=== PATIENT | female | born 2000 | race Caucasian/White ===

== ENCOUNTER 2022-07-30 11:50 | Inpatient (IN) | payer OTHER, SELFPAY ==
[2022-07-30] VITALS (13 sets, daily range): BP systolic 109–139; BP diastolic 55–93; PULSE 62–90; TEMP 36–36.3; O2SAT 94–98; BMI 37.7
--- NOTE | 2022-07-30 12:09 | PCM.HP.OB ---
HPI - General General Date of Admission: 07/30/22 HPI Narrative WILLIS DE LEON, is a 22 F who presents at 39w2d for induction of labor. Seen in office for visit and heart rate late deceleration on NST. complicated by GDMA1, maternal obesity. Maternal Data Information Final VAZQUEZ: 08/04/22 Final VAZQUEZ Source: LMP Gestational age: 39w2d [facility] Medical History (Updated 07/30/22 @ 17:18 by Sarina Garcia CNM) Gestational diabetes Home Medications PNV #[id number] 1 cap PO.IVFORM DAILY 07/30/22 [History Last Taken 07/30/22 07:00] aspirin 81 mg chewable tablet 1 tab PO DAILY prevent preclampsia 07/30/22 [History Last Taken 07/30/22 07:00] Allergy/AdvReac Type Severity Reaction Status Date / Time No Known Allergies Allergy Verified 07/30/22 12:37 Surgical History (Updated 07/30/22 @ 12:45 by Pilar Leon) History of surgery Social History Smoking Status: Former smoker History Elective abortions Hx Para 0 Spontaneous abortions Hx # Term Pregnancies Ectopic pregnancies Hx # Pregnancies Multiple births # of living children NST FHR Rate Baby A Baseline: 155 Variability:: Moderate Accelerations:: 15 x 15 Decelerations:: None NST Reactive:: Yes FHR Category:: Category I Uterine Activity:: None ROS Constitutional Constitutional: Reports systems reviewed and no addt'l complaints, except as documented; Denies headache(s) Eyes Eyes: Denies acute decrease in peripheral vision, blurry vision or change in vision ENT HEENT: Reports systems reviewed and no addt'l complaints, except as documented Cardiovascular Cardiovascular: Denies chest pain or dizziness Respiratory/Chest Respiratory/Chest: Denies cough, dyspnea, dyspnea on exertion, shortness of breath at rest or shortness of breath with exertion Gastrointestinal Gastrointestinal: Denies abdominal pain, diarrhea, nausea or vomiting Genitourinary Genitourinary: Denies abdominal discomfort Musculoskeletal Musculoskeletal: Denies limited range of motion Integumentary Integumentary: Reports systems reviewed and no addt'l complaints, except as documented Neurologic Neurologic: Reports systems reviewed and no addt'l complaints, except as documented Psychiatric Psychiatric: Reports systems reviewed and no addt'l complaints, except as documented Endocrine Endocrinology: Reports systems reviewed and no addt'l complaints, except as documented Hematologic/Lymphatic Hematologic/Lymphatic: Reports systems reviewed and no addt'l complaints, except as documented Allergic/Immunologic Allergic/Immunologic: Reports systems reviewed and no addt'l complaints, except as documented Physical Exam Const alert and oriented x3 General Appearance: cooperative Orientation / Consciousness: awake, oriented to person, oriented to place and oriented to time Exam Limitations: no limitations HEENT normocephalic Head and Scalp: normal to inspection, normocephalic and atraumatic Face and Sinus: normal facial exam Eyes General Eye: normal appearance of both eyes Neck full ROM Chest Chest: symmetrical chest wall rise Resp normal respiratory effort and normal air movement Auscultation: clear to auscultation bilaterally Cardio regular rate, regular rhythm, S1 normal heart sound, S2 normal heart sound, no murmurs, no rub, no gallops and no clicks GI normal to inspection, nondistended, normoactive bowel sounds and non-tender appearance of the vagina normal Narrative: Shepherd placed without difficulty into cervical os, patient tolerated well. Bladder / Kidney Exam: no CVA tenderness Manual OB Exam: estimated gestational size appropriate, presentation cephalic, dilated 1cm, effaced 60% and station -2 Back/Spine normal ROM Extremity normal to inspection and full ROM Skin no rashes or lesions noted Neuro oriented x3, CN's II-XII intact bilaterally and moves all extremities Sensorium / Orientation: awake, alert and oriented to person Motor Exam: clonus absent Deep Tendon Reflexes: Rt Patellar (L4): 2+ and Lt Patellar (L4): 2+ Labs Labs Labs: Blood Type B POSITIVE Antibody Screen NEGATIVE Hct 40.4 % (37-47) Hgb 13.0 g/dL (12.0-15.0) HIV negative HBsAG negative HepC negative B Positive RPR negative GBS negative Rubella Immune GC/CT negative Assessment & Plan (1) Obesity affecting : (2) GDM, class A1: (3) Encounter for induction of labor: PLAN: Plan 1) Admit to labor and delivery 2) Routine labs 3) Diabetic protocol 4) Epidural for pain management 5) Cytotec PO with shepherd for cervical ripening and then pitocin 6) collaborative physician and notified of patient status
[2022-07-30] MEDS: 0.9% Normal Saline Single 100 ML IV.SOLN. INTRA-UTER (12:20)
[2022-07-30] MEDS: Lactated Ringers 1,000 ML 50 ML IV (12:20)
[2022-07-30 12:31] LABS: Absolute Neutrophil Count 8.2 X10^3/uL (2.0-7.7); Basophil# 0.03 X10^3/uL; Basophil% 0.3 % (0-1); Eosinophil# 0.02 X10^3/uL; Eosinophils% 0.2 % (0-5); Hematocrit 40.4 % (37-47); Mean Corp Hgb Conc 32.2 g/dL (32-36); Mean Corpuscular Hgb 28.8 pg (27.0-32.0); Mean Corpuscular Volume 89.4 fL (81-99); Mean Platelet Vol. 11.4 fl (6.2-12.0); Monocyte# 0.94 X10^3/uL; Monocyte% 8.4 % (0-10); NRBC Flagged by Analyzer 0 % (0-5); Neutrophil # 8.21 X10^3/uL (2.7-7.7); Neutrophil % 73.4 % (47-70); Platelet Count 324 K/mm3 (150-450); RBC Distribution Width CV 14.7 % (11.6-14.6); RBC Distribution Width SD 48.1 fl (35.1-43.9); Red Blood Count 4.52 M/mm3 (4.2-5.4); White Blood Count 11.2 K/mm3 (4.4-11.0)
[2022-07-30] MEDS: miSOPROStol 25 MCG TABLET PO (12:47)
[2022-07-30 13:45] LABS: Bedside Glucose 112 mg/dL (74-106)
[2022-07-30 14:46] LABS: Bedside Glucose 94 mg/dL (74-106)
[2022-07-30 15:46] LABS: Bedside Glucose 81 mg/dL (74-106)
[2022-07-30] MEDS: Oxytocin 15 Units/NS 250ml 15 UNITS/250 ML IV.SOLN 2 UNITS IV (18:19)
[2022-07-30 20:16] LABS: Bedside Glucose 95 mg/dL (74-106)
[2022-07-30] MEDS: Mag Hydrox/Al Hydrox/Simeth 30 ML UDC PO (23:55)
[2022-07-31] VITALS (69 sets, daily range): BP systolic 87–138; BP diastolic 48–95; PULSE 62–114; RESP 15–20; TEMP 35.7–37.6; O2SAT 96–100
[2022-07-31] MEDS: LACTATED RINGERS 500 ML 999 ML IV ×3 (00:17→04:30)
[2022-07-31] MEDS: fentaNYL-bupivacaine (epidural) 100 ML BAG EPIDURAL ×3 (01:12→08:29)
[2022-07-31 01:21] LABS: Bedside Glucose 100 mg/dL (74-106)
[2022-07-31] MEDS: Lactated Ringers 1,000 ML 200 ML IV (03:40)
[2022-07-31 04:06] LABS: Bedside Glucose 98 mg/dL (74-106)
[2022-07-31 08:11] LABS: Bedside Glucose 92 mg/dL (74-106)
--- NOTE | 2022-07-31 08:51 | PCM.PN.BLA ---
Progress Note pt seen at bedside, Resting comfortably with Epidural in place. VE performed- Large forebag- AROM perform- large amt of clear fluid- 3-4/70/-3. IUPC and IFM placed. Continue pitocin at this time.
[2022-07-31 12:11] LABS: Bedside Glucose 72 mg/dL (74-106)
[2022-07-31] MEDS: Acetaminophen 500 MG Tablet PO (12:45)
[2022-07-31] MEDS: Sodium Citrate/Citric Acid 30 ML UDC PO (12:45)
--- NOTE | 2022-07-31 13:02 | PN_ITS ---
Progress Note Patient seen at bedside, resting comfortably with epidural in place. Pitocin was shut off hours ago due to persistent late decelerations and prolonged decelerations. Vaginal exam was performed again by myself patient is 4 cm/70%/- 3 unable to continue Pitocin. She has a category 2 tracing with Pitocin on decision at this time to proceed with a primary section. Patient was counseled on the risk benefits and alternatives. Patient would like to proceed at this time. OR staff was notified. Preoperative antibiotics 2 g of Ancef and 500 mg of azithromycin were ordered.
[2022-07-31] MEDS: Cefazolin 2 GM in 0.9% Normal Saline 100 ML IV (13:40)
--- NOTE | 2022-07-31 14:22 | OP.PCM_ITS ---
Details Operative Information Date of Procedure: 07/31/22 Pre-Operative Diagnosis: 39.3 weeks gestations, Category 2 FHR , GDMA1, Post-Operative Diagnosis: same, live female Indications Narrative: Patient was admitted to [facility] for late decelerations on nonstress test on 05/30/2023. She underwent induction of labor she had repetitive late decelerations with Pitocin. We had to turn the Pitocin on and off. On 07/31/2022 she was still 3 to 4 cm Pitocin had to be turned off due to prolonged decelerations as well as late decelerations. At this time decision was made to proceed with a primary section. Classification: SUHA Procedure Type: low transverse configuration consultant #1: Archana Donahue Type of Anesthesia: Epidural Antibiotic Given: Ancef 2 grams IV x1 and Zithromax 500 mg/5 mL X1 Drain: [place] to straight drain Estimated Blood Loss: 750 Fluids Replaced: 700 Procedure Start Time: 13:42 Procedure Stop Time: 14:18 Time of Delivery: 13:46 Findings Description of Procedure: After informed consent was obtained the patient was taken the operating room. She was then placed in the supine position. She was prepped and draped in the normal sterile fashion. Epidural Anesthesia was found to be adequate. At this time a Pfannenstiel skin incision was made with a knife was carried down to the underlying layer of the fascia. The fascial incision was then extended laterally using traction. attention was then turned to the superior aspect of the fascial edge was grasped with 2 straight Sarah clamps tented up and the rectus muscle dissected off sharply using curved Cardoza scissor. Rectus muscles were then in the midline bluntly and peritoneum was entered sharply. Gentle opposing traction was placed. At this time the vesicouterine peritoneum was identified. Scalpel was used to make a uterine incision in a low transverse fashion. The uterus was then entered bluntly gentle opposing traction was placed to extend this incision. 's head was brought to the uterine incision was delivered atraumatically. Cord was clamped and cut infant was handed to the waiting nursery team. The Placenta was removed from the uterus. The uterus was then removed from the abdominal cavity. The uterus was cleared of all clots and debris using a lap. At this time the uterine incision was reapproximated using #1 Vicryl in a running locked fashion. small extension to right side noted. hemostatic after sutured with 1-0 vicryl in running locked fashion. Hemostasis was appreciated. Posterior cul-de-sac was then cleared of all clots and debris. Uterus was placed back in the abdominal cavity. Gutters were cleared of all clots and debris. Uterine incision was reevaluated and noted to be of excellent hemostasis. Gonzalo placed over uterie incision. At this time the peritoneum was grasped with Kellys reapproximated using #2 Vicryl suture in a running fashion. Gonzalo placed over recuts muscle. Fascia was then reapproximated using #1 Vicryl in a running fashion. gonzalo placed in subq layer and bovie used to coagulate any small oozing. Subcu layer was reapproximated with #2 0 plain gut suture in an interrupted fashion. Subcu layer was closed using 4-0 Monocryl in subcu fashion. Dry sterile dressing was applied. Instrument lap needle count correct ?2. Anticipated normal postoperative course. Presentation: Positive for Vertex Amniotic Membrane Rupture Type: Spontaneous Amniotic Fluid Description: Clear Placental Delivery Description: Expressed Placenta Disposition: [facility] Cord Vessel Description: 3 Vessels Cord Entanglement: None A Gender: Female (1 minute): 8 (5 minute): 9 Delayed Cord Clamping: Yes Complications Risks of Surgery Discussed w/Patient: Bleeding, Anesthesia Risks, Infection and Injury to surrounding structure(s) including bowel and bladder Complications: none
[2022-07-31] MEDS: Oxytocin 15 Units/NS 250ml 15 UNITS/250 ML IV.SOLN 83 UNITS IV (14:45)
[2022-07-31] MEDS: Ketorolac 30 MG/ML Syringe IV ×2 (16:30→22:09)
[2022-07-31] MEDS: Lactated Ringers 1,000 ML 100 ML IV (16:33)
[2022-07-31] MEDS: Acetaminophen 500 MG Tablet 1000 MG PO (18:48)
[2022-07-31] MEDS: 0.9% Saline Lock 10 ML Syringe IV (22:09)
[2022-08-01] VITALS (8 sets, daily range): BP systolic 87–108; BP diastolic 40–69; PULSE 73–93; RESP 16–18; TEMP 36–36.3; O2SAT 96–98
[2022-08-01] MEDS: Acetaminophen 500 MG Tablet 1000 MG PO ×4 (00:51→19:50)
--- NOTE | 2022-08-01 01:00 | NURSING ---
Some duramorph checks were documented under vital signs.
[2022-08-01] MEDS: Enoxaparin 40 MG/0.4 ML Syringe SC (01:53)
[2022-08-01] MEDS: Ketorolac 30 MG/ML Syringe IV ×2 (04:38→10:14)
[2022-08-01] MEDS: 0.9% Saline Lock 10 ML Syringe IV ×2 (04:38→10:19)
[2022-08-01 04:58] LABS: Hematocrit 28.1 % (37-47); Hemoglobin 9.1 g/dL (12.0-15.0); Mean Corp Hgb Conc 32.4 g/dL (32-36); Mean Corpuscular Hgb 29.4 pg (27.0-32.0); Mean Corpuscular Volume 90.6 fL (81-99); Mean Platelet Vol. 11.2 fl (6.2-12.0); Platelet Count 230 K/mm3 (150-450); RBC Distribution Width CV 15.1 % (11.6-14.6); White Blood Count 17.9 K/mm3 (4.4-11.0)
[2022-08-01 06:26] LABS: Bedside Glucose 86 mg/dL (74-106)
--- NOTE | 2022-08-01 08:33 | PCM.PN.OB ---
Subjective Subjective Patient seen at bedside. with support. Pain controlled. Ambulating and voiding without difficulty. Denies headache, vision changes, dizziness, SOB or CP. Desires discharge home tomorrow. Objective Data Objective Data Vital Signs: Vital Signs Temp Pulse Resp BP Pulse Ox O2 Del Method 97.2 F L 77 16 100/55 L 98 Room Air 08/01/22 03:43 08/01/22 03:43 08/01/22 03:43 08/01/22 03:55 08/01/22 03:43 08/01/22 03:43 Oxygen Delivery Method Room Air Weight: 206 lb 5.643 oz Body Mass Index (BMI) 37.7 Intake & Output: Intake and Output for Last 24 Hours 07/30/22 07/31/22 08/01/22 23:59 23:59 23:59 Intake Total 17.64 / 17.64 5582.12 / 5582.12 Output Total 800 / 800 2150 / 2150 300 / 300 Balance -782.36 / -782.36 3432.12 / 3432.12 -300 / -300 Lab / Micro Data Result Diagrams: 08/01/22 04:45 Labs: Laboratory Results - last 24 hr 07/31/22 11:50: POC Glucose 72 L 08/01/22 04:45: WBC 17.9 H, RBC 3.10 L, Hgb 9.1 L, Hct 28.1 L, MCV 90.6, MCH 29.4, MCHC 32.4, RDW Std Deviation 50.0 H, RDW Coeff of Timo 15.1 H, Plt Count 230, MPV 11.2 08/01/22 06:07: POC Glucose 86 ROS Eyes Eyes: Denies blurry vision, change in vision or spots in vision ENT HEENT: Denies dizziness or headache(s) Cardiovascular Cardiovascular: Denies abdominal pain, chest pain or dyspnea Respiratory/Chest Respiratory/Chest: Denies cough, dyspnea, shortness of breath at rest or shortness of breath with exertion Gastrointestinal Gastrointestinal: Denies abdominal pain, diarrhea or vomiting Genitourinary Genitourinary: Denies change in urinary stream, difficulty urinating or dysuria Musculoskeletal Musculoskeletal: Reports none Integumentary Integumentary: Denies rash Neurologic Neurologic: Denies dizziness, headache(s), memory loss or weakness Assessment & Plan (1) GDM, class A1: (2) Obesity affecting : (3) Status post primary low transverse section: PLAN: Plan POD 1 Primary Section Pain control support Anticipate discharge home tomorrow
[2022-08-01] MEDS: Senna/Docusate Sodium 1 Tablet PO (10:17)
[2022-08-01] MEDS: Ibuprofen 600 MG Tablet PO ×2 (17:53→23:58)
[2022-08-02 01:30] VITALS: BP 96/68; PULSE 81; RESP 15; TEMP 36.7
[2022-08-02] MEDS: Acetaminophen 500 MG Tablet 1000 MG PO ×2 (01:35→07:52)
[2022-08-02] MEDS: Enoxaparin 40 MG/0.4 ML Syringe SC (02:41)
[2022-08-02] MEDS: Ibuprofen 600 MG Tablet PO (06:09)
[2022-08-02 07:54] VITALS: BP 109/70; PULSE 76; RESP 14; TEMP 36.2; O2SAT 96
--- NOTE | 2022-08-02 08:47 | PCM.PN.OB ---
Subjective Subjective The patient is doing well. She desires discharge today. Pain is well controlled. She is ambulating and voiding without difficulty. She is tolerating regular diet without nausea or vomiting. She denies lightheadedness, dizziness, chest pain, shortness of breath, leg pain. Lochia is normal. Objective Data Objective Data Vital Signs: Vital Signs Temp Pulse Resp BP Pulse Ox O2 Del Method 97.1 F L 76 14 109/70 96 Room Air 08/02/22 07:54 08/02/22 07:54 08/02/22 07:54 08/02/22 07:54 08/02/22 07:54 08/02/22 07:54 Oxygen Delivery Method Room Air Weight: 206 lb 5.643 oz Body Mass Index (BMI) 37.7 Intake & Output: Intake and Output for Last 24 Hours 07/31/22 08/01/22 08/02/22 23:59 23:59 23:59 Intake Total 5582.12 / 5582.12 Output Total 2150 / 2150 550 / 550 Balance 3432.12 / 3432.12 -550 / -550 Lab / Micro Data Result Diagrams: 08/01/22 04:45 Physical Exam Const alert and no apparent distress General Appearance: comfortable Resp normal respiratory effort GI soft to palpation GI Narrative: ATTP, dressing c/d/i Assessment & Plan (1) Status post primary low transverse section: PLAN: Patient is postoperative day 2 from a section. She desires discharge today. Meeting milestones to go home. Discharge instructions reviewed and to follow-up in the office next week.
--- NOTE | 2022-08-02 08:53 | DCINST_ITS ---
Discharge Instructions Diet Discharge Diet: No restrictions Activity Discharge Activity: May Drive (Once you are no longer taking pain medication, and you feel strong enough to slam on a brake or turn a steering wheel sharply) May resume sexual activity in: 6 weeks Ice area for (Minutes): 15 Weight Bearing Status: Weight bearing as tolerated Lifting Restrictions: nothing heavier than baby Dressing / Incision Call your doctor if your incision/area has: Continuous Slow Oozing, Sudden Increased Bleeding, Increased Pain/ Swelling, Increased Redness, Foul Smelling Discharge and Swelling at the incision site Call your doctor if you observe: Fever of 101 or Higher, Coldness, Increased Pain, Numbness or Tingling, Change in Color, Inability to urinate, Inability to have a bowel movement, Using more than 1 pad per hour, Shortness of breath, Dizziness, Fainting spells, Swelling in the ankles, Chest pain, Increased palpitations (irregular heartbeat), Calf discomfort and Uncontrolled pain Suture Line Care: Avoid Pulling/Pushing and Avoid Pinching/Bending Remove Dressing in: 4 days Cleanse incision/area with: Soap & Water Follow Up Care When: 1 week for incision check 6 weeks for exam Test Results: Test results from this visit will be discussed in further detail at your follow- up appointment, if applicable. Discharge Plan Admission Admit Date/Time: 07/30/22 11:50 Primary Reason for Your Visit: delivery Attending Provider: Sarina Garcia Primary Care Provider: Rafaela Koehler Primary Instructions Patient Instructions: After a , Section Dc Discharge Orders/Prescriptions Prescriptions: New ibuprofen 600 mg tablet 600 mg PO Q6H PRN (Reason: pain) Qty: 30 0RF oxycodone-acetaminophen [Percocet] 5-325 mg tablet 1 tab PO Q6H PRN (Reason: pain) 7 Days Qty: 15 0RF docusate sodium [Colace] 100 mg capsule 100 mg PO BID Qty: 30 0RF Continued PNV #[id number] 1 cap PO.IVFORM DAILY Discontinued aspirin [Baby Aspirin] 81 mg Tablet,Chewable 1 tab PO DAILY Referrals / Follow Up: Care Physician,No Primary [Primary Care Provider] - Disposition Disposition (needs filled in before D/C Order can be placed): Home, Self Care
[2022-08-02] MEDS: Senna/Docusate Sodium 1 Tablet PO (09:21)
[2022-08-02 11:05] VITALS: RESP 16
--- NOTE | 2022-08-09 08:26 | DS.PCM_ITS ---
Providers Date of Admission: 07/30/22 Date of Discharge: 08/02/22 Primary Care Physician: No Primary Care Phys Reason For Visit: PRIMARY C SECTION Diagnosis Discharge Diagnosis (1) Status post primary low transverse section: Status: Acute Code(s): Z98.891 - History of uterine scar from previous surgery Plan: Patient is postoperative day 2 from a section. She desires discharge today. Meeting milestones to go home. Discharge instructions reviewed and to follow-up in the office next week. Medications at Discharge Home Medications PNV #[id number] 1 cap PO.IVFORM DAILY 07/30/22 docusate sodium 100 mg capsule (Colace) 100 mg PO BID #30 caps 08/02/22 ibuprofen 600 mg tablet 600 mg PO Q6H PRN pain #30 tabs 08/02/22 oxycodone-acetaminophen 5 mg-325 mg tablet (Percocet) 1 tab PO Q6H PRN pain 7 days #15 tabs 08/02/22 Hospital Course Operations section Summary of Care Provided Hospital Course: Pt presented for 39 wk IOL. H/o obesity and A1GDM. Underwent section for category 2 tracing remote from delivery. See op report for details. Dis charged home in good condition. Weight / BMI Weight Weight: 206 lb 5.643 oz Body Mass Index (BMI) 37.7 ABG / Lab / Microbiology Data Result Diagrams: 08/01/22 04:45 D/C Instructions Discharge Diet: No restrictions May resume sexual activity in: 6 weeks Ice area for (Minutes): 15 Weight Bearing Status: Weight bearing as tolerated Call your doctor if your incision/area has: Continuous Slow Oozing, Sudden Increased Bleeding, Increased Pain/ Swelling, Increased Redness, Foul Smelling Discharge and Swelling at the incision site Call your doctor if you observe: Fever of 101 or Higher, Coldness, Increased Pain, Numbness or Tingling, Change in Color, Inability to urinate, Inability to have a bowel movement, Using more than 1 pad per hour, Shortness of breath, Dizziness, Fainting spells, Swelling in the ankles, Chest pain, Increased palpitations (irregular heartbeat), Calf discomfort and Uncontrolled pain Suture Line Care: Avoid Pulling/Pushing and Avoid Pinching/Bending Cleanse incision/area with: Soap & Water When: 1 week for incision check 6 weeks for exam Meaningful Use Info Meaningful Use Diagnoses (Choose all that apply): None applicable Discharge Plan Admission Admit Date/Time: 07/30/22 11:50 Primary Reason for Your Visit: delivery Attending Provider: Sarina Garcia Primary Care Provider: Care Physician,No Primary Instructions Patient Instructions: After a , Section Dc Discharge Orders/Prescriptions Prescriptions: New ibuprofen 600 mg tablet 600 mg PO Q6H PRN (Reason: pain) Qty: 30 0RF oxycodone-acetaminophen [Percocet] 5-325 mg tablet 1 tab PO Q6H PRN (Reason: pain) 7 Days Qty: 15 0RF docusate sodium [Colace] 100 mg capsule 100 mg PO BID Qty: 30 0RF Continued PNV #14-[id number] 1 cap PO.IVFORM DAILY Discontinued aspirin [Baby Aspirin] 81 mg Tablet,Chewable 1 tab PO DAILY Referrals / Follow Up: Care Physician,No Primary [Primary Care Provider] - Disposition Disposition (needs filled in before D/C Order can be placed): Home, Self Care
== END 2022-08-02 11:20 | disposition home or self-care (01) | DRG 788 ==
PROVIDERS: Obstetrics & Gynecology; Admitting Provider Advanced Practice Midwife; Referring Provider Advanced Practice Midwife; Visit Provider Advanced Practice Midwife
DX: O76 Abnormality in fetal heart rate and rhythm complicating labor and delivery (principal); E66.9 Obesity, unspecified; O24.429 Gestational diabetes mellitus in childbirth, unspecified control; O99.214 Obesity complicating childbirth; Z37.0 Single live birth; Z3A.39 39 weeks gestation of pregnancy
CPT/HCPCS: 59025; 59050; 82962; 85025; 85027; 86850; 86900; 86901; 99221; 99252; J7120; A4216; G0378; G0463; J2405

== ENCOUNTER 2025-02-06 11:01 | Emergency (ER) | payer OTHER, SELFPAY ==
[2025-02-06 11:02] VITALS: BP 126/107; PULSE 88; RESP 18; TEMP 36.7; O2SAT 100; BMI 28.3
--- NOTE | 2025-02-06 11:25 | CM.ED ---
Date of referral: 02/06/25 Reason for referral: No PCP (PCP) on file Referred by: Social Work Identification Patient provided consent to social work visit. Ship Erector inquired about a PCP at which point, patient stated she is established with Dr. Cristine Vera. Sociak Worker will alert registration so that patient's medical record can be updated. Paty Chapman, [employer]OR [employer], PHARMACY TECHNICIAN ASSISTANT
--- OUTSIDE RECORDS SUMMARY | 2025-02-06 12:24 | XMS RPT_ITS | CCD ---
Author Organization [facility] Care Team Providers Care Cardiology Fellow Name Role Phone Payton Nice MD Primary Care Provider RY CASTRO DO Attending Unavailable RY CASTRO DO Primary Care Unavailable RY CASTRO DO Admitting Unavailable Payton Nice MD Primary Care Provider Payton Nice MD Primary Care Provider Sarina Garcia Admitting Unavailable Sarina Garcia Attending Unavailable Sarina Garcia Referring Unavailable Care Physician, No Primary Primary Care Unava ilable Unavailable Primary Care Provider Unavailabl e Knoble MEASUREMENT AND SENSING TECHNICIAN.RECREATION ASSISTANT, Onesimo Primary Care Provider Mary MEASUREMENT AND SENSING TECHNICIAN.RECREATION ASSISTANT, Onesimo Primary Care Provider STAN TAYLOR Attending UnavailINDIGO Huston Referring Unavailable PROVIDER, UNKNOWN Primary Care Unavailable DHRUV BONILLA Referring Unavailabl e PROVIDER, UNKNOWN Primary Care Unavailable KNOBLE, ONESIMO Referring Unavailable KNOBLE, ONESIMO Primary Care Unavailable KNOBLEONESIMO Attending Unavailable KNOBLE, ONESIMO Primary Care Unavailable KNOBLE, ONESIMO Primary Care Unavailable STEPHANIE, CHANDNI Referring Unavailable STEPHANIE, CHANDNI Attending Unavailable KNOBLE, ONESIMO Primary Care Unavailable HUI SY Attending Unavailable KNOBLE, ONESIMO Primary Care Unavailable KNOBLE, ONESIMO Primary Care Unavailable KNOBLE, ONESIMO Primary Care Unavailable DHRUV BONILLA Attending Unavailabl e KNOBLE, ONESIMO Primary Care Unavailable KNOBLE, ONESIMO Referring Unavailable KNOBLE, ONESIMO Primary Care Unavailable KNOBLE, ONESIMO Attending Unavailable RADHA GONZALEZ Attending Unavailabl e KNOBLE, ONESIMO Primary Care Unavailable ANETTE CRONIN Referring Unavailable KNOBLE, ONESIMO Primary Care Unavailable Medications Current Medications Medication Drug Class(es) Dates Sig (Normalized) Sig (Original) acetaminophen 325 mg / oxyCODONE hydrochloride 5 mg oral tablet (1 source) Opioid Agonist Start: 08-02-2022 take 1 tablet by mouth every six hours Oxycodone-Acetami nophen (Percocet) 5-325 mg tablet Active 1 TABLET PO EVERY 6 HOURS 15 August 02, 2022 Start: 08-02-2022 take 1 tablet by jana th every six hours Oxycodone-Acetaminophen (Percocet) 5-325 mg tablet Active 1 TABLET PO EVERY 6 HOURS 15 August 02, 2022 amoxicillin 875 mg oral tablet (5 sources) Penicillin-class Antibacterial Start: 2022 End: 05-30-2022 take 1 tablet by mouth twice daily amoxicillin (AMOXIL) 875 mg tablet Indications: Acute sinusitis, recurrence not specified, unspecified location Take 1 tablet by mouth twice daily for 10 days. 20 tablet 0 2022 05/30/2022 Active Comment on above: Take 1 tablet by jana th twice daily for 10 days. Blood-Glucose Meter (2 sources) Start: 2022 End: 05-21-2022 Blood-Glucose Meter Indications: Abnormal maternal glucose tolerance, antepartum 1 Each as directed for 1 day. 1 Each 0 2022 05/21/2022 Active Comment on above: 1 Each as directed f or 1 day. clotrimazole 10 mg/ml topical cream (3 sources) Azole Antifungal Start: 08-29-2022 End: 09-12-2022 clotrimazole (LOTRIMIN, CLOTRIM) 1 % cream Indications: Yeast infection of nipple, Apply to affected area twice daily for 14 days. 28 g 0 08/29/2022 09/12/2022 Active Comment on above: Apply to affected ar ea twice daily for 14 days. dicloxacillin 500 mg oral capsule (3 sources) Penicillin-class Antibacterial Start: 11-01-2022 End: 11-11-2022 take 1 capsule by mouth four times daily dicloxacillin (DYNAPEN) 500 mg capsule Take 1 capsule by mouth four times daily for 10 days. 40 capsule 0 11/01/2022 11/11/2022 Active Start: 08-29-2022 End: 09-08-2022 take 1 capsule by mouth four times daily dicloxacillin (DYNAPEN) 500 mg capsule Indications: Mastitis, left, acute Take 1 capsule by mouth four times daily for 10 days. 40 capsule 0 08/29/2022 09/08/2022 Active Comment on above: Take 1 capsule by [facility] four times daily for 10 days. docusate sodium 100 mg oral capsule (1 source) Start: 08-02-19 take 1 capsule by mouth twice daily Docusate Sodium (Colace) 100 mg capsule Active 100 MG PO TWICE A DAY August 02, 2022 12:00am doxycycline hyclate 100 mg oral tablet (1 source) Tetracycline-class Drug Start: 11-19-19 End: 11-26-19 24 take 1 tablet by mouth twice daily doxycycline (VIBRA-TABS) 100 mg tablet Take 1 tablet by mouth two times a day for 7 days. 14 tablet 0 11/19/2023 11/26/2023 Active Ethinyl Estradiol / Ferrous fumarate / Norethindrone (10 sources) Estrogen Start: 01-20-20 End: 12-22-19 take 1 tablet by mouth once daily Norethin Anibal-Eth Estrad-FE (JUNEL FE 1.5, 28,) 1.5 mg-30 mcg (21)/75 mg (7) tablet Take 1 tablet by mouth once daily. 84 tablet 3 01/20/2024 12/21/2024 Active fluconazole 150 mg oral tablet (1 source) Azole Antifungal Start: 12-05-19 End: 12-06-19 take 1 tablet by mouth once daily fluconazole (DIFLUCAN) 150 mg tablet Take 1 tablet by mouth once daily for 1 day. 1 tablet 0 12/05/2023 12/06/2023 Active iv contrast (will be provided with radiology test) (2 sources) Start: 02-19-20 End: 02-20-20 iv contrast (will be provided with radiology test) Indications: Other specified disorders of kidney and ureter MRI Kidney Inject, intravenously, once for 1 dose. No IV access, insert saline lock prior to the beginning of sedation, infusion, injection of imaging exam. Discontinue saline lock post exam. If Pt. has a central line or IVAD, may access for administration according to line specific nursing protocol. Once exam is complete flush line and de-access according to line specific nursing protocol in the MR contrast administration guidelines link. 1 Each 0 02/18/2023 02/19/2023 Active Start: 02-18-2023 End: 02-18-2023 iv contrast (will be provide d with radiology test) Indications: Other specified disorders of kidney and ureter MRI Kidney Inject, intravenously, once for 1 dose. No IV access, insert saline lock prior to the beginning of sedation, infusion, injection of imaging exam. Discontinue saline lock post exam. If Pt. has a central line or IVAD, may access for administration according to line specific nursing protocol. Once exam is complete flush line and de-access according to line specific nursing protocol in the MR contrast administration guidelines link. 1 Each 0 02/18/2023 02/18/2023 Discontinued Comment on above: MRI Kidney Inject, i ntravenously, once for 1 dose. No IV access, insert saline lock prior to the beginning of sedation, infusion, injection of imaging exam. Discontinue saline lock post exam. If Pt. has a central line or IVAD, may access for administration according to line specific nursing protocol. Once exam is complete flush line and de-access according to line specific nursing protocol in the MR contrast administration guidelines link. linaclotide 0.145 mg oral capsule (16 sources) Guanylate Cyclase-C Agonist Start: 01-29-20 End: 02-28-20 24 take 1 capsule by mouth once daily in the morning linaclotide (LINZESS) 145 mcg capsule Indications: Irritable bowel syndrome, unspecified type Take 1 capsule by mouth daily at 6 am. 30 capsule 01/29/2024 Active Start: 10-08-2023 End: 01-20-2024 take 1 capsule by mouth once daily in the morning linaclotide (LINZESS) 145 mcg capsule Indications: Irritable bowel syndrome, unspecified type Take 1 capsule by mouth daily at 6 am. 30 capsule 0 10/08/2023 01/20/2024 Discontinued Comment on above: Take 1 capsule by mo uth daily at 6 am. nitrofurantoin, macrocrystals 25 mg / nitrofurantoin, monohydrate 75 mg oral capsule (2 sources) Nitrofuran Antibacterial Start: 05-25-20 End: 05-30-20 take 1 capsule by mouth twice daily nitrofurantoin monohydrate and macrocrystal (MACROBID) 100 mg capsule Indications: Acute UTI Take 1 capsule by mouth two times a day for 5 days. 10 capsule 05/25/2024 05/30/2024 Active Start: 10-20-2023 End: 10-25-2023 take 1 capsule by mouth twice daily nitrofurantoin monohydrate and macrocrystal (MACROBID) 100 mg capsule Indications: Acute cystitis with hematuria Take 1 capsule by mouth two times a day for 5 days. 10 capsule 0 10/20/2023 10/25/2023 Active Comment on above: Take 1 capsule by [facility] two times a day for 5 days. omeprazole 20 mg delayed release oral capsule (17 sources) Proton Pump Inhibitor Start: 01-29-2024 End: 02-28-2024 take 1 capsule by mouth once daily omeprazole (PRILOSEC) 20 mg capsule Indications: Irritable bowel syndrome, unspecified type Take 1 capsule by mouth once daily. 30 capsule 01/29/2024 Active Start: 10-08-2023 End: 01-20-2024 take 1 capsule by mouth once daily omeprazole (PRILOSEC) 20 mg capsule Indications: Irritable bowel syndrome, unspecified type Take 1 capsule by mouth once daily. 30 capsule 0 10/08/2023 01/20/2024 Discontinued Comment on above: Take 1 capsule by [facility] once daily. PNV #14-iron-FA#1-dha-d ocusate (1 source) Start: 07-30-2022 take 1 capsule by mouth once daily PNV #14-iron-FA#1-dha- docusate Active 1 CAP PO.IVFORM DAILY July 30, 2022 12:00am Completed/Discontinued Medications Medication Drug Class(es) Dates Sig (Normalized) Sig (Original) acetaminophen 325 mg oral tablet (5 sources) End: 12-19-2021 take 2 tablets by mouth every six hours as needed acetaminophen (TYLENOL) 325 mg tablet Take 650 mg by mouth every 6 hours as needed. 0 12/19/2021 Discontinued Comment on above: Take 650 mg by mouth every 6 hours as needed. aspirin 81 mg chewable tablet (20 sources) Platelet Aggregation Inhibitor, Nonsteroidal Anti-inflammatory Drug Start: 07-30-2022 End: 08-02-2022 take 1 tablet by mouth once daily Aspirin (Baby Aspirin) 81 mg Tablet,Chewable Discontinued 1 TABLET PO DAILY July 30, 2022 12:00am August 02, 2022 8:49am Start: 01-17-2022 End: 08-06-2022 take 1 capsule by mouth once daily aspirin 81 mg cap Take 1 capsule by mouth once daily. 30 capsule 5 01/17/2022 08/06/2022 Discontinued (Other) Comment on above: Take 1 capsule by [facility] once daily. diphenhydrAMINE (8 sources) Histamine-1 Receptor Antagonist End: 08-06-2022 diphenhydramine HCl (UNISOM, DIPHENHYDRAMINE, ORAL) Take by mouth. 0 08/06/2022 Discontinued (Other) diphenhydramine HCl (UNISOM, DIPHENHYDRAMINE, ORAL) Take by mouth. 0 Active Comment on above: Take by mouth. Ethinyl Estradiol / Norethindrone (20 sources) Estrogen Start: 01-13-2023 End: 01-20-2024 take 1 tablet by mouth once daily Norethindrone Acet-Ethinyl Est 1-20 mg-mcg per tablet Take 1 tablet by mouth once daily. 84 tablet 3 01/13/2023 01/20/2024 Discontinued Start: 01-13-2023 End: 03-22-2024 take 1 tablet by mouth once daily Norethindrone Acet-Ethinyl Est 1-20 mg-mcg per tablet Take 1 tablet by mouth once daily. 84 tablet 3 01/13/2023 03/22/2024 Active Start: 01-13-2023 End: 01-13-2024 take 1 tablet by mouth once daily Norethindrone Acet-Ethinyl Est 1-20 mg-mcg per tablet Take 1 tablet by mouth once daily. 84 tablet 3 01/13/2023 01/13/2024 Active Start: 08-15-2020 End: 12-19-2021 take 1 tablet by mouth once daily Norethindrone Acet-Ethinyl Est 1-20 mg-mcg per tablet Take 1 tablet by mouth once daily. 63 tablet 5 08/15/2020 12/19/2021 Discontinued Start: 08-15-2020 take 1 tablet by jana once daily Norethindrone Acet-Ethinyl Est 1-20 mg-mcg per tablet Take 1 tablet by mouth once daily. 63 tablet 5 08/15/2020 Active Comment on above: Take 1 tablet by jana once daily. ibuprofen 800 mg oral tablet (7 sources) Nonsteroidal Anti-inflammatory Drug Start: 11-01-2022 End: 11-01-2022 ibuprofen 800 mg tab(s) (MOTRIN) Start: 08-02-2022 take 600 mg by mouth every six hours Ibuprofen Active 600 MG PO EVERY 6 HOURS August 02, 2022 12:00am End: 12-19-2021 take 1 tablet by mouth every six hours as needed ibuprofen (ADVIL) 200 mg tablet Take 200 mg by mouth every 6 hours as needed. 0 12/19/2021 Discontinued Comment on above: Take 200 mg by mouth every 6 hours as needed. meloxicam 7.5 mg oral tablet (5 sources) Nonsteroidal Anti-inflammatory Drug Start: 10-28-19 End: 12-20-19 22 take 1 tablet by mouth once daily meloxicam (MOBIC) 7.5 mg tablet Take 1 tablet by mouth once daily. 30 tablet 2 10/27/2020 12/19/2021 Discontinued Comment on above: Take 1 tablet by jana once daily. norethindrone 0.35 mg oral tablet (6 sources) Start: 09-10-19 23 End: 01-14-20 23 take 1 tablet by mouth once daily Norethindrone, Contraceptive, (ORTHO MICRONOR) 0.35 mg tablet Take 1 tablet by mouth once daily. 28 tablet 1 11/19/2022 01/13/2023 Discontinued Comment on above: Take 1 tablet by jana once daily. nystatin 100 unt/mg / triamcinolone acetonide 0.001 mg/mg topical ointment (4 sources) Polyene Antifungal, Corticosteroid Start: 12-04-19 24 End: 01-20-20 24 nystatin-triamcinolo ne (MYCOLOG) ointment Indications: Vaginal discomfort Apply sparingly to perineum twice daily for irritation/infection . 30 g 0 12/04/2023 01/20/2024 Discontinued multivitamin (CLASSIC ) 28 mg iron- 800 mcg tab(s) (20 sources) Start: 05-22-20 take 1 tablet by mouth once daily multivitamin (CLASSIC ) 28 mg iron- 800 mcg tab(s) Take 1 tablet by mouth once daily. 30 tablet 5 05/22/2022 Active End: 05-22-2022 take 1 tablet by mouth once daily multivitamin (CLASSIC ) 28 mg iron- 800 mcg tab(s) Take 1 tablet by mouth once daily. 0 05/22/2022 Discontinued take 1 tablet by jana th once daily multivitamin (CLASSIC ) 28 mg iron- 800 mcg tab(s) Take 1 tablet by mouth once daily. 0 Active Comment on above: Take 1 tablet by jana th once daily. tropicamide 10 mg/ml ophthalmic solution (2 sources) Anticholinergic Start: 06-30-2023 End: 06-30-2023 tropicamide 1 % 1 Drop (MYDRIACYL) Start: 10-25-2021 End: 10-25-2021 tropicamide 0.5 % 1 Drop (MY DRIACYL) Problems Active Problems Problem Classification Problem Date Documented Da te Episodic/Chronic Contraceptive and procreative management (1 source) Oral contraception; Translations: [Encounter for surveillance of contraceptive pills] 01-20-2024 Episodic Diseases of white blood cells (2 sources) Leukocytosis; Translations: [Elevated white blood cell count, unspecified] Onset: 02-12-2024 02-12-2024 Chronic Genitourinary symptoms and ill-defined conditions (2 sources) Increased frequency of urination; Translations: [Frequency of micturition] 10-20-2023 Episodic Headache; including migraine (1 source) Migraine with aura; Translations: [Migraine with aura, not intractable, without status migrainosus] Chronic Immunizations and screening for infectious disease (2 sources) Needs influenza immunization; Translations: [Encounter for immunization] Episodic Menstrual disorders (3 sources) Mid-cycle bleeding; Translations: [Ovulation bleeding] Onset: 01-23-2024 01-20-2024 Chronic Miscellaneous mental health disorders (2 sources) Sleep walking disorder; 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]] Onset: 02-12-2024 02-12-2024 Chronic Nonmalignant breast conditions (2 sources) Acute mastitis; Translations: [Mastitis without abscess] Episodic Other aftercare (1 source) Surgical follow-up; Translations: [Encounter for follow-up examination after completed treatment for conditions other than malignant neoplasm] Episodic Other complications of ; puerperium affecting management of mother (1 source) Obstetric nipple infection with complication; Translations: [Infection of nipple associated with the puerperium] Episodic Other complications of (2 sources) Maternal obesity complicating , childbirth and the puerperium, antepartum; Translations: [Obesity complicating , second trimester] Chronic Other complications of (1 source) Obesity complicating , unspecified trimester; Translations: [Obesity complicating , childbirth, or the puerperium, unspecified as to episode of care or not applicable] Chronic Other complications of (2 sources) Urinary tract infection in ; Translations: [Unspecified infection of urinary tract in , second trimester] Episodic Other complications of (1 source) High risk ; Translations: [Supervision of high risk , unspecified, third trimester] Episodic Other diseases of kidney and ureters (1 source) Disorder of kidney and/or ureter; Translations: [Other specified disorders of kidney and ureter] 02-18-2023 Chronic Other diseases of kidney and ureters (2 sources) Complex renal cyst; Translations: [Cyst of kidney, acquired] 03-21-2023 Episodic Other eye disorders (1 source) Bilateral vitreous floaters; Translations: [Other vitreous opacities, bilateral] 06-30-2023 Chronic Other female genital disorders (1 source) Vaginal discomfort; Translations: [Unspecified condition associated with female genital organs and menstrual cycle] 12-04-2023 Episodic Other gastrointestinal disorders (3 sources) Irritable bowel syndrome; Translations: [Irritable bowel syndrome without diarrhea] 10-08-2023 Chronic Other gastrointestinal disorders (2 sources) Irritable bowel syndrome without diarrhea; Translations: [Irritable bowel syndrome, unspecified type] Onset: 10-08-2023 Chronic Other nervous system disorders (1 source) Postoperative pain ; Translations: [Other acute postprocedural pain] Episodic Other upper respiratory infections (2 sources) Acute sinusitis; Translations: [Acute sinusitis, unspecified] Episodic Residual codes; unclassified (2 sources) Gestation period, 11 weeks; Translations: [11 weeks gestation of ] Episodic Residual codes; unclassified (1 source) Gestation period, 12 weeks; Translations: [12 weeks gestation of ] Episodic Residual codes; unclassified (1 source) Gestation period, 16 weeks; Translations: [16 weeks gestation of ] Episodic Residual codes; unclassified (2 sources) Gestation period, 20 weeks; Translations: [20 weeks gestation of ] Episodic Residual codes; unclassified (1 source) Gestation period, 24 weeks; Translations: [24 weeks gestation of ] Episodic Residual codes; unclassified (1 source) Gestation period, 28 weeks; Translations: [28 weeks gestation of ] Episodic Residual codes; unclassified (1 source) Gestation period, 32 weeks; Translations: [32 weeks gestation of ] Episodic Residual codes; unclassified (1 source) Gestation period, 33 weeks; Translations: [33 weeks gestation of ] Episodic Residual codes; unclassified (2 sources) Gestation period, 35 weeks; Translations: [35 weeks gestation of ] Episodic Residual codes; unclassified (1 source) Gestation period, 36 weeks; Translations: [36 weeks gestation of ] Episodic Residual codes; unclassified (2 sources) Gestation period, 37 weeks; Translations: [37 weeks gestation of ] Episodic Residual codes; unclassified (1 source) Gestation period, 39 weeks; Translations: [39 weeks gestation of ] Episodic Residual codes; unclassified (1 source) History of uterine scar from previous surgery; Translations: [Other postprocedural status] Episodic Skin and subcutaneous tissue infections (1 source) Abscess; Translations: [Cutaneous abscess, unspecified] 11-19-2023 Episodic Urinary tract infections (2 sources) Acute cystitis; Translations: [Acute cystitis with hematuria] 10-20-2023 Episodic Past or Other Problems Problem Classification Problem Date Documented Da te Episodic/Chronic Abdominal pain (20 sources) Right lower quadrant pain; Translations: [Right lower quadrant pain] Onset: 05-23-2023 02-09-2023 Episodic Blindness and vision defects (19 sources) Bilateral hyperopia of eyes; Translations: [Hypermetropia, bilateral] Onset: 05-30-2020 Resolved: 10-25-2021 Episodic Diabetes or abnormal glucose tolerance complicating ; childbirth; or the puerperium (20 sources) Abnormal glucose level; Translations: [Abnormal glucose complicating ] Onset: 05-17-2022 Resolved: 08-06-2022 05-17-2022 Episodic Other aftercare (1 source) Other nursing home (current) drug therapy; Translations: [Medication management] Onset: 02-12-2024 Episodic Other complications of (20 sources) Obesity; Translations: [Obesity complicating , unspecified trimester] Onset: 12-06-2021 Resolved: 08-06-2022 Chronic Other injuries and conditions due to external causes (20 sources) Bone injury; Translations: [Other injury of unspecified body region, initial encounter] Onset: 11-27-2020 Resolved: 03-15-2022 11-27-2020 Episodic Other non-traumatic joint disorders (20 sources) Pain in left knee; Translations: [Pain in joint, lower leg] Onset: 09-15-2020 Resolved: 03-15-2022 09-15-2020 Episodic Other and delivery including normal (20 sources) Normal ; Translations: [Encounter for supervision of normal first , unspecified trimester] Onset: 03-15-2022 Resolved: 08-06-2022 Episodic Other screening for suspected conditions (not mental disorders or infectious disease) (13 sources) Patient encounter status; Translations: [Encounter for screening for malignant neoplasm of cervix] Onset: 02-12-2024 Episodic Screening and history of mental health and substance abuse codes (2 sources) Encounter for screening for depression; Translations: [Encounter for screening examination for other mental health and behavioral disorders] Onset: 02-12-2024 Episodic Results Test Name Value Interpretation Reference Range Facil ity Bacteria Ur Culton Bacteria identified Cx Nom (U) ORGANISM ID: 1 >=100,000 CFU/ml Escherichia coli ORGANISM ID: 1 (ESCHERICHIA COLI) ANTIBIOTIC INTERPRETATION PIOTR STATUS REFERENCE RANGE Ampicillin S 8 F Susceptible <=8 , Intermediate >8 , Resistant >16 Cefazolin S <=4 F Susceptible 0-16 , Intermediate <0 or >16 , Resistant >16 For uncomplicated urinary tract infections, cefazolin results can be used to predict susceptibility or resistance to cephalexin. Ceftriaxone S <=1 F Susceptible <=1 , Intermediate >1 , Resistant >=4 Cefepime S <=1 F Susceptible <=2 , Susceptible-Dose Dependent >2 , Resistant >=16 Ertapenem S <=0.5 F Susceptible <=0.5 , Intermediate >.5 , Resistant >1 Meropenem S <=0.25 F Susceptible <=1 , Intermediate >1 , Resistant >2 Ampicillin/Sulbact S <=2 F Susceptible <=8 , Intermediate >8 , Resistant >16 Piperacillin/Tazobac S <=4 F Susceptible <16 , Susceptible-Dose Dependent >=16 , Resistant >=32 Gentamicin S <=1 F Susceptible <=2 , Intermediate >2 , Resistant >=8 Tobramycin S <=1 F Susceptible <4 , Intermediate >=4 , Resistant >=8 Trimeth sulfameth S <=20 F Susceptible <=40 , Resistant >40 Ciprofloxacin S <=0.25 F Susceptible <0.5 , Intermediate >=.5 , Resistant >=1 Nitrofurantoin S <=16 F Susceptible <=32 , Intermediate >32 , Resistant >64 Abnormal [facility] Comment on above: Performed By: #### 6 30-4 ####[facility] [id number] [address] [place] CNOVon 05-25-2024 CNOV Office Visit ([facility]) WILLAM DE LEON ([id number]) 2000 F Date Time Provider Department 05/25/24 8:00 AM HEBERT WATTS During your visit today, we recorded the following information about you: Temperature Pulse Respiration Blood pressure 97.8 degrees 118/minute 18/minute 120/72 Weight 81.2 kg Hebert Watts APRN.CNP 05/25/2024 8:19 AM Signed This note was created using Hotreaderriter. Subjective Willam De Leon is a 24 year old female. HPI Pt complains of three days of UTI type symptoms including lower back pain urinary burning and frequency. She does note that she occasionally gets urinary tract infections but not very frequently. Review of Systems Constitutional: Positive for fever. Gastrointestinal: Negative for nausea and vomiting. Genitourinary: Positive for dysuria and frequency. Objective BP 120/72 Pulse 118 Temp 36.6 ?C (97.8 ?F) Resp 18 Wt 81.2 kg (179 lb 0.2 oz) LMP 01/05/2024 (Approximate) SpO2 98% BMI 33.82 kg/m? Physical Exam Vitals and nursing note reviewed. Constitutional: General: She is not in acute distress. Appearance: Normal appearance. She is not ill-appearing. HENT: Head: Normocephalic. Pulmonary: Effort: Pulmonary effort is normal. Musculoskeletal: General: Normal range of motion. Cervical back: Normal range of motion. Skin: General: Skin is warm and dry. Neurological: General: No focal deficit present. Mental Status: She is alert. Psychiatric: Mood and Affect: Mood normal. Behavior: Behavior normal. Assessment and Plan ASSESSMENT/PLAN: 1. Urinary frequency - ICD9: 788.41, ICD10: R35.0 (primary diagnosis) As below - UA DIP, URINE (POC) - URINE CULTURE 2. Acute UTI - ICD9: 599.0, ICD10: N39.0 acute - UA positive for sridhar esterase and nitrates - Send urine for culture - Begin treatment with Macrobid 100 mg BID for 5 days - Patient education for prevention given - NITROFURANTOIN MONOHYDRATE AND MACROCRYSTAL 100 MG ORAL CAP Hebert Watts APRN.CNP Referring Provider: SELF [200] Allergies As of Date: 05/25/2024 (No Known Allergies) Date Reviewed: 05/25/2024 Reviewed by: Hebert Watts APRN.RECREATION ASSISTANT - Fully Assessed Reason for Visit: Urinary Frequency [1086] Cmt: low back pain x 3 days Primary Visit Diagnosis:Urinary frequency [R35.0] Other Visit Diagnosis:Acute UTI [N39.0] Order(s):UA DIP, URINE (POC) [1204953] Order #: [id number] #:[id number] URINE CULTURE [SQURCUL] Order #: [id number]. #:[id number] nitrofurantoin monohydrate and macrocrystal (MACROBID) 100 mg capsuleTake 1 capsule by mouth two times a day for 5 days.Disp: 10 capsuleRfl: 0 Prescriptions as of 05/25/2024 - nitrofurantoin monohydrate and macrocrystal (MACROBID) 100 mg capsule Take 1 capsule by mouth two times a day for 5 days. - linaclotide (LINZESS) 145 mcg capsule Take 1 capsule by mouth daily at 6 am. - omeprazole (PRILOSEC) 20 mg capsule Take 1 capsule by mouth once daily. - Norethin Anibal-Eth Estrad-FE (,) 1.5 mg-30 mcg (21)/75 mg (7) tablet Take 1 tablet by mouth once daily. Problem List As Of Date 05/25/2024 Noted Resolved Myopia, bilateral [H52.13] 05/30/2020 10/25/2021 Acute pain of left knee [M25.562] 09/15/2020 03/15/2022 Bone bruise [T14.8XXA] 11/27/2020 03/15/2022 Obesity during [O99.210] 12/06/2021 08/06/2022 Encounter for supervision of normal first pregn*03/15/2022 08/06/2022 Abnormal glucose complicating [O99.81*05/17/2022 2022 Gestational diabetes mellitus, class A1 [O24.41*2022 08/06/2022 Lower abdominal pain [R10.30] 05/23/2023 Prescriptions ordered this encounter Disp Refills Start End NITROFURANTOIN MONOHYDRATE AND MACROCR* 10 c* 0 05/25/2024 05/30/2024 Route: ORAL Sig: Take 1 capsule by mouth two times a day for 5 days. Encounter Status:Closed by HEBERT WATTS on 05/25/24 Normal [facility] UA DIP, URINE (POC)on 2023 BILIRUBIN UA (POCT) Small Abnormal Negative [facility] CLARITY UA (POCT) Clear [facility] COLOR UA (POCT) [place] [facility] GLUCOSE UA (POCT) 100 mg/dL Abnormal Negative [facility] Hemoglobin Ql (U) Moderate Abnormal Negative [facility] Interpretation and review of laboratory results Abnormal [facility] KETONE UA (POCT) Trace Negative mg/dL [facility] LEUKOC[facility] (POCT) Large Abnormal Negative [facility] NITRITE UA (POCT) Positive Abnormal Negative [facility] PH UA (POCT) 7.0 4.5 - 8.0 [facility] Protein Ql (U) >=300 Abnormal Negative mg/dL [facility] SPECIFIC GRAVITY UA (POCT) 1.020 1.005 - 1.030 [facility] UROBILINOGEN UA (POCT) 2.0 Abnormal Normal E.U./dL [facility] Location:[address], [place], [place], [id number] [place] [address] POINT OF CARE [facility] CNCOon 02-13-2024 CNCO Letter Text Normal [facility] CNPNon 02-13-2024 ALINEN Telephone (ARNAV) WILLAM DE LEON ([id number]) 2000 F Date Time Provider Department 02/13/24 ONESIMO LINN During your visit today, we recorded the following information about you: Onesimo Linn APRN.RECREATION ASSISTANT 02/13/2024 8:41 AM Signed Please let patient know her cholesterol is elevated. I recommend a low fat low cholesterol diet. Her labs are otherwise normal. King Sy MA 02/13/2024 8:58 AM Signed Patient notified and voiced understanding. Mailed cholesterol letter to patient. King Sy MA Allergies As of Date: 02/13/2024 (No Known Allergies) Date Reviewed: 02/12/2024 Reviewed by: Susan Carrillo MA - Fully Assessed Reason for Visit: Results [95] Prescriptions as of 02/13/2024 - linaclotide (LINZESS) 145 mcg capsule Take 1 capsule by mouth daily at 6 am. - omeprazole (PRILOSEC) 20 mg capsule Take 1 capsule by mouth once daily. - Norethin Anibal-Eth Estrad-FE (,) 1.5 mg-30 mcg (21)/75 mg (7) tablet Take 1 tablet by mouth once daily. Problem List As Of Date 02/13/2024 Noted Resolved Myopia, bilateral [H52.13] 05/30/2020 10/25/2021 Acute pain of left knee [M25.562] 09/15/2020 03/15/2022 Bone bruise [T14.8XXA] 11/27/2020 03/15/2022 Obesity during [O99.210] 12/06/2021 08/06/2022 Encounter for supervision of normal first pregn*03/15/2022 08/06/2022 Abnormal glucose complicating [O99.81*05/17/2022 2022 Gestational diabetes mellitus, class A1 [O24.41*2022 08/06/2022 Lower abdominal pain [R10.30] 05/23/2023 Encounter Status:Closed by KING SY on 02/13/24 Normal [facility] CBC W Auto Differential pane l (Bld)on 02-12-2024 Basophils (Bld) [#/Vol] 0.04 10*3/uL [facility] Basophils/100 WBC (Bld) 0.4 % [facility] Differential cell count method Nom (Bld) Auto [facility] Eosinophils (Bld) [#/Vol] 0.10 10*3/uL [facility] Eosinophils/100 WBC (Bld) 1.0 % [facility] Erythrocyte distribution width (RBC) [Ratio] 13.0 % 11.5 - 15.0 % [facility] Hematocrit (Bld) [Volume fraction] 42.8 % 36.0 - 46.0 % [facility] Hemoglobin (Bld) [Mass/Vol] 13.9 g/dL 11.5 - 15.5 g/dL [facility] Immature granulocytes (Bld) [#/Vol] 0.03 10*3/uL [facility] Immature granulocytes/100 WBC (Bld) 0.3 % [facility] Lymphocytes (Bld) [#/Vol] 2.72 10*3/uL [facility] Lymphocytes/100 WBC (Bld) 27.2 % [facility] MCH (RBC) [Entitic mass] 30.2 pg 26.0 - 34.0 pg [facility] MCHC (RBC) [Mass/Vol] 32.5 g/dL 30.5 - 36.0 g/dL [facility] MCV (RBC) [Entitic vol] 92.8 fL 80.0 - 100.0 fL [facility] Monocytes (Bld) [#/Vol] 0.70 10*3/uL [facility] Monocytes/100 WBC (Bld) 7.0 % [facility] Neutrophils (Bld) [#/Vol] 6.41 10*3/uL [facility] Neutrophils/100 WBC (Bld) 64.1 % [facility] Nucleated RBC (Bld) [#/Vol] [facility] Nucleated RBC/100 WBC (Bld) [Ratio] 0.0 % /100 WBC [facility] Platelet mean volume (Bld) [Entitic vol] 11.4 fL 9.0 - 12.7 fL [facility] Platelets (Bld) [#/Vol] 323 10*3/uL [facility] RBC (Bld) [#/Vol] 4.61 10*6/uL 3.90 - 5.20 m/uL [facility] WBC (Bld) [#/Vol] 10.00 10*3/uL [facility] Basophils (Bld) [#/Vol] 0.04 10*3/uL Normal <0.11 [facility] Comment on above: Order Comment: Speci men Type: BLOOD SPECIMENOrdering Facility: [facility] Address: [address] [place] [address] Performed By: #### 5 7021-8 ####[facility]CL[facility] [id number] [place] [address] [place] Basophils/100 WBC (Bld) 0.4 % Normal [facility] Comment on above: Order Comment: Speci men Type: BLOOD SPECIMENOrdering Facility: [facility] Address: [address] [place] [address] Performed By: #### 5 7021-8 ####[facility] [id number] [place] [address] [place] Differential cell count method Nom (Bld) Auto Normal [facility] Comment on above: Order Comment: Speci men Type: BLOOD SPECIMENOrdering Facility: [facility] Address: [address] [place] [address] Performed By: #### 5 7021-8 ####[facility] [id number] [place] [address] [place] Eosinophils (Bld) [#/Vol] 0.10 10*3/uL Normal <0.46 [facility] Comment on above: Order Comment: Speci men Type: BLOOD SPECIMENOrdering Facility: [facility] Address: [address] [place] [address] Performed By: #### 5 7021-8 ####[facility] [id number] [place] [address] [place] Eosinophils/100 WBC (Bld) 1.0 % Normal [facility] Comment on above: Order Comment: Speci men Type: BLOOD SPECIMENOrdering Facility: [facility] Address: [address] [place] [address] Performed By: #### 5 7021-8 ####[facility] [id number] [place] [address] [place] Erythrocyte distribution width (RBC) [Ratio] 13.0 % Normal 11.5-15.0 [facility] Comment on above: Order Comment: Speci men Type: BLOOD SPECIMENOrdering Facility: [facility] Address: [address] [place] [address] Performed By: #### 5 7021-8 ####[facility] [id number] [place] [address] [place] Hematocrit (Bld) [Volume fraction] 42.8 % Normal 36.0-46.0 [facility] Comment on above: Order Comment: Speci men Type: BLOOD SPECIMENOrdering Facility: [facility] Address: [address] [place] [address] Performed By: #### 5 7021-8 ####[facility]IA [id number] [place] [address] [place] Hemoglobin (Bld) [Mass/Vol] 13.9 g/dL Normal 11.5-15.5 [facility] Comment on above: Order Comment: Speci men Type: BLOOD SPECIMENOrdering Facility: [facility] Address: [address] [place] [address] Performed By: #### 5 7021-8 ####[facility]IA [id number] [place] [address] [place] Immature granulocytes (Bld) [#/Vol] 0.03 10*3/uL Normal <0.10 [facility] Comment on above: Order Comment: Speci men Type: BLOOD SPECIMENOrdering Facility: [facility] Address: [address] [place] [address] Performed By: #### 5 7021-8 ####[facility] [id number] [place] [address] [place] Immature granulocytes/100 WBC (Bld) 0.3 % Normal [facility] Comment on above: Order Comment: Speci men Type: BLOOD SPECIMENOrdering Facility: [facility] Address: [address] [place] [address] Performed By: #### 5 7021-8 ####[facility] [id number] [place] [address] [place] Lymphocytes (Bld) [#/Vol] 2.72 10*3/uL Normal 1.00-4.00 [facility] Comment on above: Order Comment: Speci men Type: BLOOD SPECIMENOrdering Facility: [facility] Address: [address] [place] [address] Performed By: #### 5 7021-8 ####[facility] [id number] [place] [address] [place] Lymphocytes/100 WBC (Bld) 27.2 % Normal [facility] Comment on above: Order Comment: Speci men Type: BLOOD SPECIMENOrdering Facility: [facility] Address: [address] [place] [address] Performed By: #### 5 7021-8 ####[facility] [id number] [place] [address] [place] MCH (RBC) [Entitic mass] 30.2 pg Normal 26.0-34.0 [facility] Comment on above: Order Comment: Speci men Type: BLOOD SPECIMENOrdering Facility: [facility] Address: [address] [place] [address] Performed By: #### 5 7021-8 ####[facility] [id number] [place] [address] [place] MCHC (RBC) [Mass/Vol] 32.5 g/dL Normal 30.5-36.0 [facility] Comment on above: Order Comment: Speci men Type: BLOOD SPECIMENOrdering Facility: [facility] Address: [address] [place] [address] Performed By: #### 5 7021-8 ####[facility] [id number] [place] [address] [place] MCV (RBC) [Entitic vol] 92.8 fL Normal 80.0-100.0 [facility] Comment on above: Order Comment: Speci men Type: BLOOD SPECIMENOrdering Facility: [facility] Address: [address] [place] [address] Performed By: #### 5 7021-8 ####[facility] [id number] [place] [address] [place] Monocytes (Bld) [#/Vol] 0.70 10*3/uL Normal <0.87 [facility] Comment on above: Order Comment: Speci men Type: BLOOD SPECIMENOrdering Facility: [facility] Address: [address] [place] [address] Performed By: #### 5 7021-8 ####[facility] [id number] [place] [address] [place] Monocytes/100 WBC (Bld) 7.0 % Normal [facility] Comment on above: Order Comment: Speci men Type: BLOOD SPECIMENOrdering Facility: [facility] Address: [address] [place] [address] Performed By: #### 5 7021-8 ####[facility] [id number] [place] [address] [place] Neutrophils (Bld) [#/Vol] 6.41 10*3/uL Normal 1.45-7.50 [facility] Comment on above: Order Comment: Speci men Type: BLOOD SPECIMENOrdering Facility: [facility] Address: [address] [place] [address] Performed By: #### 5 7021-8 ####[facility] [id number] [place] [address] [place] Neutrophils/100 WBC (Bld) 64.1 % Normal [facility] Comment on above: Order Comment: Speci men Type: BLOOD SPECIMENOrdering Facility: [facility] Address: [address] [place] [address] Performed By: #### 5 7021-8 ####[facility]IA [id number] [place] [address] [place] Nucleated RBC (Bld) [#/Vol] 10*3/uL Normal <0.01 [facility] Comment on above: Order Comment: Speci men Type: BLOOD SPECIMENOrdering Facility: [facility] Address: [address] [place] [address] Performed By: #### 5 7021-8 ####[facility]IA [id number] [place] [address] [place] Nucleated RBC/100 WBC (Bld) [Ratio] 0.0 /100 WBC Normal [facility] Comment on above: Order Comment: Speci men Type: BLOOD SPECIMENOrdering Facility: [facility] Address: [address] [place] [address] Performed By: #### 5 7021-8 ####[facility] [id number] [place] [address] [place] Platelet mean volume (Bld) [Entitic vol] 11.4 fL Normal 9.0-12.7 [facility] Comment on above: Order Comment: Speci men Type: BLOOD SPECIMENOrdering Facility: [facility] Address: [address] [place] [address] Performed By: #### 5 7021-8 ####[facility] [id number] [place] [address] [place] Platelets (Bld) [#/Vol] 323 10*3/uL Normal 150-400 [facility] Comment on above: Order Comment: Speci men Type: BLOOD SPECIMENOrdering Facility: [facility] Address: [address] [place] [address] Performed By: #### 5 7021-8 ####[facility]CL[facility] [id number] [place] [address] [place] RBC (Bld) [#/Vol] 4.61 10*6/uL Normal 3.90-5.20 [facility] Comment on above: Order Comment: Speci men Type: BLOOD SPECIMENOrdering Facility: [facility] Address: [address] [place] [address] Performed By: #### 5 7021-8 ####[facility] [id number] [place] [address] [place] WBC (Bld) [#/Vol] 10.00 10*3/uL Normal 3.70-11.00 [facility] Comment on above: Order Comment: Speci men Type: BLOOD SPECIMENOrdering Facility: [facility] Address: [address] [place] [address] Performed By: #### 5 7021-8 ####[facility]IA [id number] [place] [address] [place] CNOVon 02-12-2024 CNOV Office Visit (JEREMIASWS) TIFFANIEWILLAM FRYE ([id number]) 2000 F Date Time Provider Department 02/12/24 11:00 AM ONESIMO LINN During your visit today, we recorded the following information about you: Pulse Respiration Blood pressure Weight 71/minute 14/minute 114/74 83 kg Onesimo Linn, JUAN JOSÉ.RECREATION ASSISTANT 02/12/2024 11:02 AM Signed Chief Complaint Patient presents with: 6 Month Exam HPI Willam De Leon is a 23 year old female who presents here today for Above Complaints.. Patient presents for routine follow up. Patient reports new onset sleep walking only during her period. Patient reports this has happened the past 2-3 months and she has woke up either with no tampon in when she went to bed or 2 in. Also finding pillow in her bathroom but no memory of putting it there. Past medical history, appointments, medications, allergies reviewed. Previous Medical History PAST MEDICAL HISTORY Diagnosis Date ADHD (attention deficit hyperactivity disorder) Benign paroxysmal positional vertigo 2020 Gestational diabetes mellitus, class A1 2022 Left knee pain Previous Surgical History PAST SURGICAL HISTORY Procedure Laterality Date DELIVERY ONLY 07/31/2022 LTCS COLONOSCOPY 05/23/2023 will need repeated with MAC PAST SURGICAL HISTORY OF wisdom teeth Family History FAMILY HISTORY Problem Relation Age of Onset No Known Problems Mother Diabetes Father Heart Father No Known Problems Sister No Known Problems Sister No Known Problems Sister No Known Problems Brother No Known Problems Maternal Grandmother No Known Problems Maternal Grandfather Cataract Paternal Grandmother Diabetes Paternal Grandmother Dementia Paternal Grandmother No Known Problems Paternal Grandfather Patient Allergies ALLERGIES No Known Allergies Current Medications Current Outpatient Medications on File Prior to Visit Medication Sig linaclotide (LINZESS) 145 mcg capsule Take 1 capsule by mouth daily at 6 am. omeprazole (PRILOSEC) 20 mg capsule Take 1 capsule by mouth once daily. Norethin Anibal-Eth Estrad-FE (,) 1.5 mg-30 mcg (21)/75 mg (7) tablet Take 1 tablet by mouth once daily. No current facility-administere d medications on file prior to visit. Social History Social History Tobacco Use Smoking status: Never Smokeless tobacco: Never Vaping Use Vaping Use: Never used Substance Use Topics Alcohol use: No Drug use: No Review of Symptoms REVIEW OF SYSTEMS SEE HPI EXAM: BP 114/74 Pulse 71 Resp 14 Wt 83 kg (183 lb) LMP 01/05/2024 (Approximate) BMI 34.58 kg/m? PHYSICAL EXAMINATION: General appearance: Well appearing, alert, in no acute distress, well-hydrated, well nourished. Lungs: Lungs clear to auscultation. No wheezing, rhonchi, rales. Heart: RRR without murmur, gallop, or rubs. No ectopy Neuro: Gait normal. Reflexes normal and symmetric. Sensation grossly intact. Health Maintenance List Depression Screening Never done Anxiety Screening Never done Covid-19 Vaccine(1 - 24 season) due on 05/09/2024 Influenza Vaccine(1) due on 03/21/2024 Cervical Cancer Screening due on 12/19/2024 DTaP,Tdap,Td Vaccine(10 - Td or Tdap) due on 06/03/2032 Hepatitis B Vaccine Completed HPV Vaccine Completed Hepatitis C Screening Discontinued HIV Screening Discontinued ASSESSMENT/PLAN: 1. Leukocytosis, unspecified type - ICD9: 288.60, ICD10: D72.829 (primary diagnosis) - COMPLETE BLOOD COUNT AND DIFFERENTIAL 2. Medication management - ICD9: V58.69, ICD10: Z79.899 - COMPREHENSIVE METABOLIC PANEL 3. Screening for diabetes mellitus - ICD9: V77.1, ICD10: Z13.1 - HEMOGLOBIN A1C 4. Encounter for lipid screening for cardiovascular disease - ICD9: V77.91, V81.2, ICD10: Z13.220, Z13.6 - LIPID PANEL, NONFASTING 5. Sleep walking - ICD9: 307.46, ICD10: F51.3 - CONSULT TO SLEEP MEDICINE - ADULT 6. Screening for depression - ICD9: V79.0, ICD10: Z13.31 - DEPRESSION SCREENING 7. Encounter for screening examination for other mental health and behavioral disorders - ICD9: V79.8, ICD10: Z13.39 - ANXIETY SCREENING Onesimo Linn APRN.RECREATION ASSISTANT Allergies As of Date: 02/12/2024 (No Known Allergies) Date Reviewed: 02/12/2024 Reviewed by: Susan Carrillo MA - Fully Assessed Reason for Visit: 6 Month Exam [189] Primary Visit Diagnosis:Leukocytos is, unspecified type [D72.829] Other Visit Diagnoses:Medication management [Z79.899] Screening for diabetes mellitus [Z13.1] Encounter for lipid screening for cardiovascular disease [Z13.220, Z13.6] Sleep walking [F51.3] Screening for depression [Z13.31] Encounter for screening examination for other mental health and behavioral disorders [Z13.39] Order(s):COMPLETE BLOOD COUNT AND DIFFERENTIAL [SQCBCDIF] Order #: [id number] FUTURE COMPREHENSIVE METABOLIC PANEL [SQCMP] Order #: [id number] (more content not included)... Normal [facility] metabolic 2000 panelon 02-12-2024 Albumin [Mass/Vol] 4.8 g/dL Normal 3.9-4.9 [facility] Comment on above: Order Comment: Speci men Type: BLOOD SPECIMENOrdering Facility: [facility] Address: [address] [place] [address] Performed By: #### 2 4323-8, LIPNF ####[facility]CL[facility] [id number] [place] [address] [place] ALP [Catalytic activity/Vol] 77 U/L Normal 34-123 [facility] Comment on above: Order Comment: Speci men Type: BLOOD SPECIMENOrdering Facility: [facility] Address: [address] [place] [address] Performed By: #### 2 4323-8, LIPNF ####[facility]CL[facility] [id number] [place] [address] [place] ALT [Catalytic activity/Vol] 16 U/L Normal 7-38 [facility] Comment on above: Order Comment: Speci men Type: BLOOD SPECIMENOrdering Facility: [facility] Address: [address] [place] [address] Performed By: #### 2 4323-8, LIPNF ####[facility] [id number] [place] [address] [place] Anion gap [Moles/Vol] 9 mmol/L Normal 8-15 [facility] Comment on above: Order Comment: Speci men Type: BLOOD SPECIMENOrdering Facility: [facility] Address: [address] [place] [address] Performed By: #### 2 4323-8, LIPNF ####[facility]CL[facility] [id number] [place] [address] [place] AST [Catalytic activity/Vol] 15 U/L Normal 13-35 [facility] Comment on above: Order Comment: Speci men Type: BLOOD SPECIMENOrdering Facility: [facility] Address: [address] [place] [address] Performed By: #### 2 4323-8, LIPNF ####[facility] [id number] [place] [address] [place] Bilirubin [Mass/Vol] 0.3 mg/dL Normal 0.2-1.3 [facility] Comment on above: Order Comment: Speci men Type: BLOOD SPECIMENOrdering Facility: [facility] Address: [address] [place] [address] Performed By: #### 2 4323-8, LIPNF ####[facility]CL[facility] [id number] [place] [address] [place] Calcium [Mass/Vol] 9.6 mg/dL Normal 8.5-10.2 [facility] Comment on above: Order Comment: Speci men Type: BLOOD SPECIMENOrdering Facility: [facility] Address: [address] [place] [address] Performed By: #### 2 4323-8, LIPNF ####[facility]CL[facility] [id number] [place] [address] [place] Chloride [Moles/Vol] 106 mmol/L Normal 98-107 [facility] Comment on above: Order Comment: Speci men Type: BLOOD SPECIMENOrdering Facility: [facility] Address: [address] [place] [address] Performed By: #### 2 4323-8, LIPNF ####[facility]CL[facility] [id number] [place] [address] [place] CO2 [Moles/Vol] 25 mmol/L Normal 22-30 [facility] Comment on above: Order Comment: Speci men Type: BLOOD SPECIMENOrdering Facility: [facility] Address: [address] [place] [address] Performed By: #### 2 4323-8, LIPNF ####[facility] [id number] [place] [address] [place] Creatinine [Mass/Vol] 0.80 mg/dL Normal 0.58-0.96 [facility] Comment on above: Order Comment: Omayra mendez Type: BLOOD SPECIMENOrdering Facility: [facility] Address: [address] [place] [address] Performed By: #### 2 4323-8, LIPNF ####[facility] LABIA [id number] [address] Creatinine and Glomerular filtration rate.predicted panel (S/P/Bld) 105 mL/min/1.73m??? Normal >=60 [facility] Comment on above: Order Comment: Omayra mendez Type: BLOOD SPECIMENOrdering Facility: [facility] Address: [address] [place] [address] Result Comment: Jaqui mated Glomerular Filtration Rate (eGFR) is calculated using the 2020 CKD-EPI creatinine equation. This equation utilizes serum creatinine, sex, and age as parameters. The creatinine assay has traceable calibration to isotope dilution-mass spectrometry. Refer to KDIGO guidelines for clinical interpretation. In patients with unstable renal function, e.g. those with acute kidney injury, the eGFR may not accurately reflect actual GFR. Performed By: #### 2 4323-8, LIPBARBARA ####[facility] [id number] [place] [address] [place] Glucose [Mass/Vol] 108 mg/dL High 74-99 [facility] Comment on above: Order Comment: Omayra mendez Type: BLOOD SPECIMENOrdering Facility: [facility] Address: [address] [place] [address] Result Comment: The [place] Diabetes Association (ADA) provides guidance for cutoff values for fasting glucose and random glucose. The ADA defines fasting as no caloric intake for at least 8 hours. Fasting plasma glucose results between 100 to 125 mg/dL indicate increased risk for diabetes (prediabetes). Fasting plasma glucose results greater than or equal to 126 mg/dL meet the criteria for diagnosis of diabetes. In the absence of unequivocal hyperglycemia, results should be confirmed by repeat testing. In a patient with classic symptoms of hyperglycemia or hyperglycemic crisis, random plasma glucose results greater than or equal to 200 mg/dL meet the criteria for diagnosis of diabetes. Reference: Standards of Medical Care in Diabetes 2016, [place] Diabetes Association. Diabetes Care. 2016.39(Suppl 1). Performed By: #### 2 4323-8, LIPNF ####[facility] LABCLIA [id number] [place] [address] [place] Potassium [Moles/Vol] 4.4 mmol/L Normal 3.7-5.1 [facility] Comment on above: Order Comment: Speci men Type: BLOOD SPECIMENOrdering Facility: [facility] Address: [address] [place] [address] Performed By: #### 2 4323-8, LIPNF ####[facility] LABCLIA [id number] [place] [address] [place] Protein [Mass/Vol] 7.5 g/dL Normal 6.3-8.0 [facility] Comment on above: Order Comment: Speci men Type: BLOOD SPECIMENOrdering Facility: [facility] Address: [address] [place] [address] Performed By: #### 2 4323-8, LIPNF ####[facility]CLIA [id number] [place] [address] [place] Sodium [Moles/Vol] 140 mmol/L Normal 136-144 [facility] Comment on above: Order Comment: Speci men Type: BLOOD SPECIMENOrdering Facility: [facility] Address: [address] [place] [address] Performed By: #### 2 4323-8, LIPNF ####[facility] LABCLIA [id number] [place] [id number] [place] Urea nitrogen [Mass/Vol] 8 mg/dL Normal 7-21 [facility] Comment on above: Order Comment: Speci men Type: BLOOD SPECIMENOrdering Facility: [facility] Address: [address] [place] [address] Performed By: #### 2 4323-8, LIPNF ####[facility]CLIA [id number] [place] [address] [place] HbA1c (Bld)on 02-12-2024 Average glucose Estimated from glycated hemoglobin (Bld) [Mass/Vol] 105 mg/dL Normal [facility] Comment on above: Order Comment: Omayra mendez Type: BLOOD SPECIMENOrdering Facility: [facility] Address: [address] [place] [address] Result Comment: eAG: (Estimated average glucose) is a calculated value from HgbA1c and is wholesale representative of the average blood glucose level in the last 2-3 month period. Performed By: #### 5 5454-3 ####[facility] [id number] [address] OF [facility] HbA1c (Bld) [Mass fraction] 5.3 % Normal 4.3-5.6 [facility] Comment on above: Order Comment: Omayra mendez Type: BLOOD SPECIMENOrdering Facility: [facility] Address: [address] [place] [address] Result Comment: [place] Diabetes Association guidelines indicate that patients with HgbA1c in the range 5.7-6.4% are at increased risk for development of diabetes, and intervention by lifestyle modification may be beneficial. HgbA1c greater or equal to 6.5% is considered diagnostic of diabetes. Performed By: #### 5 5454-3 ####[facility] LABCLIA [id number] [place] [address] [place] LIPID PANEL, NONFASTINGon Cholesterol [Mass/Vol] 205 mg/dL High <200 [facility] Comment on above: Order Comment: Omayra mendez Type: BLOOD SPECIMENOrdering Facility: [facility] Address: [address] [place] [address] Result Comment: <200 mg/dL, Desirable 200-239 mg/dL, Borderline high >239 mg/dL, High Performed By: #### 2 4323-8, LIPNF ####[facility]CL[facility] [id number] [address] [place] HDL CHOLESTEROL, NF 36 mg/dL Low >39 [facility] Comment on above: Order Comment: Omayra andrea Type: BLOOD SPECIMENOrdering Facility: [facility] Address: [address] [place] [address] Result Comment: 40-5 9 mg/dL, Acceptable >59 mg/dL, High: Negative risk factor for coronary heart disease <40 mg/dL, Low: Positive risk factor for coronary heart disease Performed By: #### 2 4323-8, LIPNF ####[facility]CLIA [id number] [address] OF [facility] LDL CHOLESTEROL, NF 132 mg/dL High <100 [facility] Comment on above: Order Comment: Omayra [facility] Type: BLOOD SPECIMENOrdering Facility: [facility] Address: [address] [place] [address] Result Comment: <100 mg/dL, Optimal 100-129 mg/dL, Near optimal/above optimal 130-159 mg/dL, Borderline high 160-189 mg/dL, High >189 mg/dL, Very high Secondary prevention optimal LDL Cholesterol levels are recommended to be < 70 mg/dL Performed By: #### 2 4323-8, LIPNF ####[facility]CL[facility] [id number] [place] [address] [place] LDL/HDL RATIO, NF 3.67 mg/dL High <2.54 [facility] Comment on above: Order Comment: Karylars [facility] Type: BLOOD SPECIMENOrdering Facility: [facility] Address: [address] [place] [address] Result Comment: Catherine olivera: 1. National Cholesterol Education Program ATP III Guideline At-A-Glance Quick Desk Reference: National Heart, Lung, and Blood [place]. National Institutes of Health. 2001: NIH Publication No. 01-3305. 2. An International Atherosclerosis Society position paper: global recommendations for the management of dyslipidemia: executive summary, Atherosclerosis. 2014: 232(2):410-413. Performed By: #### 2 4323-8, LIPNF ####[facility]CLIA [id number] [place] [address] [place] NON HDL CHOL, NF 169 mg/dL High <130 [facility] Comment on above: Order Comment: Speci men Type: BLOOD SPECIMENOrdering Facility: [facility] Address: [address] [place] [address] Result Comment: <130 mg/dL, Optimal 130-159 mg/dL, Near optimal/above optimal 160-189 mg/dL, Borderline high 190-219 mg/dL, High >219 mg/dL, Very high Secondary prevention optimal non HDL Cholesterol levels are recommended to be <100 mg/dL Performed By: #### 2 4323-8, LIPNF ####[facility]CLIA [id number] [address] STATES OF [facility] T CHOL/HDL RATIO NF 5.69 mg/dL High <5.10 [facility] Comment on above: Order Comment: Karyi andrea Type: BLOOD SPECIMENOrdering Facility: [facility] Address: [address] [place] [address] Performed By: #### 2 4323-8, LIPNF ####[facility] LABCLIA [id number] [place] [address] [place] TRIGLYCERIDES, NF 187 mg/dL High <150 [facility] Comment on above: Order Comment: Speci men Type: BLOOD SPECIMENOrdering Facility: [facility] Address: [address] [place] [address] Result Comment: <150 mg/dL, Normal 150-199 mg/dL, Borderline high 200-499 mg/dL, High >499 mg/dL, Very high Performed By: #### 2 4323-8, LIPNF ####[facility]CL[facility] [id number] [place] [address] [place] VLDL CHOLESTEROL, NF 37 mg/dL High <30 [facility] Comment on above: Order Comment: Speci men Type: BLOOD SPECIMENOrdering Facility: [facility] Address: [address] [place] [address] Performed By: #### 2 4323-8, LIPNF ####[facility] LABCLIA [id number] [place] [id number] [place] CNPNon 01-29-2024 CNPN Telephone (MEOPRX) WILLAM DE LEON ([id number]) 2000 F Date Time Provider Department 01/29/24 JAQUI BAUGH MEOPRX During your visit today, we recorded the following information about you: Jaqui Baugh [facility] 01/29/2024 2:24 PM Signed Ambulatory Pharmacy Prior Authorization Note Provider Intervention Required?: Yes- [facility] requires prior authorization to be submitted by the provider. EHP Form (Prescription Drug Formulary) Drug: Linzess 145 mcg Formulary Alternatives: N/A Additional Information: As of 01/29/24, [facility] has not received any paperwork for the prior authorization. Please fax completed paperwork to [phone] or email to [email or web address]. [facility] cannot process prior authorizations sent via CoverMyMeds. For questions relating to this submission, please contact [facility] at [phone] Xin Chauhan LPN 01/29/2024 4:35 PM Signed Faxed Linzess Prior Authorization to [facility]. Eyal Beckett, [facility] 02/26/2024 3:35 PM Signed Nic, Pharmacy sent this request on 01/29/24 but [facility] employee health plan states they never received the paperwork. Could you please send paperwork over to [facility] once more. Thank you! Allergies As of Date: 01/29/2024 (No Known Allergies) Date Reviewed: 01/20/2024 Reviewed by: Xin Padilla LPN - Fully Assessed Reason for Visit: Insurance Authorization [[id number]] Cmt: Linzess 145 mcg Prescriptions as of 02/26/2024 - linaclotide (LINZESS) 145 mcg capsule Take 1 capsule by mouth daily at 6 am. - omeprazole (PRILOSEC) 20 mg capsule Take 1 capsule by mouth once daily. - Norethin Anibal-Eth Estrad-FE (,) 1.5 mg-30 mcg (21)/75 mg (7) tablet Take 1 tablet by mouth once daily. Problem List As Of Date 01/29/2024 Noted Resolved Myopia, bilateral [H52.13] 05/30/2020 10/25/2021 Acute pain of left knee [M25.562] 09/15/2020 03/15/2022 Bone bruise [T14.8XXA] 11/27/2020 03/15/2022 Obesity during [O99.210] 12/06/2021 08/06/2022 Encounter for supervision of normal first pregn*03/15/2022 08/06/2022 Abnormal glucose complicating [O99.81*05/17/2022 2022 Gestational diabetes mellitus, class A1 [O24.41*2022 08/06/2022 Lower abdominal pain [R10.30] 05/23/2023 Encounter Status:Closed by XIN CHAUHAN on 01/29/24 [facility] ALINE Telephone (GASTA5) WILLAM DE LEON ([id number]) 2000 F Date Time Provider Department 01/27/24 CARLINEDHRUV HASSAN GASTA5 During your visit today, we recorded the following information about you: Ishan Staples 01/27/2024 9:42 AM Signed Patient called looking for an update on her Linzess. She has been waiting since September Please review and advise. Ishan Gomez [employer] Cornelia Hammonds 01/29/2024 1:42 PM Signed Patient called again today and after doing some investigating the patient told us that [facility] never received the Linzess script and [facility] did not receive the PA for this medication before her Floorhand discontinued the existing script. Called Atiya Chauhan and she placed a new script today and asked me to tell the patient to call back once it gets declined from [facility] notifying her it needs a PA so we can process this SUHA. Xin Chauhan LPN 01/29/2024 4:31 PM Addendum Sent Linzess and omeprazole prescriptions to [facility]. Also, sent Linzess Prior Authorization to [facility]. Allergies As of Date: 01/27/2024 (No Known Allergies) Date Reviewed: 01/20/2024 Reviewed by: Xin Padilla LPN - Fully Assessed Reason for Visit: Medication Problem [65] Cmt: Linzess Insurance Authorization [[id number]] Prescriptions as of 01/29/2024 - linaclotide (LINZESS) 145 mcg capsule Take 1 capsule by mouth daily at 6 am. - omeprazole (PRILOSEC) 20 mg capsule Take 1 capsule by mouth once daily. - Norethin Anibal-Eth Estrad-FE (,) 1.5 mg-30 mcg (21)/75 mg (7) tablet Take 1 tablet by mouth once daily. Problem List As Of Date 01/27/2024 Noted Resolved Myopia, bilateral [H52.13] 05/30/2020 10/25/2021 Acute pain of left knee [M25.562] 09/15/2020 03/15/2022 Bone bruise [T14.8XXA] 11/27/2020 03/15/2022 Obesity during [O99.210] 12/06/2021 08/06/2022 Encounter for supervision of normal first pregn*03/15/2022 08/06/2022 Abnormal glucose complicating [O99.81*05/17/2022 2022 Gestational diabetes mellitus, class A1 [O24.41*2022 08/06/2022 Lower abdominal pain [R10.30] 05/23/2023 Encounter Status:Closed by CORNELIA GUERRA on 01/29/24 Normal [facility] Pelvison 01-26-2024 Indication intermenstrual bleeding. Pelvic pain Impression 1. Normal appearing anteverted uterus that measures 74 mm x 39 mm x 50 mm. 2. Both ovaries are visualized and appear normal. 3. No adnexal masses were observed. 4. There is free fluid visualized in the peritoneal cavity. Recommendations Follow up as clinically indicated. History Medical History Surgery: section x 1 Menstrual History LMP on 01/05/2024. Cycle: irregular cycle Method Transabdominal, transvaginal, 3D ultrasound examination, Color Doppler examination. View: Adequate visualization Uterus Uterus: Visualized Uterus position: anteverted Description of uterine malformations: none Myometrium: heterogeneous Endometrium: normal Cervix details: normal Uterus length 74 mm Uterus width 50 mm Uterus height 39 mm Uterus Vol 76.4 cm Endometrial thickness, total 4.0 mm Fibroids: No fibroids identified Polyps: No polyps identified Right Ovary Rt ovary: Normal Rt ovary morphology: premenopausal normal follicular Rt ovary D1 31 mm Rt ovary D2 24 mm Rt ovary D3 16 mm Rt ovary Vol 6.2 cm Left Ovary Lt ovary: Normal Lt ovary morphology: premenopausal normal follicular Lt ovary D1 27 mm Lt ovary D2 21 mm Lt ovary D3 16 mm Lt ovary Vol 4.6 cm Cul de Sac Visualized. free fluid visualized Largest pool 10.3 mm x 15.0 mm x 18.8 mm. Vol 1.521 ml Performed By: Mikayla Kohli RDMS Read By: Cruzito Kern M.D. MATERNAL MEDICINE [facility] US Pelvison 01-23-2024 Radiology Study observation (narrative) [facility] CNOVon 01-20-2024 CNOV Office Visit (OBGYWM) WILLAM DE LEON ([id number]) 2000 F Date Time Provider Department 01/20/24 2:30 PM CHANDNI BROWN OBGYWM During your visit today, we recorded the following information about you: Blood pressure Weight Last Period 124/70 83 kg 01/05/24 Chandni Brown APRN.RECREATION ASSISTANT 01/20/2024 3:07 PM Signed Credit [employer] Teller offered: Patient declines. Willam De Leon is a 23 year old female who presents for problem visit irregular bleeding . HPI: spotting in the middle of the OCP pack, spotting started on the 18- and still bleeding now. The flow has become heavier and is passing nickel size clots with cramping. 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 History Comments: Sexual Activity: Not Asked; No partner data on record; not asked Contraception: Pill PAST MEDICAL HISTORY Diagnosis Date ADHD (attention deficit hyperactivity disorder) Benign paroxysmal positional vertigo 2019 Gestational diabetes mellitus, class A1 2022 Left knee pain PAST SURGICAL HISTORY Procedure Laterality Date DELIVERY ONLY 07/31/2022 LTCS COLONOSCOPY 05/23/2023 will need repeated with MAC PAST SURGICAL HISTORY OF wisdom teeth FAMILY HISTORY Problem Relation Age of Onset No Known Problems Mother Diabetes Father Heart Father No Known Problems Sister No Known Problems Sister No Known Problems Sister No Known Problems Brother No Known Problems Maternal Grandmother No Known Problems Maternal Grandfather Cataract Paternal Grandmother Diabetes Paternal Grandmother Dementia Paternal Grandmother No Known Problems Paternal Grandfather Social History Tobacco Use Smoking status: Never Smokeless tobacco: Never Vaping Use Vaping Use: Never used Substance Use Topics Alcohol use: No Drug use: No Current Outpatient Medications Medication Sig Norethindrone Acet-Ethinyl Est 1-20 mg-mcg per tablet Take 1 tablet by mouth once daily. nystatin-triamcinolo ne (MYCOLOG) ointment Apply sparingly to perineum twice daily for irritation/infection . (Patient not taking: Reported on 01/20/2024) linaclotide (LINZESS) 145 mcg capsule Take 1 capsule by mouth daily at 6 am. omeprazole (PRILOSEC) 20 mg capsule Take 1 capsule by mouth once daily. No current facility-administere d medications for this visit. Allergies As of Date: 01/20/2024 (No Known Allergies) Fully Assessed 01/20/2024 REVIEW OF SYSTEMS Expanded ROS: N/A Allergies and current medication updated:Yes EXAM: Wt 183 lb (83.0kg) LMP 01/05/2024 GENERAL: pleasant, female in no apparent distress HEENT: Normocephalic, atraumatic, mucus membranes moist, and no lesions CHEST: Normal inspiratory effort NEURO: alert and oriented x3,exam grossly non-focal EXTREMITIES: normal ASSESSMENT/PLAN: 1. Intermenstrual bleeding - ICD9: 626.6, ICD10: N92.3 (primary diagnosis) - PELVIC US WHI 2. Pelvic pain in female - ICD9: 625.9, ICD10: R10.2 - PELVIC US WHI 3. Encounter for surveillance of contraceptive pills - ICD9: V25.41, ICD10: Z30.41 - discussed with patient on how to take OCP's. - counseled on benefits, risks and possible severe side effects of OCP's. - discussed need to use Condoms to help to prevent STD's including HIV etc. DC 08/09 and ordered Will notify patient of test results. Chandni Brown APRN.ALINE Medical Decision Making: Problems: Moderate: New problem with uncertain prognosis Data: Unique test(s) ordered: 1 Risk: Moderate: Drug management Medical Decision Making Level: 4 - Moderate Referring Provider: SELF [200] Allergies As of Date: 01/20/2024 (No Known Allergies) Date Reviewed: 01/20/2024 Reviewed by: Xin Padilla LPN - Fully Assessed Reason for Visit: abnormal bleeding [Other] Primary Visit Diagnosis:Intermenst rual bleeding [N92.3] Other Visit Diagnoses:Pelvic pain in female [R10.2] Encounter for surveillance of contraceptive pills [Z30.41] Order(s):Norethin Anibal-Eth Estrad-FE (,) 1.5 mg-30 mcg (21)/75 mg (7) tabletTake 1 tablet by mouth once daily.Disp: 84 tabletRfl: 3 PELVIC US I [[id number]] Order #: [id number]: 1 FUTURE Prescriptions as of 01/20/2024 - Norethin Anibal-Eth Estrad-FE (,) 1.5 mg-30 mcg (21)/75 mg (7) tablet Take 1 tablet by mouth once daily. Problem List As Of Date 01/20/2024 Noted Resolved Myopia, bilateral [H52.13] 05/30/2020 10/25/2021 Acute pain of left knee [M25.562] 09/15/2020 03/15/2022 Bone bruise [T14.8XXA] 11/27/2020 03/15/2022 Obesity during [O99.210] 12/06/2021 08/06/2022 Encounter for supervision of normal first pregn*03/15/2022 08/06/2022 Abnormal glucose complicating [O99.81*05/17/2022 2022 (more content not included)... Normal [facility] BACTERIAL VAGINOSIS NAATon 0 12-04-2023 Interpretation and review of laboratory results Normal [facility] Lactobacillus crispatus+gasseri+je nsenii + Gardnerella vaginalis + Atopobium vaginae rRNA HECTOR+probe Ql (Vag fld) Negative Negative for bacterial vaginosis [facility] Lactobacillus crispatus+gasseri+je nsenii + Gardnerella vaginalis + Atopobium vaginae rRNA HECTOR+probe Ql (Vag fld) Negative Normal Negative for bacterial vaginosis [facility] Comment on above: Order Comment: Speci men Type: SWABOrdering Facility: [facility] Address: [address] [place] [address] Performed By: #### C VTV, BVAMP ####[facility] LABCLIA [id number] [facility] [id number] [place] [address] [place] Bacteria Ur Culton 4 Bacteria identified Cx Nom (U) CULTURE, URINE: No growth (<1,000 CFU/ml) Normal [facility] Comment on above: Performed By: #### 6 30-4 ####[facility] LABCLIA [id number] [place] [address] [place] HERVE/TRICHOMONAS NAATon 0 12-04-2023 C. glabrata RNA HECTOR+probe Ql (Vag fld) Negative Negative for Herve glabrata [facility] Herve sp DNA HECTOR+probe Ql (Vag fld) Positive Abnormal Negative for Herve species [facility] Interpretation and review of laboratory results Abnormal [facility] T. vaginalis DNA HECTOR+probe Ql (Unsp spec) Negative Negative for Trichomonas vaginalis by amplification [facility] C. glabrata RNA HECTOR+probe Ql (Vag fld) Negative Normal Negative for Herve glabrata [facility] Comment on above: Order Comment: Speci men Type: SWABOrdering Facility: [facility] Address: [address] [place] [address] Performed By: #### C VTV, BVAMP ####[facility] LABCLIA [id number] [place] [address] [place] Herve sp DNA HECTOR+probe Ql (Vag fld) Positive Abnormal Negative for Herve species [facility] Comment on above: Order Comment: Speci men Type: SWABOrdering Facility: [facility] Address: [address] [place] [address] Performed By: #### C VTV, BVAMP ####[facility]CLIA [id number] [place] [address] [place] T. vaginalis DNA HECTOR+probe Ql (Unsp spec) Negative Normal Negative for Trichomonas vaginalis by amplification [facility] Comment on above: Order Comment: Speci men Type: SWABOrdering Facility: [facility] Address: [address] [place] [address] Performed By: #### C VTV, BVAMP ####[facility] LABCLIA [id number] [address] [address] [place] [facility] CNOVon 12-04-2023 CNOV Office Visit (UCWSTR) WILLAM DE LEON ([id number]) 2000 F Date Time Provider Department 12/04/23 10:00 AM HUI SY [facility] During your visit today, we recorded the following information about you: Temperature Pulse Respiration Blood pressure 97.6 degrees 70/minute 18/minute 119/82 Weight Last Period 87 kg 11/24/23 Hui Sy APRN.RECREATION ASSISTANT 12/04/2023 10:30 AM Signed CC: Patient presents with: Vaginal Problem: Discharge, sore in vaginal x 4 days HPI Willam De Leon is a 23 year old female who presents with complaint of possible UTI. These symptoms have been present for 4 days. Associated symptoms: abnormal vaginal discharge and vaginal discomfort Denies: fever, chills, sweats, abdominal pain, and flank pain Treatments: nothing The ROS was otherwise negative. PMH, Medications, labs, allergies, and recent past visits with PCP were reviewed and updated as able. PHYSICAL EXAM: BP 119/82 Pulse 70 Temp 36.4 ?C (97.6 ?F) Resp 18 Wt 87 kg (191 lb 12.8 oz) LMP 11/24/2023 (Approximate) SpO2 98% No BMI 36.24 kg/m? General: Well appearing and alert CV: Regular rate and rhythm without obvious murmur Lungs: clear to auscultation bilaterally Back: straight and symmetric Abdomen: soft, nontender, nondistended Does not want to have an exam does not see any open sores herself. PAST MEDICAL HISTORY Diagnosis Date ADHD (attention deficit hyperactivity disorder) Benign paroxysmal positional vertigo 2019 Gestational diabetes mellitus, class A1 2022 Left knee pain PAST SURGICAL HISTORY Procedure Laterality Date DELIVERY ONLY 07/31/2022 LTCS COLONOSCOPY 05/23/2023 will need repeated with MAC PAST SURGICAL HISTORY OF wisdom teeth ALLERGIES Patient has no known allergies. MEDICATIONS omeprazole (PRILOSEC) 20 mg capsule Take 1 capsule by mouth once daily. Norethindrone Acet-Ethinyl Est 1-20 mg-mcg per tablet Take 1 tablet by mouth once daily. linaclotide (LINZESS) 145 mcg capsule Take 1 capsule by mouth daily at 6 am. FAMILY HISTORY Problem Relation Age of Onset No Known Problems Mother Diabetes Father Heart Father No Known Problems Sister No Known Problems Sister No Known Problems Sister No Known Problems Brother No Known Problems Maternal Grandmother No Known Problems Maternal Grandfather Cataract Paternal Grandmother Diabetes Paternal Grandmother Dementia Paternal Grandmother No Known Problems Paternal Grandfather Social History Tobacco Use Smoking status: Never Smokeless tobacco: Never Vaping Use Vaping Use: Never used Substance Use Topics Alcohol use: No Drug use: No ASSESSMENT/PLAN: 1. Vaginal discomfort - ICD9: 625.9, ICD10: N94.9 - BACTERIAL VAGINOSIS NAAT - HERVE/TRICHOMONAS NAAT Self swab Urine culture sent Myclog cream for vaginal discomfort . Potential red flag symptoms discussed with the patient. Reviewed appropriate action plan to take if red flag symptoms occur. Patient agreeable to treatment plan. Hui Sy APRN.RECREATION ASSISTANT Allergies As of Date: 12/04/2023 (No Known Allergies) Date Reviewed: 12/04/2023 Reviewed by: Marly Graves LPN - Fully Assessed Reason for Visit: Vaginal Problem [117] Cmt: Discharge, sore in vaginal x 4 days Primary Visit Diagnosis:Vaginal discomfort [N94.9] Order(s):BACTERIAL VAGINOSIS NAAT [SQBVAMP] Order #: [id number]. #:[id number] HERVE/TRICHOMONAS NAAT [SQCVTV] Order #: [id number]. #:[id number] UA DIP, URINE (POC) [[id number]] Order #: [id number]. #:[id number] URINE CULTURE [SQURCUL] Order #: [id number]. #:[id number] nystatin-triamcinolo ne (MYCOLOG) ointmentApply sparingly to perineum twice daily for irritation/infection .Disp: 30 gRfl: 0 Prescriptions as of 12/04/2023 - nystatin-triamcinolo ne (MYCOLOG) ointment Apply sparingly to perineum twice daily for irritation/infection . - linaclotide (LINZESS) 145 mcg capsule Take 1 capsule by mouth daily at 6 am. - omeprazole (PRILOSEC) 20 mg capsule Take 1 capsule by mouth once daily. - Norethindrone Acet-Ethinyl Est 1-20 mg-mcg per tablet Take 1 tablet by mouth once daily. Problem List As Of Date 12/04/2023 Noted Resolved Myopia, bilateral [H52.13] 05/30/2020 10/25/2021 Acute pain of left knee [M25.562] 09/15/2020 03/15/2022 Bone bruise [T14.8XXA] 11/27/2020 03/15/2022 Obesity during [O99.210] 12/06/2021 08/06/2022 Encounter for supervision of normal first pregn*03/15/2022 08/06/2022 Abnormal glucose complicating [O99.81*05/17/2022 2022 Gestational diabetes mellitus, class A1 [O24.41*2022 08/06/2022 Lower abdominal pain [R10.30] 05/23/2023 Prescriptions ordered this encounter Disp Refills Start End NYSTATIN-TRIAMCINOLO NE 100,000 UNIT/* 30 g 0 12/04/2023 Sig: Apply sparingly to perineum twice daily (more content not included)... Normal [facility] UA DIP, URINE (POC)on 2023 BILIRUBIN UA (POCT) Negative Negative [facility] CLARITY UA (POCT) Cloudy [facility] COLOR UA (POCT) Yellow [facility] GLUCOSE UA (POCT) Negative Negative mg/dL [facility] Hemoglobin Ql (U) Negative Negative [facility] Interpretation and review of laboratory results Abnormal [facility] KETONE UA (POCT) Negative Negative mg/dL [facility] LEUKOCYTES UA (POCT) Trace Abnormal Negative [facility] NITRITE UA (POCT) Negative Negative [facility] PH UA (POCT) 7.0 4.5 - 8.0 [facility] Protein Ql (U) Negative Negative mg/dL [facility] SPECIFIC GRAVITY UA (POCT) 1.015 1.005 - 1.030 [facility] UROBILINOGEN UA (POCT) 0.2 Normal E.U./dL [facility] Location:[facility], [address] [place] [address], [place], [address] [facility] POINT OF CARE [facility] CNOVon 11-19-2023 CNOV Office Visit (UCWSTR) WILLAM DE LEON ([id number]) 2000 F Date Time Provider Department 11/19/23 3:00 PM REGAN RUIZ [facility] During your visit today, we recorded the following information about you: Temperature Pulse Respiration Blood pressure 97.2 degrees 60/minute 16/minute 146/72 Weight 87.5 kg Regan Ruiz, JUAN JOSÉ.RECREATION ASSISTANT 11/19/2023 3:28 PM Signed Subjective HPI Nontoxic-appearing female nontoxic-appearing female presents urgent care chiefly possible abscess. Duration of symptoms 3 days. Associated symptoms painful lump on her stomach. Patient states lump is growing in size and becoming more tender to touch. Has not use any OTC medications. Denies any history of MRSA or abscesses. Denies chance of . Is not breast-feeding. Denies any fever body aches chills productive cough chest pain shortness of breath pleuritic pain hemoptysis nausea vomiting abdominal pain change in bowel or bladder habits. Past medical history prescription medication use and allergies reviewed. .Patient presents with: Derm Problem: On stomach 3 days PAST MEDICAL HISTORY Diagnosis Date ADHD (attention deficit hyperactivity disorder) Benign paroxysmal positional vertigo 2019 Gestational diabetes mellitus, class A1 2022 Left knee pain PAST SURGICAL HISTORY Procedure Laterality Date DELIVERY ONLY 07/31/2022 LTCS COLONOSCOPY 05/23/2023 will need repeated with MAC PAST SURGICAL HISTORY OF wisdom teeth ALLERGIES Patient has no known allergies. MEDICATIONS doxycycline (VIBRA-TABS) 100 mg tablet Take 1 tablet by mouth two times a day for 7 days. linaclotide (LINZESS) 145 mcg capsule Take 1 capsule by mouth daily at 6 am. omeprazole (PRILOSEC) 20 mg capsule Take 1 capsule by mouth once daily. Norethindrone Acet-Ethinyl Est 1-20 mg-mcg per tablet Take 1 tablet by mouth once daily. FAMILY HISTORY Problem Relation Age of Onset No Known Problems Mother Diabetes Father Heart Father No Known Problems Sister No Known Problems Sister No Known Problems Sister No Known Problems Brother No Known Problems Maternal Grandmother No Known Problems Maternal Grandfather Cataract Paternal Grandmother Diabetes Paternal Grandmother Dementia Paternal Grandmother No Known Problems Paternal Grandfather Social History Tobacco Use Smoking status: Never Smokeless tobacco: Never Vaping Use Vaping Use: Never used Substance Use Topics Alcohol use: No Drug use: No BP 146/72 Pulse 60 Temp 36.2 ?C (97.2 ?F) Resp 16 Wt 87.5 kg (192 lb 14.4 oz) LMP 05/14/2023 (Approximate) SpO2 98% BMI 36.45 kg/m? Review of Systems Constitutional: Negative for chills, fever and malaise/fatigue. HENT: Negative for congestion, ear discharge, ear pain, sinus pain and sore throat. Eyes: Negative for blurred vision, pain, discharge and redness. Respiratory: Negative for cough, hemoptysis, sputum production, shortness of breath, wheezing and stridor. Cardiovascular: Negative for chest pain. Gastrointestinal: Negative for abdominal pain, diarrhea, nausea and vomiting. Musculoskeletal: Negative for myalgias. Skin: Negative for itching and rash. Neurological: Negative for dizziness and headaches. Objective Physical Exam Constitutional: General: She is not in acute distress. Appearance: She is not toxic-appearing. HENT: Head: Normocephalic. Nose: Nose normal. Eyes: Pupils: Pupils are equal, round, and reactive to light. Cardiovascular: Rate and Rhythm: Normal rate. Pulmonary: Effort: Pulmonary effort is normal. No respiratory distress. Abdominal: Comments: Approximately 1/2 cm by half centimeter area of fluctuance noted. Surrounding induration noted. No remote redness. Musculoskeletal: Cervical back: Normal range of motion. Skin: General: Skin is warm and dry. Neurological: General: No focal deficit present. Mental Status: She is alert. Verbal consent obtained. Area was cleansed with alcohol prep and iodine. Approximately 1.5 cc of lidocaine used to anesthetize wound. 11 blade scalpel used to cut center of fluctuance. Spontaneous drainage of fluid noted. Dressing applied. Tolerated well. ASSESSMENT/PLAN: 1. Abscess - ICD9: 682.9, ICD10: L02.91 Diagnosed with abscess. Placed on doxycycline. Red flags for prompt reevaluation discussed. Patient was educated on supportive therapies. Patient will follow up with primary care provider as needed. Patient was instructed to immediately proceed to emergency room for any new, worsening, or symptoms lasting longer than anticipated. The patient's clinical presentation is otherwise unremarkable at this time. Based on exam and clinical finding, the patient is stable for discharge. Plan of care was discussed with patient. Patient verbalizes understanding and agrees to plan of care. This note was generated (more content not included)... Normal [facility] Bacteria Ur Culton 4 Bacteria identified Cx Nom (U) ORGANISM ID: 1 >=100,000 CFU/ml Escherichia coli ORGANISM ID: 1 (ESCHERICHIA COLI) ANTIBIOTIC INTERPRETATION PIOTR STATUS REFERENCE RANGE Ampicillin S 8 F Susceptible <=8 , Intermediate >8 , Resistant >16 Cefazolin S <=4 F Susceptible 0-16 , Intermediate <0 or >16 , Resistant >16 For uncomplicated urinary tract infections, cefazolin results can be used to predict susceptibility or resistance to cephalexin. Ceftriaxone S <=1 F Susceptible <=1 , Intermediate >1 , Resistant >=4 Cefepime S <=1 F Susceptible <=2 , Susceptible-Dose Dependent >2 , Resistant >=16 Ertapenem S <=0.5 F Susceptible <=0.5 , Intermediate >.5 , Resistant >1 Meropenem S <=0.25 F Susceptible <=1 , Intermediate >1 , Resistant >2 Ampicillin/Sulbact S 4 F Susceptible <=8 , Intermediate >8 , Resistant >16 Piperacillin/Tazobac S <=4 F Susceptible <16 , Susceptible-Dose Dependent >=16 , Resistant >=32 Gentamicin S <=1 F Susceptible <=2 , Intermediate >2 , Resistant >=8 Tobramycin S <=1 F Susceptible <4 , Intermediate >=4 , Resistant >=8 Trimeth sulfameth S <=20 F Susceptible <=40 , Resistant >40 Ciprofloxacin S <=0.25 F Susceptible <0.5 , Intermediate >=.5 , Resistant >=1 Nitrofurantoin S <=16 F Susceptible <=32 , Intermediate >32 , Resistant >64 Abnormal [facility] Comment on above: Performed By: #### 6 30-4 ####[facility] [id number] [address] OF [facility] CNOVon 10-20-2023 CNOV Office Visit (UCWSTR) WILLAM DE LEON ([id number]) 2000 F Date Time Provider Department 10/20/23 9:15 AM HEBERT WATTS [facility] During your visit today, we recorded the following information about you: Temperature Pulse Respiration Blood pressure 97.1 degrees 95/minute 20/minute 104/82 Weight 88.7 kg Hebert Watts APRN.RECREATION ASSISTANT 10/20/2023 9:54 AM Signed This note was created using NoteWriter. Subjective Willam De Leon is a 23 year old female. HPI Pt developed burning and urinary frequency that started this morning. She denies any chance of she states her symptoms feel consistent with her previous urinary tract infections. Review of Systems Constitutional: Negative. Gastrointestinal: Negative. Genitourinary: Positive for dysuria and frequency. Objective BP 104/82 Pulse 95 Temp 36.2 ?C (97.1 ?F) Resp (!) 2 Wt 88.7 kg (195 lb 8.8 oz) LMP 05/14/2023 (Approximate) SpO2 99% BMI 36.95 kg/m? Physical Exam Vitals and nursing note reviewed. Constitutional: General: She is not in acute distress. Appearance: Normal appearance. She is not ill-appearing. HENT: Head: Normocephalic. Mouth/Throat: Mouth: Mucous membranes are moist. Eyes: Conjunctiva/sclera: Conjunctivae normal. Cardiovascular: Rate and Rhythm: Normal rate and regular rhythm. Pulmonary: Effort: Pulmonary effort is normal. Breath sounds: Normal breath sounds. Musculoskeletal: General: Normal range of motion. Cervical back: Normal range of motion. Skin: General: Skin is warm and dry. Neurological: General: No focal deficit present. Mental Status: She is alert. Psychiatric: Mood and Affect: Mood normal. Behavior: Behavior normal. Assessment and Plan ASSESSMENT/PLAN: 1. Urinary frequency - ICD9: 788.41, ICD10: R35.0 (primary diagnosis) acute - UA positive for sridhar esterase and nitrates - Begin treatment with Macrobid 100 mg BID for 5 days - Patient education for prevention given - UA DIP, URINE (POC) - URINE CULTURE 2. Acute cystitis with hematuria - ICD9: 595.0, ICD10: N30.01 As above - NITROFURANTOIN MONOHYDRATE AND MACROCRYSTAL 100 MG ORAL CAP Hebert Watts, JUAN JOSÉ.RECREATION ASSISTANT Allergies As of Date: 10/20/2023 (No Known Allergies) Date Reviewed: 10/20/2023 Reviewed by: Flakita López MA - Fully Assessed Reason for Visit: Urinary Problem [252] Cmt: Possible uti, burning and frequency started this morning Primary Visit Diagnosis:Urinary frequency [R35.0] Other Visit Diagnosis:Acute cystitis with hematuria [N30.01] Order(s):UA DIP, URINE (POC) [[id number]] Order #: [id number]. #:[id number] URINE CULTURE [SQURCUL] Order #: [id number]. #:[id number] nitrofurantoin monohydrate and macrocrystal (MACROBID) 100 mg capsuleTake 1 capsule by mouth two times a day for 5 days.Disp: 10 capsuleRfl: 0 Prescriptions as of 10/20/2023 - nitrofurantoin monohydrate and macrocrystal (MACROBID) 100 mg capsule Take 1 capsule by mouth two times a day for 5 days. - linaclotide (LINZESS) 145 mcg capsule Take 1 capsule by mouth daily at 6 am. - omeprazole (PRILOSEC) 20 mg capsule Take 1 capsule by mouth once daily. - Norethindrone Acet-Ethinyl Est 1-20 mg-mcg per tablet Take 1 tablet by mouth once daily. Problem List As Of Date 10/20/2023 Noted Resolved Myopia, bilateral [H52.13] 05/30/2020 10/25/2021 Acute pain of left knee [M25.562] 09/15/2020 03/15/2022 Bone bruise [T14.8XXA] 11/27/2020 03/15/2022 Obesity during [O99.210] 12/06/2021 08/06/2022 Encounter for supervision of normal first pregn*03/15/2022 08/06/2022 Abnormal glucose complicating [O99.81*05/17/2022 2022 Gestational diabetes mellitus, class A1 [O24.41*2022 08/06/2022 Lower abdominal pain [R10.30] 05/23/2023 Prescriptions ordered this encounter Disp Refills Start End NITROFURANTOIN MONOHYDRATE AND MACROCR* 10 c* 0 10/20/2023 10/25/2023 Route: ORAL Sig: Take 1 capsule by mouth two times a day for 5 days. Encounter Status:Closed by HEBERT WATTS on 10/20/23 Normal [facility] UA DIP, URINE (POC)on 2023 BILIRUBIN UA (POCT) Negative Negative [facility] CLARITY UA (POCT) Cloudy [facility] COLOR UA (POCT) Yellow [facility] GLUCOSE UA (POCT) Negative Negative mg/dL [facility] Hemoglobin Ql (U) Large Abnormal Negative [facility] KETONE UA (POCT) Negative Negative mg/dL [facility] LEUKOCYTES UA (POCT) Small Abnormal Negative [facility] NITRITE UA (POCT) Positive Abnormal Negative [facility] PH UA (POCT) 6.0 4.5 - 8.0 [facility] Protein Ql (U) 100 mg/dL Abnormal Negative mg/dL [facility] SPECIFIC GRAVITY UA (POCT) 1.025 1.005 - 1.030 [facility] UROBILINOGEN UA (POCT) 0.2 E.U./dL Normal E.U./dL [facility] CELIAC ASSOC HLA-DQ GENOTYPE on 10-08-2023 CELIAC CATEGORY Category 0 Normal [facility] Comment on above: Order Comment: Speci men Type: BLOOD SPECIMEN Ordering Facility: [facility] Address: [address] [place] [address] Result Comment: CATEGORY DQ HAPLOTYPE RELATIVE RISK Category 7 DQ2.2 AND DQ2.5 Extremely High Category 7 DQ2.5 AND DQ2.5 Extremely High Category 6 DQ2.2 AND DQA1*05, DQB1*03:01 Very High Category 5 DQ2.2 AND DQ8 Very High Category 5 DQ2.5 AND DQ8 Very High Category 4 DQ8 AND DQ8 High Category 3 DQ2.5 AND DQA1*05, DQB1*03:01 High Category 3 DQ2.5 AND DQA1*02:01, DQB1*03:03 High Category 3 DQ2.5 AND DQA1*03, DQB1*02 High Category 3 DQ2.5 AND OTHER LOW RISK ALLELE High Category 3 DQ2.2 AND DQA1*05, DQB1*03:03 High Category 2 DQ8 AND OTHER LOW RISK ALLELE Moderate Category 1 DQ2.2 AND OTHER LOW RISK ALLELE Low Category 0 NEGATIVE FOR DQ2.2 Negative Category 0 NEGATIVE FOR DQ2.5 Negative Category 0 NEGATIVE FOR DQ8 Negative DQ2.2 = DQA1*02:01, DQB1*02:02 DQ2.5 = DQA1*05, DQB1*02:01 DQ8 = DQA1*03, DQB1*03:02 The identification of one of these HLA-DQ genotypes is not, by itself, sufficient for the diagnosis of celiac disease, since both DQ2 and DQ8 are relatively common in the general population. The strongest reported HLA associations with celiac disease include DQ2 (DQ2.5 or DQA1*05-DQB1*02:01 & DQA2.2 or DQA1*02:01-DQB1*02:02) and DQ8 (DQA1*03:01/DQB1*03:02). This test is useful for family members of celiac patients and patients with negative serology results. This testing can rule out celiac disease with high negative predictive value (NPV) of 95-100% depending on the ethnic background. In cases of an ambiguous HLA allele assignment where multiple rare alleles cannot be excluded, the most common HLA allele is reported. References: 1. Deysi Barber, Wiley J, Steven Thomas, et al. Cost-effective HLA typing with tagging SNPs predicts celiac disease risk haplotypes in the Hungarian, [place]ese and Romansh populations. Immunogenetics. 2009 Oct;61(4):247-56. 2. Caren MARES. Celiac disease: dissecting a complex inflammatory disorder. Cindy Rev Immunol. 2002 Mar;2(9):647-55. 3. Davis E, Gene HS, Silvia CA, et al. Risk of pediatric celiac disease according to HLA haplotype and country. N Engl J Med. 2014 ;371(1):42-9. HLA typing performed by PCR-RSSOP and/or NGS. This test was developed and its performance characteristics determined by [employer]. The test has not been cleared or approved by the [place] FDA. However, FDA approval was not necessary since this lab is certified under CLIA for high complexity testing. Test performed by: [facility], [facility] [facility] [place] [address]. CLIA [id number]. Performed By: #### Wendy PARRA #### [facility] [employer] CLIA [id number] [place] CELIAC RISK HAPLOTYPE Negative Normal [facility] Comment on above: Order Comment: Speci men Type: BLOOD SPECIMEN Ordering Facility: [facility] Address: [address] [place] [address] Performed By: #### C FIDEL #### [employer] [id number] [address] [place] [address] [place] HLA-DQA1 GENOTYPE HLA-DQA1*: 01, 01 Normal [facility] Comment on above: Order Comment: Speci men Type: BLOOD SPECIMEN Ordering Facility: [facility] Address: [address] [place] [address] Performed By: #### C FIDEL #### [employer] [facility] [id number] [address] [place] [address] [place] HLA-DQB1 GENOTYPE HLA-DQB1*: 05, 05 [facility] Comment on above: Order Comment: [facility] Type: BLOOD SPECIMEN Ordering Facility: [facility] Address: [address] [place] [address] Performed By: #### C FIDEL #### [employer] [facility] [id number] [address] [place] [address] [place] CELIAC SCREENon 10-08-2023 GLIAD DEAMIDATED IGA QUAL Negative Normal Negative, Test not Indicated [facility] Comment on above: [facility] Ordering Facility: [facility] Address: [address] [place] [address] Result Comment: This is used as an aid in diagnosis of celiac disease. Clinical correlation is required. The following results were obtained with an [employer]ite Gliadin IgA MAKI Gliadin. Gliadin IgA values obtained with different manufacturers' assay methods may not be used interchangeably. The magnitude of the reported IgA levels cannot be correlated to an endpoint titer. Performed By: #### L [id number] #### [facility] CLIA [id number] [address] [place] [address] [place] Gliadin peptide IgA Qn (S) 3 Units Normal <20 [facility] Comment on above: Order Comment: [facility]i [facility] Type: BLOOD SPECIMEN Ordering Facility: [facility] Address: [address] [place] [address] Performed By: #### L [id number] #### [facility] CLIA [id number] [address] [place] [address] [place] INTERPRETATION No serological evidence of celiac disease, however, if celiac disease is clinically suspected and patient is not on gluten-free diet, histological diagnosis may be considered. HLA testing may help with risk assessment. Normal [facility] Comment on above: Order Comment: Omayra mendez Type: BLOOD SPECIMEN Ordering Facility: [facility] Address: [address] [place] [address] Performed By: #### L [id number] #### [facility] CLIA [id number] [address] [place] [address] [place] TRANSGLUTAMINASE IGA ABS INTERPRETATION Negative Normal Negative [facility] Comment on above: Order Comment: Omayra mendez Type: BLOOD SPECIMEN Ordering Facility: [facility] Address: [address] [place] [address] Result Comment: The following results were obtained with [employer] R h-tTG IgA MAKI.???R h-tTG IgA values obtained with different manufacturers' assay methods may not be used interchangeably. The magnitude of the reported IgA levels cannot be corelated to an endpoint???concentration. This is used as an aid in diagnosis of celiac disease. Clinical correlation is required. Performed By: #### L [id number] #### [facility] CLIA [id number] [address] [place] [address] [place] tTG IgA Qn (S) <2 Normal <4 [facility] Comment on above: Order Comment: Omayra mendez Type: BLOOD SPECIMEN Ordering Facility: [facility] Address: [address] [place] [address] Performed By: #### L [id number] #### [facility] CLIA [id number] [address] [place] [address] [place] IgA SerPl-mCncon 10-08-2023 IgA [Mass/Vol] 68 mg/dL Low 70-400 [facility] Comment on above: Order Comment: Omayra mendez Type: BLOOD SPECIMEN Ordering Facility: [facility] Address: [address] [place] [address] Performed By: #### 2 458-8 #### [facility] CLIA [id number] [address] [place] [address] [place] ANES POSTPROC EVALon 024 ANES POSTPROC EVAL HNO ID: [id number] Author: STAN TAYLOR MD Service: Anesthesiology Author Type: Anesthesiologist Type: Anesthesia Postprocedure Evaluation Filed: 09/05/2023 11:43 Note Text: POST ANESTHESIA EVALUATION NOTE : 2000 Procedure Summary Date: 09/05/23 Room / Location: [facility] Endoscopy Anesthesia Start: 1115 Anesthesia Stop: 1141 Procedure: COLONOSCOPY DIAGNOSTIC Diagnosis: Lower abdominal pain (Lower abdominal pain) Scheduled Providers: Indigo Hermosillo MD; Paty Nicolas APRN.LIBRARY CATALOGING TECHNICIAN; Stan Taylor MD Responsible Provider: Stan Taylor MD Anesthesia Type: MAC ASA Status: 2 Anesthesia Type: MAC Last Vitals Vitals Value Taken Time BP 128/77 09/05/23 1142 Temp 36.7 09/05/23 1142 Pulse 94 09/05/23 1140 Resp 20 09/05/23 1140 SpO2 96 % 09/05/23 1140 Vitals shown include unfiled device data. Post Anesthesia Patient Status Patient Evaluation: bedside. Anticipated Disposition: phase 2 then home. Neurological Status: aware and responsive. Pulmonary Status: breathing comfortably on room air Airway Control: returned to baseline unsupported. Cardiovascular Status: stable. Pain Management: clinically adequate Postoperative Hydration: acceptable. Intraoperative Events: no significant anesthesia events Post Operative Nausea/Vomiting Status: no significant post operative nausea or vomiting Recommendation: continue current plan of care. Anesthesia Observations No Documentation SIGNATURE: Stan Taylor MD PATIENT NAME: Willam De Leon DATE: September 05, 2023 TIME: 11:42 AM CSN: [id number] Normal [facility] ANES PRE-OPon 09-05-2023 ANES PRE-OP HNO ID: [id number] Author: STAN TAYLOR MD Service: Anesthesiology Author Type: Anesthesiologist Type: Anesthesia Preprocedure Evaluation Filed: 09/05/2023 10:35 Note Text: ANESTHESIOLOGY DAY OF SURGERY NOTE : 2000 Procedure Information Date/Time: 09/05/23 1330 Scheduled providers: Indigo Hermosillo MD; Paty Nicolas APRN.LIBRARY CATALOGING TECHNICIAN; Stan Taylor MD Procedure: COLONOSCOPY DIAGNOSTIC Location: [facility] Estimated body mass index is 37.18 kg/m? as calculated from the following: Height as of this encounter: 156.2 cm (5' 1.5). Weight as of this encounter: 90.7 kg (200 lb). Most recent hematocrit and potassium results: Hematocrit 41.9 02/11/2023 Potassium 3.7 02/09/2023 Relevant Problems No relevant active problems I - PHYSICAL EVALUATION AIRWAY Patient intubated: No. Tracheostomy tube not present Mallampati: II. TM distance: >3 FB. Neck ROM: full ROM without neurological symptoms. Mouth opening: adequate. Short neck: no. Thick neck: no DENTAL Normal dental observations. Dental findings: teeth intact. II - ANESTHESIA PLAN ASA Score: 2 Anesthetic Plan: MAC The patient is not a current smoker. NPO Status: adequate Beta Sander Monitoring Plan Monitoring plan: standard ASA. Post Procedure Analgesic Plan Postoperative analgesic plan: parenteral or oral opioids and multimodal analgesia. Informed Consent Anesthetic risks, benefits, alternatives, personnel and consent discussed: yes. Patient / Responsible Democrat agrees to proceed: yes Patient / Surrogate agrees to blood products: blood products not planned DNR status not reviewed with patient and/or family prior to surgery. Significant changes in the patient condition since the History and Physical, not otherwise documented in primary service progress note: no. Potential Anesthesia issues that may suggest increased risk of complications or contraindication to planned procedure: none. Discussed the possibility of lip / dental damage: yes Vitals Value Taken Time BP 120/86 09/05/23 1030 Pulse 82 09/05/23 1030 Resp Temp 36.3 ?C (97.4 ?F) 09/05/23 1030 SpO2 97 % 09/05/23 1030 Outpatient Medications as of 09/05/2023 Medication Sig - Norethindrone Acet-Ethinyl Est 1-20 mg-mcg per tablet Take 1 tablet by mouth once daily. No current facility-administere d medications on file as of 09/05/2023. I have interviewed and examined the patient. I have reviewed the medical record and/or the pre-anesthesia evaluation, pertinent labs, and test results. This contains updated information obtained within 48 hours of Surgery/Procedure. SIGNATURE: Stan Taylor MD PATIENT NAME: Willam De Leon DATE: September 05, 2023 TIME: 10:34 AM CSN: [id number] [facility] Colonoscopyon 09-05-2023 Colonoscopy [facility] Patient Name: Willam De Leon Procedure Date: 09/05/2023 11:07 AM Date of : 2000 Admit Type: Outpatient Age: 23 Room: [facility] A Gender: Female Note Status: Finalized Attending MD: Indigo Hermosillo MD, [id number] Procedure: Colonoscopy Indications: Lower abdominal pain Providers: Indigo Hermosillo MD Patient Profile: Refer to note in patient chart for documentation of history and physical. Last Colonoscopy: 2022. Referring Physician: Indigo Hermosillo MD (Referring MD) Medicines: See the Anesthesia note for documentation of the administered medications Complications: No immediate complications. Requesting Provider: Procedure: Pre-Anesthesia Assessment: - Monitored anesthesia care under the supervision of a LIBRARY CATALOGING TECHNICIAN was determined to be medically necessary for this procedure based on review of the patient's medical history, medications, and prior anesthesia history. After I obtained informed consent, the scope was passed under direct vision. Throughout the procedure, the patient's blood pressure, pulse, and oxygen saturations were monitored continuously. The Colonoscope was introduced through the anus and advanced to the cecum, identified by the appendiceal orifice, ileocecal valve and palpation. The appendiceal orifice and the rectum were photographed. The colonoscopy was performed with ease. The patient tolerated the procedure well. The quality of the bowel preparation was adequate. Scope Withdrawal Time: 0 hours 7 minutes 2 seconds Moderate Sedation: MAC anesthesia was administered by the anesthesia team. Total Procedure Duration: 0 hours 11 minutes 56 seconds Findings: The perianal and digital rectal examinations were normal. Non-bleeding internal hemorrhoids were found. Biopsies for histology were taken with a cold forceps from the entire colon and terminal ileum for evaluation of microscopic colitis. Estimated blood loss was minimal. Impression: - Non-bleeding internal hemorrhoids. Recommendation: - Discharge patient to home (ambulatory). - Resume previous diet. - Await pathology results. - My office will telephone with pathology results in 1-2 weeks. - Patient has a contact number available for emergencies. The signs and symptoms of potential delayed complications were discussed with the patient. Return to normal activities tomorrow. Written discharge instructions were provided to the patient. - Continue present medications. - Repeat colonoscopy is recommended. The colonoscopy date will be determined after pathology results from today's exam become available for review. Procedure Code(s): --- Professional --- 28784, Colonoscopy, flexible; with biopsy, single or multiple Diagnosis Code(s): --- Professional --- R10.30, Lower abdominal pain, unspecified K64.8, Other hemorrhoids CPT copyright 2020 [employer]. All rights reserved. The codes documented in this report are preliminary and upon calcine furnace tender review may be revised to meet current compliance requirements. Attending Participation: I personally performed the entire procedure. Scope In: 11:23:30 AM Scope Out: 11:35:26 AM MD Indigo Lang MD 09/05/2023 11:39:27 AM This report has been signed electronically by Indigo Hermosillo MD Number of Addenda: 0 Note Initiated On: 09/05/2023 11:07 AM Estimated Blood Loss: Estimated blood loss was minimal. Normal [facility] Flexible sigmoidoscopy study on 09-05-2023 [facility] HISTORY PHYSICALon HISTORY PHYSICAL HNO ID: [id number] Author: INDIGO HERMOSILLO MD Service: General Surgery Author Type: Physician Type: H&P Filed: 09/05/2023 10:38 Note Text: HISTORY AND PHYSICAL Willam De Leon 2000 REFERRING PHYSICIAN: Onesimo Linn APRN.* CHIEF COMPLAINT: Consult (Abdominal pain.) HPI: The patient is a 22 year old female referred for endoscopy. Willam notes lower abdominal cramping pain. She describes this as cramping abdominal pain and points to the lower abdomen and the sides. She has noted this for the past few months. She notes that onset of pain about 45 minutes after eating and then for about 1-2 hours after. She also notes fecal urgency, sometimes with no BMs She notes soft formed stools, denies constipation or diarrhea. She normally has bowel movements about three times a day. She denies blood in stools. She denies weight loss; she denies fevers. She notes no colon cancer in the family. She denies TOB, ETOH, or illegal drug use. Her BMI is 38 She was seen in ED on January 2023, CT scan revealed kidney lesion, had presented with RLQ abdominal pain, otherwise no etiology for above described pain. PAST MEDICAL HISTORY PAST MEDICAL HISTORY Diagnosis Date ADHD (attention deficit hyperactivity disorder) Benign paroxysmal positional vertigo 2020 Gestational diabetes mellitus, class A1 2022 Left knee pain PAST SURGICAL HISTORY PAST SURGICAL HISTORY Procedure Laterality Date DELIVERY ONLY 07/31/2022 [facility] PAST SURGICAL HISTORY OF wisdom teeth CURRENT MEDICATIONS Current Outpatient Medications Medication Sig Norethindrone Acet-Ethinyl Est 1-20 mg-mcg per tablet Take 1 tablet by mouth once daily. peg 3350-Electrolytes (GOLYTELY) 236-22.74-6.74 -5.86 gram suspension Take 4,000 mL by mouth one time only for 1 dose. No current facility-administere d medications for this visit. ALLERGIES: Patient has no known allergies. PERSONAL HISTORY: SOCIAL HISTORY Social History Tobacco Use Smoking status: Never Smokeless tobacco: Never Vaping Use Vaping Use: Never used Substance Use Topics Alcohol use: No Drug use: No FAMILY HISTORY FAMILY HISTORY Problem Relation Age of Onset No Known Problems Mother Diabetes Father Heart Father No Known Problems Sister No Known Problems Sister No Known Problems Sister No Known Problems Brother No Known Problems Maternal Grandmother No Known Problems Maternal Grandfather Cataract Paternal Grandmother Diabetes Paternal Grandmother Dementia Paternal Grandmother No Known Problems Paternal Grandfather REVIEW OF SYSTEMS: General: The patient denies fatigue, denies weight loss, denies weight gain, denies feeling hot, and denies feelings of cold. Eyes: The patient denies glaucoma, denies eye injury/surgery, does not wear glasses or contacts. Ear/Nose/Throat: The patient denies allergies, denies hayfever, denies ear infections, and denies bloody noses. Cardiovascular: The patient denies chest pain, denies heart disease, denies high blood pressure,denies cardiac stent, denies prior heart attack, denies irregular heart beat, denies high cholesterol, denies poor circulation, denies heart failure, other cardiac issues, denies claudication, denies cold feet, denies peripheral arterial stent. Respiratory: The patient denies tuberculosis, denies pneumonia, denies frequent cough, denies pulmonary embolism, denies shortness of breath, and denies coughing up blood. Gastrointestinal: The patient denies difficulty swallowing, NOTES acid reflux, denies ulcers, denies vomiting, denies jaundice/hepatitis, denies gallbladder problems, denies black or tarry stools, denies hemorrhoids, denies bleeding from rectum, denies diverticulitis, denies constipation, denies diarrhea, denies loss of stool control, and denies hernias. Kidney/Bladder: The patient denies kidney stones, denies urine infections, and denies bloody urine. Skin: The patient denies a history of skin cancer, denies bleeding/changing moles, and denies a history of skin rash. Neurologic: The patient denies a history of epilepsy/convulsions , denies headaches, denies head/spinal injuries, and denies stroke/TIA. Psychiatric: The patient denies psychiatric medications, denies depression, and denies voices, denies substance abuse. Endocrine: The patient denies thyroid disorders, denies diabetes, and denies hormonal problems. Hematologic: The patient denies a history of bruising, denies bleeding, and denies anemia, denies blood clots. Infections: The patient denies a history of measles and mumps, denies rheumatic fever, and denies sexually transmitted diseases. Musculoskeletal: The patient denies back pain/injury, denies back problems, denies sciatica, denies knee/foot trouble, denies arthritis, or denies gout. When was patient's last Mammogram screening? N/A Last Colonoscopy: None Anupama Posey RN PHYSICAL EXAMINATION: G (more content not included)... Normal [facility] SURGICAL PATHOLOGYon 024 CASE REPORT [facility] Comment on above: Order Comment: Speci men Type: TISSUE SPECIMEN Ordering Facility: [facility] Address: [address] [place] [address] Result Comment: Surg [facility] Pathology Report Case: [id number] Authorizing Provider: Indigo Hermosillo MD Collected: 09/05/2023 11:29 AM Ordering Location: [facility] Received: 09/05/2023 01:01 PM Pathologist: Joao Cerda MD Specimens: A) - TERMINAL ILEUM BIOPSY B) - COLON BIOPSY, r/o micro colitis Performed By: #### S #### [facility] CLIA [id number] [address] [place] [address] FINAL DIAGNOSIS [facility] Comment on above: Order Comment: Speci men Type: TISSUE SPECIMEN Ordering Facility: [facility] Address: [address] [place] [address] Result Comment: A. T erminal ileum, biopsy: -Small intestinal mucosa with no diagnostic abnormality. B. Colon, biopsy: -Colonic mucosa with no diagnostic abnormality. Performed By: #### S #### [facility] CLIA [id number] [address] [place] [address] OF [facility] FINAL PERFORMING LAB [facility] Comment on above: Order Comment: Speci men Type: TISSUE SPECIMEN Ordering Facility: [facility] Address: [address] [place] [address] Result Comment: Diag nostic interpretation performed at [facility], [address] [place] [address] CLIA# [id number] Chronometer Repairer: Anthony Jorge M.D. Performed By: #### S #### [facility] CLIA [id number] [address] [place] [address] OF KRISTA GROSS DESCRIPTION Normal [facility] Comment on above: Order Comment: Speci men Type: TISSUE SPECIMEN Ordering Facility: [facility] Address: [address] [place] [address] Result Comment: A. T ERMINAL ILEUM BIOPSY Received in formalin is one piece of rowe, soft tissue measuring 0.2 x 0.1 x 0.1 cm. Totally submitted in one cassette. B. COLON BIOPSY Received in formalin are multiple pieces of rowe, soft tissue aggregating to 0.6 x 0.4 x 0.2 cm. Totally submitted in one cassette. JTS September 05, 2023 5:18 PM Gross examination performed at [facility], [address] [place] [address] Performed By: #### S #### [facility] CLIA [id number] [address] [place] [address] DESK [id number] VILLE [id number] [facility] Wilber 09-01-2023 KRYSTEN Telephone (GENSWS) WILLAM DE LEON ([id number]) 2000 F Date Time Provider Department 09/01/23 ASHLEY PEPPER During your visit today, we recorded the following information about you: Ashley Pepper 09/01/2023 1:48 PM Signed Contacted patient for pre-op GI phone call via either phone and or Misohonit. Patient understands prep instructions, sent either Incuvohart and/or Mail. Understands where to report on the day of procedure. All questions answered and or sent to providers office for clarification. Patient understands [employer] arrival time could change and wait for their arrival time call from the facility the day before procedure.Patient understands must have a regional owner operator truck driver and or responsible libertarian present. Patient was given direct phone number to call ( [phone]) if patient has any further questions or given the option to respond to [employer] message If one was sent (please see below for [employer] message). Please see the prep instructions below. The first set of instructions are over the counter medications that you may garbage pick up worker at any pharmacy. The second set of instructions is by prescription only and will need to be picked up at your pharmacy you provided to your health care team. If you have any questions please contact the neurosurgical nurse practitioner at [phone] or respond to this [employer] message. . Thank you, Ashley Miralax/Dulcolax Bowel Prep For this bowel preparation you will need to garbage pick up worker the following medications at any pharmacy. Four (4) Dulcolax tablets (generic name Bisacodyl) 238 Gram (or 8.3 oz.) Bottle of Miralax (Generic name Polyethylene Glycol) A responsible family member or friend MUST be available to drive you home after your procedure. You are NOT ALLOWED to drive, take a taxi, or leave the Endoscopy Center ALONE. If you do NOT have a responsible regional owner operator truck driver (family member or friend) to take you home, your exam cannot be done with sedation and WILL BE cancelled. Please remove all jewelry if possible. The [facility] or [facility] (depending on where your procedure is scheduled) will call you THE DAY BEFORE YOUR PROCEDURE with your arrival time. The time in ?My Chart? is just an estimate. Please arrive at the time you are told the day before. Medication BLOOD THINNERS - Blood thinner medication may need to be stopped or adjusted before your colonoscopy, such as Coumadin, Plavix, Paradaxa and Eliquis. - Contact prescribing physician regarding holding any blood thinner medication. If you were seen in the general surgery office, please follow their instructions as to if and when to hold any blood thinners. If you are having this procedure done by the request of any other providers and were NOT seen in our office, please contact your physician's office to see if you need to hold any medication prior to your procedure. Insulin or diabetes pills -Please call the doctor that monitors your glucose levels. Your insulin dosage needs to be adjusted due to the diet restrictions required with this bowl preparation (please bring your diabetic medication with you on the day of your procedure). If you take aspirin, take it and ALL other medication prescribed by your doctor unless told otherwise by either the physician's office or Pre-Admission testing if having procedure done in a hospital setting (PACC) with a small sip of water only. You may take over the counter medications if you have a headache. TAKE ALL BLOOD PRESSURE MEDICATION THE MORNING OF THE PROCEDURE. Failure to take usual morning blood pressure meds may result in cancellation of the procedure if hypertensive. Hold erectile dysfunction medications for 48 hrs. prior to the procedure. Five (5) days before your colonoscopy Do not take medications that stop Diarrhea - Imodium, Kaopectate, or Pepto Bismol Do NOT take fiber supplements - Metamucil, Citrucel, FiberCon Do NOT take products that contain iron (check vitamin label) Two (2) to three (3) days before your colonoscopy DO NOT EAT HIGH FIBER FOODS No beans, seeds (flax, sunflower, quinoa), nuts, popcorn, multigrain bread salad/vegetables, or fresh and dried fruit. Do not eat red meat 3 days before your procedure. YOU MAY EAT Lean Chicken breast, fish, eggs, and soup YOU MUST BE ON CLEAR LIQUIDS FOR 2 FULL DAYS PRIOR TO PROCEDURE Two (2) Days before your colonoscopy ONLY DRINK CLEAR LIQUIDS for 2 DAYs BEFORE YOUR COLONOSCOPY. DO NOT EAT ANY SOLID FOODS. Drink at least eight (8) ounces of clear liquids every hour after waking up. Clear fluids include: Water, apple juice, white grape juice, broth (beef, chicken or vegetable), coffee and/or tea (NO DAIRY, MILK OR CREAMER) clear carbonated beverages (sprite, 7-up, rhonda-julita), Gatorade, or other sport drinks, Edu-Aid, Jell-O, Gummy Bears and popsicles. NOTHING RED IN COLOR. DO NOT DRINK ALCOHOL the day before or the (more content not included)... Normal [facility] CNOVon 08-14-2023 [facility] TIFFANIEWILLAM FRYE ([id number]) 2000 F Date Time Provider Department 08/14/23 1:20 PM ONESIMO LINN During your visit today, we recorded the following information about you: Pulse Respiration Blood pressure Weight 84/minute 16/minute 110/70 90.7 kg Onesimo Linn, JUAN JOSÉ.RECREATION ASSISTANT 08/14/2023 1:28 PM Signed Chief Complaint Patient presents with: [facility] HPI Willam De Leon is a 23 year old female who presents here today for Above Complaints.. Patient presents to establish [facility]. Patient had colonoscopy but woke up and was not able to complete evaluation so she has to repeat colonoscopy 09/05. Patient reports she has used marijuana gummies with some improvement of symptoms. Patient uses them sparingly and responsibly. Past medical history, appointments, medications, allergies reviewed. Previous Medical History PAST MEDICAL HISTORY Diagnosis Date ADHD (attention deficit hyperactivity disorder) Benign paroxysmal positional vertigo 2019 Gestational diabetes mellitus, class A1 2022 Left knee pain Previous Surgical History PAST SURGICAL HISTORY Procedure Laterality Date DELIVERY ONLY 07/31/2022 [facility] COLONOSCOPY 05/23/2023 will need repeated with MAC PAST SURGICAL HISTORY OF wisdom teeth Family History FAMILY HISTORY Problem Relation Age of Onset No Known Problems Mother Diabetes Father Heart Father No Known Problems Sister No Known Problems Sister No Known Problems Sister No Known Problems Brother No Known Problems Maternal Grandmother No Known Problems Maternal Grandfather Cataract Paternal Grandmother Diabetes Paternal Grandmother Dementia Paternal Grandmother No Known Problems Paternal Grandfather Patient Allergies ALLERGIES No Known Allergies Current Medications Current Outpatient Medications on File Prior to Visit Medication Sig Norethindrone Acet-Ethinyl Est 1-20 mg-mcg per tablet Take 1 tablet by mouth once daily. No current facility-administere d medications on file prior to visit. Social History Social History Tobacco Use Smoking status: Never Smokeless tobacco: Never Vaping Use Vaping Use: Never used Substance Use Topics Alcohol use: No Drug use: No Review of Symptoms REVIEW OF SYSTEMS SEE HPI EXAM: BP 110/70 Pulse 84 Resp 16 Wt 90.7 kg (200 lb) LMP 05/14/2023 (Approximate) BMI 37.18 kg/m? General Appearance: Well appearing, alert, in no acute distress, well-hydrated, well nourished.. Skin: Skin color, texture, turgor normal, no suspicious rashes or lesions. Lungs: Lungs clear to auscultation. No wheezing, rhonchi, rales.. Heart: RRR without murmur, gallop, or rubs. No ectopy. Abdomen: Normal abdominal exam, Abdomen soft, non-tender. Bowel sounds normal. No masses, organomegaly Health Maintenance List Depression Assessment Never done Covid-19 Vaccine(1) due on 05/09/2024 Pap Testing due on 12/19/2024 DTaP,Tdap,Td Vaccine(10 - Td or Tdap) due on 06/03/2032 Hepatitis B Vaccine Completed HPV Vaccine Completed Influenza Vaccine Completed Hepatitis C Screening Discontinued HIV Screening Discontinued ASSESSMENT/PLAN: 1. Generalized abdominal pain - ICD9: 789.07, ICD10: R10.84 (primary diagnosis) -await colonoscopy results for further plan of care. 2. Abdominal pain, RUQ (right upper quadrant) - ICD9: 789.01, ICD10: R10.11 Onesimo Linn, MEASUREMENT AND SENSING TECHNICIAN.RECREATION ASSISTANT Allergies As of Date: 08/14/2023 (No Known Allergies) Date Reviewed: 08/14/2023 Reviewed by: Susan Carrillo Cma - Fully Assessed Reason for Visit: Establish Care [42] Primary Visit Diagnosis:Generalize d abdominal pain [R10.84] Other Visit Diagnosis:Abdominal pain, RUQ (right upper quadrant) [R10.11] Order(s):DEPRESSION SCREENING/ASSESSMENT [[id number]] Order #: [id number]: 1 Prescriptions as of 08/14/2023 - Norethindrone Acet-Ethinyl Est 1-20 mg-mcg per tablet Take 1 tablet by mouth once daily. Problem List As Of Date 08/14/2023 Noted Resolved Myopia, bilateral [H52.13] 05/30/2020 10/25/2021 Acute pain of left knee [M25.562] 09/15/2020 03/15/2022 Bone bruise [T14.8XXA] 11/27/2020 03/15/2022 Obesity during [O99.210] 12/06/2021 08/06/2022 Encounter for supervision of normal first pregn*03/15/2022 08/06/2022 Abnormal glucose complicating [O99.81*05/17/2022 2022 Gestational diabetes mellitus, class A1 [O24.41*2022 08/06/2022 Lower abdominal pain [R10.30] 05/23/2023 Follow-up and Disposition History for Encounter Date Provider Department Center 08/14/2023 [id number]-FOOLNPONESIMO LINNWS [facility] Encounter Status:Closed by ONESIMO LINN on 08/14/23 Normal [facility] UA DIP, URINE (POC)on 2022 BILIRUBIN UA (POCT) Negative Negative [facility] UA (POCT) [facility] COLOR UA (POCT) Yellow [facility] GLUCOSE UA (POCT) Negative Negative mg/dL [facility] Hemoglobin Ql (U) Trace-intact Abnormal Negative [facility] KETONE UA (POCT) Negative Negative mg/dL [facility] LEUKOCYTES UA (POCT) Negative Negative [facility] NITRITE UA (POCT) Negative Negative [facility] PH UA (POCT) 5.5 4.5 - 8.0 [facility] Protein Ql (U) Negative Negative mg/dL [facility] SPECIFIC GRAVITY UA (POCT) 1.025 1.005 - 1.030 [facility] UROBILINOGEN UA (POCT) 0.2 E.U./dL Normal E.U./dL [facility] Influenza virus A and B RNA and SARS-CoV-2 (COVID-19) N gene panel HECTOR+probe (Resp)on 11-02-2022 FLUAV RNA HECTOR+probe Ql (Unsp spec) Not detected Not Detected [facility] FLUBV RNA HECTOR+probe Ql (Unsp spec) Not detected Not Detected [facility] SARS-CoV-2 (COVID-19) RNA HECTOR+probe Ql (Resp) Detected Abnormal See comment [facility] STREP A MOLECULAR (POC)on Procedural Control Valid [facility] Strep A (POCT) Negative Negative [facility] Discharge Instructionon 07-21 Discharge Instruction [facility] Medical Records Department [address] [place] [address] Instructions for Home/Discharge Instructions 08/02/22 0853 MR#: [id number] Acct: [id number] Name: WILLAM DE LEON Rep #: [id number] : 2000 22 From: Makeda Hawkins DO PCP: Care Physician,No Primary Status:ADM IN Discharge Instructions Diet Discharge Diet: No restrictions Activity Discharge Activity: May Drive (Once you are no longer taking pain medication, and you feel strong enough to slam on a brake or turn a steering wheel sharply) May resume sexual activity in: 6 weeks Ice area for (Minutes): 15 Weight Bearing Status: Weight bearing as tolerated Lifting Restrictions: nothing heavier than baby Dressing / Incision Call your doctor if your incision/area has: Continuous Slow Oozing, Sudden Increased Bleeding, Increased Pain/ Swelling, Increased Redness, Foul Smelling Discharge and Swelling at the incision site Call your doctor if you observe: Fever of 101 or Higher, Coldness, Increased Pain, Numbness or Tingling, Change in Color, Inability to urinate, Inability to have a bowel movement, Using more than 1 pad per hour, Shortness of breath, Dizziness, Fainting spells, Swelling in the ankles, Chest pain, Increased palpitations (irregular heartbeat), Calf discomfort and Uncontrolled pain Suture Line Care: Avoid Pulling/Pushing and Avoid Pinching/Bending Remove Dressing in: 4 days Cleanse incision/area with: Soap Water Follow Up Care When: 1 week for incision check 6 weeks for exam Test Results: Test results from this visit will be discussed in further detail at your follow-up appointment, if applicable. Discharge Plan Admission Admit Date/Time: 07/30/22 11:50 Primary Reason for Your Visit: delivery Attending Provider: Sarina Garcia Primary Care Provider: Care Physician,No Primary Instructions Patient Instructions: After a , Section Dc Discharge Orders/Prescriptions Prescriptions: New ibuprofen 600 mg tablet 600 mg PO Q6H PRN (Reason: pain) Qty: 30 0RF oxycodone-acetaminop hen [Percocet] 5-325 mg tablet 1 tab PO Q6H PRN (Reason: pain) 7 Days Qty: 15 0RF docusate sodium [Colace] 100 mg capsule 100 mg PO BID Qty: 30 0RF Continued PNV #14-iron-FA#1-dha-do cusate 1 cap PO.IVFORM DAILY Discontinued aspirin [Baby Aspirin] 81 mg Tablet,Chewable 1 tab PO DAILY Referrals / Follow Up: Care Physician,No Primary [Primary Care Provider] - Disposition Disposition (needs filled in before D/C Order can be placed): Home, Self Care 08/02/22 0854 Makeda Hawkins DO CC: No Primary Care Physician Signed Normal [facility] Basophil percentageon 2022 WBC (Bld) [#/Vol] 17.9 10*3/uL 4.4-11.0 [facility] Work Phone: Bedside Glucoseon 08-01-2022 FINGERSTICK GLU 86 mg/dL Normal 74-106 [facility] Comment on above: Result Comment: VILMA MARX OF PATIENT CARE PER NURSING PROTOCOL Performed By: #### L 501.080 #### [facility] [address] [place], [address] Blood erythrocytes count (nu mber/volume)on 08-01-2022 RBC (Bld) [#/Vol] 3.10 10*6/uL 4.2-5.4 [facility] Work Phone: Blood hemoglobin measurement (mass/volume)on 08-01-2022 Hemoglobin (Bld) [Mass/Vol] 9.1 g/dL 12.0-15.0 [facility] Work Phone: Blood platelet mean volumeon 08-01-2022 Platelet mean volume (Bld) [Entitic vol] 11.2 fL 6.2-12.0 [facility] Work Phone: CBC-Complete Blood Cnt No Di ffon 08-01-2022 Erythrocyte distribution width (RBC) [Ratio] 15.1 % High 11.6-14.6 [facility] Comment on above: Order Comment: Comme nts: Day #1Reason for Laboratory Test Performed By: #### L 501.080 #### [facility] [address] [place], [address] Hematocrit (Bld) [Volume fraction] 28.1 % Low 37-47 [facility] Comment on above: Order Comment: Comme nts: Day #1Reason for Laboratory Test Performed By: #### L 501.080 #### [facility] [address] [place], [address] Hemoglobin (Bld) [Mass/Vol] 9.1 g/dL Low 12.0-15.0 [facility] Comment on above: Order Comment: Comme nts: Day #1Reason for Laboratory Test Performed By: #### L 501.080 #### [facility] [address] [place], [address] MCH (RBC) [Entitic mass] 29.4 pg Normal 27.0-32.0 [facility] Comment on above: Order Comment: Comme nts: Day #1Reason for Laboratory Test Performed By: #### L 501.080 #### [facility] [address] [place], [address] MCHC (RBC) [Mass/Vol] 32.4 g/dL Normal 32-36 [facility] Comment on above: Order Comment: Comme nts: Day #1Reason for Laboratory Test Performed By: #### L 501.080 #### [facility] [address] [place], [address] MCV (RBC) [Entitic vol] 90.6 fL Normal 81-99 [facility] Comment on above: Order Comment: Comme nts: Day #1Reason for Laboratory Test Performed By: #### L 501.080 #### [facility] [address] [place], [address] Platelet mean volume (Bld) [Entitic vol] 11.2 fL Normal 6.2-12.0 [facility] Comment on above: Order Comment: Comme nts: Day #1Reason for Laboratory Test Performed By: #### L 501.080 #### [facility] [address] [place], [address] Platelets (Bld) [#/Vol] 230 10*3/uL Normal 150-450 [facility] Comment on above: Order Comment: Comme nts: Day #1Reason for Laboratory Test Performed By: #### L 501.080 #### [facility] [address] [place], [address] RBC (Bld) [#/Vol] 3.10 10*6/uL Low 4.2-5.4 [facility] Comment on above: Order Comment: Comme nts: Day #1Reason for Laboratory Test Performed By: #### L 501.080 #### [facility] [address] [place], [address] RDW SD 50.0 fl High 35.1-43.9 [facility] Comment on above: Order Comment: Comme nts: Day #1Reason for Laboratory Test Performed By: #### L 501.080 #### [facility] [address] [place], [address] WBC (Bld) [#/Vol] 17.9 10*3/uL High 4.4-11.0 [facility] Comment on above: Order Comment: Comme nts: Day #1Reason for Laboratory Test Performed By: #### L 501.080 #### [facility] [address] [place], [place], [address] Determination of erythrocyte mean corpuscular volume (MCV)on 08-01-2022 MCV (RBC) [Entitic vol] 90.6 fL 81-99 [facility] Work Phone: Glucose Glucometer (BldC) [M ass/Vol]on 08-01-2022 Glucose [Mass/Vol] 86 mg/dL 74-106 [facility] Work Phone: Comment on above: MANAGEMENT OF PATIEN T CARE PER NURSING PROTOCOL Hematocrit Auto (Bld) [Volum e fraction]on 08-01-2022 Hematocrit (Bld) [Volume fraction] 28.1 % 37-47 [facility] Work Phone: Laboratory - Hematology and Cell countson 08-01-2022 Erythrocyte distribution width (RBC) [Entitic vol] 50.0 fL 35.1-43.9 [facility] Work Phone: Erythrocyte distribution width (RBC) [Ratio] 15.1 % 11.6-14.6 [facility] Work Phone: MCH (RBC) [Entitic mass] 29.4 pg 27.0-32.0 [facility] Work Phone: MCHC Auto (RBC) [Mass/Vol]on 08-01-2022 MCHC (RBC) [Mass/Vol] 32.4 g/dL 32-36 [facility] Work Phone: Platelets bldon 08-01-2022 Platelets (Bld) [#/Vol] 230 10*3/uL 150-450 [facility] Work Phone: Bedside Glucoseon 07-31-2022 FINGERSTICK GLU 72 mg/dL Low 74-106 [facility] Comment on above: Result Comment: VILMA GEMENT OF PATIENT CARE PER NURSING PROTOCOL Performed By: #### L 501.080 #### [facility] [address] [place], [address] FINGERSTICK GLU 92 mg/dL Normal 74-106 [facility] Comment on above: Result Comment: VILMA GEMENT OF PATIENT CARE PER NURSING PROTOCOL Performed By: #### L 501.080 #### [facility] [address] [place], [address] FINGERSTICK GLU 98 mg/dL Normal 74-106 [facility] Comment on above: Result Comment: VILMA GEMENT OF PATIENT CARE PER NURSING PROTOCOL Performed By: #### L 501.080 #### [facility] [address] [place], [address] FINGERSTICK GLU 100 mg/dL Normal 74-106 [facility] Comment on above: Result Comment: VILMA GEMENT OF PATIENT CARE PER NURSING PROTOCOL Performed By: #### L 501.080 #### [facility] [address] [place], [address] Operative Reporton 3 Operative Report [facility] Medical Records Department [address] [place] [address] Operative Report 07/31/22 1422 MR#: [id number] Acct: [id number] Name: WILLAM DE LEON Rep #: [id number] : 2000 22 From: Yara Hardy MD PCP: Care Physician,No Primary Status:ADM IN Location: [place] [address] Details Operative Information Date of Procedure: 07/31/22 Pre-Operative Diagnosis: 39.3 weeks gestations, Category 2 FHR , GDMA1, Post-Operative Diagnosis: same, live female Indications Narrative: Patient was admitted to [facility] for late decelerations on nonstress test on 05/30/2023. She underwent induction of labor she had repetitive late decelerations with Pitocin. We had to turn the Pitocin on and off. On 07/31/2022 she was still 3 to 4 cm Pitocin had to be turned off due to prolonged decelerations as well as late decelerations. At this time decision was made to proceed with a primary section. 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 She was then placed in the supine position. She was prepped and draped in the normal sterile fashion. Epidural Anesthesia was found to be adequate. At this time a Pfannenstiel skin incision was made with a knife was carried down to the underlying layer of the fascia. The fascial incision was then extended laterally using traction. attention was then turned to the superior aspect of the fascial edge was grasped with 2 straight Glendo clamps tented up and the rectus muscle dissected off sharply using curved Cardoza scissor. Rectus muscles were then in the midline bluntly and peritoneum was entered sharply. Gentle opposing traction was placed. At this time the vesicouterine peritoneum was identified. Scalpel was used to make a uterine incision in a low transverse fashion. The uterus was then entered bluntly gentle opposing traction was placed to extend this incision. Infant's head was brought to the uterine incision was delivered atraumatically. Cord was clamped and cut infant was handed to the waiting nursery team. The Placenta was removed from the uterus. The uterus was then removed from the abdominal cavity. The uterus was cleared of all clots and debris using a lap. At this time the uterine incision was reapproximated using #1 Vicryl in a running locked fashion. small extension to right side noted. hemostatic after sutured with 1-0 vicryl in running locked fashion. Hemostasis was appreciated. Posterior cul-de-sac was then cleared of all clots and debris. Uterus was placed back in the abdominal cavity. Gutters were cleared of all clots and debris. Uterine incision was reevaluated and noted to be of excellent hemostasis. Gonzalo placed over uterie incision. At this time the peritoneum was grasped with Kellys reapproximated using #2 Vicryl suture in a running fashion. Gonzalo placed over recuts muscle. Fascia was then reapproximated using #1 Vicryl in a running fashion. gonzalo placed in subq layer and bovie used to coagulate any small oozing. Subcu layer was reapproximated with #2 0 plain gut suture in an interrupted fashion. Subcu layer was closed using 4-0 Monocryl in subcu fashion. Dry sterile dressing was applied. Instrument lap needle count correct ???2. Anticipated normal postoperative course. Presentation: Positive for Vertex Amniotic Membrane Rupture Type: Spontaneous Amniotic Fluid Description: Clear Placental Delivery Description: Expressed Placenta Disposition: [facility] Cord Vessel Description: 3 Vessels Cord Entanglement: None Infant A Gender: Female (1 minute): 8 (5 minute): 9 Delayed Cord Clamping: Yes Complications Risks of Surgery Discussed w/Patient: Bleeding, Anesthesia Risks, Infection and Injury to surrounding structure(s) including bowel and bladder Complications: none 07/31/22 1430 Cosigner Signature (if applicable): CC: JONA Garcia; Alexey Hardy; No Primary Care Physician Signed Normal [facility] Absolute lymphocyte counton 07-30-2022 Lymphocytes Auto (Unsp spec) [#/Vol] 1.90 10*3/uL 0.83-4.51 [facility] Work Phone: Basophil percentageon 2022 Basophils/100 WBC (Bld) 0.3 % 0-1 [facility] Work Phone: [phone] Eosinophils/100 WBC (Bld) 0.2 % 0-5 [facility] Work Phone: Neutrophils (Bld) [#/Vol] 8.2 10*3/uL 2.0-7.7 [facility] Work Phone: Neutrophils/100 WBC (Bld) 73.4 % 47-70 [facility] Work Phone: Bedside Glucoseon 07-30-2022 FINGERSTICK GLU 95 mg/dL Normal 74-106 [facility] Comment on above: Result Comment: VILMA GEMENT OF PATIENT CARE PER NURSING PROTOCOL Performed By: #### L 501.080 #### [facility] [address] [place], [address] FINGERSTICK GLU 81 mg/dL Normal 74-106 [facility] Comment on above: Result Comment: VILMA GEMENT OF PATIENT CARE PER NURSING PROTOCOL Performed By: #### L 501.080 #### [facility] [address] [place], [address] FINGERSTICK GLU 94 mg/dL Normal 74-106 [facility] Comment on above: Result Comment: VILMA GEMENT OF PATIENT CARE PER NURSING PROTOCOL Performed By: #### L 501.080 #### [facility] [address] [place], [address] FINGERSTICK GLU 112 mg/dL High 74-106 [facility] Comment on above: Result Comment: VILMA GEMENT OF PATIENT CARE PER NURSING PROTOCOL Performed By: #### L 501.080 #### [facility] [address] [place], [address] Blood lymphocytes/100 leukoc yteson 07-30-2022 Lymphocytes/100 WBC (Bld) 17.0 % 19-41 [facility] Work Phone: Blood monocytes/100 leukocyt eson 07-30-2022 Monocytes/100 WBC (Bld) 8.4 % 0-10 [facility] Work Phone: CBC W/Diff, Automatedon 07-21 Absolute Lymph 1.90 X10 3/uL Normal 0.83-4.51 [facility] Comment on above: Performed By: #### B TS, L100.0100 #### [facility] [address] [place], [address] Absolute Neut 8.2 X10 3/uL High 2.0-7.7 [facility] Comment on above: Performed By: #### Rodríguez SHAH, L100.0100 #### [facility] [address] [place], [address] Basophils/100 WBC (Bld) 0.3 % Normal 0-1 [facility] Comment on above: Performed By: #### Rodríguez SHAH, L100.0100 #### [facility] [address] [place], [address] Eosinophils/100 WBC (Bld) 0.2 % Normal 0-5 [facility] Comment on above: Performed By: #### Rodríguez SHAH, L100.0100 #### [facility] [address] [place], [address] Erythrocyte distribution width (RBC) [Ratio] 14.7 % High 11.6-14.6 [facility] Comment on above: Performed By: #### Rodríguez SHAH, L100.0100 #### [facility] [address] [place], [address] Hematocrit (Bld) [Volume fraction] 40.4 % Normal 37-47 [facility] Comment on above: Performed By: #### Rodríguez SHAH, L100.0100 #### [facility] [address] [place], [address] Hemoglobin (Bld) [Mass/Vol] 13.0 g/dL Normal 12.0-15.0 [facility] Comment on above: Performed By: #### Rodríguez SHAH, L100.0100 #### [facility] [address] [place], [address] IG% 0.700 Normal 0.0-0.9 [facility] Comment on above: Result Comment: IG% - Immature Granulocytes (promyelocytes, myelocytes and metamyelocytes) > 1% indicates that a LEFT SHIFT is Present. Performed By: #### B ALYSSA, L100.0100 #### [facility] [address] [place], [address] Lymphocytes/100 WBC (Bld) 17.0 % Low 19-41 [facility] Comment on above: Performed By: #### Rodríguez SHAH, L100.0100 #### [facility] [address] [place], [address] MCH (RBC) [Entitic mass] 28.8 pg Normal 27.0-32.0 [facility] Comment on above: Performed By: #### Rodríguez SHAH, L100.0100 #### [facility] [address] [place], [address] MCHC (RBC) [Mass/Vol] 32.2 g/dL Normal 32-36 [facility] Comment on above: Performed By: #### Rodríguez SHAH, L100.0100 #### [facility] [address] [place], [address] MCV (RBC) [Entitic vol] 89.4 fL Normal 81-99 [facility] Comment on above: Performed By: #### Rodríguez SHAH, L100.0100 #### [facility] [address] [place], [address] Monocytes/100 WBC (Bld) 8.4 % Normal 0-10 [facility] Comment on above: Performed By: #### Rodríguez SHAH, L100.0100 #### [facility] [address] [place], [address] Neutrophils/100 WBC (Bld) 73.4 % High 47-70 [facility] Comment on above: Performed By: #### Rodríguez SHAH, L100.0100 #### [facility] [address] [place], [address] Nucleated RBC (Bld) [#/Vol] 0 10*3/uL Normal 0-5 [facility] Comment on above: Performed By: #### Rodríguez SHAH, L100.0100 #### [facility] [address] [place], [address] Platelet mean volume (Bld) [Entitic vol] 11.4 fL Normal 6.2-12.0 [facility] Comment on above: Performed By: #### Rodríguez SHAH, L100.0100 #### [facility] [address] [place], [address] Platelets (Bld) [#/Vol] 324 10*3/uL Normal 150-450 [facility] Comment on above: Performed By: #### Rodríguez SHAH, L100.0100 #### [facility] [address] [place], [address] RBC (Bld) [#/Vol] 4.52 10*6/uL Normal 4.2-5.4 [facility] Comment on above: Performed By: #### Rodríguez SHAH, L100.0100 #### [facility] [address] [place], [address] RDW SD 48.1 fl High 35.1-43.9 [facility] Comment on above: Performed By: #### Rodríguez SHAH, L100.0100 #### [facility] [address] [place], [address] WBC (Bld) [#/Vol] 11.2 10*3/uL High 4.4-11.0 [facility] Comment on above: Performed By: #### Rodríguez SHAH, L100.0100 #### [facility] [address] [place], [address] H AND P Exam - OB/GYNon - 0 H&P Exam - NEONATAL NURSE [facility] Medical Records Department [address] [place] [address] H P Exam - NEONATAL NURSE 07/30/22 1209 MR#: [id number] Acct: [id number] Name: WILLAM DE LEON Rep #: [id number] : 2000 22 From: Sarina Garcia CNM PCP: Care Physician,No Primary Status:ADM IN [facility] HPI - General General Date of Admission: 07/30/22 HPI Narrative WILLAM DE LEON, is a 22 F who presents at 39w2d for induction of labor. Seen in office for visit and heart rate late deceleration on NST. complicated by GDMA1, maternal obesity. Maternal Data Information Final VAZQUEZ: 08/04/22 Final VAZQUEZ Source: LMP Gestational age: 39w2d PFSH PFS Medical History (Updated 07/30/22 @ 17:18 by Sarina Garcia CNM) Gestational diabetes Home Medications PNV #14-iron-FA#1-dha-do cusate 1 cap PO.IVFORM DAILY 07/30/22 [History Last Taken 07/30/22 07:00] aspirin 81 mg chewable tablet 1 tab PO DAILY prevent preclampsia 07/30/22 [History Last Taken 07/30/22 07:00] Allergy/AdvReac Type Severity Reaction Status Date / Time No Known Allergies Allergy Verified 07/30/22 12:37 Surgical History (Updated 07/30/22 @ 12:45 by Pilar Leon) History of surgery Social History Smoking Status: Former smoker History Elective abortions Hx Para 0 Spontaneous abortions Hx # Term Pregnancies Ectopic pregnancies Hx # Pregnancies Multiple births # of living children NST FHR Rate Baby A Baseline: 155 Variability:: Moderate Accelerations:: 15 x 15 Decelerations:: None NST Reactive:: Yes FHR Category:: Category I Uterine Activity:: None ROS Constitutional Constitutional: Reports systems reviewed and no addt'l complaints, except as documented; Denies headache(s) Eyes Eyes: Denies acute decrease in peripheral vision, blurry vision or change in vision ENT HEENT: Reports systems reviewed and no addt'l complaints, except as documented Cardiovascular Cardiovascular: Denies chest pain or dizziness Respiratory/Chest Respiratory/Chest: Denies cough, dyspnea, dyspnea on exertion, shortness of breath at rest or shortness of breath with exertion Gastrointestinal Gastrointestinal: Denies abdominal pain, diarrhea, nausea or vomiting Genitourinary Genitourinary: Denies abdominal discomfort Musculoskeletal Musculoskeletal: Denies limited range of motion Integumentary Integumentary: Reports systems reviewed and no addt'l complaints, except as documented Neurologic Neurologic: Reports systems reviewed and no addt'l complaints, except as documented Psychiatric Psychiatric: Reports systems reviewed and no addt'l complaints, except as documented Endocrine Endocrinology: Reports systems reviewed and no addt'l complaints, except as documented Hematologic/Lymphati c Hematologic/Lymphati c: Reports systems reviewed and no addt'l complaints, except as documented Allergic/Immunologic Allergic/Immunologic : Reports systems reviewed and no addt'l complaints, except as documented Physical Exam Const alert and oriented x3 General Appearance: cooperative Orientation / Consciousness: awake, oriented to person, oriented to place and oriented to time Exam Limitations: no limitations HEENT normocephalic Head and Scalp: normal to inspection, normocephalic and atraumatic Face and Sinus: normal facial exam Eyes General Eye: normal appearance of both eyes Neck full ROM Chest Chest: symmetrical chest wall rise Resp normal respiratory effort and normal air movement Auscultation: clear to auscultation bilaterally Cardio regular rate, regular rhythm, S1 normal heart sound, S2 normal heart sound, no murmurs, no rub, no gallops and no clicks GI normal to inspection, nondistended, normoactive bowel sounds and non-tender appearance of the vagina normal Narrative: [place] placed without difficulty into cervical os, patient tolerated well. Bladder / Kidney Exam: no CVA tenderness Manual OB Exam: estimated gestational size appropriate, presentation cephalic, dilated 1cm, effaced 60% and station -2 Back/Spine normal ROM Extremity normal to inspection and full ROM Skin no rashes or lesions noted Neuro oriented x3, CN's II-XII intact bilaterally and moves all extremities Sensorium / Orientation: awake, alert and oriented to person Motor Exam: clonus absent Deep Tendon Reflexes: Rt Patellar (L4): 2+ and Lt Patellar (L4): 2+ Labs Labs Labs: Blood Type B POSITIVE Antibody Screen NEGATIVE Hct 40.4 % (37-47) Hgb 13.0 g/dL (12.0-15.0) HIV negative HBsAG negative HepC negative B Positive RPR negative GBS negative Rubella Immune GC/CT negative Assessment Plan (1) Obesity affecting : (2) GDM, class A1: (3) Encounter f (more content not included)... Normal [facility] - Hematology and Cell countson 07-30-2022 Immature granulocytes/100 WBC (Bld) 0.700 % 0.0-0.9 [facility] Work Phone: Comment on above: IG% - Immature Granu locytes (promyelocytes, myelocytes and metamyelocytes) > 1% indicates that a LEFT SHIFT is Present. Nucleated RBC/100 WBC (Bld) [Ratio] 0 % 0-5 [facility] Work Phone: Type AND Screenon 07-30-2022 Ab SCREEN GEL Negative Normal [facility] Comment on above: Order Comment: Labor Performed By: #### Rodríguez TS, L100.0100 #### [facility] [address] [place], [place], [id number] ABO and Rh group Nom (Bld) Blood group B Rh(D) positive Normal [facility] Comment on above: Order Comment: Labor Performed By: #### Rodríguez TS, L100.0100 #### [facility] [address] [place], [place], [address] URINE OB DIP B/Oon 3 Glucose Ql (U) Negative Neg mg/dL [facility] Protein.monoclonal (U) [Mass/Vol] Negative Neg mg/dL [facility] URINE OB DIP B/Oon 2 Glucose Ql (U) Negative Neg mg/dL [facility] Protein.monoclonal (U) [Mass/Vol] Negative Neg mg/dL [facility] URINE OB DIP B/Oon 2 Glucose Ql (U) Negative Neg mg/dL [facility] Protein.monoclonal (U) [Mass/Vol] trace Neg mg/dL [facility] OBSTETRIC ULTRASOUND WHIon 1 09-10-2021 [facility] URINE OB DIP B/Oon 2 Glucose Ql (U) Negative Neg mg/dL [facility] Protein.monoclonal (U) [Mass/Vol] Negative Neg mg/dL [facility] UA DIP, URINE (POC)on 2021 BILIRUBIN UA (POCT) Negative Negative [facility] CLARITY UA (POCT) Clear [facility] COLOR UA (POCT) Yellow [facility] GLUCOSE UA (POCT) Negative Negative mg/dL [facility] HEMOGLOBIN/BLOOD UA (POCT) Negative Negative [facility] KETONE UA (POCT) Trace Negative mg/dL [facility] LEUKOCYTES UA (POCT) Moderate Abnormal Negative [facility] NITRITE UA (POCT) Negative Negative [facility] PH UA (POCT) 6.0 4.5 - 8.0 [facility] Protein Ql (U) Negative Negative mg/dL [facility] SPECIFIC GRAVITY UA (POCT) 1.010 1.005 - 1.030 [facility] UROBILINOGEN UA (POCT) 0.2 E.U./dL Normal E.U./dL [facility] URINE OB DIP B/Oon 2 Glucose Ql (U) Negative Neg mg/dL [facility] Protein.monoclonal (U) [Mass/Vol] Negative Neg mg/dL [facility] URINE OB DIP B/Oon 2 Glucose Ql (U) Negative Neg mg/dL [facility] Protein.monoclonal (U) [Mass/Vol] Negative Neg mg/dL [facility] OBSTETRIC ULTRASOUND WHIon 1 08-12-2021 [facility] URINE OB DIP B/Oon 2 Glucose Ql (U) Negative Neg mg/dL [facility] Protein.monoclonal (U) [Mass/Vol] Negative Neg mg/dL [facility] URINE OB DIP B/Oon 2 Glucose Ql (U) Negative Neg mg/dL [facility] Protein.monoclonal (U) [Mass/Vol] Negative Neg mg/dL [facility] EMERGENCY REPORTon 2 EMERGENCY REPORT [facility] EMERGENCY ROOM REPORT NAME ACCOUNT SEX AGE ADMIT DISCHARGE PT MED. RECORD# NUMBER DATE DATE TYPE MOISES [id number] F 21 03/14/22 03/14/22 3 WILLAM [id number] ROOM: ER DATE OF : 2000 DICTATING PHYSICIAN: Ry Castro CHIEF COMPLAINT: Exposure to chemical at work. HISTORY OF PRESENT ILLNESS: This 21-year-old female, 19 weeks , presents after being exposed to something at her place of employment. 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 She went to investigate, and states that there was a bad smell in the room, it smelled like chemicals. Reportedly also there was some sludge on the desk that had been cleaned by someone else, and per EMS the area tested positive for methamphetamine. The patient did not touch anything in the room except a receipt that had belonged to the occupant. She did inhale some of the fumes in the room. She admits to feeling lightheaded and anxious. She is also very concerned about her given her exposure. She notes that she had mild upper abdominal pain at some point after this exposure, not crampy in nature, just more of a slow lingering constant discomfort, mild in nature. She denies any abdominal pain currently. She denies any vaginal discharge or bleeding. She has no other acute complaints. PAST MEDICAL HISTORY: She is . PAST SURGICAL HISTORY: None. SOCIAL HISTORY: She denies cigarettes, alcohol, or recreational drug use. REVIEW OF SYSTEMS: Review of systems is negative for weakness and fatigue. Negative for chest pain or palpitations. Negative for shortness of breath or wheezing. Positive for the abdominal pain as described. Negative for nausea or vomiting. Negative for vaginal bleeding or discharge. Positive for a headache. Negative for numbness or tingling. Positive for anxiety. All other systems reviewed and negative. PHYSICAL EXAMINATION: VITAL SIGNS: Reveals a temperature of 97.2, pulse 97, respirations 18, blood pressure 141/82, and pulse oximetry 98% on room air. GENERAL APPEARANCE: The patient is awake and alert, and tearful and anxious, but oriented and otherwise nontoxic. SKIN: Warm and dry and non-diaphoretic; although, cheeks are flushed. HEENT: Head is normocephalic and atraumatic. Pupils are equal, round, and reactive to light. Conjunctivae are clear. Extraocular muscles are intact. Oral: Mucous membranes are moist. Uvula is midline. Pharynx is clear. NECK: Neck is supple and nontender. HEART: Regular without murmurs, rubs, or gallops. LUNGS: Clear to Page 1 of 2 [facility] Emergency Room Report CZARNY, WILLAM : 2000 auscultation bilaterally. ABDOMEN: Soft and nondistended, gravid to palpation. There is no appreciable tenseness or tightness on abdominal exam. She has no abdominal tenderness, but she points to her epigastrium as being the place where she was feeling some discomfort earlier. She has no CVA tenderness. NEUROLOGIC: Cranial nerves II-XII are intact. There are no appreciable peripheral, motor, or sensory deficits. DIAGNOSTIC DATA: Laboratory workup reveals a white count of 13.0, otherwise unremarkable. CMP shows a glucose of 138, AST 12, otherwise normal. UA demonstrates 100 leukocytes, 6 to 10 white blood cells, 0 to 5 reds, many epithelials, and 3+ bacteria. Drug screen is negative. EMERGENCY DEPARTMENT COURSE AND TREATMENT: We did have OB personnel come down to do heart tones. The patient's heart tones were strong. heart tone is 160 to 165. DIAGNOSES: 1. Drug exposure. 2. Asymptomatic bacteremia. 3. . PLAN/DISPOSITION: At the time of disposition, the patient is now feeling much better. Her cheeks are no longer flushed. Vitals are stable. She has no abdominal pain, and has not had any for quite sometime. No cramping. No other new symptoms. Given her exposure presumably to methamphetamine via inhaled route, we did watch her for a period of time here and she was improving clinically. We ultimately discharged her home to followup with her NEONATAL NURSE, drink plenty of fluids, get plenty of rest, and return to the ED if symptoms get worse or anything changes. Otherwise, she is stable at the time of disposition and discharge. I did also put her on p.o. Keflex for her bacteremia. Dictated By: Ry Castro DO 03/14/22 21:02 JOB #: [id number] Transcribed By: am 03/15/22 07:06 Electronically signed by: Dr. Ry Castro DO 03/24/22 11:40 Page 2 of 2 [facility] Emergency Room Report Normal [facility] OBSTETRIC ULTRASOUND WHIon 0 03-20-2022 [facility] URINE OB DIP B/Oon Glucose Ql (U) Negative Neg mg/dL [facility] Protein.monoclonal (U) [Mass/Vol] Negative Neg mg/dL [facility] CBC + DIFFon 03-14-2022 Baso # 0.00 x10EE3/UL Normal 0.00 - 0.10 [facility] Comment on above: Performed By: #### 2 26952 #### [facility],[address] [place] [address] 20082 Basophils/100 WBC (Bld) 0.2 % Normal 0.0 - 2.0 [facility] Comment on above: Performed By: #### 2 40928 #### [facility],[address] [place] [address] 77267 CBC + DIFF Normal [facility] Comment on above: Result Comment: CBC- COMPLETE BLOOD COUNT Performed By: #### 2 63474 #### [facility],[address] [place] [address] 45423 EO # 0.10 x10EE3/UL Normal 0.00 - 0.50 [facility] Comment on above: Performed By: #### 2 15065 #### [facility],[address] [place] [address] 66460 Eosinophils/100 WBC (Bld) 0.5 % Normal 0.0 - 7.0 [facility] Comment on above: Performed By: #### 2 11081 #### [facility],[address] [place] [address] 38037 Erythrocyte distribution width (RBC) [Ratio] 13.3 % Normal 12.0 - 15.6 [facility] Comment on above: Performed By: #### 2 64854 #### [facility],[address] [place] [address] 51688 Hematocrit (Bld) [Volume fraction] 36.6 % Normal 34.0 - 46.0 [facility] Comment on above: Performed By: #### 2 74484 #### [facility],[address] [place] [address] 54957 Hemoglobin (Bld) [Mass/Vol] 12.3 g/dL Normal 12.0 - 16.0 [facility] Comment on above: Performed By: #### 2 94520 #### [facility],[address] [place] [address] 01141 Lymph # 2.00 x10EE3/UL Normal 0.80 - 2.80 [facility] Comment on above: Performed By: #### 2 34540 #### [facility],[address] [place], [place] [address] Lymphocytes/100 WBC (Bld) 15.7 % Low 20.0 - 45.0 [facility] Comment on above: Performed By: #### 2 91888 #### [facility],[address] [place] [address] 23789 MANUAL DIFF N/A Normal [facility] Comment on above: Performed By: #### 2 78953 #### [facility],[address] [place] [address] MCH (RBC) [Entitic mass] 31 pg Normal 27 - 33 [facility] Comment on above: Performed By: #### 2 15757 #### [facility],[address] [place] [address] 93410 MCHC 34 X10 3 Normal 32 - 36 [facility] Comment on above: Performed By: #### 2 54694 #### [facility],[address] [place] [address] 03659 MCV (RBC) [Entitic vol] 91 fL Normal 80 - 99 [facility] Comment on above: Performed By: #### 2 62991 #### [facility],[address] [place] [address] 83704 [place] # 0.90 x10EE3/UL Normal 0.20 - 1.00 [facility] Comment on above: Performed By: #### 2 77368 #### [facility],[address] [place] [address] 45546 MONOS % 6.8 % Normal 0.0 - 10.0 [facility] Comment on above: Performed By: #### 2 85543 #### [facility],[address] [place] [address] 80916 Morphology Marvin (Bld) [Interp] N/A Normal [facility] Comment on above: Result Comment: {CD] Performed By: #### 2 34532 #### [facility],[address] [place] [address] 41095 Neut # 10.00 x10EE3/UL High 1.50 - 7.10 [facility] Comment on above: Performed By: #### 2 43630 #### [facility],[address] [place] [address] 79287 Neutrophils/100 WBC (Bld) 76.8 % High 46.0 - 76.0 [facility] Comment on above: Performed By: #### 2 66412 #### [facility],[address] [place] [address] 60905 PLATELET 330 x10EE3/UL Normal 150 - 450 [facility] Comment on above: Performed By: #### 2 27998 #### [facility],[address] [place] [address] 65593 Platelet mean volume (Bld) [Entitic vol] 8.9 fL Normal 6.6 - 10.5 [facility] Comment on above: Result Comment: AUTO MATED DIFFERENTIAL Performed By: #### 2 68965 #### [facility],[address] [place] [address] 70733 RBC 4.02 x 10EE6/UL Low 4.10 - 5.30 [facility] Comment on above: Performed By: #### 2 46608 #### [facility],[address] [place] [address] 65572 WBC 13.0 x 10EE3/UL High 4.5 - 10.8 [facility] Comment on above: Performed By: #### 2 43443 #### [facility],[address] [place] [address] 37237 CMP with eGFRon 03-14-2022 AGE 21 years Normal [facility] Comment on above: Performed By: #### 2 14575 #### [facility],[address] [place] [address] 97833 Albumin [Mass/Vol] 3.4 g/dL Normal 3.4 - 5.0 [facility] Comment on above: Performed By: #### 2 86058 #### [facility],[address] [place], [place] [address] Albumin/Globulin [Mass ratio] 0.8 {ratio} Low 0.9 - 1.6 [facility] Comment on above: Performed By: #### 2 24862 #### [facility],[address] [place] [address] 07895 ALK PHOS 83 U/L Normal 46 - 116 [facility] Comment on above: Performed By: #### 2 45629 #### [facility],[address] [place] [address] 81960 ALT [Catalytic activity/Vol] 19 U/L Normal 14 - 59 [facility] Comment on above: Performed By: #### 2 04564 #### [facility],[address] [place] [address] 68880 Anion gap [Moles/Vol] 12 mmol/L Normal 10 - 20 [facility] Comment on above: Performed By: #### 2 89590 #### [facility],[address] [place] [address] 67198 AST [Catalytic activity/Vol] 12 U/L Low 13 - 39 [facility] Comment on above: Performed By: #### 2 82725 #### [facility],[address] [place] [address] 19168 B/C RATIO 10 ratio Normal 0 - 30 [facility] Comment on above: Performed By: #### 2 73701 #### [facility],[address] [place] [address] 42358 Bilirubin [Mass/Vol] 0.3 mg/dL Normal 0.2 - 1.0 [facility] Comment on above: Performed By: #### 2 62341 #### [facility],[address] [place] [address] Calcium [Mass/Vol] 9.1 mg/dL Normal 8.5 - 10.1 [facility] Comment on above: Performed By: #### 2 42521 #### [facility],[address] [place] [address] Chloride [Moles/Vol] 103 mmol/L Normal 98 - 107 [facility] Comment on above: Performed By: #### 2 76002 #### [facility],[address] [place] [address] CMP with eGFR Normal [facility] Comment on above: Result Comment: COMP REHENSIVE METABOLIC PANEL Performed By: #### 2 53440 #### [facility],[address] [place] [address] CO2 [Moles/Vol] 27.3 mmol/L Normal 21.0 - 32.0 [facility] Comment on above: Performed By: #### 2 34913 #### [facility],[address] [place], [place] [address] Creatinine [Mass/Vol] 0.72 mg/dL Normal 0.55 - 1.02 [facility] Comment on above: Performed By: #### 2 57037 #### [facility],[address] [place], [place] [address] GFR/1.73 sq M.predicted among non-blacks MDRD (S/P/Bld) [Vol rate/Area] mL/min/{1.73_m2} Normal 60 - 999 [facility] Comment on above: Performed By: #### 2 00992 #### [facility],[address] [place] [address] Result Comment: ACCO RDING TO THE NATIONAL KIDNEY DISEASE EDUCATION PROGRAM(NKDE), A NORMAL eGFR IS A VALUE GREATER THAN OR EQUAL TO 60 ML/MIN/1.73 SQ METERS. CHRONIC KIDNEY DISEASE: <60mL/MIN/1.73 SQ METERS KIDNEY FAILURE: <15mL/MIN/1.73 SQ METERS THIS TEST SHOULD ONLY BE USED FOR PATIENTS 18 YEARS OF AGE AND OLDER. Globulin (S) [Mass/Vol] 4.2 g/dL High 1.5 - 3.8 [facility] Comment on above: Performed By: #### 2 48071 #### [facility],[address] [place] [address] 58867 Glucose [Mass/Vol] 138 mg/dL High 74 - 106 [facility] Comment on above: Performed By: #### 2 61926 #### [facility],[address] [place] [address] 60559 Potassium [Moles/Vol] 3.6 mmol/L Normal 3.5 - 5.1 [facility] Comment on above: Performed By: #### 2 19071 #### [facility],[address] [place] [address] 22992 Protein [Mass/Vol] 7.6 g/dL Normal 6.4 - 8.2 [facility] Comment on above: Performed By: #### 2 98213 #### [facility],[address] [place] [address] 63206 Sodium [Moles/Vol] 139 mmol/L Normal 136 - 145 [facility] Comment on above: Performed By: #### 2 34851 #### [facility],[address] [place] [address] 06329 Urea nitrogen [Mass/Vol] 7 mg/dL Normal 7 - 18 [facility] Comment on above: Performed By: #### 2 30006 #### [facility],[address] [place] [address] 10539 DRUG SCREEN URINE MEDICon AMPHETAMINES Negative Normal [facility] Comment on above: Performed By: #### 2 24652 #### [facility],[address] [place] [address] 64512 B-DIAZEPINES Negative Normal [facility] Comment on above: Performed By: #### 2 89666 #### [facility],[address] [place] [address] 05494 BARBITURATES Negative Normal [facility] Comment on above: Performed By: #### 2 76778 #### [facility],[address] [place] [address] 03821 COCAINE Negative Normal [facility] Comment on above: Performed By: #### 2 30436 #### [facility],[address] [place] [address] DRUG SCREEN URINE MEDIC Normal [facility] Comment on above: Result Comment: DRUG SCREEN - URINE Performed By: #### 2 71170 #### [facility],[address] [place], [place] [address] METHADONE Negative Normal [facility] Comment on above: Performed By: #### 2 27190 #### [facility],[address] [place] [address] 53639 OPIATES Negative [facility] Comment on above: Performed By: #### 2 79246 #### [facility],[address] [place] [address] 34185 PCP Negative [facility] Comment on above: Performed By: #### 2 22816 #### [facility],[address] [place] [address] 03197 THC Negative [facility] Comment on above: Result Comment: DEVANTE ENTS RECEIVING PROTON PUMP INHIBITORS MAY DEMONSTRATE FALSE POSITIVE THC/CANNABINOID RESULTS. AN ALTERNATIVE CONFIRMATORY METHOD SHOULD BE CONSIDERED TO VERIFY POSITIVE RESULTS. Performed By: #### 2 93434 #### [facility],[address] [place] [address] 96657 URINALYSIS WITH MICROSCOPYon 03-14-2022 Amorphous NONE Normal [facility] Comment on above: Performed By: #### 2 89951 #### [facility],[address] [place] [address] 06982 Bacteria 3+ Normal [facility] Comment on above: Performed By: #### 2 73545 #### [facility],[address] [place] [address] 20778 Bilirubin Ql (U) Negative Normal NORMAL: NEGATIVE [facility] Comment on above: Performed By: #### 2 76624 #### [facility],[address] [place] [address] 68156 Casts NONE Normal [facility] Comment on above: Performed By: #### 2 87184 #### [facility],[address] [place], [place] [address] Clarity (U) very cloudy Normal NORMAL: CLEAR [facility] Comment on above: Performed By: #### 2 71122 #### [facility],[address] [place] [address] 67682 Color (U) p.yel Normal NORMAL: YELLOW [facility] Comment on above: Performed By: #### 2 84257 #### [facility],[address] [place] [address] 49612 Crystals LM Nom (Urine sed) NONE Normal [facility] Comment on above: Performed By: #### 2 42943 #### [facility],[address] [place] [address] 78136 Epi Cells MANY Normal [facility] Comment on above: Performed By: #### 2 41988 #### [facility],[address] [place] [address] 84943 Glucose Ql (U) NORM Normal NORMAL: NORMAL [facility] Comment on above: Performed By: #### 2 12664 #### [facility],[address] [place] [address] 11303 Hemoglobin Ql (U) 10 Abnormal NORMAL: NEGATIVE [facility] Comment on above: Performed By: #### 2 57101 #### [facility],[address] [place] [address] Ketone Negative Normal NORMAL: NEGATIVE [facility] Comment on above: Performed By: #### 2 57087 #### [facility],[address] [place] [address] Leukocytes 100 Abnormal NORMAL: NEGATIVE [facility] Comment on above: Result Comment: URIN E MICROSCOPIC Performed By: #### 2 89980 #### [facility],[address] [place] [address] Mucous 1+ Normal [facility] Comment on above: Performed By: #### 2 00487 #### [facility],[address] [place] [address] Nitrite Ql (U) Negative Normal NORMAL: NEGATIVE [facility] Comment on above: Performed By: #### 2 71836 #### [facility],[address] [place] [address] pH (U) 7 [pH] Normal NORMAL: 5.0-8.0 [facility] Comment on above: Performed By: #### 2 64055 #### [facility],[address] [place] [address] Protein Ql (U) Negative Normal NORMAL: NEGATIVE [facility] Comment on above: Performed By: #### 2 39519 #### [facility],[address] [place] [address] Rbc 0-5 Normal 0-3 / hpf [facility] Comment on above: Performed By: #### 2 84807 #### [facility],[address] [place] [address] Sp [place] 1.010 Normal NORMAL: 1.010-1.030 [facility] Comment on above: Performed By: #### 2 37051 #### [facility],[address] [place] [address] Specimen Type UNSPECIFIED Normal [facility] Comment on above: Performed By: #### 2 72676 #### [facility],[address] [place] [address] URINALYSIS WITH MICROSCOPY Normal [facility] Comment on above: Result Comment: URIN ALYSIS Performed By: #### 2 44708 #### [facility],[address] [place], [place] [address] Urobilinog NORM Normal NORMAL: NORMAL [facility] Comment on above: Performed By: #### 2 49885 #### [facility],[address] [place] [address] Wbc 6-10 Normal 0-5 / hpf [facility] Comment on above: Performed By: #### 2 14381 #### [facility],[address] [place], [place] [address] Yeast NONE Normal [facility] Comment on above: Performed By: #### 2 98116 #### [facility],[address] [place], [place] [address] URINE OB DIP B/Oon 2 Glucose Ql (U) Negative Neg mg/dL [facility] Protein.monoclonal (U) [Mass/Vol] Negative Neg mg/dL [facility] URINE OB DIP B/Oon 2 Glucose Ql (U) Negative Neg mg/dL [facility] Protein.monoclonal (U) [Mass/Vol] 30 mg/dL Neg mg/dL [facility] NUCHAL TRANSLUCENCY WHIon [facility] URINE OB DIP B/Oon 2 Glucose Ql (U) Negative Neg mg/dL [facility] Protein.monoclonal (U) [Mass/Vol] Negative Neg mg/dL [facility] Vital Signs Date Time Vital Sign Value Performing Clinician Facility 05-25-2024 08:08-0500 Body mass index (BMI) [Ratio] 33.82 kg/m2 Hebert Watts APRN.CNP Work Phone: [facility] 05-25-2024 08:08-0500 Body temperature 97.81 [degF] Hebert Moomaw MEASUREMENT AND SENSING TECHNICIAN.RECREATION ASSISTANT Work Phone: [facility] 05-25-2024 08:08-0500 Body weight 81.2 kg Hebert Moomaw MEASUREMENT AND SENSING TECHNICIAN.RECREATION ASSISTANT Work Phone: [facility] 05-25-2024 08:08-0500 Diastolic blood pressure 72 mm[Hg] Hebert Moomaw MEASUREMENT AND SENSING TECHNICIAN.RECREATION ASSISTANT Work Phone: [facility] 05-25-2024 08:08-0500 Heart rate 118 /min Hebert Moomaw MEASUREMENT AND SENSING TECHNICIAN.RECREATION ASSISTANT Work Phone: [facility] 05-25-2024 08:08-0500 Respiratory rate 18 /min Hebert Moomaw MEASUREMENT AND SENSING TECHNICIAN.RECREATION ASSISTANT Work Phone: [facility] 05-25-2024 08:08-0500 SaO2% (BldA) [Mass fraction] 98 % Hebert Moomaw MEASUREMENT AND SENSING TECHNICIAN.RECREATION ASSISTANT Work Phone: [facility] 05-25-2024 08:08-0500 Systolic blood pressure 120 mm[Hg] Hebert Moomaw MEASUREMENT AND SENSING TECHNICIAN.RECREATION ASSISTANT Work Phone: [facility] 02-12-2024 10:42-0400 Body mass index (BMI) [Ratio] 34.58 kg/m2 Onesimo Linn MEASUREMENT AND SENSING TECHNICIAN.RECREATION ASSISTANT Work Phone: [facility] 02-12-2024 10:42-0400 Body weight 83.01 kg Onesimo Linn MEASUREMENT AND SENSING TECHNICIAN.RECREATION ASSISTANT Work Phone: [facility] 02-12-2024 10:42-0400 Diastolic blood pressure 74 mm[Hg] Onesimo Linn MEASUREMENT AND SENSING TECHNICIAN.RECREATION ASSISTANT Work Phone: [facility] 02-12-2024 10:42-0400 Heart rate 71 /min Onesimo Linn MEASUREMENT AND SENSING TECHNICIAN.RECREATION ASSISTANT Work Phone: [facility] 02-12-2024 10:42-0400 Respiratory rate 14 /min Onesimo Linn MEASUREMENT AND SENSING TECHNICIAN.RECREATION ASSISTANT Work Phone: [facility] 02-12-2024 10:42-0400 Systolic blood pressure 114 mm[Hg] Onesimo Linn MEASUREMENT AND SENSING TECHNICIAN.RECREATION ASSISTANT Work Phone: [facility] 01-20-2024 14:36-0400 Body mass index (BMI) [Ratio] 34.58 kg/m2 Chandni [facility] Joseph MEASUREMENT AND SENSING TECHNICIAN.RECREATION ASSISTANT Work Phone: [facility] 01-20-2024 14:36-0400 Body weight 83.01 kg Chandni [facility] Joseph MEASUREMENT AND SENSING TECHNICIAN.RECREATION ASSISTANT Work Phone: [facility] 01-20-2024 14:36-0400 Diastolic blood pressure 70 mm[Hg] Chandni Stephanie MEASUREMENT AND SENSING TECHNICIAN.RECREATION ASSISTANT Work Phone: [facility] 01-20-2024 14:36-0400 Systolic blood pressure 124 mm[Hg] Chandni [facility] Joseph MEASUREMENT AND SENSING TECHNICIAN.RECREATION ASSISTANT Work Phone: [facility] 12-04-2023 10:02-0400 Body mass index (BMI) [Ratio] 36.24 kg/m2 Hui Sy APRN.RECREATION ASSISTANT Work Phone: [facility] 12-04-2023 10:02-0400 Body temperature 97.59 [degF] Hui Sy APRN.RECREATION ASSISTANT Work Phone: [facility] 12-04-2023 10:02-0400 Body weight 87 kg Hui Sy APRN.RECREATION ASSISTANT Work Phone: [facility] 12-04-2023 10:02-0400 Diastolic blood pressure 82 mm[Hg] Hui Sy APRN.RECREATION ASSISTANT Work Phone: [facility] 12-04-2023 10:02-0400 Heart rate 70 /min Hui Sy APRN.RECREATION ASSISTANT Work Phone: [facility] 12-04-2023 10:02-0400 Respiratory rate 18 /min Hui Sy APRN.RECREATION ASSISTANT Work Phone: [facility] 12-04-2023 10:02-0400 SaO2% (BldA) [Mass fraction] 98 % Hui Sy APRN.RECREATION ASSISTANT Work Phone: [facility] 12-04-2023 10:02-0400 Systolic blood pressure 119 mm[Hg] Hui Sy MEASUREMENT AND SENSING TECHNICIAN.RECREATION ASSISTANT Work Phone: [facility] 11-19-2023 14:57-0400 Body mass index (BMI) [Ratio] 36.45 kg/m2 Regan Ruiz MEASUREMENT AND SENSING TECHNICIAN.RECREATION ASSISTANT Work Phone: [facility] 11-19-2023 14:57-0400 Body temperature 97.2 [degF] Regan Ruiz MEASUREMENT AND SENSING TECHNICIAN.RECREATION ASSISTANT Work Phone: [facility] 11-19-2023 14:57-0400 Body weight 87.5 kg Regan Ruiz MEASUREMENT AND SENSING TECHNICIAN.RECREATION ASSISTANT Work Phone: [facility] 11-19-2023 14:57-0400 Diastolic blood pressure 72 mm[Hg] Regan Ruiz MEASUREMENT AND SENSING TECHNICIAN.RECREATION ASSISTANT Work Phone: [facility] 11-19-2023 14:57-0400 Heart rate 60 /min Regan Ruiz MEASUREMENT AND SENSING TECHNICIAN.RECREATION ASSISTANT Work Phone: [facility] 11-19-2023 14:57-0400 Respiratory rate 16 /min Regan Ruiz MEASUREMENT AND SENSING TECHNICIAN.RECREATION ASSISTANT Work Phone: [facility] 11-19-2023 14:57-0400 SaO2% (BldA) [Mass fraction] 98 % Regan Ruiz MEASUREMENT AND SENSING TECHNICIAN.RECREATION ASSISTANT Work Phone: [facility] 11-19-2023 14:57-0400 Systolic blood pressure 146 mm[Hg] Regan Ruiz MEASUREMENT AND SENSING TECHNICIAN.RECREATION ASSISTANT Work Phone: [facility] 10-20-2023 09:26-0400 Body temperature 97.11 [degF] Hebert Moomaelma MEASUREMENT AND SENSING TECHNICIAN.RECREATION ASSISTANT Work Phone: [facility] 10-20-2023 09:26-0400 Body weight 88.7 kg Hebert Moomaelma MEASUREMENT AND SENSING TECHNICIAN.RECREATION ASSISTANT Work Phone: [facility] 10-20-2023 09:26-0400 Diastolic blood pressure 82 mm[Hg] Hebert Moomaw MEASUREMENT AND SENSING TECHNICIAN.RECREATION ASSISTANT Work Phone: [facility] 10-20-2023 09:26-0400 Heart rate 95 /min Hebert Moomaw MEASUREMENT AND SENSING TECHNICIAN.RECREATION ASSISTANT Work Phone: [facility] 10-20-2023 09:26-0400 Respiratory rate 20 /min Hebert Moomaw MEASUREMENT AND SENSING TECHNICIAN.RECREATION ASSISTANT Work Phone: [facility] 10-20-2023 09:26-0400 SaO2% (BldA) [Mass fraction] 99 % Hebert Moomaw MEASUREMENT AND SENSING TECHNICIAN.RECREATION ASSISTANT Work Phone: [facility] 10-20-2023 09:26-0400 Systolic blood pressure 104 mm[Hg] Hebert Moomaw MEASUREMENT AND SENSING TECHNICIAN.RECREATION ASSISTANT Work Phone: [facility] 10-08-2023 09:31-0400 Body height 154.9 cm Dhruv Bonilla MD Work Phone: [facility] 10-08-2023 09:31-0400 Body temperature 97.2 [degF] Dhruv Bonilla MD Work Phone: [facility] 10-08-2023 09:31-0400 Body weight 88.81 kg Dhruv Bonilla MD Work Phone: [facility] 10-08-2023 09:31-0400 Diastolic blood pressure 79 mm[Hg] Dhruv Bonilla MD Work Phone: [facility] 10-08-2023 09:31-0400 Heart rate 88 /min Dhruv Bonilla MD Work Phone: [facility] 10-08-2023 09:31-0400 SaO2% (BldA) [Mass fraction] 89 % Dhruv Bonilla MD Work Phone: [facility] 10-08-2023 09:31-0400 Systolic blood pressure 131 mm[Hg] Dhruv Bonilla MD Work Phone: [facility] 09-05-2023 12:00-0500 Body temperature 96.8 [degF] Indigo Hermosillo MD Work Phone: [facility] 09-05-2023 12:00-0500 Diastolic blood pressure 55 mm[Hg] Indigo Hermosillo MD Work Phone: [facility] 09-05-2023 12:00-0500 Heart rate 64 /min Indigo Hermosillo MD Work Phone: [facility] 09-05-2023 12:00-0500 Respiratory rate 21 /min Indigo Hermosillo MD Work Phone: [facility] 09-05-2023 12:00-0500 SaO2% (BldA) [Mass fraction] 98 % Indigo Hermosillo MD Work Phone: [facility] 09-05-2023 12:00-0500 Systolic blood pressure 107 mm[Hg] Indigo Hermosillo MD Work Phone: [facility] 09-05-2023 10:30-0500 Body height 156.2 cm Indigo Hermosillo MD Work Phone: [facility] 09-05-2023 10:30-0500 Body weight 90.72 kg Indigo Hermosillo MD Work Phone: [facility] 05-12-2023 08:13-0400 Body height 156.2 cm Indigo Hermosillo MD Work Phone: [facility] 05-12-2023 08:13-0400 Body temperature 97.5 [degF] Indigo Hermosillo MD Work Phone: [facility] 05-12-2023 08:13-0400 Body weight 93.35 kg Indigo Hermosillo MD Work Phone: [facility] 05-12-2023 08:13-0400 Diastolic blood pressure 62 mm[Hg] Indigo Hermosillo MD Work Phone: [facility] 05-12-2023 08:13-0400 Heart rate 84 /min Indigo Hermosillo MD Work Phone: [facility] 05-12-2023 08:13-0400 SaO2% (BldA) [Mass fraction] 97 % Indigo Hermosillo MD Work Phone: [facility] 05-12-2023 08:13-0400 Systolic blood pressure 118 mm[Hg] Indigo Hermosillo MD Work Phone: [facility] 05-08-2023 08:190400 Body height 157.5 cm Chaz Aguillon MD Work Phone: [facility] 05-08-2023 08:19-0400 Body weight 92.53 kg Chaz Aguillon MD Work Phone: [facility] 02-09-2023 14:56-0400 Body temperature 97.2 [degF] Regan Pendlebury MEASUREMENT AND SENSING TECHNICIAN.RECREATION ASSISTANT Work Phone: [facility] 02-09-2023 14:56-0400 Body weight 90.72 kg Regan Pendlesylvia MEASUREMENT AND SENSING TECHNICIAN.RECREATION ASSISTANT Work Phone: [facility] 02-09-2023 14:56-0400 Diastolic blood pressure 68 mm[Hg] Regan Pendlebury MEASUREMENT AND SENSING TECHNICIAN.RECREATION ASSISTANT Work Phone: [facility] 02-09-2023 14:56-0400 Heart rate 95 /min Regan Pendlebury MEASUREMENT AND SENSING TECHNICIAN.RECREATION ASSISTANT Work Phone: [facility] 02-09-2023 14:56-0400 Respiratory rate 16 /min Regan Pendlebury MEASUREMENT AND SENSING TECHNICIAN.RECREATION ASSISTANT Work Phone: [facility] 02-09-2023 14:56-0400 SaO2% (BldA) [Mass fraction] 97 % Regan Pendlebury MEASUREMENT AND SENSING TECHNICIAN.RECREATION ASSISTANT Work Phone: [facility] 02-09-2023 14:56-0400 Systolic blood pressure 124 mm[Hg] Regan Pendlebury MEASUREMENT AND SENSING TECHNICIAN.RECREATION ASSISTANT Work Phone: [facility] 11-01-2022 12:49-0400 Body temperature 102.99 [degF] Divina Gandara PA-C Work Phone: [facility] 11-01-2022 12:49-0400 Body weight 84.19 kg Divina DE-Wendy Work Phone: [facility] 11-01-2022 12:49-0400 Diastolic blood pressure 76 mm[Hg] Divina Athy PA-C Work Phone: [facility] 11-01-2022 12:49-0400 Heart rate 138 /min Divina Athy PA-C Work Phone: [facility] 11-01-2022 12:49-0400 Respiratory rate 20 /min Divina Athy PA-C Work Phone: [facility] 11-01-2022 12:49-0400 SaO2% (BldA) [Mass fraction] 98 % Divina Athy PA-C Work Phone: [facility] 11-01-2022 12:49-0400 Systolic blood pressure 106 mm[Hg] Divina Athy PA-C Work Phone: [facility] 09-10-2022 09:47-0500 Body height 154.9 cm Adriana Voss MD Work Phone: [facility] 09-10-2022 09:47-0500 Body weight 86.18 kg Adriana Voss MD Work Phone: [facility] 09-10-2022 09:47-0500 Diastolic blood pressure 72 mm[Hg] Adriana Voss MD Work Phone: [facility] 09-10-2022 09:47-0500 Systolic blood pressure 112 mm[Hg] Adriana Voss MD Work Phone: [facility] 08-29-2022 10:03-0500 Body temperature 97.81 [degF] Roxanne Praisler-Wood MEASUREMENT AND SENSING TECHNICIAN.RECREATION ASSISTANT Work Phone: [facility] 08-29-2022 10:03-0500 Body weight 85.28 kg Roxanne Praisler-Wood MEASUREMENT AND SENSING TECHNICIAN.RECREATION ASSISTANT Work Phone: [facility] 08-29-2022 10:03-0500 Diastolic blood pressure 80 mm[Hg] Roxanne Praisler-Wood MEASUREMENT AND SENSING TECHNICIAN.RECREATION ASSISTANT Work Phone: [facility] 08-29-2022 10:03-0500 Heart rate 75 /min Roxanne Praisler-Wood MEASUREMENT AND SENSING TECHNICIAN.RECREATION ASSISTANT Work Phone: [facility] 08-29-2022 10:03-0500 Respiratory rate 22 /min Roxanne Mark MEASUREMENT AND SENSING TECHNICIAN.RECREATION ASSISTANT Work Phone: [facility] 08-29-2022 10:03-0500 SaO2% (BldA) [Mass fraction] 97 % Roxanneras Rosales-Rogers MEASUREMENT AND SENSING TECHNICIAN.RECREATION ASSISTANT Work Phone: [facility] 08-29-2022 10:03-0500 Systolic blood pressure 124 mm[Hg] Roxanneras Rosales-Rogers MEASUREMENT AND SENSING TECHNICIAN.RECREATION ASSISTANT Work Phone: [facility] 08-06-2022 10:29-0500 Body weight 87.09 kg Adriana Voss MD Work Phone: [facility] 08-06-2022 10:29-0500 Diastolic blood pressure 78 mm[Hg] Adriana Voss MD Work Phone: [facility] 08-06-2022 10:29-0500 Systolic blood pressure 108 mm[Hg] Adriana Voss MD Work Phone: [facility] 08-02-2022 11:05-0500 Respiratory rate 16 /min [facility] Work Phone: 08-02-2022 07:54-0500 Body temperature 97.1 [degF] [facility] Work Phone: 08-02-2022 07:54-0500 Diastolic blood pressure 70 mm[Hg] [facility] Work Phone: 08-02-2022 07:54-0500 Heart rate 76 /min [facility] Work Phone: 08-02-2022 07:54-0500 SaO2% (BldA) [Mass fraction] 96 % [facility] Work Phone: 08-02-2022 07:54-0500 Systolic blood pressure 109 mm[Hg] [facility] Work Phone: 07-30-2022 12:29-0500 Body height 157.48 cm [facility] Work Phone: 07-30-2022 12:29-0500 Body mass index (BMI) [Ratio] 37.7 kg/m2 [facility] Work Phone: 07-30-2022 12:29-0500 Body weight 93.6 kg [facility] Work Phone: 07-30-2022 09:54-0500 Body weight 93.44 kg Adriana Voss MD Work Phone: [facility] 07-30-2022 09:54-0500 Diastolic blood pressure 80 mm[Hg] Adriana Voss MD Work Phone: [facility] 07-30-2022 09:54-0500 Systolic blood pressure 124 mm[Hg] Adriana Voss MD Work Phone: [facility] 07-19-2022 13:55-0500 Body weight 92.26 kg Adriana Voss MD Work Phone: [facility] 07-19-2022 13:55-0500 Diastolic blood pressure 77 mm[Hg] Adriana Voss MD Work Phone: [facility] 07-19-2022 13:55-0500 Systolic blood pressure 112 mm[Hg] Adriana Voss MD Work Phone: [facility] 07-16-2022 13:27-0500 Body weight 91.63 kg Adriana Voss MD Work Phone: [facility] 07-16-2022 13:27-0500 Diastolic blood pressure 78 mm[Hg] Adriana Voss MD Work Phone: [facility] 07-16-2022 13:27-0500 Systolic blood pressure 114 mm[Hg] Adriana Voss MD Work Phone: [facility] 07-10-2022 09:49-0500 Body weight 92.08 kg Adriana Voss MD Work Phone: [facility] 07-10-2022 09:49-0500 Diastolic blood pressure 70 mm[Hg] Adriana Voss MD Work Phone: [facility] 07-10-2022 09:49-0500 Systolic blood pressure 110 mm[Hg] Adriana Voss MD Work Phone: [facility] 07-04-2022 14:30-0500 Body weight 92.08 kg Yoselyn Sy MD Work Phone: [facility] 07-04-2022 14:30-0500 Diastolic blood pressure 72 mm[Hg] Yoselyn Sy MD Work Phone: [facility] 07-04-2022 14:30-0500 Systolic blood pressure 102 mm[Hg] Yoselyn Sy MD Work Phone: [facility] 07-02-2022 09:48-0500 Body weight 92.08 kg Yara Bentley MD Work Phone: [facility] 07-02-2022 09:48-0500 Diastolic blood pressure 70 mm[Hg] Yara Bentley MD Work Phone: [facility] 07-02-2022 09:48-0500 Systolic blood pressure 112 mm[Hg] Yara Bentley MD Work Phone: [facility] 06-24-2022 07:59-0500 Body height 154.[address] [facility] 06-24-2022 07:59-0500 Body weight 92.[address] [facility] 06-18-2022 08:49-0500 Body weight 92.99 kg Yara Bentley MD Work Phone: [facility] 06-18-2022 08:49-0500 Diastolic blood pressure 72 mm[Hg] Yara Bentley MD Work Phone: [facility] 06-18-2022 08:49-0500 Systolic blood pressure 112 mm[Hg] Yara Bentley MD Work Phone: [facility] 06-12-2022 09:19-0500 Body height 154.9 cm Isela Gomez MD Work Phone: [facility] 06-12-2022 09:19-0500 Body weight 93.44 kg Isela Gomez MD Work Phone: [facility] 06-12-2022 09:19-0500 Diastolic blood pressure 74 mm[Hg] Isela Gomez MD Work Phone: [facility] 06-12-2022 09:19-0500 Systolic blood pressure 116 mm[Hg] Isela Gomez MD Work Phone: [facility] 2022 12:00-0400 Body temperature 98.4 [degF] Roxanne Praisler-Wood MEASUREMENT AND SENSING TECHNICIAN.RECREATION ASSISTANT Work Phone: [facility] 2022 12:00-0400 Body weight 91.17 kg Roxanne Praisler-Wood MEASUREMENT AND SENSING TECHNICIAN.RECREATION ASSISTANT Work Phone: [facility] 2022 12:00-0400 Diastolic blood pressure 72 mm[Hg] Roxanne Praisler-Wood MEASUREMENT AND SENSING TECHNICIAN.RECREATION ASSISTANT Work Phone: [facility] 2022 12:00-0400 Heart rate 108 /min Roxanne Praisler-Wood MEASUREMENT AND SENSING TECHNICIAN.RECREATION ASSISTANT Work Phone: [facility] 2022 12:00-0400 Respiratory rate 16 /min Roxanne Praisler-Wood MEASUREMENT AND SENSING TECHNICIAN.RECREATION ASSISTANT Work Phone: [facility] 2022 12:00-0400 SaO2% (BldA) [Mass fraction] 99 % Roxanne Praisler-Wood MEASUREMENT AND SENSING TECHNICIAN.RECREATION ASSISTANT Work Phone: [facility] 2022 12:00-0400 Systolic blood pressure 126 mm[Hg] Roxanne Praisler-Wood MEASUREMENT AND SENSING TECHNICIAN.RECREATION ASSISTANT Work Phone: [facility] 05-17-2022 10:07-0400 Body weight 92.08 kg Yara Bentley MD Work Phone: [facility] 05-17-2022 10:07-0400 Diastolic blood pressure 78 mm[Hg] Yara Bentley MD Work Phone: [facility] 05-17-2022 10:07-0400 Systolic blood pressure 116 mm[Hg] Yara Bentley MD Work Phone: [facility] 04-17-2022 14:32-0400 Body weight 90.27 kg Yara Bentley MD Work Phone: [facility] 04-17-2022 14:32-0400 Diastolic blood pressure 70 mm[Hg] Yara Bentley MD Work Phone: [facility] 04-17-2022 14:32-0400 Systolic blood pressure 110 mm[Hg] Yara Bentley MD Work Phone: [facility] 03-20-2022 09:35-0400 Body weight 88.91 kg Yara Bentley MD Work Phone: [facility] 03-20-2022 09:35-0400 Diastolic blood pressure 62 mm[Hg] Yara Bentley MD Work Phone: [facility] 03-20-2022 09:35-0400 Systolic blood pressure 104 mm[Hg] Yara Bentley MD Work Phone: [facility] 02-18-2022 09:51-0400 Body weight 88.18 kg Yara Bentley MD Work Phone: [facility] 02-18-2022 09:51-0400 Diastolic blood pressure 62 mm[Hg] Yara Bentley MD Work Phone: [facility] 02-18-2022 09:51-0400 Systolic blood pressure 104 mm[Hg] Yara Bentley MD Work Phone: [facility] 01-24-2022 10:57-0400 Body weight 89.27 kg Karmon Martin MD Work Phone: [facility] 01-24-2022 10:57-0400 Diastolic blood pressure 64 mm[Hg] Yoselyn Sy MD Work Phone: [facility] 01-24-2022 10:57-0400 Systolic blood pressure 102 mm[Hg] Yoselyn Sy MD Work Phone: [facility] 01-17-2022 09:24-0400 Body weight 89.36 kg Yara Bentley MD Work Phone: [facility] 01-17-2022 09:24-0400 Diastolic blood pressure 78 mm[Hg] Yara Bentley MD Work Phone: [facility] 01-17-2022 09:24-0400 Systolic blood pressure 108 mm[Hg] Yara Bentley MD Work Phone: [facility] 12-19-2021 10:27-0400 Body height 154.9 cm Yara Bentley MD Work Phone: [facility] 12-19-2021 10:27-0400 Body weight 91.63 kg Yara Bentley MD Work Phone: [facility] 12-19-2021 10:27-0400 Diastolic blood pressure 72 mm[Hg] Yara Bentley MD Work Phone: [facility] 12-19-2021 10:27-0400 Systolic blood pressure 116 mm[Hg] Yara Bentley MD Work Phone: [facility] Encounters Encounter Date Encounter Type Care Provider Facility Start: 05-25-2024 End: 05-25-2024 ambulatory ONESIMO LINN Facility:[facility] Start: 05-25-2024 End: 05-25-2024 Patient encounter procedure Hebert Watts MEASUREMENT AND SENSING TECHNICIAN.RECREATION ASSISTANT Work Phone: [facility] Comment on above: Urinary frequency (P rimary Dx); Acute UTI Start: 03-09-2024 End: 03-09-2024 Telephone encounter Dhruv Bonilla MD Work Phone: Gastroenterology Start: 03-02-2024 Telephone encounter Dhruv Bonilla MD Work Phone: Gastroenterology Start: 02-13-2024 ambulatory Chandni Brown MEASUREMENT AND SENSING TECHNICIAN.RECREATION ASSISTANT Work Phone: OB/Gynecology Comment on above: New control Start: 02-12-2024 End: 02-12-2024 Patient encounter procedure Onesimo Linn MEASUREMENT AND SENSING TECHNICIAN.RECREATION ASSISTANT Work Phone: [facility] Comment on above: Leukocytosis, unspec ified type (Primary Dx); Medication management; Screening for diabetes mellitus; Encounter for lipid screening for cardiovascular disease; Sleep walking; Screening for depression; Encounter for screening examination for other mental health and behavioral disorders Start: 02-12-2024 End: 02-12-2024 ambulatory ONESIMO LINN Facility:[facility] Start: 01-29-2024 Orders Only Dhruv dunbar MD Work Phone: Gastroenterology Comment on above: Irritable bowel synd lety, unspecified type (Primary Dx) Insurance Authorizat ion (Linzess 145 mcg) Start: 01-27-2024 Telephone encounter Dhruv Bonilla MD Work Phone: Gastroenterology Comment on above: Medication Problem ( Linzess); Insurance Authorization Start: 01-23-2024 End: 01-23-2024 ambulatory ONESIMO LINN OB/Gynecology Start: 01-23-2024 End: 01-23-2024 Patient encounter procedure [employer] OB/Gynecology Start: 01-20-2024 End: 01-20-2024 ambulatory Angela Knutson RN NURSE WOOD PATTERNMAKER APPRENTICE Start: 01-20-2024 End: 01-20-2024 Patient encounter procedure Angela Knutson RN NURSE WOOD PATTERNMAKER APPRENTICE Comment on above: Clinical Update Intermenstrual bleed ing (Primary Dx); Pelvic pain in female; Encounter for surveillance of contraceptive pills Start: 12-04-2023 End: 12-04-2023 ambulatory Sarina Choudhary MEASUREMENT AND SENSING TECHNICIAN.RECREATION ASSISTANT Work Phone: [facility] Comment on above: Results Start: 12-04-2023 E-mail encounter fro m caregiver Sarina Choudhary MEASUREMENT AND SENSING TECHNICIAN.RECREATION ASSISTANT Work Phone: [facility] Start: 12-04-2023 End: 12-04-2023 Patient encounter procedure Hui Sy MEASUREMENT AND SENSING TECHNICIAN.RECREATION ASSISTANT Work Phone: [facility] Comment on above: Vaginal discomfort ( Primary Dx) Start: 11-19-2023 End: 11-19-2023 Office outpatient visit 25 minutes Regan Sara MEASUREMENT AND SENSING TECHNICIAN.RECREATION ASSISTANT Work Phone: [facility] Comment on above: Abscess (Primary Dx) Start: 11-19-2023 End: 11-19-2023 ambulatory Onesimo Linn MEASUREMENT AND SENSING TECHNICIAN.RECREATION ASSISTANT Work Phone: [facility] Comment on above: Mass Start: 10-28-2023 ambulatory Dhruv dunbar MD Work Phone: Gastroenterology Comment on above: Blood test Start: 10-20-2023 End: 10-20-2023 ambulatory ONESMIO LINN Facility:[facility] Start: 10-20-2023 End: 10-20-2023 Patient encounter procedure Hebert Watts MEASUREMENT AND SENSING TECHNICIAN.RECREATION ASSISTANT Work Phone: [facility] Comment on above: Urinary frequency (P rimary Dx); Acute cystitis with hematuria Start: 10-08-2023 End: 10-08-2023 ambulatory DHRUV BONILLA Facility:[facility] Start: 10-08-2023 End: 10-08-2023 Patient encounter procedure Dhruv Bonilla MD Work Phone: Gastroenterology Comment on above: Irritable bowel synd lety, unspecified type (Primary Dx); Abdominal pain, unspecified abdominal location Start: 10-08-2023 End: 10-08-2023 ambulatory DHRUV BONILLA Facility:[facility] Start: 09-19-2023 ambulatory Onesimo alejandro MEASUREMENT AND SENSING TECHNICIAN.RECREATION ASSISTANT Work Phone: [facility] Comment on above: Colonoscopy results Start: 09-09-2023 ambulatory Indigo bhandari MD Work Phone: General Surgery Comment on above: Endoscopy results Start: 09-09-2023 E-mail encounter fro m caregiver Indigo Hermosillo MD Work Phone: [facility] Start: 09-05-2023 ambulatory STAN HUTCHINSONJUSTYNA Facility:[facility] Start: 09-05-2023 End: 09-05-2023 Subsequent hospital visit by physician Indigo Hermosillo MD Work Phone: [facility] Comment on above: Lower abdominal pain [R10.30] Start: 09-01-2023 Telephone encounter [facility] Start: 08-14-2023 End: 08-14-2023 ambulatory ONESIMO LINN Facility:[facility] Start: 06-30-2023 End: 06-30-2023 ambulatory RADHA GONZALEZ Facility:[facility] Start: 06-30-2023 End: 06-30-2023 Patient encounter procedure Radha Gonzalez OD Work Phone: Optometry Comment on above: Floaters, bilateral (Primary Dx); Hyperopia, bilateral; Regular astigmatism of left eye Start: 05-26-2023 Orders Only Indigo bhandari MD Work Phone: Ambulatory Surgery Comment on above: Lower abdominal pain (Primary Dx) Start: 05-12-2023 End: 05-12-2023 Patient encounter procedure Indigo Hermosillo MD Work Phone: General Surgery Comment on above: Lower abdominal pain Start: 05-08-2023 End: 05-08-2023 Patient encounter procedure Chaz Aguillon MD Work Phone: Urology Comment on above: Complex renal cyst Start: 03-21-2023 Telephone encounter Onesimo scott APRN.RECREATION ASSISTANT Work Phone: [facility] [place] Comment on above: Results Start: 02-18-2023 Telephone encounter Onesimo scott APRN.RECREATION ASSISTANT Work Phone: [facility] [place] Comment on above: Results Start: 02-13-2023 Telephone encounter Onesimo eppsble MEASUREMENT AND SENSING TECHNICIAN.RECREATION ASSISTANT Work Phone: [facility] [place] Comment on above: Results Start: 02-09-2023 End: 02-09-2023 Patient encounter procedure Regan Franklinsylvia MEASUREMENT AND SENSING TECHNICIAN.RECREATION ASSISTANT Work Phone: [facility] Comment on above: Right lower quadrant abdominal pain (Primary Dx) Start: 01-12-2023 Refill Adriana martinez MD Work Phone: OB/Gynecology Comment on above: Refill Request Start: 11-18-2022 Refill Adriana martinez MD Work Phone: OB/Gynecology Comment on above: Refill Request Start: 11-01-2022 End: 11-01-2022 Patient encounter procedure Divina Gandara PA-C Work Phone: [facility] Comment on above: Viral URI (Primary D x); Breast pain Start: 10-29-2022 Refill Adriana martinez MD Work Phone: OB/Gynecology Comment on above: Refill Request Start: 09-10-2022 End: 09-10-2022 Patient encounter procedure Adriana Voss MD Work Phone: OB/Gynecology Comment on above: care and examination (Primary Dx) Start: 08-29-2022 End: 08-29-2022 Patient encounter procedure Roxanne Flores MEASUREMENT AND SENSING TECHNICIAN.RECREATION ASSISTANT Work Phone: [facility] Comment on above: Mastitis, left, acut e (Primary Dx); Yeast infection of nipple, Start: 08-06-2022 End: 08-06-2022 Patient encounter procedure Adriana Voss MD Work Phone: OB/Gynecology Comment on above: Status post section routine follow-up (Primary Dx); Postop check Start: 08-01-2022 ambulatory Yara Bentley MD Work Phone: OB/Gynecology Comment on above: Ob Delivery Note Start: 07-30-2022 End: 08-02-2022 Evaluation and management of inpatient Sarina Gracia Facility:[facility] Start: 07-30-2022 End: 08-02-2022 Evaluation and management of inpatient [facility] Start: 07-30-2022 End: 07-30-2022 Patient encounter procedure Adriana Voss MD Work Phone: OB/Gynecology Comment on above: Gestational diabetes mellitus, class A1 (Primary Dx); High-risk in third trimester; 39 weeks gestation of ; Obesity in Start: 07-19-2022 End: 07-19-2022 Patient encounter procedure Adriana Voss MD Work Phone: OB/Gynecology Comment on above: Gestational diabetes mellitus, class A1 (Primary Dx); 37 weeks gestation of Start: 07-16-2022 End: 07-16-2022 Patient encounter procedure Adriana Voss MD Work Phone: OB/Gynecology Comment on above: 37 weeks gestation o f (Primary Dx); Encounter for supervision of normal first in third trimester Start: 07-10-2022 End: 07-10-2022 Patient encounter procedure Adriana Voss MD Work Phone: OB/Gynecology Comment on above: Gestational diabetes mellitus, class A1 (Primary Dx); Obesity during ; Encounter for supervision of normal first in third trimester Gestational diabetes mellitus (GDM) requiring insulin (Primary Dx); Obesity in ; 36 weeks gestation of Start: 07-04-2022 End: 07-04-2022 Patient encounter procedure Yoselyn Sy MD Work Phone: OB/Gynecology Comment on above: Gestational diabetes mellitus, class A1 (Primary Dx); 35 weeks gestation of ; Obesity during Start: 07-04-2022 ambulatory Yara Bentley MD Work Phone: OB/Gynecology Comment on above: Questions Start: 07-02-2022 End: 07-02-2022 Patient encounter procedure Yara Bentley MD Work Phone: OB/Gynecology Comment on above: Gestational diabetes mellitus, class A1 (Primary Dx); Obesity during ; 35 weeks gestation of Start: 06-24-2022 End: 06-24-[address] Nutrition Therapy Comment on above: Abnormal maternal gl ucose tolerance, antepartum (Primary Dx); Dietary counseling Start: 06-24-2022 End: 06-24-2022 Telemedicine consultation with patient Marianna Cheng RD [facility] Start: 06-18-2022 End: 06-18-2022 Patient encounter procedure Yara Bentley MD Work Phone: OB/Gynecology Comment on above: Obesity in (Primary Dx); Gestational diabetes mellitus, class A1; 33 weeks gestation of Start: 06-12-2022 End: 06-12-2022 Patient encounter procedure Isela Gomez MD Work Phone: Maternal Medicine Comment on above: Obesity in (Primary Dx); Gestational diabetes mellitus, class A1; 32 weeks gestation of Start: 05-22-2022 End: 05-22-2022 Nursing evaluation of patient and report García Gimenez RN Work Phone: Endocrinology Comment on above: Abnormal maternal gl ucose tolerance, antepartum Refill Request Start: 05-21-2022 Telephone encounter Yara Bentley MD Work Phone: OB/Gynecology Comment on above: Patient Question Start: 2022 End: 2022 Patient encounter procedure Roxanne Flores APRN.CNP Work Phone: [facility] Comment on above: Acute sinusitis, rec urrence not specified, unspecified location (Primary Dx) Results Start: 05-17-2022 End: 05-17-2022 Patient encounter procedure Yara Bentley MD Work Phone: OB/Gynecology Comment on above: Obesity in (Primary Dx); 28 weeks gestation of ; Need for vaccination; UTI in , antepartum Start: 04-17-2022 End: 04-17-2022 Patient encounter procedure Yara Bentley MD Work Phone: OB/Gynecology Comment on above: Obesity during pregn annika (Primary Dx); Urinary tract infection in mother during second trimester of ; Need for influenza vaccination; 24 weeks gestation of Start: 03-20-2022 Telephone encounter Yara Bentley MD Work Phone: OB/Gynecology Comment on above: Breast Pump Start: 03-20-2022 End: 03-20-2022 Patient encounter procedure Yara Bentley MD Work Phone: OB/Gynecology Comment on above: Obesity during pregn annika (Primary Dx); 20 weeks gestation of Encounter for anatomic survey (Primary Dx); Obesity complicating , second trimester; 20 weeks gestation of Start: 03-15-2022 Telephone encounter Adriana Voss MD Work Phone: OB/Gynecology Comment on above: Question (OB Questio n) Start: 03-14-2022 End: 03-14-2022 Emergency department patient visit RY DO [facility] Start: 02-18-2022 End: 02-18-2022 Patient encounter procedure Yara Bentley MD Work Phone: OB/Gynecology Comment on above: Obesity in (Primary Dx); Encounter for supervision of normal first in second trimester; 16 weeks gestation of Start: 01-24-2022 End: 01-24-2022 Patient encounter procedure Yoselyn Sy MD Work Phone: OB/Gynecology Comment on above: Encounter for superv ision of normal first in first trimester (Primary Dx); 12 weeks gestation of Start: 01-23-2022 Telephone encounter Adriana Voss MD Work Phone: OB/Gynecology Comment on above: Question (OB Questio n) Start: 01-22-2022 Telephone encounter Key De La Rosa MD Work Phone: Maternal Medicine Comment on above: First Seq Results Start: 01-17-2022 End: 01-17-2022 Patient encounter procedure Yara Bentley MD Work Phone: OB/Gynecology Comment on above: Encounter for superv ision of normal first in first trimester (Primary Dx); Obesity in ; Encounter for screening of mother; 11 weeks gestation of Encounter for (NT) n uchal translucency scan (Primary Dx); 11 weeks gestation of Start: 12-27-2021 ambulatory [facility] Provider OB/Gynecol [place] Comment on above: Test Results Start: 12-27-2021 E-mail encounter chuck riley caregiver [facility] Provider [facility] Start: 12-19-2021 End: 12-19-2021 Patient encounter procedure Yara Bentley MD Work Phone: OB/Gynecology Comment on above: Encounter for superv ision of normal first in first trimester (Primary Dx); Obesity in ; Encounter for screening for malignant neoplasm of cervix Start: 12-06-2021 End: 12-06-2021 Nursing evaluation of patient and report Nurse [facility] Work Phone: OB/Gynecology Comment on above: Supervision of [employer] first , antepartum (Primary Dx); Obesity during Start: 10-31-2021 Telephone encounter Valentino machado OD Work Phone: Optometry Comment on above: Appointment Start: 10-30-2021 End: 10-30-2021 Patient encounter procedure Valentino Gonzalez OD Work Phone: Optometry Comment on above: Photophobia of both eyes (Primary Dx) Start: 10-25-2021 End: 10-25-2021 Patient encounter procedure Valentino Gonzalez OD Work Phone: Optometry Comment on above: Migraine with aura a nd without status migrainosus, not intractable (Primary Dx); Hyperopia, bilateral Procedures Date Procedure Procedure Detail Performing Clinician Start: 05-25-2024 Urnls dip stick/tablet rgnt auto w/o microscopy Regan Ruiz APRN.RECREATION ASSISTANT Work Phone: Start: 02-12-2024 Adult depression screening assessment Onesimo Linn APRN.RECREATION ASSISTANT Work Phone: Start: 01-23-2024 Us pelvic nonobstetric real-time image complete Chandni Brown APRN.RECREATION ASSISTANT Work Phone: Start: 12-04-2023 BACTERIAL VAGINOSIS NAAT Hui Sy MEASUREMENT AND SENSING TECHNICIAN.RECREATION ASSISTANT Work Phone: Start: 12-04-2023 Iadna trichomonas vaginalis amplified probe tech Hui Sy MEASUREMENT AND SENSING TECHNICIAN.RECREATION ASSISTANT Work Phone: Start: 12-04-2023 Urnls dip stick/tablet rgnt auto w/o microscopy Hui Sy MEASUREMENT AND SENSING TECHNICIAN.RECREATION ASSISTANT Work Phone: Start: 10-20-2023 Urnls dip stick/tablet rgnt auto w/o microscopy Roxanne Flores MEASUREMENT AND SENSING TECHNICIAN.[facility] Work Phone: Start: 09-05-2023 Colonoscopy flx dx w/collj spec when pfrmd Indigo Hermosillo MD Work Phone: Start: 05-08-2023 Urnls dip stick/tablet rgnt auto w/o microscopy Chaz Aguillon MD Work Phone: Start: 11-01-2022 COVID WITH FLUA+B, ROUTINE Divina Gandara PA-C Work Phone: Start: 11-01-2022 STREP A MOLECULAR (POC) Divina Gandara PA-C Work Phone: Start: 07-30-2022 URINE OB DIP B/O Adriana Voss MD Work Phone: Start: 07-19-2022 URINE OB DIP B/O Adriana Voss MD Work Phone: Start: 07-16-2022 URINE OB DIP B/O Adriana Voss MD Work Phone: Start: 07-10-2022 URINE OB DIP B/O Adriana Voss MD Work Phone: Start: 07-10-2022 Us preg uterus after 1st trimest 07/21 gestation Yara Bentley MD Work Phone: Start: 07-04-2022 Urnls dip stick/tablet rgnt auto w/o microscopy Yoselyn Sy MD Work Phone: Start: 07-02-2022 URINE OB DIP B/O Yarajeanne alcocer MD Work Phone: Start: 06-18-2022 URINE OB DIP B/O Yara alcocer MD Work Phone: Start: 06-12-2022 Us preg uterus after 1st trimest 1/1st gestation Yara Bentley MD Work Phone: Start: 05-17-2022 URINE OB DIP B/O Yara alcocer MD Work Phone: Start: 04-17-2022 INFLUENZA VACCINE QUADRIVALENT 6 MO - 64 YRS IM Yara Bentley MD Work Phone: Start: 04-17-2022 URINE OB DIP B/O Yaramilla alcocer MD Work Phone: Start: 03-20-2022 URINE OB DIP B/O Yara Alvarado alcocer MD Work Phone: Start: 03-20-2022 Us preg uterus after 1st trimest /1st gestation Yara Bentley MD Work Phone: Start: 02-18-2022 URINE OB DIP B/O Yaramilla alcocer MD Work Phone: Start: 01-24-2022 URINE OB DIP B/O Yoselyn Sy MD Work Phone: Start: 01-17-2022 URINE OB DIP B/O Yaramilla alcocer MD Work Phone: Start: 01-17-2022 Us nuchal translucency 1st gestation Yara Bentley MD Work Phone: Start: 11-16-2020 Adult depression screening assessment Valentino Gonzalez II, OD Work Phone: H/O: section Status pos t primary low transverse section Plan of Treatment Date Care Activity Detail Author Start: 06-03-2032 Urine microalbumin profile DTaP,Tdap,Td Vaccine (10 - Td or Tdap) [facility] Start: 05-17-2032 Urine microalbumin profile DTAP,TDAP,TD (9 - Td or Tdap) [facility] Start: 02-18-2027 Urine microalbumin profile DTAP,TDAP,TD (5 - Td or Tdap) [facility] Start: 02-11-2025 Anxiety Screening Anxiety Screening [facility] Start: 02-11-2025 Depression Screening Depression Scre ening [facility] Start: 12-19-2024 PAP TESTING PAP TESTING [facility] Start: 12-19-2024 Screening for malign ant neoplasm of cervix [facility] Start: 05-09-2024 Covid-19 Vaccine (#1) Covid-19 Vacci ne (#1) [facility] Comment on above: Postponed from 11/17 (Declined at this time) Start: 05-09-2024 Covid-19 Vaccine () Covid-19 Vaccine () [facility] Comment on above: Postponed from 03/21 (Declined at this time) Start: 05-08-2024 End: 06-06-2024 US KIDNEY/BLADDER US KIDNEY/BLADDER Radiology Routine Complex renal cyst Expected: 05/08/2024, Expires: 06/06/2024 [facility] Work Phone: Comment on above: Expected: 05/08/2024 , Expires: 06/06/2024 Start: 03-24-2024 End: 03-24-2024 Patient encounter procedure 03/24/2024 2:00 PM EDT Office Visit Neurology [address], [place] [id number] Ashleigh Jang APRN.RECREATION ASSISTANT [address] [place], [place] [id number] Sleep walking [F51.3] Neurology Comment on above: Sleep walking [F51.3 ] Start: 03-21-2024 Covid-19 Vaccine () Covid-19 Vaccine ( season) [facility] Start: 03-21-2024 Influenza vaccination Influenza Vacc ine (#1) [facility] Start: 02-12-2024 End: 05-13-2024 Comprehensive metabolic 2000 panel - Serum or Plasma [facility] Work Phone: Comment on above: Expected: 02/12/2024 , Expires: 05/13/2024 Start: 02-12-2024 End: 05-13-2024 Hemoglobin A1c in Blood [facility] Comment on above: Expected: 02/12/2024 , Expires: 05/13/2024 Start: 02-12-2024 End: 05-13-2024 LIPID PANEL, NONFASTING [facility] Comment on above: Expected: 02/12/2024 , Expires: 05/13/2024 Start: 02-12-2024 End: 02-12-2024 Patient encounter procedure 02/12/2024 11:00 AM EDT Office Visit [facility] [address] [place] [address] Onesimo Linn, MEASUREMENT AND SENSING TECHNICIAN.RECREATION ASSISTANT [address] [place] [address] 6 month follow up [facility] Comment on above: 6 month follow up Start: 01-23-2024 End: 01-23-2024 Manual pelvic examination 01/23/2024 1:30 PM EDT Procedure OB/Gynecology [address] [place] [address] Intermenstrual bleeding [N92.3]; Pelvic pain in female [R10.2] OB/Gynecology Comment on above: Intermenstrual bleed ing [N92.3]; Pelvic pain in female [R10.2] Start: 01-20-2024 End: 01-20-2024 Patient encounter procedure 01/20/2024 2:30 PM EDT Office Visit OB/Gynecology [address] [place] [address] Chandni Brown, MEASUREMENT AND SENSING TECHNICIAN.RECREATION ASSISTANT [address] [place] [address] cramping and passing small clots OB/Gynecology Comment on above: cramping and passing small clots Start: 01-20-2024 End: 01-19-2025 US Pelvis PELVIC US [facility] Anc Imaging Routine Intermenstrual bleeding Pelvic pain in female Expected: 01/20/2024, Expires: 01/19/2025 [facility] Work Phone: Comment on above: Expected: 01/20/2024 , Expires: 01/19/2025 Start: 10-08-2023 End: 01-07-2024 CELIAC COMPREHENSIVE PANEL [facility] Work Phone: Comment on above: Expected: 10/08/2023 , Expires: 01/07/2024 Start: 08-15-2023 PAP TESTING PAP TESTING [facility] Start: 07-21-2023 Behavioral Health Screening Behavioral Health Screening [facility] Start: 03-21-2023 Influenza vaccination [facility] Start: 12-19-2022 CHLAMYDIA SCREENING (18-24) CHLAMYDIA SCREENING (18-24) [facility] Start: 12-19-2022 GC (GONORRHEA) SCREE JACK (18-24) GC (GONORRHEA) SCREENING (18-24) [facility] Start: 08-02-2022 Patient discharge [facility] Work Phone: Start: 08-01-2022 Application of abdom inal corset [facility] Work Phone: Start: 07-31-2022 Application of abdom inal corset [facility] Work Phone: Start: 07-31-2022 End: 07-31-2022 Administration of medication [facility] Work Phone: Start: 07-31-2022 End: 07-31-2022 Ambulation therapy management [facility] Work Phone: Start: 07-31-2022 End: 07-31-2022 Application of device [facility] Work Phone: Start: 07-31-2022 End: 07-31-2022 Application of intermittent pneumatic compression device [facility] Work Phone: Start: 07-31-2022 Assessment of risk o f venous thromboembolism [facility] Work Phone: Start: 07-31-2022 End: 07-31-2022 Catheterization of vein [facility] Work Phone: Start: 07-31-2022 End: 07-31-2022 Deep breathing and coughing exercises [facility] Work Phone: Start: 07-31-2022 End: 07-31-2022 Exercises [facility] Work Phone: Start: 07-31-2022 End: 07-31-2022 Incentive spirometry [facility] Work Phone: Start: 07-31-2022 End: 07-31-2022 Measuring intake and output [facility] Work Phone: Start: 07-31-2022 End: 07-31-2022 Notification of physician [facility] Work Phone: Start: 07-31-2022 End: 07-31-2022 Procedure discontinued [facility] Work Phone: Start: 07-31-2022 End: 07-31-2022 Provision of activity privileges [facility] Work Phone: Start: 07-31-2022 Vital signs measurements [facility] Work Phone: Start: 07-31-2022 End: 07-31-2022 Wound care [facility] Work Phone: Start: 07-31-2022 End: 07-31-2022 [facility] Work Phone: Start: 07-31-2022 [facility] Start: 07-30-2022 Admission procedure [facility] Work Phone: Start: 07-21-2022 DEPRESSION ASSESSMENT DEPRESSION ASS ESSMENT [facility] Start: 06-18-2022 End: 06-18-2023 OBSTETRIC ULTRASOUND [facility] OBSTETRIC ULTRASOUND [facility] Anc Imaging Routine 33 weeks gestation of Obesity in Gestational diabetes mellitus, class A1 Expected: 06/18/2022, Expires: 06/18/2023 [facility] Work Phone: Comment on above: Expected: 06/18/2022 , Expires: 06/18/2023 Start: 04-17-2022 End: 06-17-2022 CBC panel - Blood by Automated count CBC Lab Routine 24 weeks gestation of Expected: 04/17/2022, Expires: 06/17/2022 [facility] Work Phone: Comment on above: Expected: 04/17/2022 , Expires: 06/17/2022 Start: 04-17-2022 End: 06-17-2022 GEST GLUC SCREEN, 1-HR, 50 GM, NON-FASTING GEST GLUC SCREEN, 1-HR, 50 GM, NON-FASTING Lab Routine 24 weeks gestation of Expected: 04/17/2022, Expires: 06/17/2022 [facility] Work Phone: Comment on above: Expected: 04/17/2022 , Expires: 06/17/2022 Start: 04-17-2022 End: 06-17-2022 SYPHILIS TOTAL W/REFLEX SYPHILIS TOTAL W/REFLEX Lab Routine 24 weeks gestation of Expected: 04/17/2022, Expires: 06/17/2022 [facility] Work Phone: Comment on above: Expected: 04/17/2022 , Expires: 06/17/2022 Start: 03-21-2022 Influenza vaccination C [facility] Start: 01-31-2022 End: 03-28-2022 SEQUENTIAL SCRN SCND TRIMESTER SEQUENTIAL SCRN SCND TRIMESTER Lab Routine Encounter for screening of mother Expected: 01/31/2022 (Approximate), Expires: 03/28/2022 [facility] Work Phone: Comment on above: Expected: 01/31/2022 (Approximate), Expires: 03/28/2022 Start: 01-17-2022 End: 03-19-2022 SEQUENTIAL SCRN FRST TRIMESTER [facility] Work Phone: Comment on above: Expected: 01/17/2022 , Expires: 03/19/2022 Start: 12-19-2021 End: 02-18-2022 CBC panel - Blood by Automated count CBC Lab Routine Encounter for supervision of normal first in first trimester Obesity in Expected: 12/19/2021, Expires: 02/18/2022 [facility] Work Phone: Comment on above: Expected: 12/19/2021 , Expires: 02/18/2022 Start: 12-19-2021 End: 02-18-2022 Hemoglobin A1c/Hemoglobin.total in Blood HGB A1C Lab Routine Encounter for supervision of normal first in first trimester Obesity in Expected: 12/19/2021, Expires: 02/18/2022 [facility] Work Phone: Comment on above: Expected: 12/19/2021 , Expires: 02/18/2022 Start: 12-19-2021 End: 02-18-2022 Hepatitis B virus surface Ab [Presence] in Serum by Immunoassay HEP B SURF AG SCRN Lab Routine Encounter for supervision of normal first in first trimester Obesity in Expected: 12/19/2021, Expires: 02/18/2022 [facility] Work Phone: Comment on above: Expected: 12/19/2021 , Expires: 02/18/2022 Start: 12-19-2021 End: 02-18-2022 Hepatitis C virus Ab [Presence] in Serum HEP C AB IA W/CONF SCRN Lab Routine Encounter for supervision of normal first in first trimester Obesity in Expected: 12/19/2021, Expires: 02/18/2022 [facility] Work Phone: Comment on above: Expected: 12/19/2021 , Expires: 02/18/2022 Start: 12-19-2021 End: 02-18-2022 HIV 1+2 Ab [Presence] in Serum or Plasma by Immunoassay HIV 1 2 COMBO(AG/AB),WITH REFLEX TO DIFFERENTIATION Lab Routine Encounter for supervision of normal first in first trimester Obesity in Expected: 12/19/2021, Expires: 02/18/2022 [facility] Work Phone: Comment on above: Expected: 12/19/2021 , Expires: 02/18/2022 Start: 12-19-2021 End: 02-18-2022 RUBELLA IGG AB RUBELLA IGG AB Lab Routine Encounter for supervision of normal first in first trimester Obesity in Expected: 12/19/2021, Expires: 02/18/2022 [facility] Work Phone: Comment on above: Expected: 12/19/2021 , Expires: 02/18/2022 Start: 12-19-2021 End: 02-18-2022 SYPHILIS TOTAL W/REFLEX SYPHILIS TOTAL W/REFLEX Lab Routine Encounter for supervision of normal first in first trimester Obesity in Expected: 12/19/2021, Expires: 02/18/2022 [facility] Work Phone: Comment on above: Expected: 12/19/2021 , Expires: 02/18/2022 Start: 12-19-2021 End: 02-18-2022 TYPE + SCREEN TYPE + SCREEN Blood Bank Routine Encounter for supervision of normal first in first trimester Obesity in Expected: 12/19/2021, Expires: 02/18/2022 [facility] Work Phone: Comment on above: Expected: 12/19/2021 , Expires: 02/18/2022 Start: 11-16-2021 Adult depression screening assessment DEPRESSION SCREENING [facility] Start: 08-16-2021 CHLAMYDIA SCREENING (18-24) CHLAMYDIA SCREENING (18-24) [facility] Start: 08-16-2021 GC (GONORRHEA) SCREE JACK (18-24) GC (GONORRHEA) SCREENING (18-24) [facility] Start: 07-21-2021 DEPRESSION ASSESSMENT DEPRESSION ASS ESSMENT [facility] Start: 2014 Meningococcal B Vacc ine: Consider Based On Risk (1 of 2 - Patient Seeks Protection) Meningococcal B Vaccine: Consider Based On Risk (1 of 2 - Patient Seeks Protection) [facility] Start: 2014 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 (1 of 2 - Patient Seeks Protection) MENINGOCOCCAL B: Consider based on risk (1 of 2 - Patient Seeks Protection) [facility] Start: 2012 PEDS TO ADULT TRANSI TION ANNUAL ASSESSMENT PEDS TO ADULT TRANSITION ANNUAL ASSESSMENT [facility] Start: 2010 PEDS TO ADULT TRANSI TION INITIAL DISCUSSION PEDS TO ADULT TRANSITION INITIAL DISCUSSION [facility] Start: 2008 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 (1 of 2 - Risk Bexsero 2-dose series) MENINGOCOCCAL B: Consider based on risk (1 of 2 - Risk Bexsero 2-dose series) [facility] Start: 2003 COVID-19 VACCINE (#1) COVID-19 VACCI NE (#1) [facility] Start: 2003 COVID-19 VACCINE (1) COVID-19 VACCIN E (1) [facility] Start: 1998 COVID-19 VACCINE (#1) COVID-19 VACCI NE (#1) [facility] Bacteria identified in Urine by Culture URINE CULTURE Microbiology Routine Encounter for supervision of normal first in first trimester Obesity in 12/19/2021 11:00 AM T [facility] Work Phone: Bacteria identified in Urine by Culture URINE CULTURE Microbiology Routine 24 weeks gestation of Urinary tract infection in mother during second trimester of Ordered: 04/17/2022 [facility] Work Phone: Comment on above: Ordered: 04/17/2022 Bacteria identified in Urine by Culture URINE CULTURE Microbiology Routine 28 weeks gestation of UTI in , antepartum 05/17/2022 10:49 AM [facility] Work Phone: Bacteria identified in Urine by Culture URINE CULTURE Microbiology Routine Urinary frequency 10/20/2023 9:57 AM [facility] Work Phone: Bacteria identified in Urine by Culture URINE CULTURE Microbiology Routine Vaginal discomfort 12/04/2023 10:25 AM [facility] Work Phone: Bacteria identified in Urine by Culture URINE CULTURE Microbiology Routine Urinary frequency Ordered: 05/25/2024 [facility] Work Phone: Comment on above: Ordered: 05/25/2024 Chlamydia trachomatis+Neisseria gonorrhoeae DNA [Presence] in Unspecified specimen by HECTOR with probe detection GC/CHLAMYDIA DNA DET Lab Routine Encounter for supervision of normal first in first trimester Obesity in 12/19/2021 11:00 AM EDT [facility] Work Phone: End: 05-12-2024 COLONOSCOPY DIAGNOSTIC COLONOSCOPY DIAGNOSTIC Endoscopy Routine Lower abdominal pain 1 Occurrences starting 05/12/2023 until 05/12/2024 [facility] Work Phone: Comment on above: 1 Occurrences starti ng 05/12/2023 until 05/12/2024 End: 05-26-2024 COLONOSCOPY DIAGNOSTIC COLONOSCOPY DIAGNOSTIC Endoscopy Routine Lower abdominal pain 1 Occurrences starting 05/26/2023 until 05/26/2024 [facility] Work Phone: Comment on above: 1 Occurrences starti ng 05/26/2023 until 05/26/2024 nonstress test NON-S TRESS TEST Procedures Routine 35 weeks gestation of Gestational diabetes mellitus, class A1 Obesity during Ordered: 07/02/2022 [facility] Work Phone: Comment on above: Ordered: 07/02/2022 End: 03-19-2024 Mri abdomen w/o & w/contrast material MRI KIDNEY WO/W IVCON Radiology STAT Other specified disorders of kidney and ureter 1 Occurrences starting 02/18/2023 until 03/19/2024 [facility] Work Phone: Comment on above: 1 Occurrences starti ng 02/18/2023 until 03/19/2024 NUCHAL TRANSLUCENCY WHI NUCHAL T RANSLUCENCY WHI Anc Imaging Routine Encounter for supervision of normal first in first trimester Obesity in Ordered: 12/19/2021 [facility] Work Phone: Comment on above: Ordered: 12/19/2021 OBSTETRIC ULTRASOUND WHI OBSTETR IC ULTRASOUND WHI Anc Imaging Routine Encounter for supervision of normal first in first trimester Obesity in Ordered: 12/19/2021 [facility] Work Phone: Comment on above: Ordered: 12/19/2021 OBSTETRIC ULTRASOUND WHI OBSTETR IC ULTRASOUND WHI Anc Imaging Routine Encounter for supervision of normal first in second trimester Ordered: 02/18/2022 [facility] Work Phone: Comment on above: Ordered: 02/18/2022 PAP FLUID CERVICAL SCREENING PAP FLUID CERVICAL SCREENING Lab Routine Encounter for screening for malignant neoplasm of cervix 12/19/2021 11:00 AM EDT [facility] Work Phone: Patient Education After a [place] an Section [facility] Work Phone: Patient referral [facility] Work Phone: ROUTINE, GR OUP B STREP PCR ROUTINE, GROUP B STREP PCR Microbiology Routine Gestational diabetes mellitus, class A1 Obesity during Encounter for supervision of normal first in third trimester 07/10/2022 10:17 AM EST [facility] Work Phone: SURGICAL PATHOLOGY [facility] Work Phone: Comment on above: Release Upon Orderin g for 1 Occurrences starting 09/05/2023, 1 completed [facility] Immunizations Immunization Date Immunization Notes Care Provider Brian etienne 05-09-2023 influenza, injectabl e, quadrivalent, contains preservative Indigo Hermosillo MD Work Phone: [facility] 05-09-2023 influenza virus vaccine, unspecified formulation Angela Knutson RN [facility] 07-01-2022 influenza, injectable,quadrivalent , preservative free, pediatric [facility] Work Phone: 07-01-2022 influenza virus vaccine, unspecified formulation Chaz Aguillon MD Work Phone: [facility] 06-03-2022 tetanus toxoid, redu kacie diphtheria toxoid, and acellular pertussis vaccine, adsorbed [facility] 05-17-2022 tetanus toxoid, redu kacie diphtheria toxoid, and acellular pertussis vaccine, adsorbed Yara Bentley MD Work Phone: [facility] 04-17-2022 influenza, injectabl e, quadrivalent, contains preservative Yara Bentley MD Work Phone: [facility] 06-21-2020 influenza, injectabl e, quadrivalent, contains preservative Valentino Andreser II, OD Work Phone: [facility] 05-14-2018 influenza, injectabl e, quadrivalent, preservative free Valentino Andreser II, OD Work Phone: [facility] 05-13-2017 influenza, injectabl e, quadrivalent, contains preservative Valentino Vasquezrider II, OD Work Phone: [facility] 02-18-2017 tetanus toxoid, redu kacie diphtheria toxoid, and acellular pertussis vaccine, adsorbed Valentino Andreser II, OD Work Phone: [facility] 01-13-2017 meningococcal polysaccharide (groups A, C, Y and W-135) diphtheria toxoid conjugate vaccine (MCV4P) Valentino Gonzalez II, OD Work Phone: [facility] Work Phone: 12-13-2015 meningococcal polysaccharide (groups A, C, Y and W-135) diphtheria toxoid conjugate vaccine (MCV4P) Valentino Gonzalez II, OD Work Phone: [facility] Work Phone: 05-05-2014 influenza, live, intranasal, quadrivalent Valentino Gonzalez II, OD Work Phone: [facility] 11-08-2013 human papilloma viru s vaccine, quadrivalent Valentino Andreser II, OD Work Phone: [facility] Work Phone: 07-06-2013 human papilloma viru s vaccine, quadrivalent Valentino Gonzalez II, OD Work Phone: [facility] Work Phone: 05-04-2013 human papilloma viru s vaccine, quadrivalent Valentino Vasqueznitoayaz DUDLEY, OD Work Phone: [facility] Work Phone: 05-04-2013 influenza, live, intranasal, quadrivalent Valentino Ebony OCTAVIA, OD Work Phone: [facility] 05-04-2013 poliovirus vaccine, inactivated Valentino Ebony OCTAVIA, OD Work Phone: [facility] Work Phone: 05-04-2013 varicella virus vaccine Valentino Ebony OCTAVIA, OD Work Phone: [facility] Work Phone: 04-23-2012 influenza virus vaccine, live, attenuated, for intranasal use Valentino Gonzalez OCTAVIA, OD Work Phone: [facility] 05-29-2010 human papilloma viru s vaccine, quadrivalent Valentino Vasquezshay OCTAVIA, OD Work Phone: [facility] Work Phone: 05-29-2010 meningococcal polysaccharide (groups A, C, Y and W-135) diphtheria toxoid conjugate vaccine (MCV4P) Valentino Ebony OCTAVIA, OD Work Phone: [facility] Work Phone: 05-29-2010 tetanus toxoid, redu kacie diphtheria toxoid, and acellular pertussis vaccine, adsorbed Valentino Gonzalez OCTAVIA, OD Work Phone: [facility] Work Phone: 04-25-2009 influenza, seasonal, injectable, preservative free Valentino Gonzalez OCTAVIA, OD Work Phone: [facility] 09-18-2007 tetanus and diphther ia toxoids, adsorbed, preservative free, for adult use (5 Lf of tetanus toxoid and 2 Lf of diphtheria toxoid) Valentino Gonzalez II, OD Work Phone: [facility] Work Phone: 04-02-2004 measles, mumps and rubella virus vaccine Valentino Ebony OCTAVIA, OD Work Phone: [facility] Work Phone: 11-07-1999 varicella virus vaccine Valentino Vasquezshay OCTAVIA, OD Work Phone: [facility] Work Phone: 08-01-1999 diphtheria, tetanus toxoids and acellular pertussis vaccine, unspecified formulation Valentino Gonzalez OCTAVIA, OD Work Phone: [facility] Work Phone: 08-01-1999 haemophilus influenz ae type b vaccine, conjugate unspecified formulation Valentino Gonzalez II, OD Work Phone: [facility] Work Phone: 08-01-1999 measles, mumps and rubella virus vaccine Valentino Gonzalez II, OD Work Phone: [facility] Work Phone: 08-01-1999 poliovirus vaccine, unspecified formulation Valentino Gonzalez OCTAVIA, OD Work Phone: [facility] Work Phone: 02-08-1999 diphtheria, tetanus toxoids and acellular pertussis vaccine, unspecified formulation Valentino Ebony OCTAVIA, OD Work Phone: [facility] Work Phone: 02-08-1999 haemophilus influenz ae type b vaccine, conjugate unspecified formulation Valentino Gonzalez II, OD Work Phone: [facility] Work Phone: 02-08-1999 hepatitis B vaccine, pediatric or pediatric/adolescent dosage Valentino Gonzalez II, OD Work Phone: [facility] Work Phone: 1998 diphtheria, tetanus toxoids and acellular pertussis vaccine, unspecified formulation Valentino Gonzalez OCTAVIA, OD Work Phone: [facility] Work Phone: 1998 haemophilus influenz ae type b vaccine, conjugate unspecified formulation Valentino Gonzalez II, OD Work Phone: [facility] Work Phone: 1998 poliovirus vaccine, unspecified formulation Valentino Gonzalez II, OD Work Phone: [facility] Work Phone: 1998 diphtheria, tetanus toxoids and acellular pertussis vaccine, unspecified formulation Valentino Gonzalez II, OD Work Phone: [facility] Work Phone: 1998 haemophilus influenz ae type b vaccine, conjugate unspecified formulation Valentino Gonzalez II, OD Work Phone: [facility] Work Phone: 1998 poliovirus vaccine, unspecified formulation Valentino Gonzalez II, OD Work Phone: [facility] Work Phone: 1998 hepatitis B vaccine, pediatric or pediatric/adolescent dosage Valentino Gonzalez II, OD Work Phone: [facility] Work Phone: 1998 hepatitis B vaccine, pediatric or pediatric/adolescent dosage Valentino Gonzalez II, OD Work Phone: [facility] Work Phone: Payers Date Payer Category Payer Private Health Insurance [id number] 2022 Self-pay 2021 Private Health Insurance EHP AET NA EHP PLUS STAFF/NON STAFF / EHP Plus [facility] [id number] 2021-2024 [address] [place] [id number] O [id number] 2021 Private Health Insurance [id number] 2021 Unknown [id number] 2017 Unknown EYE CARE PLAN OF [facility] [employer] [id number] 07/21/2017-Present [address] [place] [address] Indemnity [id number] 1998 Unknown [id number] Unknown [id number] Worker's Compensation [id number] Social History Date Type Detail Facility Start: 11-14-2015 End: 2022 Tobacco smoking status NHIS Never smoked tobacco [facility] Start: 11-14-2015 End: 2022 Tobacco use and exposure Smokeless tobacco non-user [facility] Start: 10-25-2021 End: 05-25-2024 Alcohol intake Current non-drinker of alcohol (finding) [facility] Start: 08-15-2020 History SDOH Social Connections Phone 5 [facility] Start: 08-15-2020 History SDOH Social Connections Get Together 4 [facility] Start: 08-15-2020 History SDOH Social Connections Buddhist 1 [facility] Start: 08-15-2020 History SDOH Social Connections Membership 2 [facility] Start: 08-15-2020 History SDOH Social Connections Living 7 [facility] Start: 08-15-2020 Education 21 [facility] Start: 1998 Sex Assigned At Not on file C [facility] Start: 10-15-2021 End: 2022 Exposure to SARS-CoV-2 (event) Not sure [facility] Start: 11-11-2021 [facility] Start: 07-30-2022 Tobacco smoking stat us NHIS Unknown if ever smoked [facility] Work Phone: Start: 1998 Sex Assigned At Female [facility] Work Phone: Start: 06-25-2020 End: 02-09-2023 [facility] Work [facility]: Start: 06-25-2020 End: 02-09-2023 Tobacco use panel [facility] Work Phone: Do you belong to any clubs or organizations such as buddhist groups, unions, fraternal or athletic groups, or school groups? No [facility] Work Phone: Are you now , , , , never or living with a partner? Never [facility] Work Phone: Adult Depression Scr eening Assessment 0 [facility] Do you feel stress - tense, restless, nervous, or anxious, or unable to sleep at night because your mind is troubled all the time - these days [OSQ] Only a little [facility] Work Phone: Medical Equipment Procedure Code Equipment Code Equipment Original Text Equipment Identifier Dates Start: 2022 End: 08-06-2022 Comment on above: 1 Strip four times d aily. Use as instructed 1 Each four times da hilton. Use as instructed Use 1 strip four hebert es daily. Use as instructed. Goals Date Patient Goal Desired Activity /State Mental Status Date Assessment Result Facility 07-31-2022 Cognitive function Level Of Cons ciousness Awake;Alert [facility] Work Phone: Clinical Notes 05-30-2020 to 05-25-2024 Hebert Watts APRN.CNP - 05/25/2024 8:16 AM ESTTelephone Encounter - Idalia Lentz - 03/09/2024 8:29 AM EDTTelephone Encounter - Idalia Lentz - 03/09/2024 8:29 AM EDTPatient Instructions Note Date & Type Note Facility 05-25-2024 Note HNO ID: [id number] Author: HEBERT WATTS APRN.ALINE Service: ? Author Type: Nurse Practitioner Type: Progress Notes Filed: 05/25/2024 08:19 Note Text: This note was created using NoteWriter. Subjective Willam De Leon is a 24 year old female. HPI Pt complains of three days of UTI type symptoms including lower back pain urinary burning and frequency. She does note that she occasionally gets urinary tract infections but not very frequently. Review of Systems Constitutional: Positive for fever. Gastrointestinal: Negative for nausea and vomiting. Genitourinary: Positive for dysuria and frequency. Objective BP 120/72 Pulse 118 Temp 36.6 ?C (97.8 ?F) Resp 18 Wt 81.2 kg (179 lb 0.2 oz) LMP 01/05/2024 (Approximate) SpO2 98% BMI 33.82 kg/m? Physical Exam Vitals and nursing note reviewed. Constitutional: General: She is not in acute distress. Appearance: Normal appearance. She is not ill-appearing. HENT: Head: Normocephalic. Pulmonary: Effort: Pulmonary effort is normal. Musculoskeletal: General: Normal range of motion. Cervical back: Normal range of motion. Skin: General: Skin is warm and dry. Neurological: General: No focal deficit present. Mental Status: She is alert. Psychiatric: Mood and Affect: Mood normal. Behavior: Behavior normal. Assessment and Plan ASSESSMENT/PLAN: 1. Urinary frequency - ICD9: 788.41, ICD10: R35.0 (primary diagnosis) As below - UA DIP, URINE (POC) - URINE CULTURE 2. Acute UTI - ICD9: 599.0, ICD10: N39.0 acute - UA positive for sridhar esterase and nitrates - Send urine for culture - Begin treatment with Macrobid 100 mg BID for 5 days - Patient education for prevention given - NITROFURANTOIN MONOHYDRATE AND MACROCRYSTAL 100 MG ORAL CAP Hebert Watts APRN.RECREATION ASSISTANT [facility] 05-25-2024 History of Presen t illness Narrative This note was created using Hotreaderriter. Subjective Willam De Leon is a 24 year old female. HPI Pt complains of three days of UTI type symptoms including lower back pain urinary burning and frequency. She does note that she occasionally gets urinary tract infections but not very frequently. Review of Systems Constitutional: Positive for fever. Gastrointestinal: Negative for nausea and vomiting. Genitourinary: Positive for dysuria and frequency. Objective BP 120/72 Pulse 118 Temp 36.6 C (97.8 F) Resp 18 Wt 81.2 kg (179 lb 0.2 oz) LMP 01/05/2024 (Approximate) SpO2 98% BMI 33.82 kg/m Physical Exam Vitals and nursing note reviewed. Constitutional: General: She is not in acute distress. Appearance: Normal appearance. She is not ill-appearing. HENT: Head: Normocephalic. Pulmonary: Effort: Pulmonary effort is normal. Musculoskeletal: General: Normal range of motion. Cervical back: Normal range of motion. Skin: General: Skin is warm and dry. Neurological: General: No focal deficit present. Mental Status: She is alert. Psychiatric: Mood and Affect: Mood normal. Behavior: Behavior normal. Assessment and Plan ASSESSMENT/PLAN: 1. Urinary frequency - ICD9: 788.41, ICD10: R35.0 (primary diagnosis) As below - UA DIP, URINE (POC) - URINE CULTURE 2. Acute UTI - ICD9: 599.0, ICD10: N39.0 acute - UA positive for sridhar esterase and nitrates - Send urine for culture - Begin treatment with Macrobid 100 mg BID for 5 days - Patient education for prevention given - NITROFURANTOIN MONOHYDRATE & MACROCRYSTAL 100 MG ORAL CAP Hebert Watts APRN.ALINE documented in this encounter [facility] 03-09-2024 Telephone encounter Note Patient called stating she seen Dr. Bonilla back in September and he prescribed medication. She stated she received a paper in the mail saying the Linzess was denied for coverage. She is asking what the next steps should be. Noe Friedman [facility] 03-09-2024 Miscellaneous Notes Patient called stating she seen Dr. Bonilla back in September and he prescribed medication. She stated she received a paper in the mail saying the Linzess was denied for coverage. She is asking what the next steps should be. Noe Friedman documented in this encounter [facility] 03-02-2024 Telephone encounter Note We received a denial letter stating the patient does not meet the requirements for Linzess 145 MCG. The communications have been uploaded. Noe Friedman [facility] 03-02-2024 Miscellaneous Notes We received a denial letter stating the patient does not meet the requirements for Linzess 145 MCG. The communications have been uploaded. Thanks Idalia documented in this encounter [facility] 02-12-2024 Note HNO ID: [id number] Author: ONESIMO LINN APRN.RECREATION ASSISTANT Service: ? Author Type: Nurse Practitioner Type: Progress Notes Filed: 02/12/2024 11:02 Note Text: Chief Complaint Patient presents with: 6 Month Exam HPI Willam De Leon is a 23 year old female who presents here today for Above Complaints.. Patient presents for routine follow up. Patient reports new onset sleep walking only during her period. Patient reports this has happened the past 2-3 months and she has woke up either with no tampon in when she went to bed or 2 in. Also finding pillow in her bathroom but no memory of putting it there. Past medical history, appointments, medications, allergies reviewed. Previous Medical History PAST MEDICAL HISTORY Diagnosis Date ADHD (attention deficit hyperactivity disorder) Benign paroxysmal positional vertigo 2020 Gestational diabetes mellitus, class A1 2022 Left knee pain Previous Surgical History PAST SURGICAL HISTORY Procedure Laterality Date DELIVERY ONLY 07/31/2022 LTCS COLONOSCOPY 05/23/2023 will need repeated with MAC PAST SURGICAL HISTORY OF wisdom teeth Family History FAMILY HISTORY Problem Relation Age of Onset No Known Problems Mother Diabetes Father Heart Father No Known Problems Sister No Known Problems Sister No Known Problems Sister No Known Problems Brother No Known Problems Maternal Grandmother No Known Problems Maternal Grandfather Cataract Paternal Grandmother Diabetes Paternal Grandmother Dementia Paternal Grandmother No Known Problems Paternal Grandfather Patient Allergies ALLERGIES No Known Allergies Current Medications Current Outpatient Medications on File Prior to Visit Medication Sig linaclotide (LINZESS) 145 mcg capsule Take 1 capsule by mouth daily at 6 am. omeprazole (PRILOSEC) 20 mg capsule Take 1 capsule by mouth once daily. Norethin Anibal-Eth Estrad-FE (,) 1.5 mg-30 mcg (21)/75 mg (7) tablet Take 1 tablet by mouth once daily. No current facility-administered medications on file prior to visit. Social History Social History Tobacco Use Smoking status: Never Smokeless tobacco: Never Vaping Use Vaping Use: Never used Substance Use Topics Alcohol use: No Drug use: No Review of Symptoms REVIEW OF SYSTEMS SEE HPI EXAM: BP 114/74 Pulse 71 Resp 14 Wt 83 kg (183 lb) LMP 01/05/2024 (Approximate) BMI 34.58 kg/m? PHYSICAL EXAMINATION: General appearance: Well appearing, alert, in no acute distress, well-hydrated, well nourished. Lungs: Lungs clear to auscultation. No wheezing, rhonchi, rales. Heart: RRR without murmur, gallop, or rubs. No ectopy Neuro: Gait normal. Reflexes normal and symmetric. Sensation grossly intact. Health Maintenance List Depression Screening Never done Anxiety Screening Never done Covid-19 Vaccine(1 - 2022- season) due on 05/09/2024 Influenza Vaccine(1) due on 03/21/2024 Cervical Cancer Screening due on 12/19/2024 DTaP,Tdap,Td Vaccine(10 - Td or Tdap) due on 06/03/2032 Hepatitis B Vaccine Completed HPV Vaccine Completed Hepatitis C Screening Discontinued HIV Screening Discontinued ASSESSMENT/PLAN: 1. Leukocytosis, unspecified type - ICD9: 288.60, ICD10: D72.829 (primary diagnosis) - COMPLETE BLOOD COUNT AND DIFFERENTIAL 2. Medication management - ICD9: V58.69, ICD10: Z79.899 - COMPREHENSIVE METABOLIC PANEL 3. Screening for diabetes mellitus - ICD9: V77.1, ICD10: Z13.1 - HEMOGLOBIN A1C 4. Encounter for lipid screening for cardiovascular disease - ICD9: V77.91, V81.2, ICD10: Z13.220, Z13.6 - LIPID PANEL, NONFASTING 5. Sleep walking - ICD9: 307.46, ICD10: F51.3 - CONSULT TO SLEEP MEDICINE - ADULT 6. Screening for depression - ICD9: V79.0, ICD10: Z13.31 - DEPRESSION SCREENING 7. Encounter for screening examination for other mental health and behavioral disorders - ICD9: V79.8, ICD10: Z13.39 - ANXIETY SCREENING Onesimo Linn APRN.[facility] 02-12-2024 History of Presen t illness Narrative Chief Complaint Patient presents with: 6 Month Exam HPI Willam De Leon is a 23 year old female who presents here today for Above Complaints.. Patient presents for routine follow up. Patient reports new onset sleep walking only during her period. Patient reports this has happened the past 2-3 months and she has woke up either with no tampon in when she went to bed or 2 in. Also finding pillow in her bathroom but no memory of putting it there. Past medical history, appointments, medications, allergies reviewed. Previous Medical History PAST MEDICAL HISTORY Diagnosis Date ADHD (attention deficit hyperactivity disorder) Benign paroxysmal positional vertigo 2019 Gestational diabetes mellitus, class A1 2022 Left knee pain Previous Surgical History PAST SURGICAL HISTORY Procedure Laterality Date DELIVERY ONLY 07/31/2022 LTCS COLONOSCOPY 05/23/2023 will need repeated with MAC PAST SURGICAL HISTORY OF wisdom teeth Family History FAMILY HISTORY Problem Relation Age of Onset No Known Problems Mother Diabetes Father Heart Father No Known Problems Sister No Known Problems Sister No Known Problems Sister No Known Problems Brother No Known Problems Maternal Grandmother No Known Problems Maternal Grandfather Cataract Paternal Grandmother Diabetes Paternal Grandmother Dementia Paternal Grandmother No Known Problems Paternal Grandfather Patient Allergies ALLERGIES No Known Allergies Current Medications Current Outpatient Medications on File Prior to Visit Medication Sig linaclotide (LINZESS) 145 mcg capsule Take 1 capsule by mouth daily at 6 am. omeprazole (PRILOSEC) 20 mg capsule Take 1 capsule by mouth once daily. Norethin Anibal-Eth Estrad-FE ( 1.12/17, ,) 1.5 mg-30 mcg (21)/75 mg (7) tablet Take 1 tablet by mouth once daily. No current facility-administered medications on file prior to visit. Social History Social History Tobacco Use Smoking status: Never Smokeless tobacco: Never Vaping Use Vaping Use: Never used Substance Use Topics Alcohol use: No Drug use: No Review of Symptoms REVIEW OF SYSTEMS SEE HPI EXAM: BP 114/74 Pulse 71 Resp 14 Wt 83 kg (183 lb) LMP 01/05/2024 (Approximate) BMI 34.58 kg/m PHYSICAL EXAMINATION: General appearance: Well appearing, alert, in no acute distress, well-hydrated, well nourished. Lungs: Lungs clear to auscultation. No wheezing, rhonchi, rales. Heart: RRR without murmur, gallop, or rubs. No ectopy Neuro: Gait normal. Reflexes normal and symmetric. Sensation grossly intact. Health Maintenance List Depression Screening Never done Anxiety Screening Never done Covid-19 Vaccine(2022- season) due on 05/09/2024 Influenza Vaccine(1) due on 03/21/2024 Cervical Cancer Screening due on 12/19/2024 DTaP,Tdap,Td Vaccine(10 - Td or Tdap) due on 06/03/2032 Hepatitis B Vaccine Completed HPV Vaccine Completed Hepatitis C Screening Discontinued HIV Screening Discontinued ASSESSMENT/PLAN: 1. Leukocytosis, unspecified type - ICD9: 288.60, ICD10: D72.829 (primary diagnosis) - COMPLETE BLOOD COUNT AND DIFFERENTIAL 2. Medication management - ICD9: V58.69, ICD10: Z79.899 - COMPREHENSIVE METABOLIC PANEL 3. Screening for diabetes mellitus - ICD9: V77.1, ICD10: Z13.1 - HEMOGLOBIN A1C 4. Encounter for lipid screening for cardiovascular disease - ICD9: V77.91, V81.2, ICD10: Z13.220, Z13.6 - LIPID PANEL, NONFASTING 5. Sleep walking - ICD9: 307.46, ICD10: F51.3 - CONSULT TO SLEEP MEDICINE - ADULT 6. Screening for depression - ICD9: V79.0, ICD10: Z13.31 - DEPRESSION SCREENING 7. Encounter for screening examination for other mental health and behavioral disorders - ICD9: V79.8, ICD10: Z13.39 - ANXIETY SCREENING Onesimo Linn APRN.RECREATION ASSISTANT documented in this encounter [facility] 01-29-2024 Telephone encounter Note Faxed Linzess Prior Authorization to [facility]. [facility] 01-29-2024 Miscellaneous Notes Faxed Linzess Prior Authorization to [facility]. Ambulatory Pharmacy Prior Authorization Note Provider Intervention Required?: Yes- [facility] requires prior authorization to be submitted by the provider. EHP Form (Prescription Drug Formulary) Drug: Linzess 145 mcg Formulary Alternatives: N/A Additional Information: As of 01/29/24, [facility] has not received any paperwork for the prior authorization. Please fax completed paperwork to [phone] or email to [email or web address]. [facility] cannot process prior authorizations sent via CoverMyMeds. For questions relating to this submission, please contact [facility] at [phone] documented in this encounter [facility] 01-29-2024 Telephone encounter Note Sent Linzess and omeprazole prescriptions to [facility]. Also, sent Linzess Prior Authorization to [facility]. [facility] 01-29-2024 Miscellaneous Notes Sent Linzess and omeprazole prescriptions to [facility]. Also, sent Linzess Prior Authorization to [facility]. Patient called again today and after doing some investigating the patient told us that [facility] never received the Linzess script and [facility] did not receive the PA for this medication before her Floorhand discontinued the existing script. Called Atiya Chauhan and she placed a new script today and asked me to tell the patient to call back once it gets declined from [facility] notifying her it needs a PA so we can process this SUHA. Patient called looking for an update on her Linzess. She has been waiting since September Please review and advise. Ishan Gomez [employer] documented in this encounter [facility] 01-29-2024 Telephone encounter Note Ambulatory Pharmacy Prior Authorization Note Provider Intervention Required?: Yes- [facility] requires prior authorization to be submitted by the provider. EHP Form (Prescription Drug Formulary) Drug: Linzess 145 mcg Formulary Alternatives: N/A Additional Information: As of 01/29/24, [facility] has not received any paperwork for the prior authorization. Please fax completed paperwork to [phone] or email to [email or web address]. [facility] cannot process prior authorizations sent via CoverMyMeds. For questions relating to this submission, please contact [facility] at [phone] [facility] 01-29-2024 Note HNO ID: [id number] Author: XIN CHAUHAN LPN Service: ? Author Type: LICENSED NURSE Type: Progress Notes Filed: 01/29/2024 13:54 Note Text: At patient's request: Re-ordered Linzess and omeprazole due to being cancelled. Sent to [facility]. [facility] 01-29-2024 History of Presen t illness Narrative At patient's request: Re-ordered Linzess and omeprazole due to being cancelled. Sent to [facility]. documented in this encounter [facility] 01-29-2024 Telephone encounter Note Patient called again today and after doing some investigating the patient told us that [facility] never received the Linzess script and [facility] did not receive the PA for this medication before her Floorhand discontinued the existing script. Called Atiya Chauhan and she placed a new script today and asked me to tell the patient to call back once it gets declined from [facility] notifying her it needs a PA so we can process this SUHA. [facility] 01-27-2024 Telephone encounter Note Patient called looking for an update on her Linzess. She has been waiting since September Please review and advise. Ishan Gomez [employer] [facility] 01-26-2024 Note HNO ID: [id number] Author: CRUZITO KERN MD Service: ? Author Type: Physician Type: Progress Notes Filed: 01/26/2024 11:46 Note Text: Willam De Leon presents for service engineer ultrasound. Please see report under the imaging tab. Cruzito Kern MD [facility] 01-26-2024 History of Presen t illness Narrative Willam De Leon presents for service engineer ultrasound. Please see report under the imaging tab. Cruzito Kern MD documented in this encounter [facility] 01-20-2024 Note HNO ID: [id number] Author: CHANDNI BROWN APRN.ALINE Service: ? Author Type: Nurse Practitioner Type: Progress Notes Filed: 01/20/2024 15:07 Note Text: Credit Union Teller offered: Patient declines. Willam De Leon is a 23 year old female who presents for problem visit irregular bleeding . HPI: spotting in the middle of the OCP pack, spotting started on the 18-19th and still bleeding now. The flow has become heavier and is passing nickel size clots with cramping. 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 History Comments: Sexual Activity: Not Asked; No partner data on record; not asked Contraception: Pill PAST MEDICAL HISTORY Diagnosis Date ADHD (attention deficit hyperactivity disorder) Benign paroxysmal positional vertigo 2019 Gestational diabetes mellitus, class A1 2022 Left knee pain PAST SURGICAL HISTORY Procedure Laterality Date DELIVERY ONLY 07/31/2022 LTCS COLONOSCOPY 05/23/2023 will need repeated with MAC PAST SURGICAL HISTORY OF wisdom teeth FAMILY HISTORY Problem Relation Age of Onset No Known Problems Mother Diabetes Father Heart Father No Known Problems Sister No Known Problems Sister No Known Problems Sister No Known Problems Brother No Known Problems Maternal Grandmother No Known Problems Maternal Grandfather Cataract Paternal Grandmother Diabetes Paternal Grandmother Dementia Paternal Grandmother No Known Problems Paternal Grandfather Social History Tobacco Use Smoking status: Never Smokeless tobacco: Never Vaping Use Vaping Use: Never used Substance Use Topics Alcohol use: No Drug use: No Current Outpatient Medications Medication Sig Norethindrone Acet-Ethinyl Est 1-20 mg-mcg per tablet Take 1 tablet by mouth once daily. nystatin-triamcinolone (MYCOLOG) ointment Apply sparingly to perineum twice daily for irritation/infection. (Patient not taking: Reported on 01/20/2024) linaclotide (LINZESS) 145 mcg capsule Take 1 capsule by mouth daily at 6 am. omeprazole (PRILOSEC) 20 mg capsule Take 1 capsule by mouth once daily. No current facility-administered medications for this visit. Allergies As of Date: 01/20/2024 (No Known Allergies) Fully Assessed 01/20/2024 REVIEW OF SYSTEMS Expanded ROS: N/A Allergies and current medication updated:Yes EXAM: Wt 183 lb (83.0kg) LMP 01/05/2024 GENERAL: pleasant, female in no apparent distress HEENT: Normocephalic, atraumatic, mucus membranes moist, and no lesions CHEST: Normal inspiratory effort NEURO: alert and oriented x3,exam grossly non-focal EXTREMITIES: normal ASSESSMENT/PLAN: 1. Intermenstrual bleeding - ICD9: 626.6, ICD10: N92.3 (primary diagnosis) - PELVIC US WHI 2. Pelvic pain in female - ICD9: 625.9, ICD10: R10.2 - PELVIC US WHI 3. Encounter for surveillance of contraceptive pills - ICD9: V25.41, ICD10: Z30.41 - discussed with patient on how to take OCP's. - counseled on benefits, risks and possible severe side effects of OCP's. - discussed need to use Condoms to help to prevent STD's including HIV etc. DC 08/09 and ordered Will notify patient of test results. Chandni Brown APRN.ALINE Medical Decision Making: Problems: Moderate: New problem with uncertain prognosis Data: Unique test(s) ordered: 1 Risk: Moderate: Drug management Medical Decision Making Level: 4 - Moderate [facility] 01-20-2024 History of Presen t illness Narrative Credit Union Teller offered: Patient declines. Willam De Leon is a 23 year old female who presents for problem visit irregular bleeding . HPI: spotting in the middle of the OCP pack, spotting started on the 18-19th and still bleeding now. The flow has become heavier and is passing nickel size clots with cramping. 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 History Comments: Sexual Activity: Not Asked; No partner data on record; not asked Contraception: Pill PAST MEDICAL HISTORY Diagnosis Date ADHD (attention deficit hyperactivity disorder) Benign paroxysmal positional vertigo 2019 Gestational diabetes mellitus, class A1 2022 Left knee pain PAST SURGICAL HISTORY Procedure Laterality Date DELIVERY ONLY 07/31/2022 LTCS COLONOSCOPY 05/23/2023 will need repeated with MAC PAST SURGICAL HISTORY OF wisdom teeth FAMILY HISTORY Problem Relation Age of Onset No Known Problems Mother Diabetes Father Heart Father No Known Problems Sister No Known Problems Sister No Known Problems Sister No Known Problems Brother No Known Problems Maternal Grandmother No Known Problems Maternal Grandfather Cataract Paternal Grandmother Diabetes Paternal Grandmother Dementia Paternal Grandmother No Known Problems Paternal Grandfather Social History Tobacco Use Smoking status: Never Smokeless tobacco: Never Vaping Use Vaping Use: Never used Substance Use Topics Alcohol use: No Drug use: No Current Outpatient Medications Medication Sig Norethindrone Acet-Ethinyl Est 1-20 mg-mcg per tablet Take 1 tablet by mouth once daily. nystatin-triamcinolone (MYCOLOG) ointment Apply sparingly to perineum twice daily for irritation/infection. (Patient not taking: Reported on 01/20/2024) linaclotide (LINZESS) 145 mcg capsule Take 1 capsule by mouth daily at 6 am. omeprazole (PRILOSEC) 20 mg capsule Take 1 capsule by mouth once daily. No current facility-administered medications for this visit. Allergies As of Date: 01/20/2024 (No Known Allergies) Fully Assessed 01/20/2024 REVIEW OF SYSTEMS Expanded ROS: N/A Allergies and current medication updated:Yes EXAM: Wt 183 lb (83.0kg) LMP 01/05/2024 GENERAL: pleasant, female in no apparent distress HEENT: Normocephalic, atraumatic, mucus membranes moist, and no lesions CHEST: Normal inspiratory effort NEURO: alert and oriented x3,exam grossly non-focal EXTREMITIES: normal ASSESSMENT/PLAN: 1. Intermenstrual bleeding - ICD9: 626.6, ICD10: N92.3 (primary diagnosis) - PELVIC US WHI 2. Pelvic pain in female - ICD9: 625.9, ICD10: R10.2 - PELVIC US WHI 3. Encounter for surveillance of contraceptive pills - ICD9: V25.41, ICD10: Z30.41 - discussed with patient on how to take OCP's. - counseled on benefits, risks and possible severe side effects of OCP's. - discussed need to use Condoms to help to prevent STD's including HIV etc. DC 08/09 and ordered Will notify patient of test results. Chandni Brown APRN.CNP Medical Decision Making: Problems: Moderate: New problem with uncertain prognosis Data: Unique test(s) ordered: 1 Risk: Moderate: Drug management Medical Decision Making Level: 4 - Moderate documented in this encounter [facility] 01-20-2024 Telephone encounter Note Patient calling regarding bleeding heavily after starting control. Conferenced to [employer] [ ] to speak with provider store person for Dr. Voss in [place]ONAT[place] NURSE. [facility] 01-20-2024 Miscellaneous Notes Patient calling regarding bleeding heavily after starting control. Conferenced to [employer] [ ] to speak with provider store person for Dr. Voss in [place]ONAT[place] NUR[place]. documented in this encounter [facility] 12-05-2023 Telephone encounter Note Reached out and spoke with patient. Will send RX to [facility]. [facility] 12-05-2023 Miscellaneous Notes Reached out and spoke with patient. Will send RX to [facility]. documented in this encounter [facility] 12-04-2023 Note HNO ID: [id number] Author: HUI SY APRN.ALINE Service: ? Author Type: Nurse Practitioner Type: Progress Notes Filed: 12/04/2023 10:30 Note Text: CC: Patient presents with: Vaginal Problem: Discharge, sore in vaginal x 4 days HPI Willam De Leon is a 23 year old female who presents with complaint of possible UTI. These symptoms have been present for 4 days. Associated symptoms: abnormal vaginal discharge and vaginal discomfort Denies: fever, chills, sweats, abdominal pain, and flank pain Treatments: nothing The ROS was otherwise negative. PMH, Medications, labs, allergies, and recent past visits with PCP were reviewed and updated as able. PHYSICAL EXAM: BP 119/82 Pulse 70 Temp 36.4 ?C (97.6 ?F) Resp 18 Wt 87 kg (191 lb 12.8 oz) LMP 11/24/2023 (Approximate) SpO2 98% No BMI 36.24 kg/m? General: Well appearing and alert CV: Regular rate and rhythm without obvious murmur Lungs: clear to auscultation bilaterally Back: straight and symmetric Abdomen: soft, nontender, nondistended Does not want to have an exam does not see any open sores herself. PAST MEDICAL HISTORY Diagnosis Date ADHD (attention deficit hyperactivity disorder) Benign paroxysmal positional vertigo 2019 Gestational diabetes mellitus, class A1 2022 Left knee pain PAST SURGICAL HISTORY Procedure Laterality Date DELIVERY ONLY 07/31/2022 LTCS COLONOSCOPY 05/23/2023 will need repeated with MAC PAST SURGICAL HISTORY OF wisdom teeth ALLERGIES Patient has no known allergies. MEDICATIONS omeprazole (PRILOSEC) 20 mg capsule Take 1 capsule by mouth once daily. Norethindrone Acet-Ethinyl Est 1-20 mg-mcg per tablet Take 1 tablet by mouth once daily. linaclotide (LINZESS) 145 mcg capsule Take 1 capsule by mouth daily at 6 am. FAMILY HISTORY Problem Relation Age of Onset No Known Problems Mother Diabetes Father Heart Father No Known Problems Sister No Known Problems Sister No Known Problems Sister No Known Problems Brother No Known Problems Maternal Grandmother No Known Problems Maternal Grandfather Cataract Paternal Grandmother Diabetes Paternal Grandmother Dementia Paternal Grandmother No Known Problems Paternal Grandfather Social History Tobacco Use Smoking status: Never Smokeless tobacco: Never Vaping Use Vaping Use: Never used Substance Use Topics Alcohol use: No Drug use: No ASSESSMENT/PLAN: 1. Vaginal discomfort - ICD9: 625.9, ICD10: N94.9 - BACTERIAL VAGINOSIS NAAT - HERVE/TRICHOMONAS NAAT Self swab Urine culture sent Myclog cream for vaginal discomfort . Potential red flag symptoms discussed with the patient. Reviewed appropriate action plan to take if red flag symptoms occur. Patient agreeable to treatment plan. Hui Sy APRN.[facility] 12-04-2023 History of Presen t illness Narrative CC: Patient presents with: Vaginal Problem: Discharge, sore in vaginal x 4 days HPI Willam De Leon is a 23 year old female who presents with complaint of possible UTI. These symptoms have been present for 4 days. Associated symptoms: abnormal vaginal discharge and vaginal discomfort Denies: fever, chills, sweats, abdominal pain, and flank pain Treatments: nothing The ROS was otherwise negative. PMH, Medications, labs, allergies, and recent past visits with PCP were reviewed and updated as able. PHYSICAL EXAM: BP 119/82 Pulse 70 Temp 36.4 C (97.6 F) Resp 18 Wt 87 kg (191 lb 12.8 oz) LMP 11/24/2023 (Approximate) SpO2 98% No BMI 36.24 kg/m General: Well appearing and alert CV: Regular rate and rhythm without obvious murmur Lungs: clear to auscultation bilaterally Back: straight and symmetric Abdomen: soft, nontender, nondistended Does not want to have an exam does not see any open sores herself. PAST MEDICAL HISTORY Diagnosis Date ADHD (attention deficit hyperactivity disorder) Benign paroxysmal positional vertigo 2019 Gestational diabetes mellitus, class A1 2022 Left knee pain PAST SURGICAL HISTORY Procedure Laterality Date DELIVERY ONLY 07/31/2022 LTCS COLONOSCOPY 05/23/2023 will need repeated with MAC PAST SURGICAL HISTORY OF wisdom teeth ALLERGIES Patient has no known allergies. MEDICATIONS omeprazole (PRILOSEC) 20 mg capsule Take 1 capsule by mouth once daily. Norethindrone Acet-Ethinyl Est 1-20 mg-mcg per tablet Take 1 tablet by mouth once daily. linaclotide (LINZESS) 145 mcg capsule Take 1 capsule by mouth daily at 6 am. FAMILY HISTORY Problem Relation Age of Onset No Known Problems Mother Diabetes Father Heart Father No Known Problems Sister No Known Problems Sister No Known Problems Sister No Known Problems Brother No Known Problems Maternal Grandmother No Known Problems Maternal Grandfather Cataract Paternal Grandmother Diabetes Paternal Grandmother Dementia Paternal Grandmother No Known Problems Paternal Grandfather Social History Tobacco Use Smoking status: Never Smokeless tobacco: Never Vaping Use Vaping Use: Never used Substance Use Topics Alcohol use: No Drug use: No ASSESSMENT/PLAN: 1. Vaginal discomfort - ICD9: 625.9, ICD10: N94.9 - BACTERIAL VAGINOSIS NAAT - HERVE/TRICHOMONAS NAAT Self swab Urine culture sent Myclog cream for vaginal discomfort . Potential red flag symptoms discussed with the patient. Reviewed appropriate action plan to take if red flag symptoms occur. Patient agreeable to treatment plan. Hui Sy APRN.RECREATION ASSISTANT documented in this encounter [facility] 11-19-2023 Note HNO ID: [id number] Author: REGAN RUIZ APRN.ALINE Service: ? Author Type: Nurse Practitioner Type: Progress Notes Filed: 11/19/2023 15:28 Note Text: Subjective HPI Nontoxic-appearing female nontoxic-appearing female presents urgent care chiefly possible abscess. Duration of symptoms 3 days. Associated symptoms painful lump on her stomach. Patient states lump is growing in size and becoming more tender to touch. Has not use any OTC medications. Denies any history of MRSA or abscesses. Denies chance of . Is not breast-feeding. Denies any fever body aches chills productive cough chest pain shortness of breath pleuritic pain hemoptysis nausea vomiting abdominal pain change in bowel or bladder habits. Past medical history prescription medication use and allergies reviewed. .Patient presents with: Derm Problem: On stomach 3 days PAST MEDICAL HISTORY Diagnosis Date ADHD (attention deficit hyperactivity disorder) Benign paroxysmal positional vertigo 2019 Gestational diabetes mellitus, class A1 2022 Left knee pain PAST SURGICAL HISTORY Procedure Laterality Date DELIVERY ONLY 07/31/2022 LTCS COLONOSCOPY 05/23/2023 will need repeated with MAC PAST SURGICAL HISTORY OF wisdom teeth ALLERGIES Patient has no known allergies. MEDICATIONS doxycycline (VIBRA-TABS) 100 mg tablet Take 1 tablet by mouth two times a day for 7 days. linaclotide (LINZESS) 145 mcg capsule Take 1 capsule by mouth daily at 6 am. omeprazole (PRILOSEC) 20 mg capsule Take 1 capsule by mouth once daily. Norethindrone Acet-Ethinyl Est 1-20 mg-mcg per tablet Take 1 tablet by mouth once daily. FAMILY HISTORY Problem Relation Age of Onset No Known Problems Mother Diabetes Father Heart Father No Known Problems Sister No Known Problems Sister No Known Problems Sister No Known Problems Brother No Known Problems Maternal Grandmother No Known Problems Maternal Grandfather Cataract Paternal Grandmother Diabetes Paternal Grandmother Dementia Paternal Grandmother No Known Problems Paternal Grandfather Social History Tobacco Use Smoking status: Never Smokeless tobacco: Never Vaping Use Vaping Use: Never used Substance Use Topics Alcohol use: No Drug use: No BP 146/72 Pulse 60 Temp 36.2 ?C (97.2 ?F) Resp 16 Wt 87.5 kg (192 lb 14.4 oz) LMP 05/14/2023 (Approximate) SpO2 98% BMI 36.45 kg/m? Review of Systems Constitutional: Negative for chills, fever and malaise/fatigue. HENT: Negative for congestion, ear discharge, ear pain, sinus pain and sore throat. Eyes: Negative for blurred vision, pain, discharge and redness. Respiratory: Negative for cough, hemoptysis, sputum production, shortness of breath, wheezing and stridor. Cardiovascular: Negative for chest pain. Gastrointestinal: Negative for abdominal pain, diarrhea, nausea and vomiting. Musculoskeletal: Negative for myalgias. Skin: Negative for itching and rash. Neurological: Negative for dizziness and headaches. Objective Physical Exam Constitutional: General: She is not in acute distress. Appearance: She is not toxic-appearing. HENT: Head: Normocephalic. Nose: Nose normal. Eyes: Pupils: Pupils are equal, round, and reactive to light. Cardiovascular: Rate and Rhythm: Normal rate. Pulmonary: Effort: Pulmonary effort is normal. No respiratory distress. Abdominal: Comments: Approximately 1/2 cm by half centimeter area of fluctuance noted. Surrounding induration noted. No remote redness. Musculoskeletal: Cervical back: Normal range of motion. Skin: General: Skin is warm and dry. Neurological: General: No focal deficit present. Mental Status: She is alert. Verbal consent obtained. Area was cleansed with alcohol prep and iodine. Approximately 1.5 cc of lidocaine used to anesthetize wound. 11 blade scalpel used to cut center of fluctuance. Spontaneous drainage of fluid noted. Dressing applied. Tolerated well. ASSESSMENT/PLAN: 1. Abscess - ICD9: 682.9, ICD10: L02.91 Diagnosed with abscess. Placed on doxycycline. Red flags for prompt reevaluation discussed. Patient was educated on supportive therapies. Patient will follow up with primary care provider as needed. Patient was instructed to immediately proceed to emergency room for any new, worsening, or symptoms lasting longer than anticipated. The patient's clinical presentation is otherwise unremarkable at this time. Based on exam and clinical finding, the patient is stable for discharge. Plan of care was discussed with patient. Patient verbalizes understanding and agrees to plan of care. This note was generated using [employer] software. It may contain errors in wording, punctuation, or spelling. Regan Ruiz APRN.[facility] 11-19-2023 History of Presen t illness Narrative Images from the original note were not included. Subjective HPI Nontoxic-appearing female nontoxic-appearing female presents urgent care chiefly possible abscess. Duration of symptoms 3 days. Associated symptoms painful lump on her stomach. Patient states lump is growing in size and becoming more tender to touch. Has not use any OTC medications. Denies any history of MRSA or abscesses. Denies chance of . Is not breast-feeding. Denies any fever body aches chills productive cough chest pain shortness of breath pleuritic pain hemoptysis nausea vomiting abdominal pain change in bowel or bladder habits. Past medical history prescription medication use and allergies reviewed. .Patient presents with: Derm Problem: On stomach 3 days PAST MEDICAL HISTORY Diagnosis Date ADHD (attention deficit hyperactivity disorder) Benign paroxysmal positional vertigo 2019 Gestational diabetes mellitus, class A1 2022 Left knee pain PAST SURGICAL HISTORY Procedure Laterality Date DELIVERY ONLY 07/31/2022 LTCS COLONOSCOPY 05/23/2023 will need repeated with MAC PAST SURGICAL HISTORY OF wisdom teeth ALLERGIES Patient has no known allergies. MEDICATIONS doxycycline (VIBRA-TABS) 100 mg tablet Take 1 tablet by mouth two times a day for 7 days. linaclotide (LINZESS) 145 mcg capsule Take 1 capsule by mouth daily at 6 am. omeprazole (PRILOSEC) 20 mg capsule Take 1 capsule by mouth once daily. Norethindrone Acet-Ethinyl Est 1-20 mg-mcg per tablet Take 1 tablet by mouth once daily. FAMILY HISTORY Problem Relation Age of Onset No Known Problems Mother Diabetes Father Heart Father No Known Problems Sister No Known Problems Sister No Known Problems Sister No Known Problems Brother No Known Problems Maternal Grandmother No Known Problems Maternal Grandfather Cataract Paternal Grandmother Diabetes Paternal Grandmother Dementia Paternal Grandmother No Known Problems Paternal Grandfather Social History Tobacco Use Smoking status: Never Smokeless tobacco: Never Vaping Use Vaping Use: Never used Substance Use Topics Alcohol use: No Drug use: No BP 146/72 Pulse 60 Temp 36.2 C (97.2 F) Resp 16 Wt 87.5 kg (192 lb 14.4 oz) LMP 05/14/2023 (Approximate) SpO2 98% BMI 36.45 kg/m Review of Systems Constitutional: Negative for chills, fever and malaise/fatigue. HENT: Negative for congestion, ear discharge, ear pain, sinus pain and sore throat. Eyes: Negative for blurred vision, pain, discharge and redness. Respiratory: Negative for cough, hemoptysis, sputum production, shortness of breath, wheezing and stridor. Cardiovascular: Negative for chest pain. Gastrointestinal: Negative for abdominal pain, diarrhea, nausea and vomiting. Musculoskeletal: Negative for myalgias. Skin: Negative for itching and rash. Neurological: Negative for dizziness and headaches. Objective Physical Exam Constitutional: General: She is not in acute distress. Appearance: She is not toxic-appearing. HENT: Head: Normocephalic. Nose: Nose normal. Eyes: Pupils: Pupils are equal, round, and reactive to light. Cardiovascular: Rate and Rhythm: Normal rate. Pulmonary: Effort: Pulmonary effort is normal. No respiratory distress. Abdominal: Comments: Approximately 1/2 cm by half centimeter area of fluctuance noted. Surrounding induration noted. No remote redness. Musculoskeletal: Cervical back: Normal range of motion. Skin: General: Skin is warm and dry. Neurological: General: No focal deficit present. Mental Status: She is alert. Verbal consent obtained. Area was cleansed with alcohol prep and iodine. Approximately 1.5 cc of lidocaine used to anesthetize wound. 11 blade scalpel used to cut center of fluctuance. Spontaneous drainage of fluid noted. Dressing applied. Tolerated well. ASSESSMENT/PLAN: 1. Abscess - ICD9: 682.9, ICD10: L02.91 Diagnosed with abscess. Placed on doxycycline. Red flags for prompt reevaluation discussed. Patient was educated on supportive therapies. Patient will follow up with primary care provider as needed. Patient was instructed to immediately proceed to emergency room for any new, worsening, or symptoms lasting longer than anticipated. The patient's clinical presentation is otherwise unremarkable at this time. Based on exam and clinical finding, the patient is stable for discharge. Plan of care was discussed with patient. Patient verbalizes understanding and agrees to plan of care. This note was generated using [employer] software. It may contain errors in wording, punctuation, or spelling. Regan Ruiz APRN.RECREATION ASSISTANT documented in this encounter [facility] 11-19-2023 Telephone encounter Note Triage Protocol Recommended: See provider within 4 hours today. Pt agreeable. Pt's PCP is OOO today. Due to patient's schedule, she prefers to come in to [facility] later today. Jes Callaway RN Reason for Disposition Red streak from area of infection Answer Assessment - Initial Assessment Questions Patient calling with concern for a cyst on her stomach Reports sushma sized, raised and red. Irregularly shaped, with a line or streak at area present. Noted it on Friday. Reports is was as large as a nickel but has gotten smaller. Appears there may be some fluid in center and perimeter is harder. 1. APPEARANCE of BOIL: red raised area 2. LOCATION: abdomen 3. NUMBER: one irregularly shaped area 4. SIZE: about the size of a sushma 5. ONSET: Friday 6. PAIN: tender 7. FEVER: denies 8. SOURCE: unsure 9. OTHER SYMPTOMS:No fever, shaking chills, weakness, rash elsewhere on body, no N/V/D or headache Protocols used: Boil (Skin Abscess)-ADULT-AH [facility] 11-19-2023 Miscellaneous Notes Triage Protocol Recommended: See provider within 4 hours today. Pt agreeable. Pt's PCP is OOO today. Due to patient's schedule, she prefers to come in to [facility] later today. Jes Callaway RN Reason for Disposition Red streak from area of infection Answer Assessment - Initial Assessment Questions Patient calling with concern for a cyst on her stomach Reports sushma sized, raised and red. Irregularly shaped, with a line or streak at area present. Noted it on Friday. Reports is was as large as a nickel but has gotten smaller. Appears there may be some fluid in center and perimeter is harder. 1. APPEARANCE of BOIL: red raised area 2. LOCATION: abdomen 3. NUMBER: one irregularly shaped area 4. SIZE: about the size of a sushma 5. ONSET: Friday 6. PAIN: tender 7. FEVER: denies 8. SOURCE: unsure 9. OTHER SYMPTOMS:No fever, shaking chills, weakness, rash elsewhere on body, no N/V/D or headache Protocols used: Boil (Skin Abscess)-ADULT- documented in this encounter [facility] 11-06-2023 Miscellaneous Notes After[employer] Software[employer] message sent Susan Nick LPN documented in this encounter [facility] 10-20-2023 Note HNO ID: [id number] Author: HEBERT WATTS APRN.RECREATION ASSISTANT Service: ? Author Type: Nurse Practitioner Type: Progress Notes Filed: 10/20/2023 09:54 Note Text: This note was created using [email or web address]. Subjective Willam De Leon is a 23 year old female. HPI Pt developed burning and urinary frequency that started this morning. She denies any chance of she states her symptoms feel consistent with her previous urinary tract infections. Review of Systems Constitutional: Negative. Gastrointestinal: Negative. Genitourinary: Positive for dysuria and frequency. Objective BP 104/82 Pulse 95 Temp 36.2 ?C (97.1 ?F) Resp (!) 2 Wt 88.7 kg (195 lb 8.8 oz) LMP 05/14/2023 (Approximate) SpO2 99% BMI 36.95 kg/m? Physical Exam Vitals and nursing note reviewed. Constitutional: General: She is not in acute distress. Appearance: Normal appearance. She is not ill-appearing. HENT: Head: Normocephalic. Mouth/Throat: Mouth: Mucous membranes are moist. Eyes: Conjunctiva/sclera: Conjunctivae normal. Cardiovascular: Rate and Rhythm: Normal rate and regular rhythm. Pulmonary: Effort: Pulmonary effort is normal. Breath sounds: Normal breath sounds. Musculoskeletal: General: Normal range of motion. Cervical back: Normal range of motion. Skin: General: Skin is warm and dry. Neurological: General: No focal deficit present. Mental Status: She is alert. Psychiatric: Mood and Affect: Mood normal. Behavior: Behavior normal. Assessment and Plan ASSESSMENT/PLAN: 1. Urinary frequency - ICD9: 788.41, ICD10: R35.0 (primary diagnosis) acute - UA positive for sridhar esterase and nitrates - Begin treatment with Macrobid 100 mg BID for 5 days - Patient education for prevention given - UA DIP, URINE (POC) - URINE CULTURE 2. Acute cystitis with hematuria - ICD9: 595.0, ICD10: N30.01 As above - NITROFURANTOIN MONOHYDRATE AND MACROCRYSTAL 100 MG ORAL CAP Hebert Watts APRN.RECREATION ASSISTANT [facility] 10-20-2023 History of Presen t illness Narrative This note was created using [email or web address]. Subjective Willam De Leon is a 23 year old female. HPI Pt developed burning and urinary frequency that started this morning. She denies any chance of she states her symptoms feel consistent with her previous urinary tract infections. Review of Systems Constitutional: Negative. Gastrointestinal: Negative. Genitourinary: Positive for dysuria and frequency. Objective BP 104/82 Pulse 95 Temp 36.2 C (97.1 F) Resp (!) 2 Wt 88.7 kg (195 lb 8.8 oz) LMP 05/14/2023 (Approximate) SpO2 99% BMI 36.95 kg/m Physical Exam Vitals and nursing note reviewed. Constitutional: General: She is not in acute distress. Appearance: Normal appearance. She is not ill-appearing. HENT: Head: Normocephalic. Mouth/Throat: Mouth: Mucous membranes are moist. Eyes: Conjunctiva/sclera: Conjunctivae normal. Cardiovascular: Rate and Rhythm: Normal rate and regular rhythm. Pulmonary: Effort: Pulmonary effort is normal. Breath sounds: Normal breath sounds. Musculoskeletal: General: Normal range of motion. Cervical back: Normal range of motion. Skin: General: Skin is warm and dry. Neurological: General: No focal deficit present. Mental Status: She is alert. Psychiatric: Mood and Affect: Mood normal. Behavior: Behavior normal. Assessment and Plan ASSESSMENT/PLAN: 1. Urinary frequency - ICD9: 788.41, ICD10: R35.0 (primary diagnosis) acute - UA positive for sridhar esterase and nitrates - Begin treatment with Macrobid 100 mg BID for 5 days - Patient education for prevention given - UA DIP, URINE (POC) - URINE CULTURE 2. Acute cystitis with hematuria - ICD9: 595.0, ICD10: N30.01 As above - NITROFURANTOIN MONOHYDRATE & MACROCRYSTAL 100 MG ORAL CAP Hebert Watts APRN.ALINE documented in this encounter [facility] 10-08-2023 Note HNO ID: [id number] Author: DHRUV BONILLA MD Service: ? Author Type: Physician Type: Progress Notes Filed: 10/08/2023 09:51 Note Text: DEPARTMENT OF GASTROENTEROLOGY - NEW PATIENT/CONSULT REASON FOR VISIT Willam De Leon is a 23 year old female who is scheduled at the request of Onesimo Linn for New Patient (Abdominal Pain). My final recommendations will be communicated back to the requesting physician by the way of the shared medical record, fax, or via US Mail HISTORY OF PRESENT ILLNESS Willam De Leon is a 23 year old female who presents today for an evaluation of generalized abdominal pain. Symptoms are consistent with IBS She has had a colonoscopy and biopsies, which have been normal and was asked to follow up with PCP PAST MEDICAL HISTORY Diagnosis Date ADHD (attention deficit hyperactivity disorder) Benign paroxysmal positional vertigo 2019 Gestational diabetes mellitus, class A1 2022 Left knee pain PAST SURGICAL HISTORY Procedure Laterality Date DELIVERY ONLY 07/31/2022 [facility] COLONOSCOPY 05/23/2023 will need repeated with MAC PAST SURGICAL HISTORY OF wisdom teeth Current Outpatient Medications Medication Sig Dispense Refill Norethindrone Acet-Ethinyl Est 1-20 mg-mcg per tablet Take 1 tablet by mouth once daily. 84 tablet 3 No current facility-administered medications for this visit. ALLERGIES No Known Allergies Social History Tobacco Use Smoking status: Never Smokeless tobacco: Never Vaping Use Vaping Use: Never used Substance Use Topics Alcohol use: No Drug use: No GI SPECIFIC REVIEW OF SYMPTOMS Difficulty swallowing / foods sticking in throat: no Heartburn: no Hoarseness: no Chronic cough: no Regurgitation: no Chest pain: no Filling up quickly at meals: yes Loss of appetite: no Nausea: no Vomiting: no Abdominal pain: yes Recent change in bowel movements: no Bloody or black, bowel movements: no Constipation: no Diarrhea: no Loss of control of bowel movements: no Night sweats: no Fever: no Chills: no Thought or memory problems: no Fluid in abdomen (ascites): no Prominent leg swelling: no Vomiting blood: no Recent change in weight: No All others negative PHYSICAL EXAMINATION [facility] 05/14/2023 General Appearance: Well appearing, alert, in no acute distress, well-hydrated, well nourished. Eyes: PERRLA, conjunctiva and sclera normal Oropharynx: Lips, tongue, and oral mucosa normal. There is no thrush or oral ulcers. Abdomen: not distended, normal bowel sounds, soft and depressible, no guarding or rebound, no palpable mass, no organomegaly Rectal exam: Deferred. Extremities: no cyanosis or edema Skin: no jaundice, no spider angiomas, no palmar erythema Neuro:alert, oriented x 3, pleasant and in no acute distress Assessment IMPRESSION Ms. De Leon is a 23 year old year old female who presents with IBS. PLAN Celiac serology Linzess for IBS PPI for 4 weeks Patient asked to reach out if symptoms worsen. Dhruv Bonilla MD October 08, 2023 9:02 AM [facility] 10-08-2023 History of Presen t illness Narrative DEPARTMENT OF GASTROENTEROLOGY - NEW PATIENT/CONSULT REASON FOR VISIT Willam De Leon is a 23 year old female who is scheduled at the request of Onesimo Linn for New Patient (Abdominal Pain). My final recommendations will be communicated back to the requesting physician by the way of the shared medical record, fax, or via US Mail HISTORY OF PRESENT ILLNESS Willam De Leon is a 23 year old female who presents today for an evaluation of generalized abdominal pain. Symptoms are consistent with IBS She has had a colonoscopy and biopsies, which have been normal and was asked to follow up with PCP PAST MEDICAL HISTORY Diagnosis Date ADHD (attention deficit hyperactivity disorder) Benign paroxysmal positional vertigo 2019 Gestational diabetes mellitus, class A1 2022 Left knee pain PAST SURGICAL HISTORY Procedure Laterality Date DELIVERY ONLY 07/31/2022 [facility] COLONOSCOPY 05/23/2023 will need repeated with MAC PAST SURGICAL HISTORY OF wisdom teeth Current Outpatient Medications Medication Sig Dispense Refill Norethindrone Acet-Ethinyl Est 1-20 mg-mcg per tablet Take 1 tablet by mouth once daily. 84 tablet 3 No current facility-administered medications for this visit. ALLERGIES No Known Allergies Social History Tobacco Use Smoking status: Never Smokeless tobacco: Never Vaping Use Vaping Use: Never used Substance Use Topics Alcohol use: No Drug use: No GI SPECIFIC REVIEW OF SYMPTOMS Difficulty swallowing / foods sticking in throat: no Heartburn: no Hoarseness: no Chronic cough: no Regurgitation: no Chest pain: no Filling up quickly at meals: yes Loss of appetite: no Nausea: no Vomiting: no Abdominal pain: yes Recent change in bowel movements: no Bloody or black, bowel movements: no Constipation: no Diarrhea: no Loss of control of bowel movements: no Night sweats: no Fever: no Chills: no Thought or memory problems: no Fluid in abdomen (ascites): no Prominent leg swelling: no Vomiting blood: no Recent change in weight: No All others negative PHYSICAL EXAMINATION LMP 05/14/2023 General Appearance: Well appearing, alert, in no acute distress, well-hydrated, well nourished. Eyes: PERRLA, conjunctiva and sclera normal Oropharynx: Lips, tongue, and oral mucosa normal. There is no thrush or oral ulcers. Abdomen: not distended, normal bowel sounds, soft and depressible, no guarding or rebound, no palpable mass, no organomegaly Rectal exam: Deferred. Extremities: no cyanosis or edema Skin: no jaundice, no spider angiomas, no palmar erythema Neuro:alert, oriented x 3, pleasant and in no acute distress Assessment IMPRESSION Ms. De Leon is a 23 year old year old female who presents with IBS. PLAN Celiac serology Linzess for IBS PPI for 4 weeks Patient asked to reach out if symptoms worsen. Dhruv Bonilla MD October 08, 2023 9:02 AM documented in this encounter [facility] 09-05-2023 History and physical note UPDATED HISTORY AND PHYSICAL EXAMINATION SERVICE DATE: 09/05/2023 SERVICE TIME: 11:11 PHYSICAL EXAM MUST BE COMPLETED ON ADMISSION The History and Physical (completed in the past 30 days) has been reviewed and the patient has been examined. The contents accurately reflect the patient's condition with the following additions or revisions since the H&P was completed. Examination indicates no changes. This H&P can be found in the Electronic Medical Record. SIGNATURE: Indigo Hermosillo MD PATIENT NAME: Willam De Leon DATE: September 05, 2023 TIME: 11:11 AM Source Note - Indigo Hermosillo MD - 09/05/2023 1:30 PM EST HISTORY AND PHYSICAL Willam De Leon 2000 REFERRING PHYSICIAN: Onesimo Linn APRN.* CHIEF COMPLAINT: Consult (Abdominal pain.) HPI: The patient is a 22 year old female referred for endoscopy. Willam notes lower abdominal cramping pain. She describes this as cramping abdominal pain and points to the lower abdomen and the sides. She has noted this for the past few months. She notes that onset of pain about 45 minutes after eating and then for about 1-2 hours after. She also notes fecal urgency, sometimes with no BMs She notes soft formed stools, denies constipation or diarrhea. She normally has bowel movements about three times a day. She denies blood in stools. She denies weight loss; she denies fevers. She notes no colon cancer in the family. She denies TOB, ETOH, or illegal drug use. Her BMI is 38 She was seen in ED on January 2023, CT scan revealed kidney lesion, had presented with RLQ abdominal pain, otherwise no etiology for above described pain. PAST MEDICAL HISTORY PAST MEDICAL HISTORY Diagnosis Date ADHD (attention deficit hyperactivity disorder) Benign paroxysmal positional vertigo 2020 Gestational diabetes mellitus, class A1 2022 Left knee pain PAST SURGICAL HISTORY PAST SURGICAL HISTORY Procedure Laterality Date DELIVERY ONLY 07/31/2022 [facility] PAST SURGICAL HISTORY OF wisdom teeth CURRENT MEDICATIONS Current Outpatient Medications Medication Sig Norethindrone Acet-Ethinyl Est 1-20 mg-mcg per tablet Take 1 tablet by mouth once daily. peg 3350-Electrolytes (GOLYTELY) 236-22.74-6.74 -5.86 gram suspension Take 4,000 mL by mouth one time only for 1 dose. No current facility-administered medications for this visit. ALLERGIES: Patient has no known allergies. PERSONAL HISTORY: SOCIAL HISTORY Social History Tobacco Use Smoking status: Never Smokeless tobacco: Never Vaping Use Vaping Use: Never used Substance Use Topics Alcohol use: No Drug use: No FAMILY HISTORY FAMILY HISTORY Problem Relation Age of Onset No Known Problems Mother Diabetes Father Heart Father No Known Problems Sister No Known Problems Sister No Known Problems Sister No Known Problems Brother No Known Problems Maternal Grandmother No Known Problems Maternal Grandfather Cataract Paternal Grandmother Diabetes Paternal Grandmother Dementia Paternal Grandmother No Known Problems Paternal Grandfather REVIEW OF SYSTEMS: General: The patient denies fatigue, denies weight loss, denies weight gain, denies feeling hot, and denies feelings of cold. Eyes: The patient denies glaucoma, denies eye injury/surgery, does not wear glasses or contacts. Ear/Nose/Throat: The patient denies allergies, denies hayfever, denies ear infections, and denies bloody noses. Cardiovascular: The patient denies chest pain, denies heart disease, denies high blood pressure,denies cardiac stent, denies prior heart attack, denies irregular heart beat, denies high cholesterol, denies poor circulation, denies heart failure, other cardiac issues, denies claudication, denies cold feet, denies peripheral arterial stent. Respiratory: The patient denies tuberculosis, denies pneumonia, denies frequent cough, denies pulmonary embolism, denies shortness of breath, and denies coughing up blood. Gastrointestinal: The patient denies difficulty swallowing, NOTES acid reflux, denies ulcers, denies vomiting, denies jaundice/hepatitis, denies gallbladder problems, denies black or tarry stools, denies hemorrhoids, denies bleeding from rectum, denies diverticulitis, denies constipation, denies diarrhea, denies loss of stool control, and denies hernias. Kidney/Bladder: The patient denies kidney stones, denies urine infections, and denies bloody urine. Skin: The patient denies a history of skin cancer, denies bleeding/changing moles, and denies a history of skin rash. Neurologic: The patient denies a history of epilepsy/convulsions, denies headaches, denies head/spinal injuries, and denies stroke/TIA. Psychiatric: The patient denies psychiatric medications, denies depression, and denies voices, denies substance abuse. Endocrine: The patient denies thyroid disorders, denies diabetes, and denies hormonal problems. Hematologic: The patient denies a history of bruising, denies bleeding, and denies anemia, denies blood clots. Infections: The patient denies a history of measles and mumps, denies rheumatic fever, and denies sexually transmitted diseases. Musculoskeletal: The patient denies back pain/injury, denies back problems, denies sciatica, denies knee/foot trouble, denies arthritis, or denies gout. When was patient's last Mammogram screening? N/A Last Colonoscopy: None Anupama Posey RN PHYSICAL EXAMINATION: General: The patient is 22 year old female, well nourished, well hydrated in no acute distress. The patient is oriented to time, place, and person. VITALS: Blood pressure 118/62, pulse 84, temperature 36.4 C (97.5 F), height 156.2 cm (5' 1.5), weight 93.4 kg (205 lb 12.8 oz), last menstrual period 01/20/2023, SpO2 97 %, not currently . Body mass index is 38.26 kg/m . Head: Normal cephalic, atraumatic Eyes: pupils are equally round, sclera are clear/anicteric Neck is supple with no tracheal deviation Cardiac: normal heart sounds, regular Respiratory: normal breath sounds, normal respiratory excursion and pattern. Abdominal exam: soft, obese, and benign Extremities: no clubbing, cyanosis or edema. Neuro: non focal Psych: normal mood IMPRESSION: lower abdominal pain PLAN: I have discussed the above with the patient. I have offered colonoscopy , possible biopsies I have explained the procedure to the patient. I have counseled the patient as to the risks of the procedure, including but not limited to: infection, bleeding, injury to any intrabdominal organs such as liver/spleen, perforation of the GI tract, inability to complete the procedure, complications of anesthesia, etc. - the patient understands. The patient wishes to proceed. I have answered all questions to the patient s satisfaction and the patient has no further questions. Diagnoses: (R10.30) Lower abdominal pain HISTORY AND PHYSICAL Willam De Leon 2000 REFERRING PHYSICIAN: Onesimo Linn APRN.* CHIEF COMPLAINT: Consult (Abdominal pain.) HPI: The patient is a 22 year old female referred for endoscopy. Willam notes lower abdominal cramping pain. She describes this as cramping abdominal pain and points to the lower abdomen and the sides. She has noted this for the past few months. She notes that onset of pain about 45 minutes after eating and then for about 1-2 hours after. She also notes fecal urgency, sometimes with no BMs She notes soft formed stools, denies constipation or diarrhea. She normally has bowel movements about three times a day. She denies blood in stools. She denies weight loss; she denies fevers. She notes no colon cancer in the family. She denies TOB, ETOH, or illegal drug use. Her BMI is 38 She was seen in ED on January 2023, CT scan revealed kidney lesion, had presented with RLQ abdominal pain, otherwise no etiology for above described pain. PAST MEDICAL HISTORY PAST MEDICAL HISTORY Diagnosis Date ADHD (attention deficit hyperactivity disorder) Benign paroxysmal positional vertigo 2019 Gestational diabetes mellitus, class A1 2022 Left knee pain PAST SURGICAL HISTORY PAST SURGICAL HISTORY Procedure Laterality Date DELIVERY ONLY 07/31/2022 [facility] PAST SURGICAL HISTORY OF wisdom teeth CURRENT MEDICATIONS Current Outpatient Medications Medication Sig Norethindrone Acet-Ethinyl Est 1-20 mg-mcg per tablet Take 1 tablet by mouth once daily. peg 3350-Electrolytes (GOLYTELY) 236-22.74-6.74 -5.86 gram suspension Take 4,000 mL by mouth one time only for 1 dose. No current facility-administered medications for this visit. ALLERGIES: Patient has no known allergies. PERSONAL HISTORY: SOCIAL HISTORY Social History Tobacco Use Smoking status: Never Smokeless tobacco: Never Vaping Use Vaping Use: Never used Substance Use Topics Alcohol use: No Drug use: No FAMILY HISTORY FAMILY HISTORY Problem Relation Age of Onset No Known Problems Mother Diabetes Father Heart Father No Known Problems Sister No Known Problems Sister No Known Problems Sister No Known Problems Brother No Known Problems Maternal Grandmother No Known Problems Maternal Grandfather Cataract Paternal Grandmother Diabetes Paternal Grandmother Dementia Paternal Grandmother No Known Problems Paternal Grandfather REVIEW OF SYSTEMS: General: The patient denies fatigue, denies weight loss, denies weight gain, denies feeling hot, and denies feelings of cold. Eyes: The patient denies glaucoma, denies eye injury/surgery, does not wear glasses or contacts. Ear/Nose/Throat: The patient denies allergies, denies hayfever, denies ear infections, and denies bloody noses. Cardiovascular: The patient denies chest pain, denies heart disease, denies high blood pressure,denies cardiac stent, denies prior heart attack, denies irregular heart beat, denies high cholesterol, denies poor circulation, denies heart failure, other cardiac issues, denies claudication, denies cold feet, denies peripheral arterial stent. Respiratory: The patient denies tuberculosis, denies pneumonia, denies frequent cough, denies pulmonary embolism, denies shortness of breath, and denies coughing up blood. Gastrointestinal: The patient denies difficulty swallowing, NOTES acid reflux, denies ulcers, denies vomiting, denies jaundice/hepatitis, denies gallbladder problems, denies black or tarry stools, denies hemorrhoids, denies bleeding from rectum, denies diverticulitis, denies constipation, denies diarrhea, denies loss of stool control, and denies hernias. Kidney/Bladder: The patient denies kidney stones, denies urine infections, and denies bloody urine. Skin: The patient denies a history of skin cancer, denies bleeding/changing moles, and denies a history of skin rash. Neurologic: The patient denies a history of epilepsy/convulsions, denies headaches, denies head/spinal injuries, and denies stroke/TIA. Psychiatric: The patient denies psychiatric medications, denies depression, and denies voices, denies substance abuse. Endocrine: The patient denies thyroid disorders, denies diabetes, and denies hormonal problems. Hematologic: The patient denies a history of bruising, denies bleeding, and denies anemia, denies blood clots. Infections: The patient denies a history of measles and mumps, denies rheumatic fever, and denies sexually transmitted diseases. Musculoskeletal: The patient denies back pain/injury, denies back problems, denies sciatica, denies knee/foot trouble, denies arthritis, or denies gout. When was patient's last Mammogram screening? N/A Last Colonoscopy: None Anupama Posey RN PHYSICAL EXAMINATION: General: The patient is 22 year old female, well nourished, well hydrated in no acute distress. The patient is oriented to time, place, and person. VITALS: Blood pressure 118/62, pulse 84, temperature 36.4 C (97.5 F), height 156.2 cm (5' 1.5), weight 93.4 kg (205 lb 12.8 oz), last menstrual period 01/20/2023, SpO2 97 %, not currently . Body mass index is 38.26 kg/m . Head: Normal cephalic, atraumatic Eyes: pupils are equally round, sclera are clear/anicteric Neck is supple with no tracheal deviation Cardiac: normal heart sounds, regular Respiratory: normal breath sounds, normal respiratory excursion and pattern. Abdominal exam: soft, obese, and benign Extremities: no clubbing, cyanosis or edema. Neuro: non focal Psych: normal mood IMPRESSION: lower abdominal pain PLAN: I have discussed the above with the patient. I have offered colonoscopy , possible biopsies I have explained the procedure to the patient. I have counseled the patient as to the risks of the procedure, including but not limited to: infection, bleeding, injury to any intrabdominal organs such as liver/spleen, perforation of the GI tract, inability to complete the procedure, complications of anesthesia, etc. - the patient understands. The patient wishes to proceed. I have answered all questions to the patient s satisfaction and the patient has no further questions. Diagnoses: (R10.30) Lower abdominal pain documented in this encounter [facility] 09-01-2023 Miscellaneous Notes Images from the original note were not included. Contacted patient for pre-op GI phone call via either phone and or Zapoint. Patient understands prep instructions, sent either [employer] and/or Mail. Understands where to report on the day of procedure. All questions answered and or sent to providers office for clarification. Patient understands [employer] arrival time could change and wait for their arrival time call from the facility the day before procedure.Patient understands must have a regional owner operator truck driver and or responsible libertarian present. Patient was given direct phone number to call ) if patient has any further questions or given the option to respond to [employer] message If one was sent (please see below for [employer] message). Please see the prep instructions below. The first set of instructions are over the counter medications that you may garbage pick up worker at any pharmacy. The second set of instructions is by prescription only and will need to be picked up at your pharmacy you provided to your health care team. If you have any questions please contact the neurosurgical nurse practitioner at [phone] or respond to this [employer] message. . Thank you, Ashley Miralax/Dulcolax Bowel Prep For this bowel preparation you will need to garbage pick up worker the following medications at any pharmacy. Four (4) Dulcolax tablets (generic name Bisacodyl) 238 Gram (or 8.3 oz.) Bottle of Miralax (Generic name Polyethylene Glycol) A responsible family member or friend MUST be available to drive you home after your procedure. You are NOT ALLOWED to drive, take a taxi, or leave the [facility] ALONE. If you do NOT have a responsible regional owner operator truck driver (family member or friend) to take you home, your exam cannot be done with sedation and WILL BE cancelled. Please remove all jewelry if possible. The [facility] or [facility] (depending on where your procedure is scheduled) will call you THE DAY BEFORE YOUR PROCEDURE with your arrival time. The time in My Chart is just an estimate. Please arrive at the time you are told the day before. Medication BLOOD THINNERS - Blood thinner medication may need to be stopped or adjusted before your colonoscopy, such as Coumadin, Plavix, Paradaxa and Eliquis. - Contact prescribing physician regarding holding any blood thinner medication. If you were seen in the general surgery office, please follow their instructions as to if and when to hold any blood thinners. If you are having this procedure done by the request of any other providers and were NOT seen in our office, please contact your physician's office to see if you need to hold any medication prior to your procedure. Insulin or diabetes pills -Please call the doctor that monitors your glucose levels. Your insulin dosage needs to be adjusted due to the diet restrictions required with this bowl preparation (please bring your diabetic medication with you on the day of your procedure). If you take aspirin, take it and ALL other medication prescribed by your doctor unless told otherwise by either the physician's office or Pre-Admission testing if having procedure done in a hospital setting (PACC) with a small sip of water only. You may take over the counter medications if you have a headache. TAKE ALL BLOOD PRESSURE MEDICATION THE MORNING OF THE PROCEDURE. Failure to take usual morning blood pressure meds may result in cancellation of the procedure if hypertensive. Hold erectile dysfunction medications for 48 hrs. prior to the procedure. Five (5) days before your colonoscopy Do not take medications that stop Diarrhea - Imodium, Kaopectate, or Pepto Bismol Do NOT take fiber supplements - Metamucil, Citrucel, FiberCon Do NOT take products that contain iron (check vitamin label) Two (2) to three (3) days before your colonoscopy DO NOT EAT HIGH FIBER FOODS No beans, seeds (flax, sunflower, quinoa), nuts, popcorn, multigrain bread salad/vegetables, or fresh and dried fruit. Do not eat red meat 3 days before your procedure. YOU MAY EAT Lean Chicken breast, fish, eggs, and soup YOU MUST BE ON CLEAR LIQUIDS FOR 2 FULL DAYS PRIOR TO PROCEDURE Two (2) Days before your colonoscopy ONLY DRINK CLEAR LIQUIDS for 2 DAYs BEFORE YOUR COLONOSCOPY. DO NOT EAT ANY SOLID FOODS. Drink at least eight (8) ounces of clear liquids every hour after waking up. Clear fluids include: Water, apple juice, white grape juice, broth (beef, chicken or vegetable), coffee and/or tea (NO DAIRY, MILK OR CREAMER) clear carbonated beverages (sprite, 7-up, rhonda-julita), Gatorade, or other sport drinks, Edu-Aid, Jell-O, Gummy Bears and popsicles. NOTHING RED IN COLOR. DO NOT DRINK ALCOHOL the day before or the day of your procedure. DAY 1 (2 days before your colonoscopy) Clear Liquids all day, you may have water, coffee or tea- NO DAIRY, Clear broth (Beef, Chicken or vegetable) Clear carbonated beverages, apple juice, white grape juice , Gatorade, Jell-O, Edu-Aid, and popsicles. NO DAIRY, TOMATO, OR ORANGE JUICE. NO RED OR PURPLE! DAY 2 - (day before your colonoscopy) SAME DAY 1, Continue clear fluids and then follow the instructions below~ 8:00 AM - May Mix the Miralax prep with 64 oz. of Gatorade or any of the clear fluids listed above and place in fridge. 1:00 PM - Take 2 Dulcolax Tablets with 8oz of water 3:00 PM - Start to drink the Miralax mixture. - Finish by midnight 4:00 PM - Take 2 Dulcolax tablets with 8oz of water. You may continue to drink clear liquids while you are taking your prep and after you finish as long as it is before midnight. Drink lots of fluids so you don't become dehydrated. Nothing to drink after midnight unless instructed otherwise by nursing staff and/or physician. Please remember to take your normal medications the morning of your procedure with a small sip of water especially your blood pressure medications. If you are diabetic, you need to contact your physicians regarding how to take your diabetic medications and/or insulin during the prepping period and the day of the procedure. The times above are a general guide. You may change the times if needed to accommodate your schedule. Example, Instead of taking your first step at 1 PM you may take your first step at 6 PM. Your time frames would be: 6 PM take 2 Dulcolax tablets, at 8 PM you would start drinking the Miralax mixture and at 9 PM you would take two more Dulcolax tablets. Any questions please call [phone] or [phone] and ask for the general surgery nurses. How to prepare for your Colonoscopy using Golytley Your bowel must be empty so that your doctor can clearly view your colon. DO NOT eat any solid food the ENTIRE DAY before your colonoscopy. DO NOT MIX the solution until the day before your colonoscopy. The prep is only good for 24 hrs. after it has been mixed A responsible family member or friend MUST be available to drive you home after your procedure. You are NOT ALLOWED to drive, take a taxi, or leave the Endoscopy Center ALONE. If you do NOT have a responsible regional owner operator truck driver (family member or friend) to take you home, your exam cannot be done with sedation and WILL BE cancelled. Please remove all jewelry if possible. The [facility] or [facility] (depending on where your procedure is scheduled) will call you THE DAY BEFORE YOUR PROCEDURE with your arrival time. The time in My Chart is just an estimate. Please arrive at the time you are told the day before. Medication BLOOD THINNERS - Blood thinner medication may need to be stopped or adjusted before your colonoscopy, such as Coumadin, Plavix, Paradaxa and Eliquis. - Contact prescribing physician regarding holding any blood thinner medication. If you were seen in the general surgery office, please follow their instructions as to if and when to hold any blood thinners. If you are having this procedure done by the request of any other providers and were NOT seen in our office, please contact your physician's office to see if you need to hold any medication prior to your procedure. Insulin or diabetes pills -Please call the doctor that monitors your glucose levels. Your insulin dosage needs to be adjusted due to the diet restrictions required with this bowl preparation (please bring your diabetic medication with you on the day of your procedure). If you take aspirin, take it and ALL other medication prescribed by your doctor unless told otherwise by either the physician's office or Pre-Admission testing if having procedure done in a hospital setting (PACC) with a small sip of water only. You may take over the counter medications if you have a headache. TAKE ALL BLOOD PRESSURE MEDICATION THE MORNING OF THE PROCEDURE. Failure to take usual morning blood pressure meds may result in cancellation of the procedure if hypertensive. Hold erectile dysfunction medications for 48 hrs. prior to the procedure. Five (5) days before your colonoscopy Do not take medications that stop Diarrhea - Imodium, Kaopectate, or Pepto Bismol Do NOT take fiber supplements - Metamucil, Citrucel, FiberCon Do NOT take products that contain iron (check vitamin label) Two (2) to three (3) days before your colonoscopy DO NOT EAT HIGH FIBER FOODS No beans, seeds (flax, sunflower, quinoa), nuts, popcorn, multigrain bread salad/vegetables, or fresh and dried fruit. Do not eat red meat 3 days before your procedure. YOU MAY EAT Lean Chicken breast, fish, eggs, and soup One (1) Day before your colonoscopy ONLY DRINK CLEAR LIQUIDS the ENTIRE DAY BEFORE YOUR COLONOSCOPY. DO NOT EAT ANY SOLID FOODS. Drink at least eight (8) ounces of clear liquids every hour after waking up. Clear fluids include: Water, apple juice, white grape juice, broth (beef, chicken or vegetable), coffee and/or tea (NO DAIRY, MILK OR CREAMER) clear carbonated beverages (sprite, 7-up, rhonda-julita), Gatorade, or other sport drinks, Edu-Aid, Jell-O, Gummy Bears and popsicles. NOTHING RED IN COLOR. DO NOT DRINK ALCOHOL the day before or the day of your procedure. Preparing Bowel Prep Follow the instructions on the label. After mixing (warm water so the powder will dissolve), place the solution in the refrigerator. You may either add the flavor packet that comes with the bowel solution, or you may use your own (Crystal Light, Edu-Aid, Davies, Country Time Lemonade, or any powder flavor that you may mix with water; NOTHING RED). If you use your own flavor, please add flavor glass by glass. You do not want to mix your own flavor in the container as you may over flavor the prep. If you add glass by glass, you may also switch flavors during the consumption of your bowel prep. Day Before Your Colonoscopy You may start your bowel prep any time after 1:00 PM before 6:00 PM. Alternate between your bowel prep and clear liquids. Bowel prep is most effective if drank in a 2 to 3 hr. time frame. You MUST drink the bowel prep until completely gone. Failure to complete bowel prep may lead to cancellation of your procedure and or having to repeat the procedure. Please continue to drink clear liquids up till 6 hrs. prior to arrival for [facility]. documented in this encounter [facility] 08-14-2023 Note HNO ID: [id number] Author: ONESIMO LINN APRN.RECREATION ASSISTANT Service: ? Author Type: Nurse Practitioner Type: Progress Notes Filed: 08/14/2023 13:28 Note Text: Chief Complaint Patient presents with: [facility] Willam De Leon is a 23 year old female who presents here today for Above Complaints.. Patient [facility] to [facility]. Patient had colonoscopy but woke up and was not able to complete evaluation so she has to repeat colonoscopy 09/05. Patient reports she has used marijuana gummies with some improvement of symptoms. Patient uses them sparingly and responsibly. Past medical history, appointments, medications, allergies reviewed. Previous Medical History PAST MEDICAL HISTORY Diagnosis Date ADHD (attention deficit hyperactivity disorder) Benign paroxysmal positional vertigo 2020 Gestational diabetes mellitus, class A1 2022 Left knee pain Previous Surgical History PAST SURGICAL HISTORY Procedure Laterality Date DELIVERY ONLY 07/31/2022 [facility] COLONOSCOPY 05/23/2023 will need repeated with MAC PAST SURGICAL HISTORY OF wisdom teeth Family History FAMILY HISTORY Problem Relation Age of Onset No Known Problems Mother Diabetes Father Heart Father No Known Problems Sister No Known Problems Sister No Known Problems Sister No Known Problems Brother No Known Problems Maternal Grandmother No Known Problems Maternal Grandfather Cataract Paternal Grandmother Diabetes Paternal Grandmother Dementia Paternal Grandmother No Known Problems Paternal Grandfather Patient Allergies ALLERGIES No Known Allergies Current Medications Current Outpatient Medications on File Prior to Visit Medication Sig Norethindrone Acet-Ethinyl Est 1-20 mg-mcg per tablet Take 1 tablet by mouth once daily. No current facility-administered medications on file prior to visit. Social History Social History Tobacco Use Smoking status: Never Smokeless tobacco: Never Vaping Use Vaping Use: Never used Substance Use Topics Alcohol use: No Drug use: No Review of Symptoms REVIEW OF SYSTEMS SEE HPI EXAM: BP 110/70 Pulse 84 Resp 16 Wt 90.7 kg (200 lb) LMP 05/14/2023 (Approximate) BMI 37.18 kg/m? General Appearance: Well appearing, alert, in no acute distress, well-hydrated, well nourished.. Skin: Skin color, texture, turgor normal, no suspicious rashes or lesions. Lungs: Lungs clear to auscultation. No wheezing, rhonchi, rales.. Heart: RRR without murmur, gallop, or rubs. No ectopy. Abdomen: Normal abdominal exam, Abdomen soft, non-tender. Bowel sounds normal. No masses, organomegaly Health Maintenance List Depression Assessment Never done Covid-19 Vaccine(1) due on 05/09/2024 Pap Testing due on 12/19/2024 DTaP,Tdap,Td Vaccine(10 - Td or Tdap) due on 06/03/2032 Hepatitis B Vaccine Completed HPV Vaccine Completed Influenza Vaccine Completed Hepatitis C Screening Discontinued HIV Screening Discontinued ASSESSMENT/PLAN: 1. Generalized abdominal pain - ICD9: 789.07, ICD10: R10.84 (primary diagnosis) -await colonoscopy results for further plan of care. 2. Abdominal pain, RUQ (right upper quadrant) - ICD9: 789.01, ICD10: R10.11 Onesimo Linn APRN.RECREATION ASSISTANT [facility] 06-30-2023 Instructions Radha Gonzalez, MARY - 06/30/2023 9:31 AM EST ASSESSMENT/PLAN: 1. Floaters, bilateral - ICD9: 379.24, ICD10: H43.393 (primary diagnosis) Vitreal floaters stable both eyes. Retinas flat and intact with no apparent retinal tear or traction. Discussed symptoms of retinal tear/detachment and if seen patient will return to clinic without delay. 2. 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 Regular astigmatism of left eye - ICD9: 367.21, ICD10: H52.222 Glasses are an option to see if it will help and should wear them time study clerk. Recommended yearly exams. documented in this encounter [facility] 06-30-2023 Note HNO ID: [id number] Author: Radha Gonzalez OD Service: ? Author Type: EXPEDITER CLERK Type: Progress Notes Filed: 06/30/2023 9:32 AM Note Text: ASSESSMENT/PLAN: 1. Floaters, bilateral - ICD9: 379.24, ICD10: H43.393 (primary diagnosis) Vitreal floaters stable both eyes. Retinas flat and intact with no apparent retinal tear or traction. Discussed symptoms of retinal tear/detachment and if seen patient will return to clinic without delay. 2. 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 Regular astigmatism of left eye - ICD9: 367.21, ICD10: H52.222 Glasses are an option to see if it will help and should wear them time study clerk. Recommended yearly exams. Radha Gonzalez, MARY I have confirmed and edited as necessary the relevant ophthalmic history, ROS, and the neuro exam findings as obtained by others. I have seen and examined this patient. [facility] 06-30-2023 History of Presen t illness Narrative ASSESSMENT/PLAN: 1. Floaters, bilateral - ICD9: 379.24, ICD10: H43.393 (primary diagnosis) Vitreal floaters stable both eyes. Retinas flat and intact with no apparent retinal tear or traction. Discussed symptoms of retinal tear/detachment and if seen patient will return to clinic without delay. 2. 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 Regular astigmatism of left eye - ICD9: 367.21, ICD10: H52.222 Glasses are an option to see if it will help and should wear them time study clerk. Recommended yearly exams. Radha Gonzalez, OD I have confirmed and edited as necessary the relevant ophthalmic history, ROS, and the neuro exam findings as obtained by others. I have seen and examined this patient. documented in this encounter [facility] 05-26-2023 Instructions Indigo Hermosillo MD - 05/26/2023 2:33 PM EST Images from the original note were not included. Bowel Preparation Instructions for: Miralax-Gatorade Preparations IF YOU DO NOT FOLLOW THESE DIRECTIONS, YOUR COLONOSCOPY WILL BE CANCELLED. Meza Instructions: Your bowel must be empty so that your doctor can clearly view your colon. Follow all of the instructions in this handout EXACTLY as they are written. Do NOT eat any solid food the ENTIRE day before your colonoscopy. Buy your bowel preparation at least 5 days before your colonoscopy. Four (4) Dulcolax laxative tablets containing 5mg of bisacodyl each (NOT Dulcolax stool softener) One (1) 8.3oz. bottle Miralax (238 grams) or generic equivalent 2 x 32oz. Bottles of Gatorade (NOT RED) Diabetic Patients: Use G2 (Gatorade 2) TRANSPORTATION on the Day of Your Exam A responsible adult MUST be present with you at Check In prior to your colonoscopy and REMAIN in the endoscopy area until you are discharged. You are NOT ALLOWED to drive, take a taxi or bus, or leave the Endoscopy Center ALONE. If you do not have a responsible regional owner operator truck driver (family member or friend) with you to take you home, your exam cannot be done with sedation and will be cancelled. Please bring a list of all of your current medications, including any Ijmk-[id number]-[id number] medications with you. Medications If you take insulin, diabetic medications or blood thinners such as Coumadin (warfarin), Plavix (clopidogrel), Ticlid (ticlopidine hydrochloride), Agrylin (anagrelide), Xarelto (Rivaroxaban), Pradaxa (Dabigatran), Eliquis (Apixaban), and Effient (Prasugrel). You MUST call the doctors who orders those medicines for instructions on altering the dosage before your colonoscopy. All other medications should be taken the day of the exam with a sip of water including ASPIRIN. Five (5) Days Before Your Colonoscopy Do NOT take medicines that stop diarrhea - such as Imodium, Kaopectate, or Pepto Bismol. Do NOT take fiber supplements - such as Metamucil, Citrucel, or Perdiem. Do NOT take products that contain iron - such as multi-vitamins (the label lists what is in the products). Three (3) Days Before Your Colonoscopy Do NOT eat high-fiber foods - such as popcorn, beans, seeds (flax, sunflower, quinoa), multigrain bread, nuts, salad/vegetables, or fresh and dried fruit. 1 Bowel Preparation Instructions for: Miralax-Gatorade Preparations One (1) Day Before Your Colonoscopy Only drink clear liquids the ENTIRE DAY before your colonoscopy. Do NOT eat any solid foods. Drink at least 8 ounces of clear liquids every hour after waking up. The clear liquids you can drink include: Clear Liquid (NO RED LIQUIDS) DO NOT DRINK Gatorade, Pedialyte or Powerade Clear broth or bouillon Coffee or tea (no milk or non-dairy creamer) Carbonated and non-carbonated soft drinks Edu-Aid or other fruit flavored drinks Strained fruit juices (no pulp) Jell-O, popsicles, hard candy Water Alcohol Milk or non-dairy creamers Noodles or vegetables in soup Juice with pulp Liquid you cannot see through Do not use tobacco/vaping products Mix 1/2 of Miralax bottle (119 grams) in each 32 ounces of Gatorade bottle until dissolved. Keep cool in the refrigerator. DO NOT ADD ICE. The bowel preparation solution will be consumed in two parts. Part 1 5:00 PM - Evening before your colonoscopy Take 4 Dulcolax tablets. 6 PM - Evening before your colonoscopy Drink 32 oz. of the mixed solution. Drink an 8 oz. glass of bowel preparation every 15 minutes for a total of 4 glasses. Fifteen (15) minutes later, drink an 8 oz. glass of of clear liquids every 15 minutes for a total of 2 glasses. You may continue to drink clear liquids till midnight. Part 2 On the day of your colonoscopy you may drink clear liquids up to (three) 3 hours prior to procedure. 4 1/2 hours before your colonoscopy Take another 32 oz. bottle of mixed solution. Drink an 8 oz. glass of bowel prep every 15 minutes for a total of 4 glasses. Fifteen (15) minutes later, drink an 8 oz. glass of clear liquids every 15 minutes for a total of 2 glasses. You may continue to drink clear liquids up to (three) 3 hours before your exam. 2 06/2019 documented in this encounter [facility] 05-26-2023 Miscellaneous Notes Addended by: DOMINGUEZ RODRIGUES on: 05/26/2023 02:26 PM Modules accepted: Orders Addended by: DOMINGUEZ RODRIGUES on: 05/26/2023 01:36 PM Modules accepted: Orders documented in this encounter [facility] 05-26-2023 Instructions Indigo Hermosillo MD - 05/26/2023 8:57 AM EST Images from the original note were not included. Bowel Preparation Instructions for: Miralax-Gatorade Preparations IF YOU DO NOT FOLLOW THESE DIRECTIONS, YOUR COLONOSCOPY WILL BE CANCELLED. Meza Instructions: Your bowel must be empty so that your doctor can clearly view your colon. Follow all of the instructions in this handout EXACTLY as they are written. Do NOT eat any solid food the ENTIRE day before your colonoscopy. Buy your bowel preparation at least 5 days before your colonoscopy. Four (4) Dulcolax laxative tablets containing 5mg of bisacodyl each (NOT Dulcolax stool softener) One (1) 8.3oz. bottle Miralax (238 grams) or generic equivalent 2 x 32oz. Bottles of Gatorade (NOT RED) Diabetic Patients: Use G2 (Gatorade 2) TRANSPORTATION on the Day of Your Exam A responsible adult MUST be present with you at Check In prior to your colonoscopy and REMAIN in the endoscopy area until you are discharged. You are NOT ALLOWED to drive, take a taxi or bus, or leave the Endoscopy Center ALONE. If you do not have a responsible regional owner operator truck driver (family member or friend) with you to take you home, your exam cannot be done with sedation and will be cancelled. Please bring a list of all of your current medications, including any Wlnj-hib-Xclfwgk medications with you. Medications If you take insulin, diabetic medications or blood thinners such as Coumadin (warfarin), Plavix (clopidogrel), Ticlid (ticlopidine hydrochloride), Agrylin (anagrelide), Xarelto (Rivaroxaban), Pradaxa (Dabigatran), Eliquis (Apixaban), and Effient (Prasugrel). You MUST call the doctors who orders those medicines for instructions on altering the dosage before your colonoscopy. All other medications should be taken the day of the exam with a sip of water including ASPIRIN. Five (5) Days Before Your Colonoscopy Do NOT take medicines that stop diarrhea - such as Imodium, Kaopectate, or Pepto Bismol. Do NOT take fiber supplements - such as Metamucil, Citrucel, or Perdiem. Do NOT take products that contain iron - such as multi-vitamins (the label lists what is in the products). Three (3) Days Before Your Colonoscopy Do NOT eat high-fiber foods - such as popcorn, beans, seeds (flax, sunflower, quinoa), multigrain bread, nuts, salad/vegetables, or fresh and dried fruit. 1 Bowel Preparation Instructions for: Miralax-Gatorade Preparations One (1) Day Before Your Colonoscopy Only drink clear liquids the ENTIRE DAY before your colonoscopy. Do NOT eat any solid foods. Drink at least 8 ounces of clear liquids every hour after waking up. The clear liquids you can drink include: Clear Liquid (NO RED LIQUIDS) DO NOT DRINK Gatorade, Pedialyte or Powerade Clear broth or bouillon Coffee or tea (no milk or non-dairy creamer) Carbonated and non-carbonated soft drinks Edu-Aid or other fruit flavored drinks Strained fruit juices (no pulp) Jell-O, popsicles, hard candy Water Alcohol Milk or non-dairy creamers Noodles or vegetables in soup Juice with pulp Liquid you cannot see through Do not use tobacco/vaping products Mix 1/2 of Miralax bottle (119 grams) in each 32 ounces of Gatorade bottle until dissolved. Keep cool in the refrigerator. DO NOT ADD ICE. The bowel preparation solution will be consumed in two parts. Part 1 5:00 PM - Evening before your colonoscopy Take 4 Dulcolax tablets. 6 PM - Evening before your colonoscopy Drink 32 oz. of the mixed solution. Drink an 8 oz. glass of bowel preparation every 15 minutes for a total of 4 glasses. Fifteen (15) minutes later, drink an 8 oz. glass of of clear liquids every 15 minutes for a total of 2 glasses. You may continue to drink clear liquids till midnight. Part 2 On the day of your colonoscopy you may drink clear liquids up to (three) 3 hours prior to procedure. 4 1/2 hours before your colonoscopy Take another 32 oz. bottle of mixed solution. Drink an 8 oz. glass of bowel prep every 15 minutes for a total of 4 glasses. Fifteen (15) minutes later, drink an 8 oz. glass of clear liquids every 15 minutes for a total of 2 glasses. You may continue to drink clear liquids up to (three) 3 hours before your exam. 2 06/2019 documented in this encounter [facility] 05-12-2023 Nurse Note REVIEW OF SYSTEMS: General: The patient denies fatigue, denies weight loss, denies weight gain, denies feeling hot, and denies feelings of cold. Eyes: The patient denies glaucoma, denies eye injury/surgery, does not wear glasses or contacts. Ear/Nose/Throat: The patient denies allergies, denies hayfever, denies ear infections, and denies bloody noses. Cardiovascular: The patient denies chest pain, denies heart disease, denies high blood pressure,denies cardiac stent, denies prior heart attack, denies irregular heart beat, denies high cholesterol, denies poor circulation, denies heart failure, other cardiac issues, denies claudication, denies cold feet, denies peripheral arterial stent. Respiratory: The patient denies tuberculosis, denies pneumonia, denies frequent cough, denies pulmonary embolism, denies shortness of breath, and denies coughing up blood. Gastrointestinal: The patient denies difficulty swallowing, NOTES acid reflux, denies ulcers, denies vomiting, denies jaundice/hepatitis, denies gallbladder problems, denies black or tarry stools, denies hemorrhoids, denies bleeding from rectum, denies diverticulitis, denies constipation, denies diarrhea, denies loss of stool control, and denies hernias. Kidney/Bladder: The patient denies kidney stones, denies urine infections, and denies bloody urine. Skin: The patient denies a history of skin cancer, denies bleeding/changing moles, and denies a history of skin rash. Neurologic: The patient denies a history of epilepsy/convulsions, denies headaches, denies head/spinal injuries, and denies stroke/TIA. Psychiatric: The patient denies psychiatric medications, denies depression, and denies voices, denies substance abuse. Endocrine: The patient denies thyroid disorders, denies diabetes, and denies hormonal problems. Hematologic: The patient denies a history of bruising, denies bleeding, and denies anemia, denies blood clots. Infections: The patient denies a history of measles and mumps, denies rheumatic fever, and denies sexually transmitted diseases. Musculoskeletal: The patient denies back pain/injury, denies back problems, denies sciatica, denies knee/foot trouble, denies arthritis, or denies gout. When was patient's last Mammogram screening? N/A Last Colonoscopy: None Anupama Posey RN documented in this encounter [facility] 05-12-2023 History of Presen t illness Narrative HISTORY AND PHYSICAL Willam Moises 2000 REFERRING PHYSICIAN: Onesimo Linn APRN.* CHIEF COMPLAINT: Consult (Abdominal pain.) HPI: The patient is a 22 year old female referred for endoscopy. Willam notes lower abdominal cramping pain. She describes this as cramping abdominal pain and points to the lower abdomen and the sides. She has noted this for the past 2-3 weeks. She notes that onset of pain about 45 minutes after eating and then for about 1-2 hours after. She also notes fecal urgency, sometimes with no BMs She notes soft formed stools, denies constipation or diarrhea. She normally has bowel movements about three times a day. She denies blood in stools. She denies weight loss; she denies fevers. She notes no colon cancer in the family. She denies TOB, ETOH, or illegal drug use. Her BMI is 38 She was seen in ED on January 2023, CT scan revealed kidney lesion, had presented with RLQ abdominal pain, otherwise no etiology for above described pain. PAST MEDICAL HISTORY Diagnosis Date ADHD (attention deficit hyperactivity disorder) Benign paroxysmal positional vertigo 2020 Gestational diabetes mellitus, class A1 2022 Left knee pain PAST SURGICAL HISTORY Procedure Laterality Date DELIVERY ONLY 07/31/2022 [facility] PAST SURGICAL HISTORY OF wisdom teeth Current Outpatient Medications Medication Sig Norethindrone Acet-Ethinyl Est 1-20 mg-mcg per tablet Take 1 tablet by mouth once daily. peg 3350-Electrolytes (GOLYTELY) 236-22.74-6.74 -5.86 gram suspension Take 4,000 mL by mouth one time only for 1 dose. No current facility-administered medications for this visit. ALLERGIES: Patient has no known allergies. PERSONAL HISTORY: Social History Tobacco Use Smoking status: Never Smokeless tobacco: Never Vaping Use Vaping Use: Never used Substance Use Topics Alcohol use: No Drug use: No FAMILY HISTORY Problem Relation Age of Onset No Known Problems Mother Diabetes Father Heart Father No Known Problems Sister No Known Problems Sister No Known Problems Sister No Known Problems Brother No Known Problems Maternal Grandmother No Known Problems Maternal Grandfather Cataract Paternal Grandmother Diabetes Paternal Grandmother Dementia Paternal Grandmother No Known Problems Paternal Grandfather The review of systems data was entered by the nurse and reviewed by sd Nursing Notes: Anupama Posey RN 05/12/2023 9:11 AM Signed REVIEW OF SYSTEMS: General: The patient denies fatigue, denies weight loss, denies weight gain, denies feeling hot, and denies feelings of cold. Eyes: The patient denies glaucoma, denies eye injury/surgery, does not wear glasses or contacts. Ear/Nose/Throat: The patient denies allergies, denies hayfever, denies ear infections, and denies bloody noses. Cardiovascular: The patient denies chest pain, denies heart disease, denies high blood pressure,denies cardiac stent, denies prior heart attack, denies irregular heart beat, denies high cholesterol, denies poor circulation, denies heart failure, other cardiac issues, denies claudication, denies cold feet, denies peripheral arterial stent. Respiratory: The patient denies tuberculosis, denies pneumonia, denies frequent cough, denies pulmonary embolism, denies shortness of breath, and denies coughing up blood. Gastrointestinal: The patient denies difficulty swallowing, NOTES acid reflux, denies ulcers, denies vomiting, denies jaundice/hepatitis, denies gallbladder problems, denies black or tarry stools, denies hemorrhoids, denies bleeding from rectum, denies diverticulitis, denies constipation, denies diarrhea, denies loss of stool control, and denies hernias. Kidney/Bladder: The patient denies kidney stones, denies urine infections, and denies bloody urine. Skin: The patient denies a history of skin cancer, denies bleeding/changing moles, and denies a history of skin rash. Neurologic: The patient denies a history of epilepsy/convulsions, denies headaches, denies head/spinal injuries, and denies stroke/TIA. Psychiatric: The patient denies psychiatric medications, denies depression, and denies voices, denies substance abuse. Endocrine: The patient denies thyroid disorders, denies diabetes, and denies hormonal problems. Hematologic: The patient denies a history of bruising, denies bleeding, and denies anemia, denies blood clots. Infections: The patient denies a history of measles and mumps, denies rheumatic fever, and denies sexually transmitted diseases. Musculoskeletal: The patient denies back pain/injury, denies back problems, denies sciatica, denies knee/foot trouble, denies arthritis, or denies gout. When was patient's last Mammogram screening? N/A Last Colonoscopy: None Anupama Posey RN PHYSICAL EXAMINATION: General: The patient is 22 year old female, well nourished, well hydrated in no acute distress. The patient is oriented to time, place, and person. VITALS: Blood pressure 118/62, pulse 84, temperature 36.4 C (97.5 F), height 156.2 cm (5' 1.5), weight 93.4 kg (205 lb 12.8 oz), last menstrual period 01/20/2023, SpO2 97 %, not currently . Body mass index is 38.26 kg/m . Head: Normal cephalic, atraumatic Eyes: pupils are equally round, sclera are clear/anicteric Neck is supple with no tracheal deviation Cardiac: normal heart sounds, regular Respiratory: normal breath sounds, normal respiratory excursion and pattern. Abdominal exam: soft, obese, and benign Extremities: no clubbing, cyanosis or edema. Neuro: non focal Psych: normal mood Assessment IMPRESSION: lower abdominal pain PLAN: I have discussed the above with the patient. I have offered colonoscopy , possible biopsies I have explained the procedure to the patient. I have counseled the patient as to the risks of the procedure, including but not limited to: infection, bleeding, injury to any intrabdominal organs such as liver/spleen, perforation of the GI tract, inability to complete the procedure, complications of anesthesia, etc. - the patient understands. I have explained to the patient the difference between IV conscious sedation and MAC anesthesia - and I have offered either, according to the patient's wishes. I have explained that with IV conscious sedation there is no anesthesia provider available and therefore there is a limitation of the amount of IV medications that can be given and that the patient may wake up in the middle of the procedure and/or experience pain/discomfort during the procedure. Further discussion was done and the patient was given the opportunity to ask questions and all questions were answered. The patient chooses MAC anesthesia. The patient wishes to proceed. I have answered all questions to the patient s satisfaction and the patient has no further questions. My clinic staff has educated the patient as to the colon cleansing regimen and I have prescribed Golytely for the colon cleansing solution. The patient will be scheduled for the procedure at [facility]. Diagnoses: (R10.30) Lower abdominal pain I have confirmed and edited as necessary, the PFSH and ROS obtained by others. Consultation requested by Onesimo Linn for an opinion regarding patient's lower abdominal pain. My final recommendations will be communicated back to the requesting physician by way of shared Medical record or letter to requesting physician via [place] mail. Medical Decision Making: Problems: Low: Stable chronic illness Data: Unique test result(s) reviewed: 1 Risk: Low: Low risk from testing/treatment Medical Decision Making Level: 3 - Low Indigo Hermosillo MD documented in this encounter [facility] 05-08-2023 History of Presen t illness Narrative Consultation requested by Dr. Onesimo Linn, [employer].RECREATION ASSISTANT for an opinion regarding Patient presents with: Consult Renal Cyst . My final recommendations will be communicated back to the requesting physician by way of shared Medical record or letter to requesting physician via [place] mail. HISTORY OF PRESENT ILLNESS: Willam De Leon 22 year old female who complains of incidental complex right renal cyst HPI 1-Duration: Weeks 2-Location: Right kidney 3-Severity: Moderate 4-Quality: 5-Context: 6-Timin-Modifying factors: 8-Associated signs & symptoms: None frequency? No urgency? No Nocturia? No Dysuria? No GLUCOSE UA (POCT) Negative 05/08/2023 BILIRUBIN UA (POCT) Negative 05/08/2023 KETONE UA (POCT) Negative 05/08/2023 SPECIFIC GRAVITY UA (POCT) 1.025 05/08/2023 HEMOGLOBIN/BLOOD UA (POCT) Trace-intact 05/08/2023 PH UA (POCT) 5.5 05/08/2023 PROTEIN UA (POCT) Negative 05/08/2023 UROBILINOGEN UA (POCT) 0.2 05/08/2023 NITRITE UA (POCT) Negative 05/08/2023 LEUKOCYTES UA (POCT) Negative 05/08/2023 COLOR UA (POCT) Yellow 05/08/2023 CLARITY UA (POCT) Clear 05/08/2023 Creatinine Date Value Ref Range Status 02/09/2023 0.78 0.58 - 0.96 mg/dL Final 05/14/2017 0.75 0.40 - 1.30 mg/dL Final 11/14/2015 0.78 0.40 - 1.30 mg/dL Final Medications/allergies reviewed and updated. PAST MEDICAL HISTORY Diagnosis Date ADHD (attention deficit hyperactivity disorder) Benign paroxysmal positional vertigo 2019 Gestational diabetes mellitus, class A1 2022 Left knee pain PAST SURGICAL HISTORY Procedure Laterality Date DELIVERY ONLY 07/31/2022 [facility] PAST SURGICAL HISTORY OF wisdom teeth FAMILY HISTORY Problem Relation Age of Onset No Known Problems Mother Diabetes Father Heart Father No Known Problems Sister No Known Problems Sister No Known Problems Sister No Known Problems Brother No Known Problems Maternal Grandmother No Known Problems Maternal Grandfather Cataract Paternal Grandmother Diabetes Paternal Grandmother Dementia Paternal Grandmother No Known Problems Paternal Grandfather Social History Tobacco Use Smoking status: Never Smokeless tobacco: Never Vaping Use Vaping Use: Never used Substance Use Topics Alcohol use: No Drug use: No ALLERGIES: ALLERGIES No Known Allergies CURRENT OUTPATIENT MEDICATIONS: Norethindrone Acet-Ethinyl Est 1-20 mg-mcg per tablet Take 1 tablet by mouth once daily. multivitamin (CLASSIC ) 28 mg iron- 800 mcg tab(s) Take 1 tablet by mouth once daily. REVIEW OF SYSTEMS: Const: Well appearing, in no acute distress, well-hydrated, well-nourished, alert, awake, oriented to time, place and person. HEENT: Negative for frequent or significant headaches. No changes in hearing or vision, no nose bleeds or other nasal problems. Neck: Negative for lumps, goiter, pain and significant neck swelling. Resp: Negative for cough, wheezing or shortness of breath. CV: Negative for chest pain, leg swelling or palpitations. GI: Negative for abdominal discomfort, blood in stools or black stools and change in bowel habits. : See HPI Musculoskelatal: Negative for joint pain or swelling, back pain or muscle pain. Skin: No skin lesions. Psych: Negative for sleep disturbance, mood disorder and recent psychosocial stressors. Sheng/Lymph: Negative for prolonged bleeding, bruising easily or swollen nodes. Endocrine: Negative for cold or heat intolerance, polyuria, polydipsia and goiter. Neuro: No history of headaches, syncope, paralysis, seizures or tremors. PHYSICAL EXAMINATION: VITAL SIGNS: Ht 5' 2 (1.58m) Wt 204 lb (92.5kg) LMP 01/20/2023 BMI 37.30 kg/(m^2). General appearance: Well appearing, in no acute distress, well-hydrated, well-nourished, alert, awake, oriented to time, place and person. LAST LAB RESULTS: No results found for this basename: inr:1,ptsec:1 Glucose (mg/dL) Date Value 02/09/2023 88 05/14/2017 90 Potassium (mmol/L) Date Value 02/09/2023 3.7 05/14/2017 3.8 Sodium (mmol/L) Date Value 02/09/2023 139 05/14/2017 139 Chloride (mmol/L) Date Value 02/09/2023 103 05/14/2017 99 CO2 (mmol/L) Date Value 02/09/2023 24 05/14/2017 25 Creatinine (mg/dL) Date Value 02/09/2023 0.78 05/14/2017 0.75 BUN (mg/dL) Date Value 02/09/2023 13 05/14/2017 11 Anion Gap (mmol/L) Date Value 02/09/2023 12 05/14/2017 15 Calcium (mg/dL) Date Value 05/14/2017 9.9 Calcium, Total (mg/dL) Date Value 02/09/2023 9.5 Protein, Total (g/dL) Date Value 02/09/2023 8.2 05/14/2017 8.3 Albumin (g/dL) Date Value 02/09/2023 4.8 05/14/2017 5.0 Bilirubin, Total (mg/dL) Date Value 02/09/2023 0.2 05/14/2017 0.4 Alkaline Phosphatase (U/L) Date Value 02/09/2023 78 05/14/2017 69 AST (U/L) Date Value 02/09/2023 19 05/14/2017 20 ALT (U/L) Date Value 02/09/2023 16 05/14/2017 17 Glucose Date Value Ref Range Status 02/09/2023 88 74 - 99 mg/dL Final Comment: The [place] [employer] (ADA) provides guidance for cutoff values for fasting glucose and random glucose. The ADA defines fasting as no caloric intake for at least 8 hours. Fasting plasma glucose results between 100 to 125 mg/dL indicate increased risk for diabetes (prediabetes). Fasting plasma glucose results greater than or equal to 126 mg/dL meet the criteria for diagnosis of diabetes. In the absence of unequivocal hyperglycemia, results should be confirmed by repeat testing. In a patient with classic symptoms of hyperglycemia or hyperglycemic crisis, random plasma glucose results greater than or equal to 200 mg/dL meet the criteria for diagnosis of diabetes. Reference: Standards of Medical Care in Diabetes 2016, [place] [employer]. Diabetes Care. 2016.39(Suppl 1). I personally reviewed the patient's radiology images and dictation and I agree with the radiologist's opinion. I personally reviewed the patient's laboratory studies. IMPRESSION: PLAN: Incidental right mildly complex renal cyst Follow-up with renal ultrasound in 1 year Written and verbal health teaching given to patient, patient verbalizes understanding and agrees with treatment plan. Patient will call if worsening symptoms, no improvement, or any other concerns. Plan discussed. Chaz Aguillon MD Electronically Signed: Chaz Aguillon MD May 08, 2023 8:45 AM This note was partially created using voice recognition software and is inherently subject to errors including those of syntax and sound-alike substitutions which may escape proofreading. In such instances, original meaning may be extrapolated by contextual derivation. Medical Decision Making: Problems: Moderate: New problem with uncertain prognosis Data: Unique test result(s) reviewed: 2 Unique test(s) ordered: 1 Risk: Low: Low risk from testing/treatment Medical Decision Making Level: 4 - Moderate documented in this encounter [facility] 03-21-2023 Miscellaneous Notes Patient notified and verbalized understanding. Schedulers please call pt to schedule Susan Carrillo Cma Please let patient know her MRI shows a cyst on her kidney. I have placed a consult for nephrology. documented in this encounter [facility] 02-18-2023 Miscellaneous Notes Patient notified and verbalized understanding- patient is going to call back and schedule MRI Susan Carrillo Cma Please let patient know her US shows a cyst on her right kidney and an MRI is recommended. I have ordered the MRI and patient should be scheduled immediately. documented in this encounter [facility] 02-13-2023 Miscellaneous Notes Pt called and notified. Please let patient know her labs are stable. documented in this encounter [facility] 02-09-2023 History of Presen t illness Narrative Subjective HPI Nontoxic-appearing female presents urgent care chief complaint right lower abdominal pain. Duration of symptoms 1 day. Associated symptoms right lower abdominal pain. Patient states pain became significantly worse today after intercourse. Denies any OTC medications. States pain is 8 out of 10. Pain is worse by palpation over area. History of July of this year. Denies any other abdominal surgeries. No known sick contacts. Denies any fevers body aches chills nausea vomiting chest pain shortness of breath vaginal discharge dysuria concerns for STDs or . Is not breast-feeding. Past medical history prescription medication use allergies reviewed. .Patient presents with: Pain: Pt reported abd pain , x1 day, denied injury. PAST MEDICAL HISTORY Diagnosis Date ADHD (attention deficit hyperactivity disorder) Benign paroxysmal positional vertigo 2019 Gestational diabetes mellitus, class A1 2022 Left knee pain PAST SURGICAL HISTORY Procedure Laterality Date DELIVERY ONLY 07/31/2022 [facility] PAST SURGICAL HISTORY OF wisdom teeth ALLERGIES Patient has no known allergies. MEDICATIONS Norethindrone Acet-Ethinyl Est 1-20 mg-mcg per tablet Take 1 tablet by mouth once daily. multivitamin (CLASSIC ) 28 mg iron- 800 mcg tab(s) Take 1 tablet by mouth once daily. FAMILY HISTORY Problem Relation Age of Onset No Known Problems Mother Diabetes Father Heart Father No Known Problems Sister No Known Problems Sister No Known Problems Sister No Known Problems Brother No Known Problems Maternal Grandmother No Known Problems Maternal Grandfather Cataract Paternal Grandmother Diabetes Paternal Grandmother Dementia Paternal Grandmother No Known Problems Paternal Grandfather Social History Tobacco Use Smoking status: Never Smokeless tobacco: Never Vaping Use Vaping Use: Never used Substance Use Topics Alcohol use: No Drug use: No BP 124/68 Pulse 95 Temp 36.2 C (97.2 F) (Temporal) Resp 16 Wt 90.7 kg (200 lb) SpO2 97% No BMI 37.79 kg/m Review of Systems Constitutional: Negative for chills, fever and malaise/fatigue. HENT: Negative for congestion, ear discharge, ear pain, sinus pain and sore throat. Eyes: Negative for blurred vision, pain, discharge and redness. Respiratory: Negative for cough, hemoptysis, sputum production, shortness of breath, wheezing and stridor. Cardiovascular: Negative for chest pain. Gastrointestinal: Positive for abdominal pain. Negative for diarrhea, nausea and vomiting. Genitourinary: Negative. Musculoskeletal: Negative for myalgias. Skin: Negative for itching and rash. Neurological: Negative for dizziness and headaches. Objective Physical Exam Constitutional: General: She is not in acute distress. Appearance: She is not toxic-appearing. HENT: Head: Normocephalic. Nose: Nose normal. Eyes: Pupils: Pupils are equal, round, and reactive to light. Cardiovascular: Rate and Rhythm: Normal rate. Pulmonary: Effort: Pulmonary effort is normal. No respiratory distress. Abdominal: General: There is no distension. Tenderness: There is abdominal tenderness. There is no right CVA tenderness, left CVA tenderness, guarding or rebound. Musculoskeletal: Cervical back: Normal range of motion. Skin: General: Skin is warm and dry. Neurological: General: No focal deficit present. Mental Status: She is alert. ASSESSMENT/PLAN: 1. Right lower quadrant abdominal pain - ICD9: 789.03, ICD10: R10.31 Patient diagnosed with right lower quadrant pain. With significant discomfort with palpation I recommended patient be seen in the ED to rule out acute abdomen. Patient verbalized understand agrees with plan of care. Regan Ruiz APRN.RECREATION ASSISTANT documented in this encounter [facility] 01-13-2023 Miscellaneous Notes Patient's request for medication is as follows Requested Prescriptions Signed Prescriptions Disp Refills Norethindrone Acet-Ethinyl Est 1-20 mg-mcg per tablet 84 tablet 3 Sig: Take 1 tablet by mouth once daily. Authorizing Provider: ADRIANA VOSS Order entered - please phone pharmacy and notify patient. Adriana Voss MD Patient notified and wants back on previous combined OCP she took in the past. Please file. No need to call patient back. Olimpia Vivar RN Recommend changing to something more reliable this far out from delivery. Appt to discuss if needed. Thanks. Adriana Voss MD Refill request received from pharmacy for patients OCP Rx. Patient last seen in office on 09/10/22 for check. Karin Degroot RN documented in this encounter [facility] 11-19-2022 Miscellaneous Notes Last PP visit 09/10/22. Needs different pharmacy now. Requested Prescriptions Pending Prescriptions Disp Refills Norethindrone, Contraceptive, (ORTHO MICRONOR) 0.35 mg tablet 28 tablet 1 Sig: Take 1 tablet by mouth once daily. RX INSTRUCTIONS: Mychart request. Olimpia Vivar RN documented in this encounter [facility] 11-01-2022 History of Presen t illness Narrative This note was created using Qardioter. Subjective Willam De Leon is a 22 year old female. HPI Presents with fever, body aches, chills headache sore throat and mild cough over the past day. She has had some left breast pain as well. She has a history of mastitis 2 months ago. Currently has a 3-month-old baby and is breast-feeding. She denies vomiting or diarrhea. No chest pain or shortness of breath. No OTC meds today. No home COVID test done. She does have a mild sore throat. Review of Systems Constitutional: Positive for chills, fatigue and fever. HENT: Positive for congestion, rhinorrhea and sore throat. Negative for ear pain. Eyes: Negative. Respiratory: Positive for cough. Negative for shortness of breath and wheezing. Cardiovascular: Negative. Gastrointestinal: Negative. Genitourinary: Negative. Musculoskeletal: Positive for myalgias. Skin: Negative. Neurological: Positive for headaches. All other systems reviewed and are negative. PAST MEDICAL HISTORY Diagnosis Date ADHD (attention deficit hyperactivity disorder) Benign paroxysmal positional vertigo 2019 Gestational diabetes mellitus, class A1 2022 Left knee pain Current Outpatient Medications Medication Sig Dispense Refill Norethindrone, Contraceptive, (ORTHO MICRONOR) 0.35 mg tablet Take 1 tablet by mouth once daily. 28 tablet 3 multivitamin (CLASSIC ) 28 mg iron- 800 mcg tab(s) Take 1 tablet by mouth once daily. 30 tablet 5 dicloxacillin (DYNAPEN) 500 mg capsule Take 1 capsule by mouth four times daily for 10 days. 40 capsule 0 No current facility-administered medications for this visit. PAST SURGICAL HISTORY Procedure Laterality Date DELIVERY ONLY 07/31/2022 [facility] PAST SURGICAL HISTORY OF wisdom teeth FAMILY HISTORY Problem Relation Age of Onset No Known Problems Mother Diabetes Father Heart Father No Known Problems Sister No Known Problems Sister No Known Problems Sister No Known Problems Brother No Known Problems Maternal Grandmother No Known Problems Maternal Grandfather Cataract Paternal Grandmother Diabetes Paternal Grandmother Dementia Paternal Grandmother No Known Problems Paternal Grandfather Social History Tobacco Use Smoking status: Never Smokeless tobacco: Never Vaping Use Vaping Use: Never used Substance Use Topics Alcohol use: No Drug use: No Objective BP 106/76 Pulse (!) 138 Temp (!) 39.4 C (103 F) Resp 20 Wt 84.2 kg (185 lb 9.6 oz) LMP (LMP Unknown) SpO2 98% Yes BMI 35.07 kg/m Physical Exam Vitals reviewed. Constitutional: Appearance: Normal appearance. HENT: Head: Normocephalic and atraumatic. Right Ear: Tympanic membrane, ear canal and external ear normal. Left Ear: Tympanic membrane, ear canal and external ear normal. Nose: Congestion present. Mouth/Throat: Mouth: Mucous membranes are moist. Pharynx: Pharyngeal swelling and posterior oropharyngeal erythema present. No oropharyngeal exudate or uvula swelling. Tonsils: No tonsillar exudate or tonsillar abscesses. 1+ on the right. 1+ on the left. Cardiovascular: Rate and Rhythm: Normal rate and regular rhythm. Heart sounds: Normal heart sounds. Pulmonary: Effort: Pulmonary effort is normal. Breath sounds: Normal breath sounds. Chest: Comments: Patient has some clogged ducts and ttp on the left breast. Faint redness noted. No nipple drainage. No sign of abscess. Musculoskeletal: Cervical back: Neck supple. Lymphadenopathy: Cervical: No cervical adenopathy. Neurological: General: No focal deficit present. Mental Status: She is alert and oriented to person, place, and time. Assessment and Plan ASSESSMENT/PLAN: 1. Viral URI - ICD9: 465.9, ICD10: J06.9 (primary diagnosis) - Discussed viral etiology and rationale for treatment. - Alere Strep Test negative, no culture pending - Symptomatic treatment with prn analgesia - Supportive care with fluids and rest - Follow up in 3-5 days if symptoms persist or sooner if worsening of symptoms - STREP A MOLECULAR (POC) - COVID WITH FLUA+B, ROUTINE - IBUPROFEN 800 MG TABLET 2. Breast pain - ICD9: 611.71, ICD10: N64.4 Early mastitis cannot be ruled out, will cover with dicloxacillin. Red flags for er care discussed. Patient agreeable. Divina Gandara PA-C documented in this encounter [facility] 09-10-2022 History of Presen t illness Narrative VISIT Willam De Leon is a 22 year old year old here for visit. Delivery Summary: c-s ROS/ Recovery: Feeding: pump and bottle feed problems: None Menses since delivery: n/a Menstrual pattern prior to : Regular periods [place] since delivery: Not resumed Depression: denies symptoms of depression. OB Depression and Anxiety Screening- This Encounter (since 09/09/2022) Over the past 2 weeks have you felt down, depressed, or hopeless? Negative Over the past two weeks, have you felt little interest or pleasure in doing things? Negative Feeling nervous, anxious or on edge 0-Not at all Not being able to stop or control worrying 0-Not al all Anxiety Pre-Screening Total (If >/= 3 additional questions will be reviewed) 0 Emotional support: Yes Bowel symptoms: Negative for abdominal discomfort, blood in stools or black stools and change in bowel habits Abdomen: She reports no incisional redness, tenderness, erythema Bladder symptoms: No dysuria, gross hematuria, urinary frequency, urinary urgency, or incontinence Other issues: None Last Pap: 2021 normal HPV: negative PAST MEDICAL HISTORY Diagnosis Date ADHD (attention deficit hyperactivity disorder) Benign paroxysmal positional vertigo 2019 Gestational diabetes mellitus, class A1 2022 Left knee pain PAST SURGICAL HISTORY Procedure Laterality Date DELIVERY ONLY 07/31/2022 [facility] PAST SURGICAL HISTORY OF wisdom teeth FAMILY HISTORY Problem Relation Age of Onset No Known Problems Mother Diabetes Father Heart Father No Known Problems Sister No Known Problems Sister No Known Problems Sister No Known Problems Brother No Known Problems Maternal Grandmother No Known Problems Maternal Grandfather Cataract Paternal Grandmother Diabetes Paternal Grandmother Dementia Paternal Grandmother No Known Problems Paternal Grandfather Social History Tobacco Use Smoking status: Never Smokeless tobacco: Never Vaping Use Vaping Use: Never used Substance Use Topics Alcohol use: No Drug use: No PHYSICAL EXAMINATION: BP 112/72 Ht 5' 1 (1.55m) Wt 190 lb (86.2kg) BMI 35.92 kg/(m^2). GENERAL: pleasant, female in no apparent distress HEENT: Normocephalic, atraumatic, mucus membranes moist, and no lesions NECK: Supple, full range of motion, no adenopathy, and thyroid normal DERMATOLOGY: Normal, without lesions, non-icteric, and non-hirsute BREAST: soft, non-tender, symmetric, no dominant mass, normal nipple-areolar complex, no lymphadenopathy, and no nipple discharge CHEST: Normal inspiratory effort ABDOMEN: soft, non-tender, and no masses. INCISION: No incisional redness, swelling, or drainage PELVIC: external genitalia normal, normal Bartholin's glands, urethra, Eola's glands, no vulvar lesions, no cervical lesions, good vaginal support, physiologic discharge present, normal appearing perineal body and perianal region BIMANUAL: uterus normal size, shape and consistency, no adnexal masses, and non-tender NEURO: alert and oriented x3,exam grossly non-focal EXTREMITIES: normal ASSESSMENT AND PLAN: 22 year old status post CS with normal course. Contraception plan: Oral contraceptives Follow up: RTC for annual exams and PRN Adriana Voss MD documented in this encounter [facility] 08-29-2022 History of Presen t illness Narrative Images from the original note were not included. Subjective HPI Willam De Leon is a 22 year old female who presents with nipple tenderness and left breast tenderness. She delivered via on 07/31/2022 and is pumping 5 times daily and 2 times per night. Getting approximately 8 ounces of milk per pumping. She has not noticed any decrease in production. She has noticed a white coating on her nipples and they appear to be cracked, and very tender to any touch. She has not had a fever. She had one episode of chills yesterday. No nausea. Review of Systems Constitutional: Positive for chills. Negative for fever and malaise/fatigue. Respiratory: Negative. Cardiovascular: Negative. Gastrointestinal: Negative for diarrhea, nausea and vomiting. Skin: See HPI BP 124/80 Pulse 75 Temp 36.6 C (97.8 F) (Tympanic) Resp 22 Wt 85.3 kg (188 lb) LMP (LMP Unknown) SpO2 97% Yes BMI 35.52 kg/m PAST MEDICAL HISTORY Diagnosis Date ADHD (attention deficit hyperactivity disorder) Benign paroxysmal positional vertigo 2020 Gestational diabetes mellitus, class A1 2022 Left knee pain PAST SURGICAL HISTORY Procedure Laterality Date DELIVERY ONLY 07/31/2022 [facility] PAST SURGICAL HISTORY OF wisdom teeth ALLERGIES Patient has no known allergies. MEDICATIONS multivitamin (CLASSIC ) 28 mg iron- 800 mcg tab(s) Take 1 tablet by mouth once daily. clotrimazole (LOTRIMIN, CLOTRIM) 1 % cream Apply to affected area twice daily for 14 days. dicloxacillin (DYNAPEN) 500 mg capsule Take 1 capsule by mouth four times daily for 10 days. FAMILY HISTORY Problem Relation Age of Onset No Known Problems Mother Diabetes Father Heart Father No Known Problems Sister No Known Problems Sister No Known Problems Sister No Known Problems Brother No Known Problems Maternal Grandmother No Known Problems Maternal Grandfather Cataract Paternal Grandmother Diabetes Paternal Grandmother Dementia Paternal Grandmother No Known Problems Paternal Grandfather Social History Tobacco Use Smoking status: Never Smokeless tobacco: Never Vaping Use Vaping Use: Never used Substance Use Topics Alcohol use: No Drug use: No Objective Physical Exam Vitals and nursing note reviewed. Constitutional: Appearance: Normal appearance. Cardiovascular: Rate and Rhythm: Normal rate. Pulmonary: Effort: Pulmonary effort is normal. Chest: Breasts: Right: Tenderness present. No bleeding, mass, nipple discharge or skin change. Left: Swelling and tenderness present. No bleeding, mass, nipple discharge or skin change. Skin: General: Skin is warm and dry. Capillary Refill: Capillary refill takes less than 2 seconds. Findings: No erythema or rash. Neurological: Mental Status: She is alert. ASSESSMENT/PLAN: 1. Mastitis, left, acute - ICD9: 611.0, ICD10: N61.0 (primary diagnosis) - may apply warm compresses to painful area - DICLOXACILLIN 500 MG CAPSULE 2. Yeast infection of nipple, - ICD9: 675.04, 112.89, ICD10: O91.02, B37.89 - dry nipples thoroughly after pumping. Apply cream after each pumping. - CLOTRIMAZOLE 1 % TOPICAL CREAM - Follow-up with your PCP in 3-5 days if symptoms have not improved or sooner if symptoms worsen - Discussed red flags and need for immediate medical evaluation if any occur. - Discussed supportive care treatment with fluids, rest and analgesia. - Discussed expected course of illness Roxanne Flores APRN.RECREATION ASSISTANT documented in this encounter [facility] 08-29-2022 Instructions Roxanne Flores APRN.ALINE - 08/29/2022 10:30 AM EST ASSESSMENT/PLAN: 1. Mastitis, left, acute - ICD9: 611.0, ICD10: N61.0 (primary diagnosis) - may apply warm compresses to painful area - DICLOXACILLIN 500 MG CAPSULE 2. Yeast infection of nipple, - ICD9: 675.04, 112.89, ICD10: O91.02, B37.89 - dry nipples thoroughly after pumping. Apply cream after each pumping. - CLOTRIMAZOLE 1 % TOPICAL CREAM - Follow-up with your PCP in 3-5 days if symptoms have not improved or sooner if symptoms worsen - Discussed red flags and need for immediate medical evaluation if any occur. - Discussed supportive care treatment with fluids, rest and analgesia. - Discussed expected course of illness Roxanne Flores APRN.RECREATION ASSISTANT documented in this encounter [facility] 08-06-2022 History of Presen t illness Narrative EARLY VISIT Willam De Leon is a 22 year old here for 1 week visit. Delivery Summary: c-s ROS: General: Denies any fever or chills Hypertension Screening: Headache? No. Visual Changes? No Epigastric Pain? No Increased Swelling? No Taking any BP medications at home? No If applicable, monitoring BP at home? (If Yes, include results) NA Mood: sad Depression: denies symptoms of depression. OB Depression and Anxiety Screening- This Encounter (since 08/05/2022) None Feeding: pumping nad putting it in a bottle problems: None Bladder: No dysuria, gross hematuria, urinary frequency, urinary urgency, or incontinence Bowel symptoms: Negative for abdominal discomfort, blood in stools or black stools and change in bowel habits Abdomen: She reports no incisional redness, tenderness, erythema Bleeding: light flow Bottom and Perineum: No issues Sleep: no sleep concerns, feels rested [place] since delivery: Not resumed Emotional support: Yes Exercise: N/A Other issues: None PHYSICAL EXAMINATION: Wt 192 lb (87.1 kg) LMP 10/28/2021 (Exact Date) Yes BMI 36.28 kg/m General: pleasant,female in no apparent distress, A&O x 3. Skin warm and intact. Breast: Deferred Abdomen: soft, non-tender, and no masses /Incision: No incisional redness, swelling, or drainage Pelvic: Deferred Bimanual: Deferred ASSESSMENT AND PLAN: 22 year old status post CS with normal course. Contraception plan: considering options . Reinforced 6-week pelvic rest. Encouraged condom usage should patient deviate. Education: resources provided - see MA/RN note Follow up: Return to Clinic for 6 week visit and as needed Medical Decision Making Adriana Voss MD documented in this encounter [facility] 08-01-2022 History of Presen t illness Narrative Patient delivered via by Dr. Bentley on 07/31/22 at [facility]. See OB history. Olimpia Vivar RN documented in this encounter [facility] 07-30-2022 Miscellaneous Notes RR_ BS well controlled. Good FM. Occas ctxs. NST done, reactive. However clear late decel noted. Recommend delivery. Category 1 for > 20 min before discharged. Will get some lunch and go to L&D within the hour for induction. Call team updated. Adriana Voss MD documented in this encounter [facility] 07-30-2022 Jazzy Baer Ma - 07/30/2022 9:18 AM EST SEQUENTIAL SCREENINGS The [facility] offers sequential screenings for women who are interested in screenings for chromosomal abnormalities and certain defects during a . The sequential screen combines ultrasound and blood tests to determine the risk of chromosomal abnormalities, including Down's Syndrome (Trisomy 21) and Trisomy 18, as well as open neural tube defects including spina bifida. Ultrasound examination is performed between 11 weeks and 13 weeks gestational age. Blood tests are drawn after the ultrasound and again later in the between 15 and 21 weeks gestational age. Please let your physician know if you are interested in this testing. It will require an appointment with our dental technician instructor. This is not an ultrasound performed by a physician in our office during a routine visit. SIGNS AND SYMPTOMS OF LABOR 1. Contractions every 10 minutes or more often 2. Clear, pink, or brownish fluid (water) leaking from vagina 3. Feeling that baby is pushing down, pressure 4. Low, dull backache 5. Cramps that feel like a period 6. Cramps with or without diarrhea If you notice any of the above symptoms, contact our office at [phone] and ask to speak with a nurse. After hours, you can call doctors registry at [phone] OR call [facility] at [phone] and ask to have the doctor store person paged. If you consider this an emergency, dial 9-1-5 or go to your nearest emergency department. NEED HELP? Are you dealing with a violent or abusive relationship? Are you a victim of rape or sexual assult? Call [facility] ([place]) 24 hour Crisis Hotline: 632.144.7841 or 394-076-8122. MANUAL Your Guide to a Healthy manual is now on-line. Visit [email or web address] [email or web address] to download your free copy documented in this encounter [facility] 07-19-2022 History of Presen t illness Narrative NST SUMMARY PROVIDER ASSESSMENT AND INTERPRETATION Willam De Leon is a 22 year old female, , who is at 37w5d with an VAZQUEZ of 08/04/2022, by Last Menstrual Period dating method. Indications for NST: Gestational Diabetes - Diet Controlled Baseline: 140 Variability: Moderate Accelerations: Present 15 X 15 Decelerations: None Contractions: TOCO: None Interpretation: Category I and Reactive SIGNATURE: Adriana Voss MD documented in this encounter [facility] 07-19-2022 Miscellaneous Notes RR- VB No. LOF No. CTXS No. Movement: present. Other c/o: off and on tired and just doesn't feel well. No SOL or visual changes. Mild edema Medication list reviewed. Physical Exam See Flow Sheet Abd: soft, nontender, gravid Ext: edema: Trace, 2+ DTRs no clonus A/P 37w5d Estimated Date of Delivery: 08/04/22 GDMA1 BS log reviewed. 2 elevated levels in past week NSt reactive recommend induction 30-40 weeks. Check cervix and schedule next visit f/u in 1 week or prn. Adriana Voss M.D. documented in this encounter [facility] 07-19-2022 Jazzy Maria Nj - 07/19/2022 1:44 PM EST SEQUENTIAL SCREENINGS The [facility] offers sequential screenings for women who are interested in screenings for chromosomal abnormalities and certain defects during a . The sequential screen combines ultrasound and blood tests to determine the risk of chromosomal abnormalities, including Down's Syndrome (Trisomy 21) and Trisomy 18, as well as open neural tube defects including spina bifida. Ultrasound examination is performed between 11 weeks and 13 weeks gestational age. Blood tests are drawn after the ultrasound and again later in the between 15 and 21 weeks gestational age. Please let your physician know if you are interested in this testing. It will require an appointment with our dental technician instructor. This is not an ultrasound performed by a physician in our office during a routine visit. SIGNS AND SYMPTOMS OF LABOR 1. Contractions every 10 minutes or more often 2. Clear, pink, or brownish fluid (water) leaking from vagina 3. Feeling that baby is pushing down, pressure 4. Low, dull backache 5. Cramps that feel like a period 6. Cramps with or without diarrhea If you notice any of the above symptoms, contact our office at [phone] and ask to speak with a nurse. After hours, you can call doctors registry at [phone] OR call [facility] at [phone] and ask to have the doctor store person paged. If you consider this an emergency, dial 6-9-4 or go to your nearest emergency department. NEED HELP? Are you dealing with a violent or abusive relationship? Are you a victim of rape or sexual assult? Call [facility] ([place]) 24 hour Crisis Hotline: 229.361.5347 or 278-602-6687. MANUAL Your Guide to a Healthy manual is now on-line. Visit [email or web address] [email or web address] to download your free copy documented in this encounter [facility] 07-16-2022 Miscellaneous Notes RR- BS well controlled. No VB/LOF . Some cramping. No regular ctxs. Cervix closed. Reviewed labor precautions. Push fluids. Tylenol and heat prn. Adriana Voss MD documented in this encounter [facility] 07-16-2022 Jazzy Baer Ma - 07/16/2022 1:25 PM EST SEQUENTIAL SCREENINGS The [facility] offers sequential screenings for women who are interested in screenings for chromosomal abnormalities and certain defects during a . The sequential screen combines ultrasound and blood tests to determine the risk of chromosomal abnormalities, including Down's Syndrome (Trisomy 21) and Trisomy 18, as well as open neural tube defects including spina bifida. Ultrasound examination is performed between 11 weeks and 13 weeks gestational age. Blood tests are drawn after the ultrasound and again later in the between 15 and 21 weeks gestational age. Please let your physician know if you are interested in this testing. It will require an appointment with our dental technician instructor. This is not an ultrasound performed by a physician in our office during a routine visit. SIGNS AND SYMPTOMS OF LABOR 1. Contractions every 10 minutes or more often 2. Clear, pink, or brownish fluid (water) leaking from vagina 3. Feeling that baby is pushing down, pressure 4. Low, dull backache 5. Cramps that feel like a period 6. Cramps with or without diarrhea If you notice any of the above symptoms, contact our office at [phone] and ask to speak with a nurse. After hours, you can call doctors registry at [phone] OR call [facility] at [phone] and ask to have the doctor store person paged. If you consider this an emergency, dial 9--1 or go to your nearest emergency department. NEED HELP? Are you dealing with a violent or abusive relationship? Are you a victim of rape or sexual assult? Call [facility] ([place]) 24 hour Crisis Hotline: 478.660.4121 or 774-789-0147. MANUAL Your Guide to a Healthy manual is now on-line. Visit [email or web address] to download your free copy documented in this encounter [facility] 07-10-2022 Miscellaneous Notes RR_ No VB/LOF. Some pressure. Mild edema. No SOL or visual changes. Had growth scan and AGA w/ normal AFV. BPP 02/25. NST next week. GDMA1- bs log reviewed, rare elevated BS. Great control overall. Ok to check tid for now. F/u in 1 week or prn. Adriana Voss MD documented in this encounter [facility] 07-10-2022 Instructions Sara Baer Ma - 07/10/2022 9:18 AM EST SEQUENTIAL SCREENINGS The [facility] offers sequential screenings for women who are interested in screenings for chromosomal abnormalities and certain defects during a . The sequential screen combines ultrasound and blood tests to determine the risk of chromosomal abnormalities, including Down's Syndrome (Trisomy 21) and Trisomy 18, as well as open neural tube defects including spina bifida. Ultrasound examination is performed between 11 weeks and 13 weeks gestational age. Blood tests are drawn after the ultrasound and again later in the between 15 and 21 weeks gestational age. Please let your physician know if you are interested in this testing. It will require an appointment with our dental technician instructor. This is not an ultrasound performed by a physician in our office during a routine visit. SIGNS AND SYMPTOMS OF LABOR 1. Contractions every 10 minutes or more often 2. Clear, pink, or brownish fluid (water) leaking from vagina 3. Feeling that baby is pushing down, pressure 4. Low, dull backache 5. Cramps that feel like a period 6. Cramps with or without diarrhea If you notice any of the above symptoms, contact our office at [phone] and ask to speak with a nurse. After hours, you can call doctors registry at [phone] OR call [facility] at [phone] and ask to have the doctor store person paged. If you consider this an emergency, dial 2-7-0 or go to your nearest emergency department. NEED HELP? Are you dealing with a violent or abusive relationship? Are you a victim of rape or sexual assult? Call [facility] ([place]) 24 hour Crisis Hotline: 476.402.6184 or 745-378-1350. MANUAL Your Guide to a Healthy manual is now on-line. Visit [email or web address] to download your free copy documented in this encounter [facility] 07-04-2022 Miscellaneous Notes KJ - Patient seen urgently for pelvic pressure & urinary frequency. Denies dysuria. No VB/LOF/ctxs. Reports good FM. A&P: Reassured on musculoskeletal pains in UA negative for infection Reviewed PTL & FM precautions Yoselyn Sy MD 146 documented in this encounter [facility] 07-04-2022 Jazzy Maria Ma - 07/04/2022 2:21 PM EST SEQUENTIAL SCREENINGS The [facility] offers sequential screenings for women who are interested in screenings for chromosomal abnormalities and certain defects during a . The sequential screen combines ultrasound and blood tests to determine the risk of chromosomal abnormalities, including Down's Syndrome (Trisomy 21) and Trisomy 18, as well as open neural tube defects including spina bifida. Ultrasound examination is performed between 11 weeks and 13 weeks gestational age. Blood tests are drawn after the ultrasound and again later in the between 15 and 21 weeks gestational age. Please let your physician know if you are interested in this testing. It will require an appointment with our dental technician instructor. This is not an ultrasound performed by a physician in our office during a routine visit. SIGNS AND SYMPTOMS OF LABOR 1. Contractions every 10 minutes or more often 2. Clear, pink, or brownish fluid (water) leaking from vagina 3. Feeling that baby is pushing down, pressure 4. Low, dull backache 5. Cramps that feel like a period 6. Cramps with or without diarrhea If you notice any of the above symptoms, contact our office at [phone] and ask to speak with a nurse. After hours, you can call doctors registry at [phone] OR call [facility] at [phone] and ask to have the doctor store person paged. If you consider this an emergency, dial 9-1-0 or go to your nearest emergency department. NEED HELP? Are you dealing with a violent or abusive relationship? Are you a victim of rape or sexual assult? Call [facility] [place] ([place]) 24 hour Crisis Hotline: 192.950.5132 or 896-875-8813. MANUAL Your Guide to a Healthy manual is now on-line. Visit [email or web address] to download your free copy documented in this encounter [facility] 07-04-2022 Miscellaneous Notes [id number] Patient called back. Appointment given today with KJ. Denies LOF or VB. Good FM. Having urinary frequency too. Paty Ochoa RN documented in this encounter [facility] 07-02-2022 Miscellaneous Notes DM- Pt doing well today. Denies Vaginal Bleeding, Leaking fluid, or contractions. Pt reports good movement. Pt reports not sleeping well. BS log reviewed - overall well controlled a few abnormal mostly fastings but at 96. Will get growth us next week with BPP. NSts then at 37 weeks until delivery. Continue asa. RTO weekly. Kick counts reviewed. Yara Hardy MD documented in this encounter [facility] 07-02-2022 Instructions Cynthia Saldivar Ma - 07/02/2022 9:41 AM EST SEQUENTIAL SCREENINGS The [facility] offers sequential screenings for women who are interested in screenings for chromosomal abnormalities and certain defects during a . The sequential screen combines ultrasound and blood tests to determine the risk of chromosomal abnormalities, including Down's Syndrome (Trisomy 21) and Trisomy 18, as well as open neural tube defects including spina bifida. Ultrasound examination is performed between 11 weeks and 13 weeks gestational age. Blood tests are drawn after the ultrasound and again later in the between 15 and 21 weeks gestational age. Please let your physician know if you are interested in this testing. It will require an appointment with our dental technician instructor. This is not an ultrasound performed by a physician in our office during a routine visit. SIGNS AND SYMPTOMS OF LABOR 1. Contractions every 10 minutes or more often 2. Clear, pink, or brownish fluid (water) leaking from vagina 3. Feeling that baby is pushing down, pressure 4. Low, dull backache 5. Cramps that feel like a period 6. Cramps with or without diarrhea If you notice any of the above symptoms, contact our office at [phone] and ask to speak with a nurse. After hours, you can call doctors registry at [phone] OR call [facility] at [phone] and ask to have the doctor store person paged. If you consider this an emergency, dial 03-21- or go to your nearest emergency department. NEED HELP? Are you dealing with a violent or abusive relationship? Are you a victim of rape or sexual assult? Call [facility] [place]) 24 hour Crisis Hotline: 200.532.4582 or 869-449-5572. MANUAL Your Guide to a Healthy manual is now on-line. Visit [email or web address] to download your free copy documented in this encounter [facility] 06-24-[address] - 06/24/2022 8:21 AM EST Try Fairlife milk for cerea Snacks try healthy fats such as nuts, cheese stick etc Continue previous recommendations documented in this encounter [facility] 06-24-2022 History of Presen t illness Narrative The [facility] Nutrition Therapy: Virtual Consult - Re-assessment This visit was performed virtually due to the COVID-19 epidemic as an effort to protect patients and minimize exposure. Consent from patient received to conduct visit virtually. This Team Access Model visit is a virtual encounter. It required patient-provider interaction for the medical decision making as documented below. Nutrition Diagnosis: Altered nutrition-related lab values, related to, and endocrine dysfunction, as evidenced by elevated blood sugars RECOMMENDED MALNUTRITION DIAGNOSIS: NO MALNUTRITION IDENTIFIED NUTRITION CARE PLAN: Nutrition Intervention 06/24/2022: modify type and amount of food or beverage Try Fairlife milk for cerea Snacks try healthy fats such as nuts, cheese stick etc Continue previous recommendations Nutrition Monitoring & Evaluation: Blood sugars in target range Need for Follow up: as needed PROGRESS: Interval History: following as relates to gestational diabetes, now at 34 weeks. One pound gain from last visit. Appears to be following recommendations well. Blood sugars most in target range. Including regular exercise walking daily. Intake noted for generally healthy choices, is carb controlled. Beverages appropriate. Nutrition Intervention 06/03/22 Distribute carbohydrate evening throught out the day; 2. Keep breakfast at 15-30 grams carbohydrate; meals 30-45 grams and snacks 15-grams of carbohydrate or just protein/healthy fats such as nuts/seeds/cheese stick; limit fruit to one fruit serving per eating event (smoothie try one frozen fruit, cup of milk or yogurt no added sugar, veggies, vanilla, stevia); all grains whole grain and high fiber 3. Distribute meals and snacks every 2-3 hours. 4. Aim for 28 grams of fiber. 5. Limit saturated fat - choose lean proteins, 6. All beverages calorie free and sugar free, no juice or reg pop 7. Continue Daily exercise of 30-60 minutes Ensure good sources of magnesium from a variety of seeds and dark greens such as spinach and fijian chard; soybeans and nuts almonds and chashews. Ensure good sources of zinc from lean beef, pumpkin and squash seeds, dark chocolate and cocoa powder, and peanuts Ensure good sources of Folic Acid from a variety of dark greens and seeds; soy beans and jerome sprouts. Beans such as Rene, garbonzo and mung; asparagus and peanuts Ensure adequate vit D-fatty fish, fortified cereal and soy products, meats, dairy products, eggs and mushrooms Ensure adequate C13-mmik fatty fish, seafood and meats; cheese and eggs Ensure adequate sources of omega 3 fatty acids from fatty fish, farshad and flax seeds and eggs Ensure adequate calcium-aim for 3-4 servings of low fat/fat free dairy daily. Aim for moderate exercise regularly-continue to do regular activities. May need to change activities during avoiding high impact and higher stress activities. Actions to implement interventions: Limiting carbs, Regular exercise Diet History: 91, usually 85-95 range, did have a 101 feels related to not sleeping well Breakfast - eggs and wheat toast or just an eggs; cereal honey bunches of oats or cheerios; water or 82, couple 105/95/112 Snack - sometimes, half n apple n pnb Lunch - salad or egg; water or ice drinks 78/87/105/115/114 Snack - not usually, occ other half apple or pnb; or rice chips Dinner - protein (chicken) and veg 112/97/68588/123 Snack - no Beverages - water, ice drinks Alcohol - no Vitamins/Supplements - , Activity: Activities of Daily Living: varies Additional Activity: Moderately active (Moderate intensity exercise: Planned physical activity 3-5 days/week) 30-45 min walk daily Anthropometrics: Height: Last 1 Encounter Ht Readings: Date: Ht: 06/24/2022 154.9 cm (5' 1) Weight: Last 1 Encounter Wt Readings: Date: Wt: 06/24/2022 93 kg (205 lb) Body mass index is 38.73 kg/m . Resting Metabolic Rate: 1617 Malnutrition Screening Significant unintentional weight loss? No Eating less than 75% of usual intake for more than 2 weeks? No Potential Signs of Inflammation: no identifiable sources Nutritional status: Education Materials Provided: None this visit READINESS TO LEARN Cognitive ability: Alert and oriented Motivation to learn: Interested Family support: Unable to assess - Family not present Instruction provided to: Patient Patient learns best by: Individual Instruction Factors affecting learning: None Physical limitations affecting learning: None Likelihood of Adherence: High Referred/Supervised by: Sheree/Brando PAL Billing Type: Re-assess/15 min 1 unit SIGNATURE: Marianna Cheng RD PATIENT NAME: Willam De Leon DATE: 06/24/2022 TIME: 8:00 AM documented in this encounter [facility] 06-18-2022 Miscellaneous Notes DM- Pt doing well today. Denies Vaginal Bleeding, Leaking fluid, or contractions. Pt reports good movement. Reviewed BS log- does have some elevated fastings and 2hr PP but not 50%, reviewed that patient is tetering with starting insulin- reviewed diet again and importance of tight control prior to delivery. Pt verbalized understanding. Will send BS log if numbers are tredning up. Repeat Growth at 36 weeks. NSTs 36+ weeks. Continue ASA. Yara Hardy MD documented in this encounter [facility] 06-18-2022 Instructions Cynthia Saldivar Ma - 06/18/2022 8:46 AM EST SEQUENTIAL SCREENINGS The [facility] offers sequential screenings for women who are interested in screenings for chromosomal abnormalities and certain defects during a . The sequential screen combines ultrasound and blood tests to determine the risk of chromosomal abnormalities, including Down's Syndrome (Trisomy 21) and Trisomy 18, as well as open neural tube defects including spina bifida. Ultrasound examination is performed between 11 weeks and 13 weeks gestational age. Blood tests are drawn after the ultrasound and again later in the between 15 and 21 weeks gestational age. Please let your physician know if you are interested in this testing. It will require an appointment with our dental technician instructor. This is not an ultrasound performed by a physician in our office during a routine visit. SIGNS AND SYMPTOMS OF LABOR 1. Contractions every 10 minutes or more often 2. Clear, pink, or brownish fluid (water) leaking from vagina 3. Feeling that baby is pushing down, pressure 4. Low, dull backache 5. Cramps that feel like a period 6. Cramps with or without diarrhea If you notice any of the above symptoms, contact our office at [phone] and ask to speak with a nurse. After hours, you can call doctors registry at [phone] OR call [facility] at [phone] and ask to have the doctor store person paged. If you consider this an emergency, dial 9-1-0 or go to your nearest emergency department. NEED HELP? Are you dealing with a violent or abusive relationship? Are you a victim of rape or sexual assult? Call [facility] ([place]) 24 hour Crisis Hotline: 689.962.1519 or 441-531-4629. MANUAL Your Guide to a Healthy manual is now on-line. Visit [email or web address] [email or web address] to download your free copy documented in this encounter [facility] 05-22-2022 Miscellaneous Notes Pt needs script sent to a different pharmacy. documented in this encounter [facility] 05-22-2022 History of Presen t illness Narrative DIABETES CARE AND EDUCATION VISIT Location: [place] Type of visit: In person individual PATIENT'S MAIN CONCERN TODAY: GDM diagnosis Support person present for education today: none Cognitive ability: Alert and oriented Motivation to learn: Interested Learning barriers identified by educator: none Method of instruction: written, verbal, and demonstration DIABETES FINDINGS: Monitoring: Pt received only a meter kit, no lancets or strips yet - resent request for scripts to physician to send to preferred pharmacy Meal Planning: reviewed basic suggestions for meal Medications: discussed insulin as not crossing the placenta and being the most used during Problem Solving:reporting sugars to their OB Physical Activity: encouraged walking 10-15 minutes after major meals Reducing Risks: importance of sugar control to prevent complications Healthy Coping: not discussed HANDOUTS: Healthy You: Diabetes and LEARNING RESPONSE: Healthy eating: Demonstrated understanding/competency today or at previous visit Being active: Demonstrated understanding/competency today or at previous visit Monitoring glucose: Demonstrated understanding/competency today or at previous visit POSSIBLE FUTURE TOPICS: 1. DIABETES CARE AND EDUCATION PLAN: Individual follow-up Time Spent (Minutes): 45 This visit note will be communicated to the healthcare provider via access to shared medical record. SIGNATURE: García Gimenez RN PATIENT NAME: Willam De Leon DATE: May 22, 2022 TIME: 9:21 AM PAGER: documented in this encounter [facility] 05-21-2022 Miscellaneous Notes Spoke to patient. She had rx for diabetic supplies transferred to [facility] in [place] already. All questions answered. She is hoping to get glucometer from [facility] within next 2 days to start testing. Olimpia Vivar RN Patient is unable to obtain glucose monitoring kit prior through her pharmacy at this time. She has requested for the prescription to be transferred to [facility] in [place]. She wanted to know if there was an over the counter kit she could use in the mean time. She was transferred to triage nurse. documented in this encounter [facility] 2022 Miscellaneous Notes Patient notified. Aware that she will need to check her fasting and 2 hour PP blood sugars for remaining of . Diabetic education and nutrition appointment scheduled. Paty Ochoa RN ordered Please file. Olimpia Vivar RN ----- Message from Yara Bentley MD sent at 2022 12:23 PM EDT ----- No need to finish 3hr if she is still waiting for last blood draw as she failed 3hr gtt. Please pend all diabetic testing supplies. 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 documented in this encounter [facility] 2022 History of Past i llness Narrative Problem Noted Date Resolved Date Gestational diabetes mellitus, class A1 05/20/2008/06/2022 Overview: 05/20/22: failed 3hr gtt. Yara Hardy MD Abnormal glucose complicating 05/17/2005/20/2022 Overview: 05/17/22: abnormal 1hr GCT. 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 Likely guests had been cooking/using meth in the room. Patient went to ED. She tested neg on drug screen, results scanned into EPIC. Adriana Voss MD Obesity during 12/06/2021 023 Overview: 12/06/2021atient is obese. We will plan on early hemoglobin A1c. 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 Some of her symptoms today are referable to the inferior pole of the patella. All in all they have improved significantly. We discussed the potential benefit of an infrapatellar strap but she does not feel her symptoms are that bad. I emphasized the importance of continuing her independent exercise program and continuing to use the NSAID as needed. PLAN: Continue Mobic as needed Continue independent exercise program Follow-up as needed Acute pain of left knee 09/15/2020 03/15/20 Myopia, bilateral 05/30/2020 10/25/2021 documented as of this encounter (statuses as of 08/06/2022) [facility] History of Past illness Narrative* Problem Noted Date Resolved Date Gestational diabetes mellitus, class A1 05/20/2008/06/2022 Overview: 05/20/22: failed 3hr gtt. Yara Hardy MD Abnormal glucose complicating 05/17/2005/20/2022 Overview: 05/17/22: abnormal 1hr GCT. 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 Likely guests had been cooking/using meth in the room. Patient went to ED. She tested neg on drug screen, results scanned into EPIC. Adriana Voss MD Obesity during 12/06/2021 023 Overview: 12/06/2021atient is obese. We will plan on early hemoglobin A1c. 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 Some of her symptoms today are referable to the inferior pole of the patella. All in all they have improved significantly. We discussed the potential benefit of an infrapatellar strap but she does not feel her symptoms are that bad. I emphasized the importance of continuing her independent exercise program and continuing to use the NSAID as needed. PLAN: Continue Mobic as needed Continue independent exercise program Follow-up as needed Acute pain of left knee 09/15/2020 03/15/20 Myopia, bilateral 05/30/2020 10/25/2021 documented as of this encounter (statuses as of 08/29/2022) [facility] History of Past illness Narrative* Problem Noted Date Resolved Date Gestational diabetes mellitus, class A1 05/20/2008/06/2022 Overview: 05/20/22: failed 3hr gtt. Yara Hardy MD Abnormal glucose complicating 05/17/2005/20/2022 Overview: 05/17/22: abnormal 1hr GCT. 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 Likely guests had been cooking/using meth in the room. Patient went to ED. She tested neg on drug screen, results scanned into EPIC. Adriana Voss MD Obesity during 12/06/2021 023 Overview: 12/06/2021atient is obese. We will plan on early hemoglobin A1c. 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 Some of her symptoms today are referable to the inferior pole of the patella. All in all they have improved significantly. We discussed the potential benefit of an infrapatellar strap but she does not feel her symptoms are that bad. I emphasized the importance of continuing her independent exercise program and continuing to use the NSAID as needed. PLAN: Continue Mobic as needed Continue independent exercise program Follow-up as needed Acute pain of left knee 09/15/2020 03/15/20 Myopia, bilateral 05/30/2020 10/25/2021 documented as of this encounter (statuses as of 09/10/2022) [facility] History of Past illness Narrative* Problem Noted Date Resolved Date Gestational diabetes mellitus, class A1 05/20/2008/06/2022 Overview: 05/20/22: failed 3hr gtt. Yara Hardy MD Abnormal glucose complicating 05/17/2005/20/2022 Overview: 05/17/22: abnormal 1hr GCT. 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 Likely guests had been cooking/using meth in the room. Patient went to ED. She tested neg on drug screen, results scanned into EPIC. Adriana Voss MD Obesity during 12/06/2021 023 Overview: 12/06/2021atient is obese. We will plan on early hemoglobin A1c. 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 Some of her symptoms today are referable to the inferior pole of the patella. All in all they have improved significantly. We discussed the potential benefit of an infrapatellar strap but she does not feel her symptoms are that bad. I emphasized the importance of continuing her independent exercise program and continuing to use the NSAID as needed. PLAN: Continue Mobic as needed Continue independent exercise program Follow-up as needed Acute pain of left knee 09/15/2020 03/15/20 Myopia, bilateral 05/30/2020 10/25/2021 documented as of this encounter (statuses as of 10/30/2022) [facility] History of Past illness Narrative* Problem Noted Date Resolved Date Gestational diabetes mellitus, class A1 05/20/2008/06/2022 Overview: 05/20/22: failed 3hr gtt. Yara Hardy MD Abnormal glucose complicating 05/17/2005/20/2022 Overview: 05/17/22: abnormal 1hr GCT. 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 Likely guests had been cooking/using meth in the room. Patient went to ED. She tested neg on drug screen, results scanned into EPIC. Adriana Voss MD Obesity during 12/06/2021 023 Overview: 12/06/2021atient is obese. We will plan on early hemoglobin A1c. 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 Some of her symptoms today are referable to the inferior pole of the patella. All in all they have improved significantly. We discussed the potential benefit of an infrapatellar strap but she does not feel her symptoms are that bad. I emphasized the importance of continuing her independent exercise program and continuing to use the NSAID as needed. PLAN: Continue Mobic as needed Continue independent exercise program Follow-up as needed Acute pain of left knee 09/15/2020 03/15/20 Myopia, bilateral 05/30/2020 10/25/2021 documented as of this encounter (statuses as of 11/02/2022) [facility]22 History of Past illness Narrative* Problem Noted Date Resolved Date Gestational diabetes mellitus, class A1 05/20/2008/06/2022 Overview: 05/20/22: failed 3hr gtt. Yara Hardy MD Abnormal glucose complicating 05/17/2005/20/2022 Overview: 05/17/22: abnormal 1hr GCT. 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 Likely guests had been cooking/using meth in the room. Patient went to ED. She tested neg on drug screen, results scanned into EPIC. Adriana Voss MD Obesity during 12/06/2021 023 Overview: 12/06/2021atient is obese. We will plan on early hemoglobin A1c. 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 Some of her symptoms today are referable to the inferior pole of the patella. All in all they have improved significantly. We discussed the potential benefit of an infrapatellar strap but she does not feel her symptoms are that bad. I emphasized the importance of continuing her independent exercise program and continuing to use the NSAID as needed. PLAN: Continue Mobic as needed Continue independent exercise program Follow-up as needed Acute pain of left knee 09/15/2020 03/15/20 22 Myopia, bilateral 05/30/2020 10/25/2021 documented as of this encounter (statuses as of 11/19/2022) [facility] History of Past illness Narrative* Problem Noted Date Resolved Date Gestational diabetes mellitus, class A1 05/20/2008/06/2022 Overview: 05/20/22: failed 3hr gtt. Yara Hardy MD Abnormal glucose complicating 05/17/2005/20/2022 Overview: 05/17/22: abnormal 1hr GCT. 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 Likely guests had been cooking/using meth in the room. Patient went to ED. She tested neg on drug screen, results scanned into EPIC. Adriana Voss MD Obesity during 12/06/2021 023 Overview: 12/06/2021atient is obese. We will plan on early hemoglobin A1c. 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 Some of her symptoms today are referable to the inferior pole of the patella. All in all they have improved significantly. We discussed the potential benefit of an infrapatellar strap but she does not feel her symptoms are that bad. I emphasized the importance of continuing her independent exercise program and continuing to use the NSAID as needed. PLAN: Continue Mobic as needed Continue independent exercise program Follow-up as needed Acute pain of left knee 09/15/2020 03/15/20 22 Myopia, bilateral 05/30/2020 10/25/2021 documented as of this encounter (statuses as of 01/14/2023) [facility] History of Past illness Narrative* Problem Noted Date Diagnosed Date Resolved Date Gestational diabetes mellitus, class A1 2022 08/06/2022 Overview: 05/20/22: failed 3hr gtt. Yara Hardy MD Abnormal glucose complicating 05/17/2022 2022 Overview: 05/17/22: abnormal 1hr GCT. 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 Likely guests had been cooking/using meth in the room. Patient went to ED. She tested neg on drug screen, results scanned into EPIC. Adriana Voss MD Obesity during 12/06/2021 Overview: 12/06/2021atient is obese. We will plan on early hemoglobin A1c. 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 Some of her symptoms today are referable to the inferior pole of the patella. All in all they have improved significantly. We discussed the potential benefit of an infrapatellar strap but she does not feel her symptoms are that bad. I emphasized the importance of continuing her independent exercise program and continuing to use the NSAID as needed. PLAN: Continue Mobic as needed Continue independent exercise program Follow-up as needed Acute pain of left knee 09/15/2020 08/2 12/2021 Myopia, bilateral 05/30/2020 10/25/2021 documented as of this encounter (statuses as of 02/09/2023) [facility] History of Past illness Narrative* Problem Noted Date Diagnosed Date Resolved Date Gestational diabetes mellitus, class A1 2022 08/06/2022 Overview: 05/20/22: failed 3hr gtt. Yara Hardy MD Abnormal glucose complicating 05/17/2022 2022 Overview: 05/17/22: abnormal 1hr GCT. 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 Likely guests had been cooking/using meth in the room. Patient went to ED. She tested neg on drug screen, results scanned into EPIC. Adriana Voss MD Obesity during 12/06/2021 Overview: 12/06/2021atient is obese. We will plan on early hemoglobin A1c. 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 Some of her symptoms today are referable to the inferior pole of the patella. All in all they have improved significantly. We discussed the potential benefit of an infrapatellar strap but she does not feel her symptoms are that bad. I emphasized the importance of continuing her independent exercise program and continuing to use the NSAID as needed. PLAN: Continue Mobic as needed Continue independent exercise program Follow-up as needed Acute pain of left knee 09/15/2020 08/2 12/2021 Myopia, bilateral 05/30/2020 10/25/2021 documented as of this encounter (statuses as of 02/13/2023) [facility] History of Past illness Narrative* Problem Noted Date Diagnosed Date Resolved Date Gestational diabetes mellitus, class A1 2022 08/06/2022 Overview: 05/20/22: failed 3hr gtt. Yara Hardy MD Abnormal glucose complicating 05/17/2022 2022 Overview: 05/17/22: abnormal 1hr GCT. 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 Likely guests had been cooking/using meth in the room. Patient went to ED. She tested neg on drug screen, results scanned into EPIC. Adriana Voss MD Obesity during 12/06/2021 Overview: 12/06/2021atient is obese. We will plan on early hemoglobin A1c. 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 Some of her symptoms today are referable to the inferior pole of the patella. All in all they have improved significantly. We discussed the potential benefit of an infrapatellar strap but she does not feel her symptoms are that bad. I emphasized the importance of continuing her independent exercise program and continuing to use the NSAID as needed. PLAN: Continue Mobic as needed Continue independent exercise program Follow-up as needed Acute pain of left knee 09/15/2020 08/12/2021 Myopia, bilateral 05/30/2020 10/25/2021 documented as of this encounter (statuses as of 02/18/2023) [facility] History of Past illness Narrative* Problem Noted Date Diagnosed Date Resolved Date Gestational diabetes mellitus, class A1 2022 08/06/2022 Overview: 05/20/22: failed 3hr gtt. Yara Hardy MD Abnormal glucose complicating 05/17/2022 2022 Overview: 05/17/22: abnormal 1hr GCT. 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 Likely guests had been cooking/using meth in the room. Patient went to ED. She tested neg on drug screen, results scanned into EPIC. Adriana Voss MD Obesity during 12/06/2021 Overview: 12/06/2021atient is obese. We will plan on early hemoglobin A1c. 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 Some of her symptoms today are referable to the inferior pole of the patella. All in all they have improved significantly. We discussed the potential benefit of an infrapatellar strap but she does not feel her symptoms are that bad. I emphasized the importance of continuing her independent exercise program and continuing to use the NSAID as needed. PLAN: Continue Mobic as needed Continue independent exercise program Follow-up as needed Acute pain of left knee 09/15/2020 08/2 12/2021 Myopia, bilateral 05/30/2020 10/25/2021 documented as of this encounter (statuses as of 03/25/2023) [facility] History of Past illness Narrative* Problem Noted Date Diagnosed Date Resolved Date Gestational diabetes mellitus, class A1 2022 08/06/2022 Overview: 05/20/22: failed 3hr gtt. Yara Hardy MD Abnormal glucose complicating 05/17/2022 2022 Overview: 05/17/22: abnormal 1hr GCT. 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 Likely guests had been cooking/using meth in the room. Patient went to ED. She tested neg on drug screen, results scanned into EPIC. Adriana Voss MD Obesity during 12/06/2021 Overview: 12/06/2021atient is obese. We will plan on early hemoglobin A1c. 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 Some of her symptoms today are referable to the inferior pole of the patella. All in all they have improved significantly. We discussed the potential benefit of an infrapatellar strap but she does not feel her symptoms are that bad. I emphasized the importance of continuing her independent exercise program and continuing to use the NSAID as needed. PLAN: Continue Mobic as needed Continue independent exercise program Follow-up as needed Acute pain of left knee 09/15/2020 08/12/2021 Myopia, bilateral 05/30/2020 10/25/2021 documented as of this encounter (statuses as of 05/08/2023) [facility] History of Past illness Narrative* Problem Noted Date Diagnosed Date Resolved Date Gestational diabetes mellitus, class A1 2022 08/06/2022 Overview: 05/20/22: failed 3hr gtt. Yara Hardy MD Abnormal glucose complicating 05/17/2022 2022 Overview: 05/17/22: abnormal 1hr GCT. 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 Likely guests had been cooking/using meth in the room. Patient went to ED. She tested neg on drug screen, results scanned into EPIC. Adriana Voss MD Obesity during 12/06/2021 Overview: 12/06/2021atient is obese. We will plan on early hemoglobin A1c. 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 Some of her symptoms today are referable to the inferior pole of the patella. All in all they have improved significantly. We discussed the potential benefit of an infrapatellar strap but she does not feel her symptoms are that bad. I emphasized the importance of continuing her independent exercise program and continuing to use the NSAID as needed. PLAN: Continue Mobic as needed Continue independent exercise program Follow-up as needed Acute pain of left knee 09/15/2020 08/2 12/2021 Myopia, bilateral 05/30/2020 10/25/2021 documented as of this encounter (statuses as of 05/13/2023) [facility] History of Past illness Narrative* Problem Noted Date Diagnosed Date Resolved Date Gestational diabetes mellitus, class A1 2022 08/06/2022 Overview: 05/20/22: failed 3hr gtt. Yara Hardy MD Abnormal glucose complicating 05/17/2022 2022 Overview: 05/17/22: abnormal 1hr GCT. 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 Likely guests had been cooking/using meth in the room. Patient went to ED. She tested neg on drug screen, results scanned into EPIC. Adriana Voss MD Obesity during 12/06/2021 Overview: 12/06/2021atient is obese. We will plan on early hemoglobin A1c. 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 Some of her symptoms today are referable to the inferior pole of the patella. All in all they have improved significantly. We discussed the potential benefit of an infrapatellar strap but she does not feel her symptoms are that bad. I emphasized the importance of continuing her independent exercise program and continuing to use the NSAID as needed. PLAN: Continue Mobic as needed Continue independent exercise program Follow-up as needed Acute pain of left knee 09/15/2020 08/12/2021 Myopia, bilateral 05/30/2020 10/25/2021 documented as of this encounter (statuses as of 05/27/2023) [facility] History of Past illness Narrative* Problem Noted Date Diagnosed Date Resolved Date Gestational diabetes mellitus, class A1 2022 08/06/2022 Overview: 05/20/22: failed 3hr gtt. Yara Hardy MD Abnormal glucose complicating 05/17/2022 2022 Overview: 05/17/22: abnormal 1hr GCT. 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 Likely guests had been cooking/using meth in the room. Patient went to ED. She tested neg on drug screen, results scanned into EPIC. Adriana Voss MD Obesity during 12/06/2021 Overview: 12/06/2021atient is obese. We will plan on early hemoglobin A1c. 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 Some of her symptoms today are referable to the inferior pole of the patella. All in all they have improved significantly. We discussed the potential benefit of an infrapatellar strap but she does not feel her symptoms are that bad. I emphasized the importance of continuing her independent exercise program and continuing to use the NSAID as needed. PLAN: Continue Mobic as needed Continue independent exercise program Follow-up as needed Acute pain of left knee 09/15/2020 08/12/2021 Myopia, bilateral 05/30/2020 10/25/2021 documented as of this encounter (statuses as of 05/27/2023) [facility] History of Past illness Narrative* Problem Noted Date Diagnosed Date Resolved Date Gestational diabetes mellitus, class A1 2022 08/06/2022 Overview: 05/20/22: failed 3hr gtt. Yara Hardy MD Abnormal glucose complicating 05/17/2022 2022 Overview: 05/17/22: abnormal 1hr GCT. 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 Likely guests had been cooking/using meth in the room. Patient went to ED. She tested neg on drug screen, results scanned into EPIC. Adriana Voss MD Obesity during 12/06/2021 Overview: 12/06/2021atient is obese. We will plan on early hemoglobin A1c. 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 Some of her symptoms today are referable to the inferior pole of the patella. All in all they have improved significantly. We discussed the potential benefit of an infrapatellar strap but she does not feel her symptoms are that bad. I emphasized the importance of continuing her independent exercise program and continuing to use the NSAID as needed. PLAN: Continue Mobic as needed Continue independent exercise program Follow-up as needed Acute pain of left knee 09/15/2020 08/12/2021 Myopia, bilateral 05/30/2020 10/25/2021 documented as of this encounter (statuses as of 06/30/2023) [facility] History of Past illness Narrative* Problem Noted Date Diagnosed Date Resolved Date Gestational diabetes mellitus, class A1 2022 08/06/2022 Overview: 05/20/22: failed 3hr gtt. Yara Hardy MD Abnormal glucose complicating 05/17/2022 2022 Overview: 05/17/22: abnormal 1hr GCT. 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 Likely guests had been cooking/using meth in the room. Patient went to ED. She tested neg on drug screen, results scanned into EPIC. Adriana Voss MD Obesity during 12/06/2021 Overview: 12/06/2021atient is obese. We will plan on early hemoglobin A1c. 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 Some of her symptoms today are referable to the inferior pole of the patella. All in all they have improved significantly. We discussed the potential benefit of an infrapatellar strap but she does not feel her symptoms are that bad. I emphasized the importance of continuing her independent exercise program and continuing to use the NSAID as needed. PLAN: Continue Mobic as needed Continue independent exercise program Follow-up as needed Acute pain of left knee 09/15/202002/19 Myopia, bilateral 05/30/2020 10/25/2021 documented as of this encounter (statuses as of 09/01/2023) [facility] History of Past illness Narrative* Problem Noted Date Diagnosed Date Resolved Date Gestational diabetes mellitus, class A1 2022 08/06/2022 Overview: 05/20/22: failed 3hr gtt. Yara Hardy MD Abnormal glucose complicating 05/17/2022 2022 Overview: 05/17/22: abnormal 1hr GCT. 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 Likely guests had been cooking/using meth in the room. Patient went to ED. She tested neg on drug screen, results scanned into EPIC. Adriana Voss MD Obesity during 12/06/2021 Overview: 12/06/2021atient is obese. We will plan on early hemoglobin A1c. 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 Some of her symptoms today are referable to the inferior pole of the patella. All in all they have improved significantly. We discussed the potential benefit of an infrapatellar strap but she does not feel her symptoms are that bad. I emphasized the importance of continuing her independent exercise program and continuing to use the NSAID as needed. PLAN: Continue Mobic as needed Continue independent exercise program Follow-up as needed Acute pain of left knee 09/15/202002/19 Myopia, bilateral 05/30/2020 10/25/2021 documented as of this encounter (statuses as of 09/06/2023) [facility] History of Past illness Narrative* Problem Noted Date Diagnosed Date Resolved Date Gestational diabetes mellitus, class A1 2022 08/06/2022 Overview: 05/20/22: failed 3hr gtt. Yara Hardy MD Abnormal glucose complicating 05/17/2022 2022 Overview: 05/17/22: abnormal 1hr GCT. 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 Likely guests had been cooking/using meth in the room. Patient went to ED. She tested neg on drug screen, results scanned into EPIC. Adriana Voss MD Obesity during 12/06/2021 Overview: 2Patient is obese. We will plan on early hemoglobin A1c. 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 Some of her symptoms today are referable to the inferior pole of the patella. All in all they have improved significantly. We discussed the potential benefit of an infrapatellar strap but she does not feel her symptoms are that bad. I emphasized the importance of continuing her independent exercise program and continuing to use the NSAID as needed. PLAN: Continue Mobic as needed Continue independent exercise program Follow-up as needed Acute pain of left knee 09/15/2020/12/2021 Myopia, bilateral 05/30/2020 10/25/2021 documented as of this encounter (statuses as of 09/09/2023) [facility] History of Past illness Narrative* Problem Noted Date Diagnosed Date Resolved Date Gestational diabetes mellitus, class A1 2022 08/06/2022 Overview: 05/20/22: failed 3hr gtt. Yara Hardy MD Abnormal glucose complicating 05/17/2022 2022 Overview: 05/17/22: abnormal 1hr GCT. 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 Likely guests had been cooking/using meth in the room. Patient went to ED. She tested neg on drug screen, results scanned into EPIC. Adriana Voss MD Obesity during 12/06/2021 Overview: 12/06/2021atient is obese. We will plan on early hemoglobin A1c. 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 Some of her symptoms today are referable to the inferior pole of the patella. All in all they have improved significantly. We discussed the potential benefit of an infrapatellar strap but she does not feel her symptoms are that bad. I emphasized the importance of continuing her independent exercise program and continuing to use the NSAID as needed. PLAN: Continue Mobic as needed Continue independent exercise program Follow-up as needed Acute pain of left knee 09/15/2020 08/12/2021 Myopia, bilateral 05/30/2020 10/25/2021 documented as of this encounter (statuses as of 09/25/2023) [facility]-2022 History of Past illness Narrative* Problem Noted Date Diagnosed Date Resolved Date Gestational diabetes mellitus, class A1 2022 08/06/2022 Overview: 05/20/22: failed 3hr gtt. Yara Hardy MD Abnormal glucose complicating 05/17/2022 2022 Overview: 05/17/22: abnormal 1hr GCT. 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 Likely guests had been cooking/using meth in the room. Patient went to ED. She tested neg on drug screen, results scanned into EPIC. Adriana Voss MD Obesity during 12/06/2021 Overview: 12/06/2021atient is obese. We will plan on early hemoglobin A1c. 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 Some of her symptoms today are referable to the inferior pole of the patella. All in all they have improved significantly. We discussed the potential benefit of an infrapatellar strap but she does not feel her symptoms are that bad. I emphasized the importance of continuing her independent exercise program and continuing to use the NSAID as needed. PLAN: Continue Mobic as needed Continue independent exercise program Follow-up as needed Acute pain of left knee 09/15/2020 08/12/2021 Myopia, bilateral 05/30/2020 10/25/2021 documented as of this encounter (statuses as of 10/08/2023) [facility] History of Past illness Narrative* Problem Noted Date Diagnosed Date Resolved Date Gestational diabetes mellitus, class A1 2022 08/06/2022 Overview: 05/20/22: failed 3hr gtt. Yara Hardy MD Abnormal glucose complicating 05/17/2022 2022 Overview: 05/17/22: abnormal 1hr GCT. 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 Likely guests had been cooking/using meth in the room. Patient went to ED. She tested neg on drug screen, results scanned into [employer]. Adriana Voss MD Obesity during 12/06/2021 Overview: 12/06/2021atient is obese. We will plan on early hemoglobin A1c. 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 Some of her symptoms today are referable to the inferior pole of the patella. All in all they have improved significantly. We discussed the potential benefit of an infrapatellar strap but she does not feel her symptoms are that bad. I emphasized the importance of continuing her independent exercise program and continuing to use the NSAID as needed. PLAN: Continue Mobic as needed Continue independent exercise program Follow-up as needed Acute pain of left knee 09/15/202002/19 Myopia, bilateral 05/30/2020 10/25/2021 documented as of this encounter (statuses as of 10/20/2023) [facility] History of Past illness Narrative* Problem Noted Date Diagnosed Date Resolved Date Gestational diabetes mellitus, class A1 2022 08/06/2022 Overview: 05/20/22: failed 3hr gtt. Yara Hardy MD Abnormal glucose complicating 05/17/2022 2022 Overview: 05/17/22: abnormal 1hr GCT. 3hr GTT ordered Yara Haryd MD Encounter for supervision of normal first in second trimester 03/15/2022 08/06/2022 Overview: March 15, 2022 Works in [employer]. 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 Likely guests had been cooking/using meth in the room. Patient went to ED. She tested neg on drug screen, results scanned into EPIC. Adriana Voss MD Obesity during 12/06/2021 Overview: 12/06/2021atient is obese. We will plan on early hemoglobin A1c. 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 Some of her symptoms today are referable to the inferior pole of the patella. All in all they have improved significantly. We discussed the potential benefit of an infrapatellar strap but she does not feel her symptoms are that bad. I emphasized the importance of continuing her independent exercise program and continuing to use the NSAID as needed. PLAN: Continue Mobic as needed Continue independent exercise program Follow-up as needed Acute pain of left knee 09/15/2020 08/2 12/2021 Myopia, bilateral 05/30/2020 10/25/2021 documented as of this encounter (statuses as of 11/07/2023) [facility] History of Present illness Narrative* Roxanne Mccloud APRN.RECREATION ASSISTANT - 2022 12:28 PM EDT Subjective HPI Willam De Leon is a 22 year old female who presents with cough, nasal congestion, for the past 3-4 weeks. She has had a cough due to post nasal drainage and when she starts coughing it makes her feel short of breath because she coughs for a long time. She has not been taking any medication for this at home because she is 29 weeks and trying to avoid any medications. She has not had a fever, the cough is productive of phlegm, mucous. She denies pain. Review of Systems Constitutional: Negative for chills and fever. HENT: Positive for congestion. Negative for ear pain and sore throat. Respiratory: Positive for cough, sputum production and shortness of breath. Cardiovascular: Negative for chest pain. Musculoskeletal: Negative for myalgias. BP 126/72 Pulse 108 Temp 36.9 C (98.4 F) Resp 16 Wt 91.2 kg (201 lb) LMP 10/28/2021 (Exact Date) SpO2 99% BMI 37.98 kg/m PAST MEDICAL HISTORY Diagnosis Date ADHD (attention deficit hyperactivity disorder) Benign paroxysmal positional vertigo 2019 Gestational diabetes mellitus, class A1 2022 Left knee pain PAST SURGICAL HISTORY Procedure Laterality Date PAST SURGICAL HISTORY OF wisdom teeth ALLERGIES Patient has no known allergies. MEDICATIONS aspirin 81 mg cap Take 1 capsule by mouth once daily. multivitamin (CLASSIC ) 28 mg iron- 800 mcg tab(s) Take 1 tablet by mouth once daily. amoxicillin (AMOXIL) 875 mg tablet Take 1 tablet by mouth twice daily for 10 days. FAMILY HISTORY Problem Relation Age of Onset No Known Problems Mother Diabetes Father Heart Father No Known Problems Sister No Known Problems Sister No Known Problems Sister No Known Problems Brother No Known Problems Maternal Grandmother No Known Problems Maternal Grandfather Cataract Paternal Grandmother Diabetes Paternal Grandmother Dementia Paternal Grandmother No Known Problems Paternal Grandfather Social History Tobacco Use Smoking status: Never Smokeless tobacco: Never Vaping Use Vaping Use: Never used Substance Use Topics Alcohol use: No Drug use: No Objective Physical Exam Vitals and nursing note reviewed. Constitutional: Appearance: Normal appearance. HENT: Right Ear: Tympanic membrane, ear canal and external ear normal. Left Ear: Tympanic membrane, ear canal and external ear normal. Nose: Mucosal edema, congestion and rhinorrhea present. Mouth/Throat: Mouth: Mucous membranes are moist. Pharynx: Oropharynx is clear. Uvula midline. No oropharyngeal exudate or posterior oropharyngeal erythema. Cardiovascular: Rate and Rhythm: Normal rate and regular rhythm. Heart sounds: Normal heart sounds. Pulmonary: Effort: Pulmonary effort is normal. No respiratory distress. Breath sounds: Normal breath sounds. No wheezing or rales. Musculoskeletal: Cervical back: Neck supple. Lymphadenopathy: Cervical: No cervical adenopathy. Skin: General: Skin is warm and dry. Findings: No erythema or rash. Neurological: Mental Status: She is alert. ASSESSMENT/PLAN: 1. Acute sinusitis, recurrence not specified, unspecified location - ICD9: 461.9, ICD10: J01.90 - Will begin treatment with Amoxicillin for 10 days - Supportive care with plenty of fluids, rest, and analgesia prn. - cough is likely due to post nasal drainage. List of medications safe in given to patient - AMOXICILLIN 875 MG TABLET - Follow-up with your PCP in 3-5 days if symptoms have not improved or sooner if symptoms worsen - Discussed red flags and need for immediate medical evaluation if any occur. - Discussed supportive care treatment with fluids, rest and analgesia. - Discussed expected course of illness Roxanne Flores APRN.CNP [facility] Instructions* Patient Instructions* Roxanne Flores APRN.CNP - 2022 12:25 PM EDT ASSESSMENT/PLAN: 1. Acute sinusitis, recurrence not specified, unspecified location - ICD9: 461.9, ICD10: J01.90 - Will begin treatment with Amoxicillin for 10 days - Supportive care with plenty of fluids, rest, and analgesia prn. - cough is likely due to post nasal drainage. List of medications safe in given to patient - AMOXICILLIN 875 MG TABLET - Follow-up with your PCP in 3-5 days if symptoms have not improved or sooner if symptoms worsen - Discussed red flags and need for immediate medical evaluation if any occur. - Discussed supportive care treatment with fluids, rest and analgesia. - Discussed expected course of illness Roxanne Flores APRN.RECREATION ASSISTANT [facility] PATIENT INFO ACUTE SINUSITIS OVERVIEW Rhinosinusitis, or more commonly sinusitis, is the medical term for inflammation (swelling) of the lining of the sinuses and nose. The sinuses are the hollow areas within the facial bones that are connected to the nasal openings. The sinuses are lined with mucous membranes, similar to the inside ofthe nose. There are two main types of sinusitis: acute and chronic. Acute sinusitis is inflammation that lasts for less than four weeks while chronic sinusitis lasts for more than 12 weeks. Acute sinusitis is common, affecting approximately one million people per year in the [place]. ACUTE SINUSITIS CAUSES The most common cause of acute sinusitis is a viral infection associated with the common cold. Bacterial sinusitis occurs much less commonly, in only 0.5 to 2 percent of cases, usually as a complication of viral sinusitis. Because antibiotics are effective only against bacterial, and not viral, infections, most people donot need antibiotics for acute sinusitis. ACUTE SINUSITIS SYMPTOMS Symptoms of acute sinusitis include: Nasal congestion or blockage Thick, yellow to green discharge from the nose Pain in the teeth Pain or pressure in the face that is worse when bending forwards Other acute sinusitis symptoms can include fever (temperature greater than 100.4 F or 38 C), fatigue, cough, difficulty or inability to smell, ear pressure or fullness, headache, and bad breath. In most cases, these symptoms develop over the course of one day and begin to improve within seven to 10 days. DO I NEED TO BE EXAMINED? It is difficult to know if you have a viral or bacterial sinus infection initially. However, most people with a viral infection improve without treatment within seven to 10 days after symptoms begin.Bacterial sinusitis also sometimes improves without treatment, although it can also worsen and require treatment. If one or more of the following bothersome symptoms last more than seven days, an examination by a healthcare provider is recommended: Thick, yellow to green discharge from the nose Face or tooth pain, especially if it is only on one side Tenderness over the maxillary sinuses (located on the left and right side of the nose, inside the cheekbones) Symptoms that initially improve and then worsen When to seek immediate help -- If you have one or more of the following symptoms, you should seek medical attention immediately (even if symptoms have been present for less than seven days): High fever (>102.5 F or 39.2 C) Sudden, severe pain in the face or head Double vision or difficulty seeing Confusion or difficulty thinking clearly Swelling or redness around one or both eyes Stiff neck, shortness of breath ACUTE SINUSITIS TREATMENT Initial treatment of a sinus infection aims to relieve symptoms since almost everyone will improve within the first seven to 10 days. Experts recommend avoiding antibiotics during this time unless there is clear evidence of a severe bacterial infection. Initial treatment Pain relief -- Non-prescription pain medications, such as acetaminophen (eg, Tylenol ) or ibuprofen(eg, Motrin , Advil ) are recommended for pain. Nasal irrigation and saline sprays -- Rinsing the nose with a salt-water (saline) solution is called nasal irrigation or nasal lavage. Saline is also available in a standard nasal spray, although this is not as effective as using larger amounts of water in an irrigation. Nasal irrigation is particularly useful for treating drainage down the back of the throat, sneezing, nasal dryness, and congestion. The treatment helps by rinsing out allergens and irritants from thenose. Saline rinses also clean the nasal lining and can be used before applying sprays containing medications, to get a better effect from the medication. Nasal lavage with warmed saline can be performed as needed, once per day, or twice daily for increased symptoms. Nasal lavage carries few risks when performed correctly. Saline nasal sprays and irrigation kits can be purchased [id number]. Saline mixes can also be purchased or patients can make their own solution. A variety of devices, including bulb syringes, Neti pots, and bottle sprayers, may be used to perform nasal lavage; instructions for nasal lavage are provided in the table. At least 200 mL (about 3/4cup) of fluid is recommended for each nostril. Nasal decongestants -- Nasal decongestant sprays, including oxymetazoline (Afrin ) and phenylephrine (Lon-synephrine ) can be used to temporarily treat congestion. However, these sprays should not beused for more than two to three days due to the risk of rebound congestion (when the nose is congested constantly unless the medication is used repeatedly). Other treatments -- Other treatments for congestion, such as oral antihistamines (such as diphenhydramine/Benadryl ) or zinc supplements are not proven to improve symptoms of sinusitis and can have unwanted side effects. Medications to thin secretions (such as guaifenesin) may help to clear mucus. Secondline treatment -- If symptoms have not improved in seven to ten days, you should arrange for medical evaluation. You may need further treatment. Nasal glucocorticoids -- Nasal glucocorticoids (steroids delivered by a nasal spray) can help to reduce swelling inside the nose, usually within two to three days. These drugs have few side effects and dramatically relieve symptoms in most people. There are a number of nasal glucocorticoids available by prescription. These drugs are all effective, but differ in how frequently they must be used and how much they cost. You may need to use a nasal decongestant for a few days before starting a nasal glucocorticoid to reduce nasal swelling; this will allow the nasal glucocorticoid to reach more areas of the nasal passages Do I need an antibiotic? -- If bothersome symptoms of sinusitis persist for 10 or more days, it is possible that you have bacterial sinusitis. The need for antibiotics depends upon the severity of your symptoms. Mild symptoms -- There are two possible treatment options if you have mild sinusitis symptoms: treat with antibiotics or continue to watch and wait for one week. Watching and waiting is a reasonable option because up to 75 percent of people with bacterial sinusitis improve within one month without antibiotics. During the watch and wait period, treatments to improve symptoms are recommended. If symptoms worsen or do not improve after watching and waiting, treatment with an antibiotic is usually recommended. Treatments to relieve symptoms are recommended while using antibiotics. Moderate or severe symptoms -- Most healthcare providers will prescribe an antibiotic for moderate to severe symptoms (temperature >38.3 C or 101 F and/or severe pain that interferes with usual activities). Treatments to relieve symptoms are also recommended during antibiotic treatment. One of the least expensive and most effective antibiotics for sinusitis is amoxicillin. An alternate antibiotic will be prescribed if you are allergic to penicillin. Regardless of which antibiotic isprescribed, it is important to follow the dosing instructions carefully and to finish the entire course of treatment. Taking the medication less often than prescribed or stopping the medication earlycan lead to complications, such as a recurrent infection. What if I do not improve with treatment? -- If you do not improve or worsen after a course of antibiotics, you should be re-examined. In some cases, symptoms of sinusitis improve but then recur. This is usually because the infection was not completely eliminated by the antibiotic. An alternate antibiotic, extended antibiotic treatment, and/or further testing may be recommended, depending upon your individual situation. [facility] in [facility] History of Past illness Narrative* Problem Noted Date Resolved Date Abnormal glucose complicating 05/17/2005/20/2022 Overview: 05/17/22: abnormal 1hr GCT. 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 Some of her symptoms today are referable to the inferior pole of the patella. All in all they have improved significantly. We discussed the potential benefit of an infrapatellar strap but she does not feel her symptoms are that bad. I emphasized the importance of continuing her independent exercise program and continuing to use the NSAID as needed. PLAN: Continue Mobic as needed Continue independent exercise program Follow-up as needed Acute pain of left knee 09/15/2020 03/15/20 Myopia, bilateral 05/30/2020 10/25/2021 documented as of this encounter (statuses as of 2022) [facility] History of Past illness Narrative* Problem Noted Date Resolved Date Abnormal glucose complicating 05/17/2005/20/2022 Overview: 05/17/22: abnormal 1hr GCT. 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 Some of her symptoms today are referable to the inferior pole of the patella. All in all they have improved significantly. We discussed the potential benefit of an infrapatellar strap but she does not feel her symptoms are that bad. I emphasized the importance of continuing her independent exercise program and continuing to use the NSAID as needed. PLAN: Continue Mobic as needed Continue independent exercise program Follow-up as needed Acute pain of left knee 09/15/2020 03/15/20 22 Myopia, bilateral 05/30/2020 10/25/2021 documented as of this encounter (statuses as of 2022) [facility] History of Past illness Narrative* Problem Noted Date Resolved Date Abnormal glucose complicating 05/17/2005/20/2022 Overview: 05/17/22: abnormal 1hr GCT. 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 Some of her symptoms today are referable to the inferior pole of the patella. All in all they have improved significantly. We discussed the potential benefit of an infrapatellar strap but she does not feel her symptoms are that bad. I emphasized the importance of continuing her independent exercise program and continuing to use the NSAID as needed. PLAN: Continue Mobic as needed Continue independent exercise program Follow-up as needed Acute pain of left knee 09/15/2020 03/15/20 22 Myopia, bilateral 05/30/2020 10/25/2021 documented as of this encounter (statuses as of 05/21/2022) [facility] of Past illness Narrative* Problem Noted Date Resolved Date Abnormal glucose complicating 05/17/2005/20/2022 Overview: 05/17/22: abnormal 1hr GCT. 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 Some of her symptoms today are referable to the inferior pole of the patella. All in all they have improved significantly. We discussed the potential benefit of an infrapatellar strap but she does not feel her symptoms are that bad. I emphasized the importance of continuing her independent exercise program and continuing to use the NSAID as needed. PLAN: Continue Mobic as needed Continue independent exercise program Follow-up as needed Acute pain of left knee 09/15/2020 03/15/20 22 Myopia, bilateral 05/30/2020 10/25/2021 documented as of this encounter (statuses as of 05/22/2022) [facility] of Past illness Narrative* Problem Noted Date Resolved Date Abnormal glucose complicating 05/17/2005/20/2022 Overview: 05/17/22: abnormal 1hr GCT. 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 Some of her symptoms today are referable to the inferior pole of the patella. All in all they have improved significantly. We discussed the potential benefit of an infrapatellar strap but she does not feel her symptoms are that bad. I emphasized the importance of continuing her independent exercise program and continuing to use the NSAID as needed. PLAN: Continue Mobic as needed Continue independent exercise program Follow-up as needed Acute pain of left knee 09/15/2020 03/15/20 22 Myopia, bilateral 05/30/2020 10/25/2021 documented as of this encounter (statuses as of 05/22/2022) [facility] of Past illness Narrative* Problem Noted Date Resolved Date Abnormal glucose complicating 05/17/20 22 2022 Overview: 05/17/22: abnormal 1hr GCT. 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 Some of her symptoms today are referable to the inferior pole of the patella. All in all they have improved significantly. We discussed the potential benefit of an infrapatellar strap but she does not feel her symptoms are that bad. I emphasized the importance of continuing her independent exercise program and continuing to use the NSAID as needed. PLAN: Continue Mobic as needed Continue independent exercise program Follow-up as needed Acute pain of left knee 09/15/2020 03/15/20 22 Myopia, bilateral 05/30/2020 10/25/2021 documented as of this encounter (statuses as of 06/12/2022) [facility] of Past illness Narrative* Problem Noted Date Resolved Date Abnormal glucose complicating 05/17/2005/20/2022 Overview: 05/17/22: abnormal 1hr GCT. 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 Some of her symptoms today are referable to the inferior pole of the patella. All in all they have improved significantly. We discussed the potential benefit of an infrapatellar strap but she does not feel her symptoms are that bad. I emphasized the importance of continuing her independent exercise program and continuing to use the NSAID as needed. PLAN: Continue Mobic as needed Continue independent exercise program Follow-up as needed Acute pain of left knee 09/15/2020 03/15/20 22 Myopia, bilateral 05/30/2020 10/25/2021 documented as of this encounter (statuses as of 06/18/2022) [facility]-2022 History of Past illness Narrative* Problem Noted Date Resolved Date Abnormal glucose complicating 05/17/2005/20/2022 Overview: 05/17/22: abnormal 1hr GCT. 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 Some of her symptoms today are referable to the inferior pole of the patella. All in all they have improved significantly. We discussed the potential benefit of an infrapatellar strap but she does not feel her symptoms are that bad. I emphasized the importance of continuing her independent exercise program and continuing to use the NSAID as needed. PLAN: Continue Mobic as needed Continue independent exercise program Follow-up as needed Acute pain of left knee 09/15/2020 03/15/20 22 Myopia, bilateral 05/30/2020 10/25/2021 documented as of this encounter (statuses as of 06/24/2022) [facility] History of Past illness Narrative* Problem Noted Date Resolved Date Abnormal glucose complicating 05/17/2005/20/2022 Overview: 05/17/22: abnormal 1hr GCT. 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 Some of her symptoms today are referable to the inferior pole of the patella. All in all they have improved significantly. We discussed the potential benefit of an infrapatellar strap but she does not feel her symptoms are that bad. I emphasized the importance of continuing her independent exercise program and continuing to use the NSAID as needed. PLAN: Continue Mobic as needed Continue independent exercise program Follow-up as needed Acute pain of left knee 09/15/2020 03/15/20 22 Myopia, bilateral 05/30/2020 10/25/2021 documented as of this encounter (statuses as of 07/02/2022) [facility] History of Past illness Narrative* Problem Noted Date Resolved Date Abnormal glucose complicating 05/17/20 22 2022 Overview: 05/17/22: abnormal 1hr GCT. 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 Some of her symptoms today are referable to the inferior pole of the patella. All in all they have improved significantly. We discussed the potential benefit of an infrapatellar strap but she does not feel her symptoms are that bad. I emphasized the importance of continuing her independent exercise program and continuing to use the NSAID as needed. PLAN: Continue Mobic as needed Continue independent exercise program Follow-up as needed Acute pain of left knee 09/15/2020 03/15/20 22 Myopia, bilateral 05/30/2020 10/25/2021 documented as of this encounter (statuses as of 07/04/2022) [facility] History of Past illness Narrative* Problem Noted Date Resolved Date Abnormal glucose complicating 05/17/2005/20/2022 Overview: 05/17/22: abnormal 1hr GCT. 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 Some of her symptoms today are referable to the inferior pole of the patella. All in all they have improved significantly. We discussed the potential benefit of an infrapatellar strap but she does not feel her symptoms are that bad. I emphasized the importance of continuing her independent exercise program and continuing to use the NSAID as needed. PLAN: Continue Mobic as needed Continue independent exercise program Follow-up as needed Acute pain of left knee 09/15/2020 03/15/20 22 Myopia, bilateral 05/30/2020 10/25/2021 documented as of this encounter (statuses as of 07/04/2022) [facility] History of Past illness Narrative* Problem Noted Date Resolved Date Abnormal glucose complicating 05/17/2005/20/2022 Overview: 05/17/22: abnormal 1hr GCT. 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 Some of her symptoms today are referable to the inferior pole of the patella. All in all they have improved significantly. We discussed the potential benefit of an infrapatellar strap but she does not feel her symptoms are that bad. I emphasized the importance of continuing her independent exercise program and continuing to use the NSAID as needed. PLAN: Continue Mobic as needed Continue independent exercise program Follow-up as needed Acute pain of left knee 09/15/2020 03/15/20 Myopia, bilateral 05/30/2020 10/25/2021 documented as of this encounter (statuses as of 07/10/2022) [facility] History of Past illness Narrative* Problem Noted Date Resolved Date Abnormal glucose complicating 05/17/20 22 2022 Overview: 05/17/22: abnormal 1hr GCT. 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 Some of her symptoms today are referable to the inferior pole of the patella. All in all they have improved significantly. We discussed the potential benefit of an infrapatellar strap but she does not feel her symptoms are that bad. I emphasized the importance of continuing her independent exercise program and continuing to use the NSAID as needed. PLAN: Continue Mobic as needed Continue independent exercise program Follow-up as needed Acute pain of left knee 09/15/2020 03/15/20 22 Myopia, bilateral 05/30/2020 10/25/2021 documented as of this encounter (statuses as of 07/10/2022) [facility] History of Past illness Narrative* Problem Noted Date Resolved Date Abnormal glucose complicating 05/17/20 22 2022 Overview: 05/17/22: abnormal 1hr GCT. 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 Some of her symptoms today are referable to the inferior pole of the patella. All in all they have improved significantly. We discussed the potential benefit of an infrapatellar strap but she does not feel her symptoms are that bad. I emphasized the importance of continuing her independent exercise program and continuing to use the NSAID as needed. PLAN: Continue Mobic as needed Continue independent exercise program Follow-up as needed Acute pain of left knee 09/15/2020 03/15/20 22 Myopia, bilateral 05/30/2020 10/25/2021 documented as of this encounter (statuses as of 07/22/2022) [facility] History of Past illness Narrative* Problem Noted Date Resolved Date Abnormal glucose complicating 05/17/2005/20/2022 Overview: 05/17/22: abnormal 1hr GCT. 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 Some of her symptoms today are referable to the inferior pole of the patella. All in all they have improved significantly. We discussed the potential benefit of an infrapatellar strap but she does not feel her symptoms are that bad. I emphasized the importance of continuing her independent exercise program and continuing to use the NSAID as needed. PLAN: Continue Mobic as needed Continue independent exercise program Follow-up as needed Acute pain of left knee 09/15/2020 03/15/20 22 Myopia, bilateral 05/30/2020 10/25/2021 documented as of this encounter (statuses as of 07/24/2022) [facility] History of Past illness Narrative* Problem Noted Date Resolved Date Abnormal glucose complicating 05/17/2005/20/2022 Overview: 05/17/22: abnormal 1hr GCT. 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 Some of her symptoms today are referable to the inferior pole of the patella. All in all they have improved significantly. We discussed the potential benefit of an infrapatellar strap but she does not feel her symptoms are that bad. I emphasized the importance of continuing her independent exercise program and continuing to use the NSAID as needed. PLAN: Continue Mobic as needed Continue independent exercise program Follow-up as needed Acute pain of left knee 09/15/2020 03/15/20 22 Myopia, bilateral 05/30/2020 10/25/2021 documented as of this encounter (statuses as of 07/30/2022) [facility] History of Past illness Narrative* Problem Noted Date Resolved Date Abnormal glucose complicating 05/17/2005/20/2022 Overview: 05/17/22: abnormal 1hr GCT. 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 Some of her symptoms today are referable to the inferior pole of the patella. All in all they have improved significantly. We discussed the potential benefit of an infrapatellar strap but she does not feel her symptoms are that bad. I emphasized the importance of continuing her independent exercise program and continuing to use the NSAID as needed. PLAN: Continue Mobic as needed Continue independent exercise program Follow-up as needed Acute pain of left knee 09/15/2020 03/15/20 22 Myopia, bilateral 05/30/2020 10/25/2021 documented as of this encounter (statuses as of 08/01/2022) [facility] Miscellaneous Notes* Quick Notes - Yara Bentley MD - 05/17/2022 10:22 AM EDT DM- Pt doing well today. Denies Vaginal Bleeding, Leaking fluid, or contractions. Pt reports good movement. LARC form signed and declined- thinking progesterone only OCPs. Tdap nad 28 week labstoday. Repeat urine culture today. RTO 2 wks. Yara Hardy MD documented in this encounterProm[facility] History of Present illness Narrative* Cynthia Saldivar Ma - 05/17/2022 10:07 AM EDT Patient identified by name and date of . Willam De Leon presents today for a vaccination of Tdap. Patient denies an allergy to latex: yes Patient denies a severe (life-threatening) allergy to a previous dose of Tdap, DTP, DTaP, DT or Td vaccine. Yes Patient denies history of epilepsy or neurological problems: Yes Patient is afebrile and denies being moderately or severely ill: Yes Patient denies history of Guillain-Haworth Syndrome (a severe paralytic illness): Yes Tdap Adacel injection was given without incident. See immunizations for details of immunizations administered today. VIS sheet provided: Yes Provider Sheree was present in office at time of injection. Cynthia Saldivar Ma documented in this encounterProm[facility]10-[facility] Instructions* Patient Instructions* Cynthia Saldivar Ma - 05/17/2022 10:04 AM EDT SEQUENTIAL SCREENINGS The [facility] offers sequential screenings for women who are interested in screenings for chromosomal abnormalities and certain defects during a . The sequential screen combinesultrasound and blood tests to determine the risk of chromosomal abnormalities, including Down's Syndrome (Trisomy 21) and Trisomy 18, as well as open neural tube defects including spina bifida. Ultrasound examination is performed between 11 weeks and 13 weeks gestational age. Blood tests are drawn after the ultrasound and again later in the between 15 and 21 weeks gestational age. Please let your physician know if you are interested in this testing. It will require an appointment withour dental technician instructor. This is not an ultrasound performed by a physician in our office during a routine visit. SIGNS AND SYMPTOMS OF LABOR 1. Contractions every 10 minutes or more often 2. Clear, pink, or brownish fluid (water) leaking from vagina 3. Feeling that baby is pushing down, pressure 4. Low, dull backache 5. Cramps that feel like a period 6. Cramps with or without diarrhea If you notice any of the above symptoms, contact our office at [phone] and ask to speak with anurse. After hours, you can call doctors registry at [phone] OR call [facility] at [phone] ask to have the doctor store person paged. If you consider this an emergency, dial 9-3-7 or go to your nearest emergency department. NEED HELP? Are you dealing with a violent or abusive relationship? Are you a victim of rape or sexual assult? Call [facility] ([facility] 24 hour Crisis Hotline: 103.701.6175 or 472-788-5556. MANUAL Your Guide to a Healthy manual is now on-line. Visit [email or web address] to download your free copy documented in this encounterPromedica [facility]09-[facility]22 Miscellaneous Notes* Quick Notes - Yara Bentley MD - 04/17/2022 2:42 PM EDT DM- Pt doing well today. Denies Vaginal Bleeding, Leaking fluid, or contractions. Pt reports good movement. Flu vaccine today. Repeat urine culture. 28 week labs ordered. RTO 4 wks. Yara Hardy MD documented in this encounterPromedica [facility] Hospital09-28-2022 Instructions* Patient Instructions* Cynthia Saldivar Connor - 04/17/2022 2:27 PM EDT SEQUENTIAL SCREENINGS The [facility] offers sequential screenings for women who are interested in screenings for chromosomal abnormalities and certain defects during a . The sequential screen combinesultrasound and blood tests to determine the risk of chromosomal abnormalities, including Down's Syndrome (Trisomy 21) and Trisomy 18, as well as open neural tube defects including spina bifida. Ultrasound examination is performed between 11 weeks and 13 weeks gestational age. Blood tests are drawn after the ultrasound and again later in the between 15 and 21 weeks gestational age. Please let your physician know if you are interested in this testing. It will require an appointment withour dental technician instructor. This is not an ultrasound performed by a physician in our office during a routine visit. SIGNS AND SYMPTOMS OF LABOR 1. Contractions every 10 minutes or more often 2. Clear, pink, or brownish fluid (water) leaking from vagina 3. Feeling that baby is pushing down, pressure 4. Low, dull backache 5. Cramps that feel like a period 6. Cramps with or without diarrhea If you notice any of the above symptoms, contact our office at [phone] and ask to speak with anurse. After hours, you can call doctors registry at [phone] OR call [facility] at [phone] ask to have the doctor store person paged. If you consider this an emergency, dial 3--3 or go to your nearest emergency department. NEED HELP? Are you dealing with a violent or abusive relationship? Are you a victim of rape or sexual assult? Call [facility] ([place]) 24 hour Crisis Hotline: 338.234.9883 or 198-871-3097. MANUAL Your Guide to a Healthy manual is now on-line. Visit [email or web address] to download your free copy documented in this encounterPromedica [facility]08-[facility]22 Miscellaneous Notes* Telephone Encounter - Paty Ochoa RN - 03/20/2022 11:42 AM EDT Faxed * Telephone Encounter - Paty Ochoa RN - 03/20/2022 8:38 AM EDT Received faxed request from [employer] for a breast pump. To DM to sign. Paty Ochoa RN documented in this encounterPromedica Flower Hospital08-31-2022 Miscellaneous Notes* Quick Notes - Yara Bentley MD - 03/20/2022 10:00 AM EDT DM- Pt doing well today. Denies Vaginal Bleeding, Leaking fluid, or cramping. Anatomy us pending from today. Continue ASA. RTO 4 wks. Pt reports when to [facility] this [facility]- ?? UTI- was givenkeflex. I do not see any urine culture results. Will get Urine culture next visit. Yara Hardy MD documented in this encounterPromedica Flower Hospital08-31-2022 Instructions* Patient Instructions* Cynthia Saldivar Ma - 03/20/2022 8:54 AM EDT SEQUENTIAL SCREENINGS The [facility] offers sequential screenings for women who are interested in screenings for chromosomal abnormalities and certain defects during a . The sequential screen combinesultrasound and blood tests to determine the risk of chromosomal abnormalities, including Down's Syndrome (Trisomy 21) and Trisomy 18, as well as open neural tube defects including spina bifida. Ultrasound examination is performed between 11 weeks and 13 weeks gestational age. Blood tests are drawn after the ultrasound and again later in the between 15 and 21 weeks gestational age. Please let your physician know if you are interested in this testing. It will require an appointment withour dental technician instructor. This is not an ultrasound performed by a physician in our office during a routine visit. SIGNS AND SYMPTOMS OF LABOR 1. Contractions every 10 minutes or more often 2. Clear, pink, or brownish fluid (water) leaking from vagina 3. Feeling that baby is pushing down, pressure 4. Low, dull backache 5. Cramps that feel like a period 6. Cramps with or without diarrhea If you notice any of the above symptoms, contact our office at [phone] and ask to speak with anurse. After hours, you can call doctors registry at [phone] OR call [facility] at [phone] ask to have the doctor store person paged. If you consider this an emergency, dial 9-1-4 or go to your nearest emergency department. NEED HELP? Are you dealing with a violent or abusive relationship? Are you a victim of rape or sexual assult? Call [facility] ([place]) 24 hour Crisis Hotline: 762.612.5407 or 362-729-9323. MANUAL Your Guide to a Healthy manual is now on-line. Visit [email or web address] to download your free copy documented in this encounterPromedica [facility]lower [facility]08-26-2022 Miscellaneous Notes* Telephone Encounter - Daniella Marroquin RN - 03/15/2022 3:30 PM EDT Call to pt and notified of below. Pt verbalized understanding. States feeling better, just shaken up about the situation. Daniella Marroquin RN * Telephone Encounter - Adriana Voss MD - 03/15/2022 3:12 PM EDT I received ED report. Patient did not test positive for any drugs. The substance in the room tested+ methamphetamines according to the report. The patient does not need a repeat tox screen. My appologies I think I misunderstood> Her tox screen was negative. No other follow up needed at this time and I hope she is feeling better now. Adriana Voss MD * Telephone Encounter - Olimpia Vivar RN - 03/15/2022 1:22 PM EDT Patient notified and agreed to repeat tox screen at 28 weeks. Olimpia Vivar RN * Telephone Encounter - Adriana Voss MD - 03/15/2022 1:10 PM EDT I am sorry this happened. There is minimal risk from one exposure at this gestational age. I would recommend repeat a urine tox screen at 28 week labs if she agrees for peace of mind and also to document a follow up negative test. Adriana Voss MD * Telephone Encounter - Olimpia Vivar RN - 03/15/2022 9:42 AM EDT 19w5d Patient works in [employer]. Yesterday she went into a hotel room that had a broken sink to check on it and the room had a strong chemical smell. D/t unknown smell, feeling light headed and being she went to [place] [facility]. Per patient room tested +for methamphetamine and customer was likely cooking meth in the room. Asking if she needs any further follow up. ER records to RR. Olimpia Vivar RN documented in this encounterPromedica [facility]08-01-2022 Miscellaneous Notes* Quick Notes - Yara Bentley MD - 02/18/2022 10:42 AM EDT DM- Pt doing well today. Denies Vaginal Bleeding, Leaking fluid. Has some cramping/ stretching sensation and some intermittent left back pain. Second trimester screening today. Anatomy us ordered. RTO 4 wks. Yara Bentley MD documented in this encounterPromedica Flower Hospital08-01-2022 Instructions* Patient Instructions* Olivia Maria Ma - 02/18/2022 9:45 AM EDT SEQUENTIAL SCREENINGS The [facility] offers sequential screenings for women who are interested in screenings for chromosomal abnormalities and certain defects during a . The sequential screen combinesultrasound and blood tests to determine the risk of chromosomal abnormalities, including Down's Syndrome (Trisomy 21) and Trisomy 18, as well as open neural tube defects including spina bifida. Ultrasound examination is performed between 11 weeks and 13 weeks gestational age. Blood tests are drawn after the ultrasound and again later in the between 15 and 21 weeks gestational age. Please let your physician know if you are interested in this testing. It will require an appointment withour dental technician instructor. This is not an ultrasound performed by a physician in our office during a routine visit. SIGNS AND SYMPTOMS OF LABOR 1. Contractions every 10 minutes or more often 2. Clear, pink, or brownish fluid (water) leaking from vagina 3. Feeling that baby is pushing down, pressure 4. Low, dull backache 5. Cramps that feel like a period 6. Cramps with or without diarrhea If you notice any of the above symptoms, contact our office at [phone] and ask to speak with anurse. After hours, you can call doctors registry at [phone] OR call [facility] at [phone] ask to have the doctor store person paged. If you consider this an emergency, dial 9-1-1 or go to your nearest emergency department. NEED HELP? Are you dealing with a violent or abusive relationship? Are you a victim of rape or sexual assult? Call [facility] ([place]) 24 hour Crisis Hotline: 387.154.8270 or 796-937-8876. MANUAL Your Guide to a Healthy manual is now on-line. Visit [email or web address] to download your free copy documented in this encounterPromedica Flower Hospital07-07-2022 Miscellaneous Notes* Quick Notes - Yoselyn Sy MD - 01/24/2022 11:07 AM EDT KJ - Patient presents with scant spotting yesterday morning. Denies any further VB. Denies ctxs/LOF. She had minimal cramps yesterday but it may have been from hunger. PELVIC: no blood or lesions, cervix visually closed & thick. TAUS: active fetus with fca A&P: No evidence of VB. Patient reassured. F/u PRN & as scheduled Yoselyn Sy MD documented in this encounterPromedica Flower Hospital07-07-2022 Instructions* Patient Instructions* Olivia Maria Ma - 01/24/2022 10:48 AM EDT SEQUENTIAL SCREENINGS The [facility] offers sequential screenings for women who are interested in screenings for chromosomal abnormalities and certain defects during a . The sequential screen combinesultrasound and blood tests to determine the risk of chromosomal abnormalities, including Down's Syndrome (Trisomy 21) and Trisomy 18, as well as open neural tube defects including spina bifida. Ultrasound examination is performed between 11 weeks and 13 weeks gestational age. Blood tests are drawn after the ultrasound and again later in the between 15 and 21 weeks gestational age. Please let your physician know if you are interested in this testing. It will require an appointment withour dental technician instructor. This is not an ultrasound performed by a physician in our office during a routine visit. SIGNS AND SYMPTOMS OF LABOR 1. Contractions every 10 minutes or more often 2. Clear, pink, or brownish fluid (water) leaking from vagina 3. Feeling that baby is pushing down, pressure 4. Low, dull backache 5. Cramps that feel like a period 6. Cramps with or without diarrhea If you notice any of the above symptoms, contact our office at [phone] and ask to speak with anurse. After hours, you can call doctors registry at [phone] OR call [facility] at [phone] ask to have the doctor store person paged. If you consider this an emergency, dial 9-1-6 or go to your nearest emergency department. NEED HELP? Are you dealing with a violent or abusive relationship? Are you a victim of rape or sexual assult? Call [facility] ([place]) 24 hour Crisis Hotline: 873.243.2215 or [phone]. MANUAL Your Guide to a Healthy manual is now on-line. Visit [email or web address] to download your free copy documented in this encounterPromedica Flower Hospital07-06-2022 Miscellaneous Notes* Telephone Encounter - Olimpia Vivar RN - 01/23/2022 11:07 AM EDT Patient notified and scheduled for tomorrow with KJ. Olimpia Vivar RN * Telephone Encounter - Adriana Voss MD - 01/23/2022 11:04 AM EDT This is fairly common. If bleeding and or pain increases let us know. Schedule appt tomorrow. Thanks. Adriana Voss MD * Telephone Encounter - Olimpia Vivar RN - 01/23/2022 8:39 AM EDT 12w3d Patient calling because she noticed drop of pink blood with wiping this morning. Having minimal intermittent cramping. Rating 1/10 on pain scale right now. No recent intercourse. No other symptoms. Last visit 01/17/22 and had NT u/s then. Next visit scheduled for 02/18/22. Olimpia Vivar RN documented in this encounterPromedica Flower Hospital07-05-2022 Miscellaneous Notes* Telephone Encounter - Bonnie Martinez MA - 01/22/2022 12:18 PM EDT Patient called and identified by name and date of . Willam De Leon was informed of negative Sequential screen first trimester. Willam De Leon was informed of her risk assessment for Trisomy 21 and18. Based on these results Dr. De La Rosa s recommendation is for patient to follow-up with Sequential second trimester screening (02/16/22-03/02/22) and level II anatomy scan after 18wks. Patient verbalized understanding . Bonnie Martinez MA documented in this encounterPromedica Flower Hospital06-30-2022 Miscellaneous Notes* Quick Notes - Yara Bentley MD - 01/17/2022 9:33 AM EDT DM- Pt doing well today. Denies Vaginal Bleeding, Leaking fluid, or cramping. Some N/V but mild. Will start ASA. NT today- new OB labs today. RTO 4 wks. Yara Hardy MD documented in this encounterPromedica Flower Hospital06-30-2022 History of Present illness Narrative* Oilmpia Vivar RN - 01/17/2022 9:23 AM EDT Patient here for First Trimester Screening. See ultrasound report for details. Options for genetic screening and diagnosis discussed with the patient. Patient opts for first trimester screening and the sequential screening protocol. Limitations of screening tests discussed withthe patient. Yara Hardy MD documented in this encounterPromedica Flower Hospital06-30-2022 Instructions* Patient Instructions* Olimpia Vivar RN - 01/17/2022 9:23 AM EDT SEQUENTIAL TESTING PROCESS Sequential Screen First Trimester Today you are currently: 11w4d weeks 01/17/2022: Ultrasound and blood test. Sequential Screen Second Trimester (16-17 Weeks Gestation) When you are called with your results, the nurse will give the optimal draw dates for the Sequential screen second trimester. Blood testing can be done at any [facility] lab. Please report to the any inspector filters office front end application developer for the Sequential Part 2 requisition and order before reporting to the lab. Your weight will need to be documented for testing. Please note: -No appointment is need for your second blood draw. -Office hours are 8 am to 4:30 pm. -Please have testing done prior to 12 noon on Friday's -Once the sequential testing is started, in the first trimester the only follow- up will be for the sequential screen second trimester. Please don't have a Quad screen ordered by another provider. If you or your Provider have any questions please call your maternal medicine office, for east side please call [phone] or for the West side call [phone] and ask for the the nurse. Thank you. SEQUENTIAL SCREENINGS [facility] offers sequential screenings for women who are interested in screenings for chromosomal abnormalities and certain defects during a . The sequential screen combinesultrasound and blood tests to determine the risk of chromosomal abnormalities, including Down's Syndrome (Trisomy 21) and Trisomy 18, as well as open neural tube defects including spina bifida. Ultrasound examination is performed between 11 weeks and 13 weeks gestational age. Blood tests are drawn after the ultrasound and again later in the between 15 and 21 weeks gestational age. Please let your physician know if you are interested in this testing. It will require an appointment withour dental technician instructor. This is not an ultrasound performed by a physician in our office during a routine visit. SIGNS AND SYMPTOMS OF LABOR 1. Contractions every 10 minutes or more often 2. Clear, pink, or brownish fluid (water) leaking from vagina 3. Feeling that baby is pushing down, pressure 4. Low, dull backache 5. Cramps that feel like a period 6. Cramps with or without diarrhea If you notice any of the above symptoms, contact our office at [phone] and ask to speak with anurse. After hours, you can call doctors registry at [phone] OR call [facility] at [phone] ask to have the doctor store person paged. If you consider this an emergency, dial or go to your nearest emergency department. NEED HELP? Are you dealing with a violent or abusive relationship? Are you a victim of rape or sexual assult? Call [facility] ([place]) 24 hour Crisis Hotline: 258.551.2863 or 125-635-4798. MANUAL Your Guide to a Healthy manual is now on-line. Visit [email or web address] to download your free copy documented in this encounterPromedica Flower Hospital06-01-2022 Miscellaneous Notes* Quick Notes - Yara Bentley MD - 12/19/2021 10:52 AM EDT DM- new OB. NT ordered. ASA reviewed with patient at 12 weeks. HgA1c ordered. RTO 4 weeks. Yara Hardy MD documented in this encounterPromedica Flower Hospital06-01-2022 Instructions* Patient Instructions* Cynthia Saldivar Ma - 12/19/2021 10:22 AM EDT Please select the following link to access the [facility] Your Guide to a Healthy . [email or web address] documented in this encounterPromedica Flower Hospital06-01-2022 History of Present illness Narrative* Yara Bentley MD - 12/19/2021 10:21 AM EDT INITIAL OB ASSESSMENT OB Provider: Yara Bentley MD HPI: Willam De Leon is a 21 year old female here to establish Obstetrical Care. Patient's last menstrual period was 10/28/2021 (exact date). from OB Dating Form. Cycle length: 28 days Complaints: None was unplanned but accepted. OB History T0 L0 SAB0 IAB0 Ectopic0 Multiple0 Live Births0 Prior : never History of 4th degree laceration: No Patient's Risk Screening for delivery: History of abnormal pap: No Prior treatment for cervical dysplasia: none. History of STDs: None Tobacco use: No Caffeine use: yes Drug use: No Alcohol use: No Multivitamin with Folic acid: Yes Occupation: [employer] or [employer] heritage: No Would refuse blood transfusion if medically necessary: No BMI 38.17 kg/(m^2) Patient BMI over 30? Yes Marital Status:Committed relationship Partner: Name: Gigi Carvalho Age: 21 Occupation: [employer] Gender: male History of STDs: None PAST MEDICAL HISTORY Diagnosis Date ADHD (attention deficit hyperactivity disorder) Benign paroxysmal positional vertigo 2020 Left knee pain PAST SURGICAL HISTORY Procedure Laterality Date PAST SURGICAL HISTORY OF wisdom teeth Current Outpatient Medications on File Prior to Visit Medication Sig multivitamin (CLASSIC ) 28 mg iron- 800 mcg tab(s) Take 1 tablet by mouth once daily. No current facility-administered medications on file prior to visit. Review of Systems: GENERAL: Negative for: Fever or Chills HEENT: Negative for: Headache, Impaired Vision, Ringing in Ears, Nosebleeds NECK: Negative for: Swelling, Pain, Stiffness RESPIRATORY: Negative for: Cough, Shortness of breath, Wheezing GASTROINTESTINAL: Negative for: Heartburn, Constipation, Diarrhea, Blood in stool, Vomiting MUSCULOSKELETAL: Negative for: Muscle or joint pain, stiffness, Joint swelling NEUROLOGIC/PSYCHIATRIC: Negative for: Weakness, Paralysis, Numbness, Tingling, Tremor, Anxiety, Depression, Memory loss SKIN: Negative for: Rash, Itching GENITOURINARY: Negative for: vaginal itching, vaginal discharge, hematuria or dysuria PHYSICAL EXAM: BP 116/72 Ht 5' 1 (1.55m) Wt 202 lb (91.6kg) LMP 10/28/2021 BMI 38.19 kg/(m^2). GENERAL: pleasant female in no apparent distress DERMATOLOGY: Normal, without lesions, non-icteric and non-hirsute NECK: Supple, full range of motion, no adenopathy and thyroid normal BREAST: soft, non-tender, symmetric, no dominant mass, normal nipple-areolar complex, no lymphadenopathy and no nipple discharge ABDOMEN: soft, non-tender and no masses NEURO: alert and oriented x3,exam grossly non-focal PELVIS: External genitalia normal without lesions. Perineal body intact. No vaginal or cervical lesions. Cervix closed. Uterus 8 week size. No adnexal masses or tenderness. Clinical Pelvimetry: Pelvimetry clinically assessed as adequate Limited OB ultrasound exam: single intrauterine and positive cardiac activity OB Risk Screening: Completed, no positive findings documented. ASSESSMENT: 21 year old at 7.3 wks gestational age PLAN: 1) Patient oriented to practice. Discussed nutrition, folic acid supplementation, dietary guidelines, exercise, smoking, alcohol, caffeine, and drug use. Discussed routine OB labs including STD/HIV. Discussed aneuploidy screening options including serum screening and nuchal translucency. 2) ASA reviewed at 12 weeks based on BMI 3) NT ordered Follow up in 4 weeks or sooner prn. Yara Hardy MD documented in this encounterPromedica Flower Hospital05-19-2022 Miscellaneous Notes* Quick Notes - Radha Allen RN - 12/06/2021 2:42 PM EDT DISTANCE HEALTH VISIT This Team Access Model visit is a phone encounter. It required patient-provider interaction for themedical decision making as documented below. Father of the baby is involved. Patient is obese. We will plan on early hemoglobin A1c. Patient considering aneuploidy screening. Patient declined geneticcarrier screening testing.Radha Allen RN documented in this encounterPromedica Flower Hospital04-12-2022 Instructions* Patient Instructions* Valentino Gonzalez II, OD - 10/30/2021 8:19 AM EDT Assessment and Plan H53.143 Photophobia of both eyes (primary encounter diagnosis) Comment: Instilled 1 gt Vuity both eyes. Patient will call for Rx to be sent in if any benefit noted. Will discuss consult at [facility] through [facility] neurology. I have confirmed and edited as necessary the relevant ophthalmic history, ROS, and the neuro exam findings as obtained by others. I have seen and examined Willam De Leon. I have discussed the case and the management of this patient's care with the Resident/Fellow, if applicable. I also have reviewed and agree with the assessment and plan as stated above and agree withall of its relevant components. Valentino Gonzalez II, OD documented in this encounterPromedica Flower Hospital04-12-2022 History of Present illness Narrative* Valentino Gonzalez II, OD - 10/30/2021 8:17 AM EDT Assessment and Plan H53.143 Photophobia of both eyes (primary encounter diagnosis) Comment: Instilled 1 gt Vuity both eyes. Patient will call for Rx to be sent in if any benefit noted. Will discuss consult at the [facility] through [facility] neurology. I have confirmed and edited as necessary the relevant ophthalmic history, ROS, and the neuro exam findings as obtained by others. I have seen and examined Willam De Leon. I have discussed the case and the management of this patient's care with the Resident/Fellow, if applicable. I also have reviewed and agree with the assessment and plan as stated above and agree withall of its relevant components. Valentino Gonzalez II, OD documented in this encounterPromedica Flower Hospital04-07-2022 Instructions* Patient Instructions* Valentino Gonzalez II, OD - 10/25/2021 11:00 AM EDT Assessment and Plan G43.109 Migraine with aura and without status migrainosus, not intractable (primary encounter diagnosis) Comment: Visual episodes due to migraine. Ocular exam otherwise unremarkable today. Suggest referral for migraine care. H52.03 Hyperopia, bilateral Comment: No glasses necessary. Discussed glare issues. Patient will return for trial of pilocarpine drop. I have confirmed and edited as necessary the relevant ophthalmic history, ROS, and the neuro exam findings as obtained by others. I have seen and examined Willam De Leon. I have discussed the case and the management of this patient's care with the Resident/Fellow, if applicable. I also have reviewed and agree with the assessment and plan as stated above and agree withall of its relevant components. Valentino Gonzalez II, MARY documented in this encounterPromedica Flower Hospital04-07-2022 History of Present illness Narrative* Valentino Gonzalez II, OD - 10/25/2021 10:56 AM EDT Assessment and Plan G43.109 Migraine with aura and without status migrainosus, not intractable (primary encounter diagnosis) Comment: Visual episodes due to migraine. Ocular exam otherwise unremarkable today. Suggest referral for migraine care. H52.03 Hyperopia, bilateral Comment: No glasses necessary. Discussed glare issues. Patient will return for trial of pilocarpine drop. I have confirmed and edited as necessary the relevant ophthalmic history, ROS, and the neuro exam findings as obtained by others. I have seen and examined Willam De Leon. I have discussed the case and the management of this patient's care with the Resident/Fellow, if applicable. I also have reviewed and agree with the assessment and plan as stated above and agree withall of its relevant components. Valentino Gonzalez II, OD documented in this encounterPromedica Flower Hospital05-10-2021 History of Past illness Narrative* Problem Noted Date Resolved Date Bone bruise 11/27/2020 03/15/2022 Last Assessment & Plan: Assessment: Clinically improving left knee with MR diagnosed femoral condylar bone bruise. Some of her symptoms today are referable to the inferior pole of the patella. All in all they have improved significantly. We discussed the potential benefit of an infrapatellar strap but she does not feel her symptoms are that bad. I emphasized the importance of continuing her independent exercise program and continuing to use the NSAID as needed. PLAN: Continue Mobic as needed Continue independent exercise program Follow-up as needed Acute pain of left knee 09/15/2020 03/15/20 22 Myopia, bilateral 05/30/2020 10/25/2021 documented as of this encounter (statuses as of 03/15/2022) [facility] of Past illness Narrative* Problem Noted Date Resolved Date Bone bruise 11/27/2020 03/15/2022 Last Assessment & Plan: Assessment: Clinically improving left knee with MR diagnosed femoral condylar bone bruise. Some of her symptoms today are referable to the inferior pole of the patella. All in all they have improved significantly. We discussed the potential benefit of an infrapatellar strap but she does not feel her symptoms are that bad. I emphasized the importance of continuing her independent exercise program and continuing to use the NSAID as needed. PLAN: Continue Mobic as needed Continue independent exercise program Follow-up as needed Acute pain of left knee 09/15/2020 03/15/20 22 Myopia, bilateral 05/30/2020 10/25/2021 documented as of this encounter (statuses as of 03/15/2022) [facility] of Past illness Narrative* Problem Noted Date Resolved Date Bone bruise 11/27/2020 03/15/2022 Last Assessment & Plan: Assessment: Clinically improving left knee with MR diagnosed femoral condylar bone bruise. Some of her symptoms today are referable to the inferior pole of the patella. All in all they have improved significantly. We discussed the potential benefit of an infrapatellar strap but she does not feel her symptoms are that bad. I emphasized the importance of continuing her independent exercise program and continuing to use the NSAID as needed. PLAN: Continue Mobic as needed Continue independent exercise program Follow-up as needed Acute pain of left knee 09/15/2020 03/15/20 22 Myopia, bilateral 05/30/2020 10/25/2021 documented as of this encounter (statuses as of 03/20/2022) [facility] of Past illness Narrative* Problem Noted Date Resolved Date Bone bruise 11/27/2020 03/15/2022 Last Assessment & Plan: Assessment: Clinically improving left knee with MR diagnosed femoral condylar bone bruise. Some of her symptoms today are referable to the inferior pole of the patella. All in all they have improved significantly. We discussed the potential benefit of an infrapatellar strap but she does not feel her symptoms are that bad. I emphasized the importance of continuing her independent exercise program and continuing to use the NSAID as needed. PLAN: Continue Mobic as needed Continue independent exercise program Follow-up as needed Acute pain of left knee 09/15/2020 03/15/20 22 Myopia, bilateral 05/30/2020 10/25/2021 documented as of this encounter (statuses as of 03/20/2022) [facility] of Past illness Narrative* Problem Noted Date Resolved Date Bone bruise 11/27/2020 03/15/2022 Last Assessment & Plan: Assessment: Clinically improving left knee with MR diagnosed femoral condylar bone bruise. Some of her symptoms today are referable to the inferior pole of the patella. All in all they have improved significantly. We discussed the potential benefit of an infrapatellar strap but she does not feel her symptoms are that bad. I emphasized the importance of continuing her independent exercise program and continuing to use the NSAID as needed. PLAN: Continue Mobic as needed Continue independent exercise program Follow-up as needed Acute pain of left knee 09/15/2020 03/15/20 22 Myopia, bilateral 05/30/2020 10/25/2021 documented as of this encounter (statuses as of 03/20/2022) [facility] of Past illness Narrative* Problem Noted Date Resolved Date Bone bruise 11/27/2020 03/15/2022 Last Assessment & Plan: Assessment: Clinically improving left knee with MR diagnosed femoral condylar bone bruise. Some of her symptoms today are referable to the inferior pole of the patella. All in all they have improved significantly. We discussed the potential benefit of an infrapatellar strap but she does not feel her symptoms are that bad. I emphasized the importance of continuing her independent exercise program and continuing to use the NSAID as needed. PLAN: Continue Mobic as needed Continue independent exercise program Follow-up as needed Acute pain of left knee 09/15/2020 03/15/20 22 Myopia, bilateral 05/30/2020 10/25/2021 documented as of this encounter (statuses as of 04/17/2022) [facility] of [facility] illness Narrative* Problem Noted Date Resolved Date Bone bruise 11/27/2020 03/15/2022 Last Assessment & Plan: Assessment: Clinically improving left knee with MR diagnosed femoral condylar bone bruise. Some of her symptoms today are referable to the inferior pole of the patella. All in all they have improved significantly. We discussed the potential benefit of an infrapatellar strap but she does not feel her symptoms are that bad. I emphasized the importance of continuing her independent exercise program and continuing to use the NSAID as needed. PLAN: Continue Mobic as needed Continue independent exercise program Follow-up as needed Acute pain of left knee 09/15/2020 03/15/20 22 Myopia, bilateral 05/30/2020 10/25/2021 documented as of this encounter (statuses as of 05/17/2022) [facility] Narrative* Problem Noted Date Resolved Date Myopia, bilateral 05/30/2020 10/25/2021 documented as of this encounter (statuses as of 10/25/2021) [facility] Narrative* Problem Noted Date Resolved Date Myopia, bilateral 05/30/2020 10/25/2021 documented as of this encounter (statuses as of 10/30/2021) [facility] Narrative* Problem Noted Date Resolved Date Myopia, bilateral 05/30/2020 10/25/2021 documented as of this encounter (statuses as of 11/01/2021) [facility] Narrative* Problem Noted Date Resolved Date Myopia, bilateral 05/30/2020 10/25/2021 documented as of this encounter (statuses as of 12/06/2021) [address] History of Past illness Narrative* Problem Noted Date Resolved Date Myopia, bilateral 05/30/2020 10/25/2021 documented as of this encounter (statuses as of 12/19/2021) [place] [id number] History of Past illness Narrative* Problem Noted Date Resolved Date Myopia, bilateral 05/30/2020 10/25/2021 documented as of this encounter (statuses as of 01/17/2022) [address]2020 History of Past illness Narrative* Problem Noted Date Resolved Date Myopia, bilateral 05/30/2020 10/25/2021 documented as of this encounter (statuses as of 01/17/2022) [address]2020 History of Past illness Narrative* Problem Noted Date Resolved Date Myopia, bilateral 05/30/2020 10/25/2021 documented as of this encounter (statuses as of 01/22/2022) [address]2020 History of Past illness Narrative* Problem Noted Date Resolved Date Myopia, bilateral 05/30/2020 10/25/2021 documented as of this encounter (statuses as of 01/23/2022) [address]2020 History of Past illness Narrative* Problem Noted Date Resolved Date Myopia, bilateral 05/30/2020 10/25/2021 documented as of this encounter (statuses as of 01/24/2022) [address] History of Past illness Narrative* Problem Noted Date Resolved Date Myopia, bilateral 05/30/2020 10/25/2021 documented as of this encounter (statuses as of 02/18/2022) [facility]* Diagnosis Migraine with aura and without status migrainosus, not intractable- Primary Migraine with aura, without mention of intractable migraine without mention of status migrainosus Hyperopia, bilateral documented in this encounter [facility] [place] [facility]* Diagnosis Photophobia of both eyes- Primary Visual discomfort [facility] Supervision of normal first , antepartum- Primary Obesity during documented in this encounter [facility] [place] [facility]* Diagnosis Encounter for supervision of normal first in first trimester- Primary Supervision of normal first Obesity in Obesity complicating , childbirth, or the puerperium, unspecified as to episode of care or not applicable Encounter for screening for malignant neoplasm of cervix Screening for malignant neoplasm of the cervix documented [facility] this encounter [facility]* Diagnosis Encounter for supervision of normal first in first trimester- Primary Supervision of normal first Obesity in Obesity complicating , childbirth, or the puerperium, unspecified as to episode of care or not applicable Encounter for screening of mother Unspecified screening 11 weeks gestation of state, incidental [facility] Diagnosis Encounter for (NT) nuchal translucency scan- Primary Other specified screening 11 weeks gestation of state, incidental [facility] Diagnosis Encounter for supervision of normal first in first trimester- Primary Supervision of normal first 12 weeks gestation of state, incidental [facility] Diagnosis Obesity in - Primary Obesity complicating , childbirth, or the puerperium, unspecified as to episode of care or not applicable Encounter for supervision of normal first in second trimester Supervision of normal first 16 weeks gestation of state, incidental [facility] Diagnosis Encounter for supervision of normal first in second trimester Supervision of normal first [facility]* Diagnosis Obesity during - Primary 20 weeks gestation of state, incidental documented in [facility] Diagnosis Encounter for anatomic survey- Primary Obesity complicating , second trimester 20 weeks gestation of state, incidental [facility] Diagnosis Obesity during - Primary Urinary tract infection in mother during second trimester of Need for influenza vaccination Need for prophylactic vaccination and inoculation against influenza 24 weeks gestation of state, incidental [facility] Diagnosis Obesity in - Primary Obesity complicating , childbirth, or the puerperium, unspecified as to episode of care or not applicable 28 weeks gestation of state, incidental Need for vaccination Need for prophylactic vaccination and inoculation against unspecified single disease UTI in , antepartum Infections of genitourinary tract in , unspecified as to episode of care [facility] Diagnosis Acute sinusitis, recurrence not specified, unspecified location- Primary [facility]* Diagnosis Abnormal maternal glucose tolerance, antepartum- Primary [facility]* Diagnosis Abnormal maternal glucose tolerance, antepartum [facility]* Diagnosis Abnormal maternal glucose tolerance, antepartum [facility] [place] [facility] Diagnosis Abnormal maternal glucose tolerance, antepartum [facility] [place] [facility]* Diagnosis Obesity in - Primary Obesity complicating , childbirth, or the puerperium, unspecified as to episode of care or not applicable Gestational diabetes mellitus, class A1 Abnormal maternal glucose tolerance, complicating , childbirth, or the puerperium, unspecified as to episode of care 32 weeks gestation of state, incidental [facility] [place] [facility]* Diagnosis Obesity in - Primary Obesity complicating , childbirth, or the puerperium, unspecified as to episode of care or not applicable Gestational diabetes mellitus, class A1 Abnormal maternal glucose tolerance, complicating , childbirth, or the puerperium, unspecified as to episode of care 33 weeks gestation of state, incidental [facility] [place] [facility]* Diagnosis Abnormal maternal glucose tolerance, antepartum- Primary Dietary counseling Dietary surveillance and counseling documented [facility] [place] [facility]* Diagnosis Gestational diabetes mellitus, class A1- Primary Abnormal maternal glucose tolerance, complicating , childbirth, or the puerperium, unspecified as to episode of care Obesity during 35 weeks gestation of state, incidental [facility] [place] [facility]* Diagnosis Gestational diabetes mellitus, class A1- Primary Abnormal maternal glucose tolerance, complicating , childbirth, or the puerperium, unspecified as to episode of care 35 weeks gestation of state, incidental Obesity during [facility] [place] [facility]* Diagnosis Gestational diabetes mellitus, class A1- Primary Abnormal maternal glucose tolerance, complicating , childbirth, or the puerperium, unspecified as to episode of care Obesity during Encounter for supervision of normal first in third trimester Supervision of normal first [facility] [place] [facility]* Diagnosis Gestational diabetes mellitus (GDM) requiring insulin- Primary Obesity in Obesity complicating , childbirth, or the puerperium, unspecified as to episode of care or not applicable 36 weeks gestation of state, incidental [facility] [place] [facility]* Diagnosis 37 weeks gestation of - Primary state, incidental Encounter for supervision of normal first in third trimester Supervision of normal first documented [facility] [place] [facility]* Diagnosis Gestational diabetes mellitus, class A1- Primary Abnormal maternal glucose tolerance, complicating , childbirth, or the puerperium, unspecified as to episode of care 37 weeks gestation of state, incidental documented [facility] [place] [facility]* Diagnosis Gestational diabetes mellitus, class A1- Primary Abnormal maternal glucose tolerance, complicating , childbirth, or the puerperium, unspecified as to episode of care High-risk in third trimester 39 weeks gestation of state, incidental Obesity in Obesity complicating , childbirth, or the puerperium, unspecified as to episode of care or not applicable documented [facility] [place] [facility]* Diagnosis Onset Date Resolution Status Encounter for induction of labor acute GDM, class A1 acute Obesity affecting acute Status post primary low transverse section acute [facility] Work Phone: Evaluation note* Diagnosis Status post section routine follow-up- Primary Routine follow-up Postop check Follow-up examination, following unspecified surgery documented [facility] [place] [facility]* Diagnosis Mastitis, left, acute- Primary Inflammatory disease of breast Yeast infection of nipple, Infection of nipple, documented in this [facility] [place] [facility]* Diagnosis care and examination- Primary Routine follow-up documented in this [facility] [place] [facility]* Diagnosis Viral URI- Primary Acute upper respiratory infections of unspecified site Breast pain Mastodynia documented in this [facility] [place] [facility]* Diagnosis Right lower quadrant abdominal pain- Primary Abdominal pain, right lower quadrant [facility] [place] [facility]* Diagnosis Other specified disorders of kidney and ureter- Primary documented [facility] [place] [facility]* Diagnosis 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 [facility] [place] [facility]* Diagnosis Complex renal cyst Other specified congenital cystic kidney disease [facility] Diagnosis Lower abdominal pain Abdominal pain, other specified site documented [facility] [place] [facility]* Diagnosis Lower abdominal pain- Primary Abdominal pain, other specified site documented [facility] [place] [facility]* Diagnosis Lower abdominal pain- Primary Abdominal pain, other specified site documented [facility] [place] [facility]* Diagnosis Floaters, bilateral- Primary Hyperopia, bilateral Regular astigmatism of left eye Regular astigmatism [facility] [place] [facility]* Diagnosis Lower abdominal pain Abdominal pain, other specified site documented in this encounter [facility]* Diagnosis Abdominal pain, unspecified abdominal location- Primary documented in this encounter [facility] note* Diagnosis Irritable bowel syndrome, unspecified type- Primary Abdominal pain, unspecified abdominal location documented in this encounter [facility] note* Diagnosis Urinary frequency- Primary Acute cystitis with hematuria Acute cystitis documented in this encounter [facility] note* Diagnosis Abscess- Primary Cellulitis and abscess of unspecified site documented in this encounter [facility] note* Diagnosis Vaginal discomfort- Primary Unspecified symptom associated with female genital organs documented in this encounter [facility] note* Diagnosis Intermenstrual bleeding- Primary Metrorrhagia Pelvic pain in female Unspecified symptom associated with female genital organs Encounter for surveillance of contraceptive pills Surveillance of previously prescribed contraceptive pill documented in this encounter [facility] note* Diagnosis Intermenstrual bleeding Metrorrhagia Pelvic pain in female Unspecified symptom associated with female genital organs documented [facility] [place] [facility]* Diagnosis Irritable bowel syndrome, unspecified type- Primary documented in this encounter [facility] note* Diagnosis Leukocytosis, unspecified type- Primary Medication management Encounter for long-term (current) use of other medications Screening for diabetes mellitus Encounter for lipid screening for cardiovascular disease Screening for lipoid disorders Sleep walking Sleep arousal disorder Screening for depression Encounter for screening examination for other mental health and behavioral disorders documented in this encounter [facility] note* Diagnosis Urinary frequency- Primary Acute UTI Urinary tract infection, site not specified documented in this encounter [facility] for referral (narrative)* Diagnostic Procedure Only (Routine) - Authorized Specialty Diagnoses / Procedures Referred By Chris amezcua Referred To Contact [facility] Diagnoses Encounter for supervision of normal first in first trimester Obesity in Procedures NUCHAL TRANSLUCENCY WHI US NUCHAL TRANSLUCENCY 1ST GESTATION Yara Su MD [address] [place] [address] [address] Referral ID Status Reason Start Date Expiration Date Visits Requested Visits Authorized [id number] Authorized Auto-Generat ed Referral 12/19/2021 12/19/2022 1 1 * Diagnostic Procedure Only (Routine) - Authorized Specialty Diagnoses / Procedures Referred By Contac t Referred To Contact [facility] Diagnoses Encounter for supervision of normal first in first trimester Obesity in Procedures OBSTETRIC ULTRASOUND WHI US PREG UTERUS AFTER 1ST TRIMEST GESTATION Yara Su MD [address] [place] [address] [address] Referral ID Status Reason Start Date Expiration Date Visits Requested Visits Authorized [id number] Authorized Auto-Generat ed Referral 12/19/2021 12/19/2022 1 1 [facility] for referral (narrative)* Diagnostic Procedure Only (Routine) - Authorized Specialty Diagnoses / Procedures Referred By Contac t Referred To Contact [facility] Diagnoses Encounter for supervision of normal first in second trimester Procedures OBSTETRIC ULTRASOUND WHI US PREG UTERUS AFTER 1ST TRIMEST GESTATION Yara Su MD [address] [place] [address] [address] Referral ID Status Reason Start Date Expiration Date Visits Requested Visits Authorized [id number] Authorized Auto-Generat ed Referral 02/18/2022 02/18/2023 1 1 [facility] for referral (narrative)* Diagnostic Procedure Only (Routine) - Authorized Specialty Diagnoses / Procedures Referred By Contac t Referred To Contact [facility] Diagnoses 33 weeks gestation of Obesity in Gestational diabetes mellitus, class A1 Procedures OBSTETRIC ULTRASOUND WHI US PREG UTERUS AFTER 1ST TRIMEST GESTATION Yara Su MD [address] [place] [address] [facility] [address] [place] [address] Referral ID Status Reason Start Date Expiration Date Visits Requested Visits Authorized [id number] Authorized Auto-Generat ed Referral 2 06/18/2023 1 1 [facility] for referral (narrative)* Outpatient Procedure (Routine) - Authorized Specialty Diagnoses / Procedures Referred By Contac t Referred To Contact [facility] Diagnoses 35 weeks gestation of Gestational diabetes mellitus, class A1 Obesity during Procedures NON-STRESS TEST NON-STRESS TEST Yara Su MD [address] [place] [address] [facility] [address] [place] [address] Referral ID Status Reason Start Date Expiration Date Visits Requested Visits Authorized [id number] Authorized Auto-Generat ed Referral 2 07/02/2023 1 1 [facility] for referral (narrative)* Diagnostic Procedure Only (Routine) - Authorized Specialty Diagnoses / Procedures Referred By Contac t Referred To Contact [facility] IM[facility] Diagnoses Complex renal cyst Procedures US KIDNEY/BLADDER US RETROPERITONEAL REAL TIME W/IMAGE COMPLETE Chaz Aguillon MD [address] [place] [address] Us Imaging [facility] Referral ID Status Reason Start Date Expiration Date Visits Requested Visits Authorized [id number] Authorized Auto-Generat ed Referral 4 06/06/2024 1 1 [facility] for referral (narrative)* Outpatient Procedure (Routine) - Authorized Specialty Diagnoses / Procedures Referred By Contac t Referred To Contact [facility] Diagnoses Lower abdominal pain Procedures COLONOSCOPY DIAGNOSTIC COLONOSCOPY FLX DX W/COLLJ SPEC WHEN Indigo Rousseau MD [address] [place] [address] [facility] [address] [address] Referral ID Status Reason Start Date Expiration Date Visits Requested Visits Authorized [id number] Authorized Auto-Generat ed Referral 3 05/12/2024 1 1 [facility] for referral (narrative)* Outpatient Procedure (Routine) - Authorized Specialty Diagnoses / Procedures Referred By Contac t Referred To Contact [facility] Diagnoses Lower abdominal pain Procedures COLONOSCOPY DIAGNOSTIC COLONOSCOPY FLX DX W/COLLJ SPEC WHEN Indigo Rousseau MD [address] [place] [address] [facility] [address] [address] Referral ID Status Reason Start Date Expiration Date Visits Requested Visits Authorized [id number] Authorized Auto-Generat ed Referral 05/26/2023 05/26/2024 1 1 [facility] for referral (narrative)* Outpatient Procedure (Routine) - Closed Specialty Diagnoses / Procedures Referred By Contac t Referred To Contact [facility] Diagnoses Lower abdominal pain Procedures COLONOSCOPY DIAGNOSTIC COLONOSCOPY FLX DX W/COLLJ SPEC WHEN Indigo Rousseau MD [address] [place] [address] [address] Referral ID Status Reason Start Date Expiration Date V isits Requested Visits Authorized [id number] Closed Auto-Generate d Referral 05/26/2023 05/26/2024 1 1 [facility] for referral (narrative)* Diagnostic Procedure Only (Routine) - Authorized Specialty Diagnoses / Procedures Referred By Contac t Referred To Contact [facility] Diagnoses Intermenstrual bleeding Pelvic pain in female Procedures PELVIC US [facility] US PELVIC NONOBSTETRIC REAL-TIME IMAGE COMPLETE Chandni Brown APRN.CNP [address] [place] [address] [facility] [address] [place] [address] Referral ID Status Reason Start Date Expiration Date Visits Requested Visits Authorized [id number] Authorized Auto-Generat ed Referral 01/20/2024 01/19/2025 1 1 [facility] for visit Narrative* Outpatient Procedure (Routine) - Closed Specialty Diagnoses / Procedures Referred By Contac t Referred To Contact [facility] Diagnoses Lower abdominal pain Procedures COLONOSCOPY DIAGNOSTIC COLONOSCOPY FLX DX W/COLLJ SPEC WHEN Indigo Rousseau MD [address] [place] [place] [address] [id number] [place] [address] Referral ID Status Reason Start Date Expiration Date V isits Requested Visits Authorized [id number] Closed Auto-Generate d Referral 05/26/2023 05/26/2024 1 1 [facility] for visit Narrative* Diagnostic Procedure Only (Routine) - Closed Specialty Diagnoses / Procedures Referred By Contac t Referred To Contact [facility] Diagnoses Intermenstrual bleeding Pelvic pain in female Procedures PELVIC US [facility] US PELVIC NONOBSTETRIC REAL-TIME IMAGE COMPLETE Chandni Brown APRN.CNP [address] [place] [address] [facility] [address] [place] [address] Referral ID Status Reason Start Date Expiration Date V isits Requested Visits Authorized [id number] Closed Auto-Generate d Referral 01/20/2024 01/19/2025 1 1 [facility] Medications Administered Section Active Administered Medications - up to 3 most recent administrations Medication Order MAR Action Action Date Dose Rate Site tropicamide 0.5 % 1 Drop (MYDRIACYL) 1 Drop, BOTH EYES, DIRECTED, Starting on Fri10/25/21 at 1100, Until Slime 10/25/21 at 2259, Administer for dilation Given 10/25/2021 11:00 AM EDT 1 Drop Inactive Administered Medications - up to 3 most recent administrations Medication Order MAR Action Action Date Dose Rate Site ibuprofen 800 mg tab(s) (MOTRIN) 800 mg, ORAL, ONCE, 1 dose, On Fri11/01/22 at 1300, If ordered PRN for pain, patient/guardian may elect to receive this medication for higher pain levels INSTEAD of the opioid, if preferred: Yes Given 11/01/2022 1:05 PM EDT 800 mg Oral Inactive Administered Medications - up to 3 most recent administrations Medication Order MAR Action Action Date Dose Rate Site tropicamide 1 % 1 Drop (MYDRIACYL) 1 Drop, BOTH EYES, ONCE, 1 dose, On Fri06/30/23 at 0930, FOR THE EYE Given 06/30/2023 9:30 AM EST 1 Drop Advance Directives No Advanced Directives Records FoundDocuments on File Type Date 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 Advance Directive(s) 01/21/2018 12:06 PM Advance Directive(s) 05/14/2017 9:05 PM Advance Directive(s) 02/18/2017 2:41 PM Documents on File Type Date 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 Advance Directive(s) 01/21/2018 12:06 PM Advance Directive(s) 05/14/2017 9:05 PM Advance Directive(s) 02/18/2017 2:41 PM Advance Directive Response Recorded Date/ Time Living Will No July 30 12:57pm Power of Flow Specialist No July 30, 2022 12:57pm Health Concerns Problem Noted Date OB Reminders 12/19/2021 Problem Noted Date OB Reminders 12/19/2021 Problem Noted Date OB Reminders 12/19/2021 Problem Noted Date OB Reminders 12/19/2021 Problem Noted Date OB Reminders 12/19/2021 Problem Noted Date OB Reminders 12/19/2021 Problem Noted Date OB Reminders 12/19/2021 Problem Noted Date OB Reminders 12/19/2021 Problem Noted Date OB Reminders 12/19/2021 Problem Noted Date OB Reminders 12/19/2021 Problem Noted Date OB Reminders 12/19/2021 Problem Noted Date OB Reminders 12/19/2021 Problem Noted Date OB Reminders 12/19/2021 Problem Noted Date OB Reminders 12/19/2021 Problem Noted Date OB Reminders 12/19/2021 Problem Noted Date OB Reminders 12/19/2021 Problem Noted Date OB Reminders 12/19/2021 Problem Noted Date OB Reminders 12/19/2021 Problem Noted Date OB Reminders 12/19/2021 Problem Noted Date OB Reminders 12/19/2021 Problem Noted Date OB Reminders 12/19/2021 Problem Noted Date OB Reminders 12/19/2021 Infection Onset Date Last Indicated Resolved Time COVID-19 Rule-Out 11/01/2022 11/01/2022 11/02/2022 12:21 AM EDT Problem Noted Date OB Reminders 12/19/2021 Summary Purpose Family History No Family History Records FoundNo Family History Records FoundNo Family History Records FoundNo Family History Records Found Reason for Referral Specialty Diagnoses / Procedures Referred By Contac t Referred To Contact Diagnoses Abnormal maternal glucose tolerance, antepartum Procedures CONSULT TO DIABETES EDUCATION OFFICE/OUTPATIENT [facility] 60-74 MINUTES Yara Su MD [address] [place] [address] Referral ID Status Reason Start Date Expiration Date Visits Requested Visits Authorized [id number] Authorized PCP Requested Referral 2 2023 1 1 Specialty Diagnoses / Procedures Referred By Contac t Referred To Contact Nutrition Diagnoses Abnormal maternal glucose tolerance, antepartum Procedures CONSULT TO NUTRITION THERAPY OFFICE/OUTPATIENT [facility] 60-74 MINUTES Yara Su MD [address] [place] [address] Referral ID Status Reason Start Date Expiration Date Visits Requested Visits Authorized [id number] Authorized PCP Requested Referral 2 2023 1 1 [facility]ty Diagnoses / Procedures [facility] To Contact [facility] Diagnoses Other specified disorders of kidney and ureter Procedures MRI KIDNEY WO/W IVCON MRI ABDOMEN W/O & W/CONTRAST MATERIAL Onesimo Linn APRN.RECREATION ASSISTANT [address] [place] [address] Mr Imaging Referral ID Status Reason Start Date Expiration Date Visits Requested Visits Authorized [id number] Incomplete Auto-Generat ed Referral 02/18/2023 03/19/2024 1 1 Specialty Diagnoses / Procedures Referred By Contac t Referred To Contact Nephrology Diagnoses Complex renal cyst Procedures CONSULT TO NEPHROLOGY OFFICE/OUTPATIENT [facility] 60-74 MINUTES Onesimo Linn APRN.RECREATION ASSISTANT [address] [place] [address] Referral ID Status Reason Start Date Expiration Date Visits Requested Visits Authorized [id number] Authorized PCP Requested Referral 03/21/2023 03/20/2024 1 1 Specialty Diagnoses / Procedures Referred By Contac t Referred To Contact Gastroenterology Diagnoses Abdominal pain, unspecified abdominal location Procedures CONSULT TO GASTROENTEROLOGY OFFICE/OUTPATIENT [facility] 60 MINUTES Onesimo Linn, JUAN JOSÉ.RECREATION ASSISTANT [address] [place] [address] Referral ID Status Reason Start Date Expiration Date Visits Requested Visits Authorized [id number] Authorized PCP Requested Referral 09/25/2023 09/24/2024 1 1 Specialty Diagnoses / Procedures Referred By Contac t Referred To Contact Diagnoses Sleep walking Procedures CONSULT TO SLEEP MEDICINE - ADULT OFFICE/OUTPATIENT [facility] 60 MINUTES Onesimo Linn, JUAN JOSÉ.RECREATION ASSISTANT [address] [place] [id number] Referral ID Status Reason Start Date Expiration Date Visits Requested Visits Authorized [id number] Authorized PCP Requested Referral 02/12/2024 02/11/2025 1 1 Chief Complaint and Reason for Visit Chief Complaint PRIMARY C SECTION Reason for Visit Encounter for induct ion of labor GDM, class A1 Obesity affecting Status post primary low transverse section Additional Source Comments Source Comments (unrecognize d section and content) In the event this informatio n is protected by the Federal Confidentiality of Alcohol and Drug Abuse Patient Records regulations: The Federal rules restrict any use of the information to criminally investigate or prosecute any alcohol or drug abuse patient.[facility] the event this information is protected by the Federal Confidentiality of Alcohol and Drug Abuse Patient Records regulations: The Federal rules restrict any use of the information to criminally investigate or prosecute any alcohol or drug abuse patient.[facility] the event this information is protected by the Federal Confidentiality of Alcohol and Drug Abuse Patient Records regulations: The Federal rules restrict any use of the information to criminally investigate or prosecute any alcohol or drug abuse patient.[facility] the event this information is protected by the Federal Confidentiality of Alcohol and Drug Abuse Patient Records regulations: The Federal rules restrict any use of the information to criminally investigate or prosecute any alcohol or drug abuse patient.[facility] HospitalIn the event this information is protected by the Federal Confidentiality of Alcohol and Drug Abuse Patient Records regulations: The Federal rules restrict any use of the information to criminally investigate or prosecute any alcohol or drug abuse patient.[facility] HospitalIn the event this information is protected by the Federal Confidentiality of Alcohol and Drug Abuse Patient Records regulations: The Federal rules restrict any use of the information to criminally investigate or prosecute any alcohol or drug abuse patient.[facility] HospitalIn the event this information is protected by the Federal Confidentiality of Alcohol and Drug Abuse Patient Records regulations: The Federal rules restrict any use of the information to criminally investigate or prosecute any alcohol or drug abuse patient.[facility] HospitalIn the event this information is protected by the Federal Confidentiality of Alcohol and Drug Abuse Patient Records regulations: The Federal rules restrict any use of the information to criminally investigate or prosecute any alcohol or drug abuse patient.[facility] HospitalIn the event this information is protected by the Federal Confidentiality of Alcohol and Drug Abuse Patient Records regulations: The Federal rules restrict any use of the information to criminally investigate or prosecute any alcohol or drug abuse patient.[facility] HospitalIn the event this information is protected by the Federal Confidentiality of Alcohol and Drug Abuse Patient Records regulations: The Federal rules restrict any use of the information to criminally investigate or prosecute any alcohol or drug abuse patient.[facility] HospitalIn the event this information is protected by the Federal Confidentiality of Alcohol and Drug Abuse Patient Records regulations: The Federal rules restrict any use of the information to criminally investigate or prosecute any alcohol or drug abuse patient.[facility] HospitalIn the event this information is protected by the Federal Confidentiality of Alcohol and Drug Abuse Patient Records regulations: The Federal rules restrict any use of the information to criminally investigate or prosecute any alcohol or drug abuse patient.[facility] HospitalIn the event this information is protected by the Federal Confidentiality of Alcohol and Drug Abuse Patient Records regulations: The Federal rules restrict any use of the information to criminally investigate or prosecute any alcohol or drug abuse patient.[facility] HospitalIn the event this information is protected by the Federal Confidentiality of Alcohol and Drug Abuse Patient Records regulations: The Federal rules restrict any use of the information to criminally investigate or prosecute any alcohol or drug abuse patient.[facility] HospitalIn the event this information is protected by the Federal Confidentiality of Alcohol and Drug Abuse Patient Records regulations: The Federal rules restrict any use of the information to criminally investigate or prosecute any alcohol or drug abuse patient.[facility] HospitalIn the event this information is protected by the Federal Confidentiality of Alcohol and Drug Abuse Patient Records regulations: The Federal rules restrict any use of the information to criminally investigate or prosecute any alcohol or drug abuse patient.[facility] HospitalIn the event this information is protected by the Federal Confidentiality of Alcohol and Drug Abuse Patient Records regulations: The Federal rules restrict any use of the information to criminally investigate or prosecute any alcohol or drug abuse patient.[facility] HospitalIn the event this information is protected by the Federal Confidentiality of Alcohol and Drug Abuse Patient Records regulations: The Federal rules restrict any use of the information to criminally investigate or prosecute any alcohol or drug abuse patient.[facility] HospitalIn the event this information is protected by the Federal Confidentiality of Alcohol and Drug Abuse Patient Records regulations: The Federal rules restrict any use of the information to criminally investigate or prosecute any alcohol or drug abuse patient.[facility] HospitalIn the event this information is protected by the Federal Confidentiality of Alcohol and Drug Abuse Patient Records regulations: The Federal rules restrict any use of the information to criminally investigate or prosecute any alcohol or drug abuse patient.[facility] HospitalIn the event this information is protected by the Federal Confidentiality of Alcohol and Drug Abuse Patient Records regulations: The Federal rules restrict any use of the information to criminally investigate or prosecute any alcohol or drug abuse patient.[facility] HospitalIn the event this information is protected by the Federal Confidentiality of Alcohol and Drug Abuse Patient Records regulations: The Federal rules restrict any use of the information to criminally investigate or prosecute any alcohol or drug abuse patient.[facility] HospitalIn the event this information is protected by the Federal Confidentiality of Alcohol and Drug Abuse Patient Records regulations: The Federal rules restrict any use of the information to criminally investigate or prosecute any alcohol or drug abuse patient.[facility] HospitalIn the event this information is protected by the Federal Confidentiality of Alcohol and Drug Abuse Patient Records regulations: The Federal rules restrict any use of the information to criminally investigate or prosecute any alcohol or drug abuse patient.[facility] HospitalIn the event this information is protected by the Federal Confidentiality of Alcohol and Drug Abuse Patient Records regulations: The Federal rules restrict any use of the information to criminally investigate or prosecute any alcohol or drug abuse patient.[facility] HospitalIn the event this information is protected by the Federal Confidentiality of Alcohol and Drug Abuse Patient Records regulations: The Federal rules restrict any use of the information to criminally investigate or prosecute any alcohol or drug abuse patient.[facility] HospitalIn the event this information is protected by the Federal Confidentiality of Alcohol and Drug Abuse Patient Records regulations: The Federal rules restrict any use of the information to criminally investigate or prosecute any alcohol or drug abuse patient.[facility] HospitalIn the event this information is protected by the Federal Confidentiality of Alcohol and Drug Abuse Patient Records regulations: The Federal rules restrict any use of the information to criminally investigate or prosecute any alcohol or drug abuse patient.[facility] HospitalIn the event this information is protected by the Federal Confidentiality of Alcohol and Drug Abuse Patient Records regulations: The Federal rules restrict any use of the information to criminally investigate or prosecute any alcohol or drug abuse patient.[facility] HospitalIn the event this information is protected by the Federal Confidentiality of Alcohol and Drug Abuse Patient Records regulations: The Federal rules restrict any use of the information to criminally investigate or prosecute any alcohol or drug abuse patient.[facility] HospitalIn the event this information is protected by the Federal Confidentiality of Alcohol and Drug Abuse Patient Records regulations: The Federal rules restrict any use of the information to criminally investigate or prosecute any alcohol or drug abuse patient.[facility] HospitalIn the event this information is protected by the Federal Confidentiality of Alcohol and Drug Abuse Patient Records regulations: The Federal rules restrict any use of the information to criminally investigate or prosecute any alcohol or drug abuse patient.[facility] HospitalIn the event this information is protected by the Federal Confidentiality of Alcohol and Drug Abuse Patient Records regulations: The Federal rules restrict any use of the information to criminally investigate or prosecute any alcohol or drug abuse patient.[facility] HospitalIn the event this information is protected by the Federal Confidentiality of Alcohol and Drug Abuse Patient Records regulations: The Federal rules restrict any use of the information to criminally investigate or prosecute any alcohol or drug abuse patient.[facility] HospitalIn the event this information is protected by the Federal Confidentiality of Alcohol and Drug Abuse Patient Records regulations: The Federal rules restrict any use of the information to criminally investigate or prosecute any alcohol or drug abuse patient.[facility] HospitalIn the event this information is protected by the Federal Confidentiality of Alcohol and Drug Abuse Patient Records regulations: The Federal rules restrict any use of the information to criminally investigate or prosecute any alcohol or drug abuse patient.[facility] HospitalIn the event this information is protected by the Federal Confidentiality of Alcohol and Drug Abuse Patient Records regulations: The Federal rules restrict any use of the information to criminally investigate or prosecute any alcohol or drug abuse patient.[facility] HospitalIn the event this information is protected by the Federal Confidentiality of Alcohol and Drug Abuse Patient Records regulations: The Federal rules restrict any use of the information to criminally investigate or prosecute any alcohol or drug abuse patient.[facility] HospitalIn the event this information is protected by the Federal Confidentiality of Alcohol and Drug Abuse Patient Records regulations: The Federal rules restrict any use of the information to criminally investigate or prosecute any alcohol or drug abuse patient.[facility] HospitalIn the event this information is protected by the Federal Confidentiality of Alcohol and Drug Abuse Patient Records regulations: The Federal rules restrict any use of the information to criminally investigate or prosecute any alcohol or drug abuse patient.[facility] HospitalIn the event this information is protected by the Federal Confidentiality of Alcohol and Drug Abuse Patient Records regulations: The Federal rules restrict any use of the information to criminally investigate or prosecute any alcohol or drug abuse patient.[facility] HospitalIn the event this information is protected by the Federal Confidentiality of Alcohol and Drug Abuse Patient Records regulations: The Federal rules restrict any use of the information to criminally investigate or prosecute any alcohol or drug abuse patient.[facility] HospitalIn the event this information is protected by the Federal Confidentiality of Alcohol and Drug Abuse Patient Records regulations: The Federal rules restrict any use of the information to criminally investigate or prosecute any alcohol or drug abuse patient.[facility] HospitalIn the event this information is protected by the Federal Confidentiality of Alcohol and Drug Abuse Patient Records regulations: The Federal rules restrict any use of the information to criminally investigate or prosecute any alcohol or drug abuse patient.[facility] HospitalIn the event this information is protected by the Federal Confidentiality of Alcohol and Drug Abuse Patient Records regulations: The Federal rules restrict any use of the information to criminally investigate or prosecute any alcohol or drug abuse patient.[facility] HospitalIn the event this information is protected by the Federal Confidentiality of Alcohol and Drug Abuse Patient Records regulations: The Federal rules restrict any use of the information to criminally investigate or prosecute any alcohol or drug abuse patient.[facility] HospitalIn the event this information is protected by the Federal Confidentiality of Alcohol and Drug Abuse Patient Records regulations: The Federal rules restrict any use of the information to criminally investigate or prosecute any alcohol or drug abuse patient.[facility] HospitalIn the event this information is protected by the Federal Confidentiality of Alcohol and Drug Abuse Patient Records regulations: The Federal rules restrict any use of the information to criminally investigate or prosecute any alcohol or drug abuse patient.[facility] HospitalIn the event this information is protected by the Federal Confidentiality of Alcohol and Drug Abuse Patient Records regulations: The Federal rules restrict any use of the information to criminally investigate or prosecute any alcohol or drug abuse patient.[facility] HospitalIn the event this information is protected by the Federal Confidentiality of Alcohol and Drug Abuse Patient Records regulations: The Federal rules restrict any use of the information to criminally investigate or prosecute any alcohol or drug abuse patient.[facility] HospitalIn the event this information is protected by the Federal Confidentiality of Alcohol and Drug Abuse Patient Records regulations: The Federal rules restrict any use of the information to criminally investigate or prosecute any alcohol or drug abuse patient.[facility] HospitalIn the event this information is protected by the Federal Confidentiality of Alcohol and Drug Abuse Patient Records regulations: The Federal rules restrict any use of the information to criminally investigate or prosecute any alcohol or drug abuse patient.[facility] HospitalIn the event this information is protected by the Federal Confidentiality of Alcohol and Drug Abuse Patient Records regulations: The Federal rules restrict any use of the information to criminally investigate or prosecute any alcohol or drug abuse patient.[facility] HospitalIn the event this information is protected by the Federal Confidentiality of Alcohol and Drug Abuse Patient Records regulations: The Federal rules restrict any use of the information to criminally investigate or prosecute any alcohol or drug abuse patient.[facility] HospitalIn the event this information is protected by the Federal Confidentiality of Alcohol and Drug Abuse Patient Records regulations: The Federal rules restrict any use of the information to criminally investigate or prosecute any alcohol or drug abuse patient.[facility] HospitalIn the event this information is protected by the Federal Confidentiality of Alcohol and Drug Abuse Patient Records regulations: The Federal rules restrict any use of the information to criminally investigate or prosecute any alcohol or drug abuse patient.[facility] HospitalIn the event this information is protected by the Federal Confidentiality of Alcohol and Drug Abuse Patient Records regulations: The Federal rules restrict any use of the information to criminally investigate or prosecute any alcohol or drug abuse patient.[facility] HospitalIn the event this information is protected by the Federal Confidentiality of Alcohol and Drug Abuse Patient Records regulations: The Federal rules restrict any use of the information to criminally investigate or prosecute any alcohol or drug abuse patient.[facility] HospitalIn the event this information is protected by the Federal Confidentiality of Alcohol and Drug Abuse Patient Records regulations: The Federal rules restrict any use of the information to criminally investigate or prosecute any alcohol or drug abuse patient.[facility] HospitalIn the event this information is protected by the Federal Confidentiality of Alcohol and Drug Abuse Patient Records regulations: The Federal rules restrict any use of the information to criminally investigate or prosecute any alcohol or drug abuse patient.[facility] HospitalIn the event this information is protected by the Federal Confidentiality of Alcohol and Drug Abuse Patient Records regulations: The Federal rules restrict any use of the information to criminally investigate or prosecute any alcohol or drug abuse patient.[facility] HospitalIn the event this information is protected by the Federal Confidentiality of Alcohol and Drug Abuse Patient Records regulations: The Federal rules restrict any use of the information to criminally investigate or prosecute any alcohol or drug abuse patient.[facility] HospitalIn the event this information is protected by the Federal Confidentiality of Alcohol and Drug Abuse Patient Records regulations: The Federal rules restrict any use of the information to criminally investigate or prosecute any alcohol or drug abuse patient.[facility] HospitalIn the event this information is protected by the Federal Confidentiality of Alcohol and Drug Abuse Patient Records regulations: The Federal rules restrict any use of the information to criminally investigate or prosecute any alcohol or drug abuse patient.[facility] HospitalIn the event this information is protected by the Federal Confidentiality of Alcohol and Drug Abuse Patient Records regulations: The Federal rules restrict any use of the information to criminally investigate or prosecute any alcohol or drug abuse patient.[facility] HospitalIn the event this information is protected by the Federal Confidentiality of Alcohol and Drug Abuse Patient Records regulations: The Federal rules restrict any use of the information to criminally investigate or prosecute any alcohol or drug abuse patient.[facility] HospitalIn the event this information is protected by the Federal Confidentiality of Alcohol and Drug Abuse Patient Records regulations: The Federal rules restrict any use of the information to criminally investigate or prosecute any alcohol or drug abuse patient.[facility] HospitalIn the event this information is protected by the Federal Confidentiality of Alcohol and Drug Abuse Patient Records regulations: The Federal rules restrict any use of the information to criminally investigate or prosecute any alcohol or drug abuse patient.[facility] HospitalIn the event this information is protected by the Federal Confidentiality of Alcohol and Drug Abuse Patient Records regulations: The Federal rules restrict any use of the information to criminally investigate or prosecute any alcohol or drug abuse patient.[facility] HospitalIn the event this information is protected by the Federal Confidentiality of Alcohol and Drug Abuse Patient Records regulations: The Federal rules restrict any use of the information to criminally investigate or prosecute any alcohol or drug abuse patient.[facility] HospitalIn the event this information is protected by the Federal Confidentiality of Alcohol and Drug Abuse Patient Records regulations: The Federal rules restrict any use of the information to criminally investigate or prosecute any alcohol or drug abuse patient.[facility] HospitalIn the event this information is protected by the Federal Confidentiality of Alcohol and Drug Abuse Patient Records regulations: The Federal rules restrict any use of the information to criminally investigate or prosecute any alcohol or drug abuse patient.[facility] HospitalIn the event this information is protected by the Federal Confidentiality of Alcohol and Drug Abuse Patient Records regulations: The Federal rules restrict any use of the information to criminally investigate or prosecute any alcohol or drug abuse patient.[facility] HospitalIn the event this information is protected by the Federal Confidentiality of Alcohol and Drug Abuse Patient Records regulations: The Federal rules restrict any use of the information to criminally investigate or prosecute any alcohol or drug abuse patient.[facility] Reason for Visit (unrecogniz ed section and content) Reason Comments Floaters Both Eyes Headaches Reason Comments Medication Question here for vuity drops Reason Comments Appointment Reason Comments Care Reason Comments Initial OB Visit Reason Onset Date Comments Care 01/17/2022 Reason Comments US Specialty Diagnoses / Procedures Referred By Contac t Referred To Contact [facility] Diagnoses Encounter for supervision of normal first in first trimester Obesity in Procedures NUCHAL TRANSLUCENCY WHI US NUCHAL TRANSLUCENCY 1ST GESTATION Yara Su MD [address] [place] [address] [facility] [place] [address] Referral ID Status Reason Start Date Expiration Date V isits Requested Visits Authorized [id number] Closed Auto-Generate d Referral 12/19/2021 12/19/2022 1 1 Reason Comments First Seq Results Reason Comments Question (OB Question) Reason Onset Date Comments Care 01/24/2022 Reason Onset Date Comments Care 02/18/2022 Reason Onset Date Comments Care 03/20/2022 Specialty Diagnoses / Procedures Referred By Contac t Referred To Contact [facility] Diagnoses Encounter for supervision of normal first in second trimester Procedures OBSTETRIC ULTRASOUND WHI US PREG UTERUS AFTER 1ST TRIMEST GESTATION Yara Su MD [address] [place] [address] [facility] [address] [address] Referral ID Status Reason Start Date Expiration Date V isits Requested Visits Authorized [id number] Closed Auto-Generate d Referral 02/18/2022 02/18/2023 1 1 Reason Comments Breast Pump Reason Onset Date Comments Care 04/17/2022 Immunizations 04/17/2022 Flu vaccination Reason Onset Date Comments Care 05/17/2022 Reason Comments Chest Congestion cough and wheezing x 3-4 weeks, 29 weeks Reason Comments Results Reason Onset Date Comments Patient Question 05/21/2022 Specialty Diagnoses / Procedures Referred By Contac t Referred To Contact Diagnoses Abnormal maternal glucose tolerance, antepartum Procedures CONSULT TO DIABETES EDUCATION OFFICE/OUTPATIENT NEW HIGH MDM 60-74 MINUTES Yara Su MD [address] [place] [address] Referral ID Status Reason Start Date Expiration Date V isits Requested Visits Authorized [id number] Closed PCP Requested Referral 2022 2023 1 1 Reason Onset Date Comments Refill Request 05/22/2022 Specialty Diagnoses / Procedures Referred By Contac t Referred To Contact [facility] Diagnoses Gestational diabetes mellitus, class A1 Obesity in Procedures OBSTETRIC ULTRASOUND WHI US PREG UTERUS AFTER 1ST TRIMEST GESTATION Yara Su MD [address] [place] [address] [facility] [address] [employer] [place] [address] Referral ID Status Reason Start Date Expiration Date V isits Requested Visits Authorized [id number] Closed Auto-Generate d Referral 06/03/2022 06/03/2023 1 1 Reason Onset Date Comments Care 06/18/2022 Reason Comments Reassessment Patient Education Reason Onset Date Comments Care 07/02/2022 Reason Onset Date Comments Care 07/04/2022 Reason Onset Date Comments Care 07/10/2022 Specialty Diagnoses / Procedures Referred By Contac t Referred To Contact [facility] Diagnoses 33 weeks gestation of Obesity in Gestational diabetes mellitus, class A1 Procedures OBSTETRIC ULTRASOUND WHI US PREG UTERUS AFTER 1ST TRIMEST GESTATION Yara Su MD [address] [place] [address] [facility] [address] [place] [place] [address] Referral ID Status Reason Start Date Expiration Date V isits Requested Visits Authorized [id number] Closed Auto-Generate d Referral 06/18/2022 06/18/2023 1 1 Reason Onset Date Comments Care 07/16/2022 Reason Onset Date Comments Care 07/19/2022 Reason Onset Date Comments Care 07/30/2022 Reason Comments Ob Delivery Note Reason Comments Early Reason Comments Breast Problem Pt reported pumping/ bilateral breast pain, x2 days, delivery 07/31/2022 [facility]. Reason Onset Date Comments Refill Request 10/29/2022 Reason Comments Sore Throat Bodyaches, fever, ch ills, cough, congestion x1 day Reason Onset Date Comments Refill Request 11/18/2022 Reason Comments Refill Request Reason Comments Pain Pt reported abd pain , x1 day, denied injury. Reason Comments Results Reason Comments Results Reason Comments Consult Renal Cyst Specialty Diagnoses / Procedures Referred By Contac t Referred To Contact Nephrology Diagnoses Complex renal cyst Procedures CONSULT TO NEPHROLOGY OFFICE/OUTPATIENT [facility] 60-74 MINUTES Onesimo Linn, MEASUREMENT AND SENSING TECHNICIAN.RECREATION ASSISTANT [address] [place], [place] [id number] Referral ID Status Reason Start Date Expiration Date V isits Requested Visits Authorized [id number] Closed PCP Requested Referral 03/21/2023 03/20/2024 1 1 Reason Comments Consult Abdominal pain. Specialty Diagnoses / Procedures Referred By Contac t Referred To Contact General Surgery Diagnoses Generalized abdominal pain Procedures CONSULT TO GENERAL SURGERY OFFICE/OUTPATIENT [facility] 60-74 MINUTES Onesimo Linn, MEASUREMENT AND SENSING TECHNICIAN.RECREATION ASSISTANT [address] [place], [place] [phone] Referral ID Status Reason Start Date Expiration Date V isits Requested Visits Authorized [id number] Closed PCP Requested Referral 05/09/2023 05/08/2024 1 1 Reason Comments Yearly Exam Reason Comments New Patient Abdominal Pain Specialty Diagnoses / Procedures Referred By Contac t Referred To Contact Gastroenterology Diagnoses Abdominal pain, unspecified abdominal location Procedures CONSULT TO GASTROENTEROLOGY OFFICE/OUTPATIENT [facility] MDM 60 MINUTES Onesimo Linn, MEASUREMENT AND SENSING TECHNICIAN.RECREATION ASSISTANT [address] [place] [id number] Referral ID Status Reason Start Date Expiration Date V isits Requested Visits Authorized [id number] Closed PCP Requested Referral 09/25/2023 09/24/2024 1 1 Reason Comments Urinary Problem Possible uti, burnin g and frequency started this morning Reason Comments Mass Reason Comments Derm Problem On stomach 3 days Reason Comments Vaginal Problem Discharge, sore in v aginal x 4 days Reason Comments Clinical Update Reason Comments abnormal bleeding Reason Comments Medication Problem [employer] Insurance Authorization Reason Comments Insurance Authorization [employer] 145 mcg Reason Comments 6 Month Exam Reason Comments Urinary Frequency low back pain x 3 da ys Specialty Diagnoses / Procedures Referred By Chris amezcua Referred To Contact Internal Medicine / [facility] Diagnoses possible uti, burning lower back pain and frequency Procedures EST SAME DAY [facility] [address] [place] [address] Referral ID Status Reason Start Date Expiration Date Visits Requested Visits Authorized [id number] Outside PCP Financial Clearance Required - Self Pay 05/25/2024 08/23/2024 1 1 Care Teams (unrecognized sec tion and content) Cardiology Fellow Relationship Specialty Start Date End Date Payton Nice MD [address] [place] [address] PCP - General Internal Medicine 12/08/20 Cardiology Fellow Relationship Specialty Start Date End Date Payton Nice MD [address] [place] [address] PCP - General Internal Medicine 12/08/20 Cardiology Fellow Relationship Specialty Start Date End Date Payton Nice MD [address] [place] [address] PCP - General Internal Medicine 12/08/20 Cardiology Fellow Relationship Specialty Start Date End Date Payton Nice MD [address] [place] [address] PCP - General Internal Medicine 12/08/20 Cardiology Fellow Relationship Specialty Start Date End Date Payton Nice MD [address] [place] [address] PCP - General Internal Medicine 12/08/20 Cardiology Fellow Relationship Specialty Start Date End Date Payton Nice MD [address] [facility] [address] PCP - General Internal Medicine 12/08/20 Cardiology Fellow Relationship Specialty Start Date End Date Payton Nice MD [address] [facility] [address] PCP - General Internal Medicine 12/08/20 Cardiology Fellow Relationship Specialty Start Date End Date Payton Nice MD [address] [facility] [address] PCP - General Internal Medicine 12/08/20 Cardiology Fellow Relationship Specialty Start Date End Date Payton Nice MD [address] [facility] [address] PCP - General Internal Medicine 12/08/20 Cardiology Fellow Relationship Specialty Start Date End Date Payton Nice MD [address] [facility] [place] [address] PCP - General Internal Medicine 12/08/20 Cardiology Fellow Relationship Specialty Start Date End Date Payton Nice MD [address] [facility] [place] [address] PCP - General Internal Medicine 12/08/20 Cardiology Fellow Relationship Specialty Start Date End Date Payton Nice MD [address] [facility] [address] PCP - General Internal Medicine 12/08/20 Cardiology Fellow Relationship Specialty Start Date End Date Payton Nice MD [address] [facility] [address] PCP - General Internal Medicine 12/08/20 Cardiology Fellow Relationship Specialty Start Date End Date Payton Nice MD [address] [facility] [address] PCP - General Internal Medicine 12/08/20 Cardiology Fellow Relationship Specialty Start Date End Date Payton Nice MD [address] [place] [address] PCP - General Internal Medicine 12/08/20 Cardiology Fellow Relationship Specialty Start Date End Date Payton Nice MD [address] [facility] [place] [address] PCP - General Internal Medicine 12/08/20 Cardiology Fellow Relationship Specialty Start Date End Date Payton Nice MD [address] [facility] [address] PCP - General Internal Medicine 12/08/20 Cardiology Fellow Relationship Specialty Start Date End Date Payton Nice MD [address] [facility] [address] PCP - General Internal Medicine 12/08/20 Cardiology Fellow Relationship Specialty Start Date End Date Payton Nice MD [address] [facility] [address] PCP - General Internal Medicine 12/08/20 Cardiology Fellow Relationship Specialty Start Date End Date Payton Nice MD [address] [facility] [address] PCP - General Internal Medicine 12/08/20 Cardiology Fellow Relationship Specialty Start Date End Date Payton Nice MD [address] [facility] [address] PCP - General Internal Medicine 12/08/20 Cardiology Fellow Relationship Specialty Start Date End Date Payton Nice MD [address] [facility] [address] PCP - General Internal Medicine 12/08/20 Cardiology Fellow Relationship Specialty Start Date End Date Payton Nice MD [address] [facility] [address] PCP - General Internal Medicine 12/08/20 Cardiology Fellow Relationship Specialty Start Date End Date Onesimo Linn APRN.RECREATION ASSISTANT [address] [place] [address] PCP - General Family Medicine 02/11/23 Cardiology Fellow Relationship Specialty Start Date End Date Onesimo Linn APRN.RECREATION ASSISTANT [address] [place] [phone] PCP - General Family Medicine 02/11/23 Cardiology Fellow Relationship Specialty Start Date End Date Onesimo Linn APRN.RECREATION ASSISTANT [address] [place] [address] PCP - General Family Medicine 02/11/23 Cardiology Fellow Relationship Specialty Start Date End Date Onesimo Linn APRN.RECREATION ASSISTANT [address] [place] [address] PCP - General Family Medicine 02/11/23 Cardiology Fellow Relationship Specialty Start Date End Date Onesimo Linn APRN.RECREATION ASSISTANT [address] [place] [phone] PCP - General Family Medicine 02/11/23 Cardiology Fellow Relationship Specialty Start Date End Date Onesimo Linn APRN.RECREATION ASSISTANT [address] [place] [address] PCP - General Family Medicine 02/11/23 Cardiology Fellow Relationship Specialty Start Date End Date Onesimo Linn APRN.RECREATION ASSISTANT [address] [place] [address] PCP - General Family Medicine 02/11/23 Cardiology Fellow Relationship Specialty Start Date End Date Onesimo Linn APRN.RECREATION ASSISTANT [address] [place] [address] PCP - General Family Medicine 02/11/23 Cardiology Fellow Relationship Specialty Start Date End Date Onesimo Linn MEASUREMENT AND SENSING TECHNICIAN.RECREATION ASSISTANT [address] [place] [address] PCP - General Family Medicine 02/11/23 Cardiology Fellow Relationship Specialty Start Date End Date Onesimo Linn MEASUREMENT AND SENSING TECHNICIAN.RECREATION ASSISTANT [address] [place] [address] PCP - General Family Medicine 02/11/23 Cardiology Fellow Relationship Specialty Start Date End Date Onesimo Linn MEASUREMENT AND SENSING TECHNICIAN.RECREATION ASSISTANT [address] [place] [address] PCP - General Family Medicine 02/11/23 Cardiology Fellow Relationship Specialty Start Date End Date Onesimo Linn, MEASUREMENT AND SENSING TECHNICIAN.RECREATION ASSISTANT [address] [place] [address] PCP - General Family Medicine 02/11/23 Cardiology Fellow Relationship Specialty Start Date End Date Onesimo Linn, MEASUREMENT AND SENSING TECHNICIAN.RECREATION ASSISTANT [address] [place] [phone] PCP - General Family Medicine 02/11/23 Cardiology Fellow Relationship Specialty Start Date End Date Onesimo Linn, MEASUREMENT AND SENSING TECHNICIAN.RECREATION ASSISTANT [address] [place] [phone] PCP - General Family Medicine 02/11/23 Cardiology Fellow Relationship Specialty Start Date End Date Onesimo Linn, MEASUREMENT AND SENSING TECHNICIAN.RECREATION ASSISTANT [address] [place] [address] PCP - General Family Medicine 02/11/23 Cardiology Fellow Relationship Specialty Start Date End Date Onesimo Linn APRN.RECREATION ASSISTANT [address] [place] [address] PCP - General Family Medicine 02/11/23 Cardiology Fellow Relationship Specialty Start Date End Date Onesimo Linn APRN.RECREATION ASSISTANT [address] [place] [address] PCP - General Family Medicine 02/11/23 Cardiology Fellow Relationship Specialty Start Date End Date Onesimo Linn APRN.RECREATION ASSISTANT [address] [place] [address] PCP - General Family Medicine 02/11/23 Cardiology Fellow Relationship Specialty Start Date End Date Onesimo Linn APRN.RECREATION ASSISTANT [address] [place] [address] PCP - General Family Medicine 02/11/23 Cardiology Fellow Relationship Specialty Start Date End Date Onesimo Linn APRN.RECREATION ASSISTANT [address] [place] [address] [phone] PCP - General Family Medicine 02/11/23 INFORMATION SOURCE (unrecogn ized section and content) DATE CREATED AUTHOR 03/24/2022 [facility] DATE CREATED AUTHOR AUTHOR'S ORGANIZ ATION 08/05/2022 [facility] DATE CREATED AUTHOR AUTHOR'S ORGANIZ ATION 02/29/2024 [facility] DATE CREATED AUTHOR AUTHOR'S ORGANIZ ATION 05/29/2024 [facility] FOR RECORDS PERTAINING TO PATIENTS WHO ARE OR HAVE BEEN ENROLLED IN A CHEMICAL DEPENDENCY/SUBSTANCEABUSE PROGRAM, SOME INFORMATION MAY BE OMITTED. This clinical summary was aggregated from multiple sources. Caution should be exercised in using it in the provision of clinical care. This summary normalizes information from multiple sources, and as a consequence, information in this document may materially change the coding, format and clinical context of patient data. In addition, data may be omitted in some cases. CLINICAL DECISIONS SHOULD BE BASED ON THE PRIMARY CLINICAL RECORDS. [employer] [facility]. provides no warranty or guarantee of the accuracy or completeness of information in this document.
[2025-02-06 12:42] LABS: hCG Titer Quant., Serum 9962 mIU/mL (<9 non-preg)
--- NOTE | 2025-02-06 12:47 | US_ITS ---
PROCEDURE: TRANSVAGINAL W/PREG US 02/06/2025 REASON FOR EXAM: CRAMPING PAIN, EVALUATE FOR ECTOPIC TECHNIQUE: TRANSVAGINAL W/PREG US FINDINGS: Uterus measures 8.6 x 5.75.2 cm. Right kidney measures 61 x 52 x 29 mm and contains a corpus luteum cyst. Left ovary measures 29 x 17 x 14 mm. There is a small amount of free-fluid adjacent to the left ovary. Intrauterine gestational sac measures 11 mm which would correlate to a 5 week gestation. At this time, no pole is visible. US/Transvaginal w/Preg US IMPRESSION: No ectopic gestation noted. Moderate free-fluid. Intrauterine gestational sac without pole at this time. Recommend follow-up ultrasound and/or hCG. Reading [facility]
--- NOTE | 2025-02-06 12:48 | EDS_ITS ---
HPI History of Present Illness Chief Complaint: Abd Pain Detail of Chief Complaint: Severe pelvic cramping pain Informant: patient Onset/Context/Timing Onset: Today Context: Sudden Onset Timing: Continuous and Waxes and wanes Quality: Colicky Location: pelvic Current Severity: Mild Maximum Severity: Severe Worsened by: Nothing Relieved by: Nothing Associated Symptoms Associated Symptoms: None Narrative Narrative: Patient is a 24-year-old G2, P1 Ab0 female who states her last normal menstrual period was December 25 presents with cramping pelvic pain. She had no complication with first . She is not no blood type. She has no history of endometriosis, ovarian cyst or STI. She denies vaginal bleeding. She denies dysuria, frequency, urgency or hematuria. She denies back or flank pain. There is no history of trauma. She states the onset was with intercourse yesterday. Prior similar symptoms: No Recent Illness/Hospitalization: No PFSH PFSH Medical History GDM, class A1 Gestational diabetes Home Medications ?Medication ?Instructions ?Recorded ?Last Taken ?Type PNV #14-iron-FA#2-pdt-mffkgdvs 1 cap PO.IVFORM DAILY p regnancy 07/30/22 07/30/22 07:00 History Allergy/AdvReac Type Severity Reaction Status Date / Time No Known Allergies Allergy Verified 02/06/25 11:15 Surgical History Status post primary low transverse section History of surgery Social History Smoking Status: Former smoker ROS ROS ED Constitutional Constitutional ED: Denies chills, fever(s), subjective, sweats or weight loss Cardiovascular Cardiovascular: Denies chest pain or palpitations Respiratory/Chest Respiratory/Chest: Denies cough or dyspnea Gastrointestinal Gastrointestinal: Reports abdominal pain; Denies constipation, diarrhea, melena, nausea or vomiting Genitourinary Genitourinary ED: Reports LMP (females 10-50) Details: Comment: (December 25); Denies dysuria, hematuria or urinary frequency Musculoskeletal Musculoskeletal: Denies arthralgias, back pain or myalgias Integumentary Denies rash Hematologic/Lymphatic Hematologic/Lymphatic: Reports systems reviewed and no addt'l complaints, except as documented EXAM Physical Exam Const Vital Signs: 02/06/25 11:02 02/06/25 13:02 02/06/25 15:04 Temperature 98.1 F Temperature Source Temporal Pulse Rate 88 76 Respiratory Rate 18 18 Blood Pressure 126/107 H 137/78 H Blood Pressure Mean 113 97 Pulse Ox 100 100 Oxygen Delivery Method Room Air Positive well nourished and well developed Constitutional Narrative: Patient seems slightly anxious and uncomfortable. General Appearance ED: well developed; Negative for cyanotic, diaphoretic or p allor HEENT Reports moist mucous membranes HEENT Narrative: Head is atraumatic no cephalic. Ears normal. Nares patent Eyes PERRL and EOMs intact bilaterally General Eye ED: Negative for pale conjunctiva or scleral icterus Neck no lymphadenopathy, supple and no JVD Resp normal respiratory effort and clear to auscultation bilaterally Cardio regular rate, regular rhythm, S1 normal heart sound, S2 normal heart sound and no murmurs GI normal to inspection, nondistended, normoactive bowel sounds, non-distended and no masses; Negative for non-tender or hepatosplenomegaly Palpation: soft and tender suprapubic Narrative: External genitalia normal. Vaginal because appears normal. Questionably positive Demarco's sign. There is no blood in the vaginal vault or blood from the os. The os is closed. Bimanual exam difficult since patient appears to be retroverted. Questions fullness right adnexa. Left adnexa is normal. There is slight tenderness in the right adnexa. Back/Spine no CVA tenderness Extremity normal to inspection Neuro oriented x3 and CN's II-XII intact bilaterally Sensorium / Orientation: alert Psych mental status grossly normal Skin no rashes or lesions noted, no wounds and skin turgor normal General Skin Exam: elasticity normal; Negative for jaundice or pallor MDM MDM MDM Narrative Medical decision making narrative: Quantitative hCG was obtained. Ultrasound was obtained to evaluate for torsion, ruptured cyst, intrauterine versus ectopic. Patient blood type is B+ per review of old records. Lab Data Attestation: I reviewed the patient's lab results. Labs: Laboratory Results - last 24 hr 02/06/25 11:55 HCG, Quant 9962 H Radiography Diagnostic Testing: Clinical Impression(s) from Imaging Studies Obstetrics Ultrasound 02/06/25 12:47 IMPRESSION: No ectopic gestation noted. Moderate free-fluid. Intrauterine gestational sac without pole at this time. Recommend follow-up ultrasound and/or hCG. Reading Location: [facility] Management Discussion w/another healthcare provider: Wash Tub Machine Operator (Case discussed with Dr. Abeba Aguila, who is patient's OB. Plan repeat quant in 48 hours and follow-up in 7 to 10 days for repeat ultrasound.) Discharge Plan Triage Chief Complaint: Abd Pain ED Provider: Ananda Quezada Dx/Rx/DC Orders Clinical Impression: Pelvic pain during , First trimester , Free fluid in pelvis Instructions: ED Abdominal Pain, Early Prescriptions: No Action PNV #14-iron-FA#0-dio-vapsdvsk 1 cap PO.IVFORM DAILY Primary Care Provider: Cristine Hernandez Referrals: Abeba Aguila MD [Med Staff - Active Staff] - 1 Week Cristine Hernandez, ROUTE PROCESS ADMINISTRATOR-C [Primary Care Provider] - Activity Restrictions/Additional Instructions: 1. Repeat blood test on Friday. 2. Call Dr. Abeba Aguila's office tomorrow to be seen in 7 to 10 days for repeat ultrasound Print Language: Belgian Disposition Disposition: Home, Self Care
[2025-02-06 13:02] VITALS: BP 137/78; PULSE 76
[2025-02-06 15:04] VITALS: RESP 18; O2SAT 100
[2025-02-06 15:54] VITALS: BP 125/76; PULSE 76; RESP 18; TEMP 36.7; O2SAT 100
== END 2025-02-06 15:57 | disposition home or self-care (01) ==
PROVIDERS: Emergency Provider Emergency Medicine; PCP Nurse Practitioner Family; Visit Provider Emergency Medicine
DX: O99.891 Other specified diseases and conditions complicating pregnancy (principal); Z87.891 Personal history of nicotine dependence; R10.2 Pelvic and perineal pain; Z3A.00 Weeks of gestation of pregnancy not specified
CPT/HCPCS: 36415; 76817; 84702; 99283; A4216